=== PATIENT | male | born 1955 | race Caucasian/White ===

== ENCOUNTER 2018-11-18 21:13 | Inpatient (IN) ==
[2018-11-18] MEDS ORDERED: Furosemide 40 MG/4 ML VIAL IVP ONE (21:46)
--- NOTE | 2018-11-18 21:57 | Emergency Department Note ---
Disposition Clinical Impression: Acute exacerbation of congestive heart failure Qualifiers: Heart failure type: unspecified Qualified Code(s): I50.9 - Heart failure, unspecified Chronic kidney disease (CKD) Qualifiers: Chronic kidney disease stage: unspecified stage Qualified Code(s): N18.9 - Chronic kidney disease, unspecified Disposition: Admitted As Inpatient Condition: Fair Referrals: NONE,PCP [Primary Care Provider] - Forms: ED Satisfaction Letter Time of Disposition: 22:30 SOB HPI - General Chief Complaint: ED Shortness of Breath/Dyspnea Stated Complaint: SOB/fluid retention Time Seen by Provider: 11/18/18 21:32 Source: patient, family Mode of arrival: wheelchair Limitations: no limitations Nursing Notes Reviewed: Yes Vital Signs Reviewed: Yes - History of Present Illness Patient has history of advanced kidney disease and congestive heart failure. He complains of water weight gain, peripheral edema, dyspnea. He has a baseline orthopnea and has to lie on his right side at night to sleep. He states his loss control representative stopped his Bumex and change to torsemide because of concerns for allergic type symptoms. He states his swelling has increased since that time. No chest pain Pt Subjective Complaint: shortness of breath Onset (ago): day(s) Consistency/Duration: intermittent Improves with: oxygen, bronchodilators Worsens with: exertion, movement Known history of: congestive heart failure, diabetes Associated symptoms: Reports: other (Dry mouth) Treatment prior to arrival: oxygen - Related Data Home Medications Medication Instructions Recorded Confirmed Apixaban [Eliquis] 5 mg PO BID 07/18/17 09/24/17 Atorvastatin Calcium [Lipitor] 80 mg PO DAILY 07/18/17 09/24/17 Empagliflozin [Jardiance] 10 mg PO DAILY 07/18/17 09/24/17 Ergocalciferol (VITAMIN D2) 50,000 unit PO Q5D 07/18/17 09/24/17 [Vitamin D2] Furosemide [Lasix] 40 mg PO DAILY 07/18/17 09/24/17 Insulin Glargine [Lantus] 26 unit SQ HS 07/18/17 09/24/17 Isosorbide MONOnitrate (24 HR) 30 mg PO DAILY 07/18/17 09/24/17 [Imdur] Pantoprazole Sodium [Protonix] 40 mg PO DAILY 07/18/17 09/24/17 Spironolactone [Aldactone] 25 mg PO DAILY 07/18/17 09/24/17 Terazosin [Hytrin] 5 mg PO HS 07/18/17 09/24/17 glipiZIDE [Glipizide] 10 mg PO DAILY 07/18/17 09/24/17 Allergies Allergy/AdvReac Type Severity Reaction Status Date / Time Cortisone AdvReac Confusion Verified 09/24/17 10:01 lisinopril AdvReac Cough Verified 09/24/17 10:01 All systems ED: reviewed and negative except as stated. Constitutional: Reports: as per HPI Eyes: Reports: as per HPI ENT ED: Reports: other ("[place]") Cardiovascular: Reports: dyspnea on exertion, edema Respiratory: Reports: dyspnea, wheezes Gastrointestinal: Reports: as per HPI Genitourinary: Reports: as per HPI Musculoskeletal: Reports: other (Right knee pain) Integumentary: Reports: as per HPI Neurological: Reports: as per HPI Psychiatric: Reports: as per HPI Endocrine: Reports: as per HPI Hematological/Lymphatic: Reports: as per HPI Allergic/Immunologic: Reports: as per HPI Past Medical History - Past Medical History Source: old records reviewed Medical history: Reports: COPD, coronary artery disease, CVA, diabetes, GI bl eed, hyperlipidemia, hypertension, renal disease, other Psychiatric history: Reports: no psych history - Social History Smoking Status: Former smoker Smokeless Tobacco Status: No Alcohol use: Reports: none Drug use: Reports: none Physical Exam - General Limitations: no limitations General appearance: alert, in no apparent distress - Head Head exam: atraumatic - Eye Eye exam: Present: normal appearance - ENT ENT exam: normal exam - Neck Neck exam: Present: normal inspection, full ROM - Chest Chest inspection: Present: symmetric chest wall rise - Respiratory Respiratory exam: Present: other (Diffuse expiratory rhonchi) - Cardiovascular Cardiovascular exam: Present: regular rate, irregular rhythm - Abdominal Exam Abdominal exam: Present: other (Obese) - Extremities Exam Extremities exam: Present: pedal edema - Neurological Exam Neurological exam: Present: alert, oriented X3, CN II-XII intact, other (Left- sided weakness remote from a stroke) - Psychiatric Psychiatric exam: Present: normal affect, normal mood - Skin Skin exam: Present: warm, dry, intact Course Course Narrative: Patient presents with unintentional water weight gain, peripheral edema, dyspnea. He has a known history of congestive heart failure. - Reevaluation(s) Reevaluation #1: patient requests a ramesh catheter bc his right knee is injured s/p fall 1 week ago and he cant ambulate / doesn't want to use a bedside commode or handheld uri nal Vital Signs Temperature 98.1 F 11/18/18 21:27 Pulse Rate 89 11/18/18 21:27 Respiratory Rate 24 11/18/18 21:27 Blood Pressure 154/66 11/18/18 21:27 O2 Sat by Pulse Oximetry 90 11/18/18 21:27 Temperature 98.1 F 11/18/18 21:27 Pulse Rate 89 11/18/18 21:27 Respiratory Rate 24 11/18/18 21:27 Blood Pressure 154/66 11/18/18 21:27 O2 Sat by Pulse Oximetry 95 11/18/18 22:06 Oxygen Delivery Oxygen Delivery Nasal Cannula Shortness of Breath/Dyspnea - Medical Records Medical records reviewed: Yes I reviewed the patient's medical records. - Lab Data Lab results reviewed: Yes I reviewed the patient's lab results. Result diagrams: 11/18/18 22:04 11/18/18 22:04 Lab Results 11/18/18 11/18/18 11/18/18 Range/Units 22:04 22:04 22:04 WBC 6.1 (4.3-11.1) K/mcL RBC 4.09 L (4.19-5.50) M/mcL Hgb 13.0 (12.9-16.9) g/dL Hct 40.7 (37.5-50.1) % MCV 99.5 D (83.0-100.0) fL MCH 31.8 (28.0-33.3) pg MCHC 31.9 (31.6-35.5) g/dL RDW 14.0 (11.5-14.5) % Plt Count 140 (140-400) K/mcL MPV 11.2 (9.4-12.4) fL Immature Gran % 0.5 (0-4) % Seg Neutrophils % 63.9 % Lymphocytes % 23.8 % Monocytes % 9.9 % Eosinophils % 1.2 % Basophils % 0.7 % Neutrophils # 3.9 (1.6-8.9) K/mcL Lymphocytes # 1.5 (0.6-4.6) K/mcL Monocytes # 0.6 (0.0-1.3) K/mcL Eosinophils # 0.1 (0.0-0.6) K/mcL Basophils # 0.0 (0.0-0.2) K/mcL Sodium 138 (136-145) mEq/L Potassium 5.1 (3.5-5.1) mEq/L Chloride 99 (98-107) mEq/L Carbon Dioxide 32 H (23-29) mEq/L BUN 41 H (8-23) mg/dL Creatinine 2.36 H (0.70-1.30) mg/dL Est GFR ( Amer) 34 L (> 60) Est GFR (Non-Af Amer) 28 L (> 60) BUN/Creatinine Ratio 17 (6-26) Glucose 219 H (70-105) mg/dL Calculated Osmolality 303 H (280-300) Calcium 8.8 (8.6-10.3) mg/dL Total Bilirubin 0.5 (0.3-1.0) mg/dL AST 23 (13-39) Units/L ALT 16 (7-52) Units/L Alkaline Phosphatase 97 (34-104) Units/L Troponin I < 0.03 (< 0.04) ng/mL B-Natriuretic Peptide 85 (Less than 100) pg/mL Serum Total Protein 5.8 L (6.4-8.9) g/dL Albumin 3.3 L (3.5-5.7) g/dL Globulin 2.5 (2.4-3.5) g/dL Albumin/Globulin Ratio 1.3 (1.1-2.2) - Radiology Data Radiology results reviewed: Yes I reviewed the patient's radiology results. - EKG Data EKG attestation: Yes I reviewed and interpreted this EKG. EKG results narrative: Irregularly irregular rhythm rate 88 QRS 97 QT/QTC 337/424. Study compared to previous dated 10/12/18
[2018-11-18 22:13] LABS: Basophils % 0.7 %; Eosinophils # 0.1 K/mcL (0.0-0.6); Eosinophils % 1.2 %; Hematocrit 40.7 % (37.5-50.1); Immature Granulocytes % 0.5 % (0-4); Lymphocytes # 1.5 K/mcL (0.6-4.6); Lymphocytes % 23.8 %; Mean Corpuscular HGB Conc 31.9 g/dL (31.6-35.5); Mean Corpuscular Hemoglobin 31.8 pg (28.0-33.3); Mean Platelet Volume 11.2 fL (9.4-12.4); Monocytes # 0.6 K/mcL (0.0-1.3); Monocytes % 9.9 %; Neutrophils # 3.9 K/mcL (1.6-8.9); Platelet Count 140 K/mcL (140-400); Red Blood Count 4.09 M/mcL (4.19-5.50); Segmented Neutrophils % 63.9 %
[2018-11-18 22:18] LABS: Mean Corpuscular Volume 99.5 fL (83.0-100.0)
[2018-11-18 22:36] LABS: Troponin I < 0.03 ng/mL (< 0.04)
[2018-11-18 22:43] LABS: Alanine Aminotransferase 16 Units/L (7-52); Albumin 3.3 g/dL (3.5-5.7); Albumin/Globulin Ratio 1.3 (1.1-2.2); Alkaline Phosphatase 97 Units/L (34-104); Aspartate Amino Transferase 23 Units/L (13-39); BUN/Creatinine Ratio 17 (6-26); Bilirubin,Total 0.5 mg/dL (0.3-1.0); Blood Urea Nitrogen 41 mg/dL (8-23); Calcium 8.8 mg/dL (8.6-10.3); Carbon Dioxide 32 mEq/L (23-29); Chloride 99 mEq/L (98-107); Globulin 2.5 g/dL (2.4-3.5); Glucose 219 mg/dL (70-105); Osmolality,Calculated 303 (280-300); Potassium 5.1 mEq/L (3.5-5.1); Sodium 138 mEq/L (136-145); Total Protein 5.8 g/dL (6.4-8.9); eGFR For Non-African Americans 28 (> 60)
[2018-11-19] MEDS ORDERED: Naloxone 0.4 MG/ML INJ IVP PRN (05:45)
[2018-11-19 06:52] LABS: Basophils # 0.1 K/mcL (0.0-0.2); Basophils % 0.8 %; Eosinophils # 0.1 K/mcL (0.0-0.6); Eosinophils % 1.6 %; Hematocrit 38.7 % (37.5-50.1); Hemoglobin 12.6 g/dL (12.9-16.9); Immature Granulocytes % 0.3 % (0-4); Lymphocytes # 1.5 K/mcL (0.6-4.6); Lymphocytes % 23.3 %; Mean Corpuscular HGB Conc 32.6 g/dL (31.6-35.5); Mean Corpuscular Hemoglobin 32.2 pg (28.0-33.3); Mean Platelet Volume 11.4 fL (9.4-12.4); Monocytes # 0.6 K/mcL (0.0-1.3); Monocytes % 9.2 %; Neutrophils # 4.2 K/mcL (1.6-8.9); Platelet Count 142 K/mcL (140-400); Red Blood Count 3.91 M/mcL (4.19-5.50); Red Cell Distribution Width 14.2 % (11.5-14.5); Segmented Neutrophils % 64.8 %
[2018-11-19 07:13] LABS: Albumin 3.3 g/dL (3.5-5.7); Albumin/Globulin Ratio 1.3 (1.1-2.2); Bilirubin,Total 0.6 mg/dL (0.3-1.0); Globulin 2.5 g/dL (2.4-3.5); Phosphorous 4.1 mg/dL (2.7-4.5); Potassium 4.7 mEq/L (3.5-5.1); Total Protein 5.8 g/dL (6.4-8.9)
[2018-11-19] MEDS ORDERED: *HR* Dextrose 50 % in Water (Syg) 50 ML SYRINGE IVP PRN (07:46)
[2018-11-19] MEDS ORDERED: D5% in Water 1,000 ML IVC PRN (07:46)
[2018-11-19] MEDS ORDERED: Dextrose Gel 15 GM/37.5 ML TUBE PO PRN ×2 (07:46)
--- NOTE | 2018-11-19 08:48 | Internal Med History&Physical ---
Date of Encounter: 11/19/18 Time of Encounter: 08:39 Internal Medicine - H&P: HPI Chief complaint: shortness of breath, lower extremities edema. Admitted From: Home Plans for Post Hospital Care: Home History of present illness: Mr. Cazares is a 63 year old male PMH CKD< CHF, DM, A.fib, YANG, HTN, and a CVA with left sided residual weakness. Patient presented to the ed due to shortness of breath that has been progressing over the past month. He reports that yesterday he started having increased shortness of breath at rest and had to increase his O2 supplementation from 2 litters to 4 litters, and still his O2 saturation was 81% for which he decided to come to the ED. He also reports that over the past month his diuretics have been changed, he was on bumex but it was changed to torsemide due to some allergic reaction. Reports that after being placed on torsemide his lower extremities have been getting more edematous, associated with increase in his weight. Stated that he went to his PCP on Wednesday and they increased his torsemide to twice a day without any significant improvement on his symptoms. he denies chest pain, nausea, vomiting or lightheadedness. Denies increase in fluid intake. Past Med Surg Social Fam HX - Past Medical History Medical history: COPD, coronary artery disease, CVA, diabetes, GI bleed, hyperlipidemia, hypertension, renal disease, other Additional medical history: CVA 1996 - 49 use of left side. Stage IV Renal Disease. Type II Diabetic Psychiatric history: no psych history - Past Surgical History Additional surgical history: lapband surgery, emergency surgery for bleeding ulcer, 3-4 cardiac stents - Social History Smoking Status: Former smoker Smokeless Tobacco Status: No Alcohol use: none Drug use: none Internal Medicine - H&P: Meds Apixaban [Eliquis] 5 mg PO BID 11/19/18 [History] Atorvastatin [Lipitor] 80 mg PO AD 11/19/18 [History] Calcitriol [Rocaltrol] 0.25 mcg PO DAILY 11/19/18 [History] Cholecalciferol (Vitamin D3) 11/19/18 [History] Hydrocodone/Acetaminophen [Hydrocodon-Acetaminophen 5-325] 1 each PO TID PRN 11/19/18 [History] Insulin NPH Hum/Reg Insulin Hm [Novolin 70-30 100 Unit/ml Vial] 70 unit SQ QAM 11/19/18 [History] Isosorbide MONOnitrate [Isosorbide Mononitrate ER] 30 mg PO DAILY 11/19/18 [History] Mag Oxide/D3/Turmeric Rt Xt [Magnesium-Vit D3-Turmeric Tab] 1 each PO BID 11/19/18 [History] Metoprolol XL (24 HR) Succ [Toprol XL] 25 mg PO BID 11/19/18 [History] Pantoprazole Sodium [Protonix] 40 mg PO DAILY 11/19/18 [History] Terazosin [Hytrin] 5 mg PO DAILY 11/19/18 [History] Torsemide [Demadex] 10 mg PO BID 11/19/18 [History] metOLazone [Zaroxolyn] 2.5 mg PO 11/19/18 [History] Allergy/AdvReac Type Severity Reaction Status Date / Time Cortisone AdvReac Confusion Verified 09/24/17 10:01 lisinopril AdvReac Cough Verified 09/24/17 10:01 All Systems PM: A 10-system review of systems was performed and is negative for pertinent findings except as documented above in the HPI. - Constitutional Constitutional: weight gain, no fever(s), no malaise, no weakness - EENT Eyes: no irritation Nose, mouth and throat: no nasal congestion - Cardiovascular Cardiovascular ROS IM: chest pain, dyspnea, dyspnea on exertion, edema, orthopnea, paroxysmal nocturnal dyspnea, no irregular heart rhythm, no lightheadedness, no palpitations, no syncope - Respiratory Respiratory: no cough, no wheezing - Gastrointestinal Gastrointestinal: no abdominal pain - Genitourinary Genitourinary ROS male: no urinary frequency, no urinary hesitancy, no urinary incontinence, no urinary urgency - Musculoskeletal Musculoskeletal ROS IM: no back pain, no numbness, no stiffness - Integumentary Integumentary IM: no erythema - Neurological Neurological ROS: no headache(s), no lack of coordination - Psychiatric Psychiatric: no hallucinations, no homicidal ideation - Endocrine Endocrine IM: no polydipsia, no polyphagia, no polyuria - Hematologic/Lymphatic Hematologic/Lymphatic: no lymphadenopathy - Allergic/Immunologic Allergic/Immunologic: no wheezing Additional comments: Rest of 10 review of system negative. - Constitutional Vitals: Temp Pulse Resp BP Pulse Ox 97.4 F L 102 18 127/71 91 11/19/18 07:23 11/19/18 07:23 11/19/18 07:23 11/19/18 07:23 11/19/18 07:23 Exam: Vitals: Reviewed. General: Obese, Alert and oriented x4. mild distress due to shortness of breath. Skin: Normal color, no rash, no lesions. HEENT: EOM, pupils equal, round and reactive. Cardiovascular: Irregularly, irregular, normal S1 & S2, no rubs, murmurs or gallops. JVD unable to access due to short neck Lungs: mild scattered b/l wheezes, minimal crackles at the bases b/l. Abdomen: Soft, non-tender, no rigidity. Extremities: 2+ pitting edema. Neurological: Normal cognition and motor skills. Rest of the physical exam is non contributory Internal Med - H&P Results - Labs CBC & Chem 7: 11/19/18 06:36 11/19/18 06:36 Labs: Short CBC 11/18/18 11/19/18 Range/Units 22:04 06:36 WBC 6.1 6.4 (4.3-11.1) K/mcL Hgb 13.0 12.6 L (12.9-16.9) g/dL Hct 40.7 38.7 (37.5-50.1) % Plt Count 140 142 (140-400) K/mcL Neutrophils # 3.9 4.2 (1.6-8.9) K/mcL BMP 11/18/18 11/19/18 22:04 06:36 Sodium 138 140 Potassium 5.1 4.7 Chloride 99 99 Carbon Dioxide 32 H 37 H BUN 41 H 42 H Creatinine 2.36 H 2.55 H Glucose 219 H 194 H Calcium 8.8 9.0 Cardiac Enzymes 11/18/18 Range/Units 22:04 Troponin I < 0.03 (< 0.04) ng/mL Liver Function 11/18/18 11/19/18 Range/Units 22:04 06:36 Total Bilirubin 0.5 0.6 (0.3-1.0) mg/dL AST 23 13 (13-39) Units/L ALT 16 13 (7-52) Units/L Alkaline Phosphatase 97 88 (34-104) Units/L Albumin 3.3 L 3.3 L (3.5-5.7) g/dL - Impressions ITS Impressions Chest X-Ray 11/18/18 21:33 IMPRESSION: Perhaps mild pulmonary vascular congestion and interstitial edema. D/ / Zenon Duque MD / Zenon Duque MD Interpreting Provider: Zenon Duque MD - Diagnostic Studies Chest x-ray Status: image reviewed by me (possible pulmonary congestion. ) - Assessment and plan (1) Acute exacerbation of congestive heart failure Current Visit: Yes Status: Acute Assessment and plan: 2 plus pitting edema in the lower extr b/l. Plan On torsemide 10mg/PO daily Nephrology team has been consulted to assist with the diuresis strict intake and output water restriction to 1.5 litters a day. daily weight 2 gram sodium diet on a beta-danny continue Isosorbide 30mg/PO daily Qualifiers: Heart failure type: unspecified Qualified Code(s): I50.9 - Heart failure, unspecified (2) Diabetes Current Visit: Yes Status: Chronic Assessment and plan: started on a carb controlled diet, will resume Humulin 70/30 40 units BID, plus lispro low dose sliding scale ac. Qualifiers: Diabetes mellitus type: type 2 Diabetes mellitus complication status: with unspecified complications Qualified Code(s): E11.8 - Type 2 diabetes mellitus with unspecified complications (3) YANG (obstructive sleep apnea) Current Visit: Yes Status: Chronic (4) CVA (cerebral vascular accident) Current Visit: Yes Status: Chronic Assessment and plan: patient with a Hx of A.fib on Apixaban for secondary stroke prevention. Qualifiers: CVA mechanism: unspecified Qualified Code(s): I63.9 - Cerebral infarction, unspecified (5) Chronic kidney disease (CKD) Current Visit: Yes Status: Chronic Assessment and plan: slightly worsening kidney function possible due to CHF exacerbation. patient started on torsemide. Nephrology has been consulted, recommendations appreciated. Qualifiers: Chronic kidney disease stage: stage 4 (severe) Qualified Code(s): N18.4 - Chronic kidney disease, stage 4 (severe) (6) DVT prophylaxis Current Visit: No Status: Acute Assessment and plan: patient is anticoagulated with apixaban due to a.fib (7) Morbid obesity with BMI of 40.0-44.9, adult Current Visit: No Status: Chronic (8) COPD (chronic obstructive pulmonary disease) Current Visit: No Status: Chronic Assessment and plan: PFT done on 04/04/18. Spirometry shows severe airway restrictive disease. Started on bronchodilators Q4RT PRN for wheezing. Incentive spirometry. Qualifiers: COPD type: unspecified COPD Qualified Code(s): J44.9 - Chronic obstructive pulmonary disease, unspecified (9) Atrial fibrillation Current Visit: Yes Status: Chronic Assessment and plan: rate controlled on metoprolol 25mg/PO BID. resume apixaban 5mg/PO BID. telemetry monitoring. Qualifiers: Atrial fibrillation type: chronic Qualified Code(s): I48.2 - Chronic atrial fibrillation (10) HLD (hyperlipidemia) Current Visit: Yes Status: Chronic Assessment and plan: on statin Qualifiers: Hyperlipidemia type: unspecified Qualified Code(s): E78.5 - Hyperlipidemia, unspecified - Time Spent With Patient Total time spent is greater than 50% in coordination of care (as documented) at patient's floor/unit and/or counseling patient: Greater than 35 minutes (50)
[2018-11-19] MEDS ORDERED: Ipratropium/Albuterol Neb 3 ML IH PRN (08:51)
[2018-11-19] MEDS: Apixaban 5 MG TABLET PO SCH ×2 (09:43→19:29)
[2018-11-19] MEDS: Insulin LISPRO 300 UNITS/3 ML VIAL SQ SCH ×4 (09:43→17:00)
[2018-11-19] MEDS: Isosorbide MONOnitrate (24 HR) 30 MG TAB.ER.24H PO SCH (09:49)
[2018-11-19] MEDS: Torsemide 20 MG TABLET PO SCH (09:49)
[2018-11-19] MEDS: Metoprolol XL (24 HR) Succ 25 MG TAB.ER.24H PO SCH (09:49)
[2018-11-19] MEDS: Insulin NPH/REG 70/30 100 UNIT/ML (x5UNIT) SQ SCH (10:41)
--- NOTE | 2018-11-19 15:09 | Nephrology Consult Note ---
Date of Encounter: 11/19/18 Time of Encounter: 15:00 Assessment and Plan (1) CKD (chronic kidney disease) stage 4, GFR 15-29 ml/min Current Visit: Yes Status: Acute Known history of progressive renal decline in the setting of svereal comorbidities Will check urine studies, has a hsitry of nephrotic range proteinuria in the past though has improved Will check PTH and vitamin D levels Avoid nephrotoxins if possible (2) Acute exacerbation of congestive heart failure Current Visit: Yes Status: Acute Strict I/Os advised Fluid restriction at 1.5liters a shey Cardiac, renal diet advised Needs echo if not already done Will dose carefully with iv lasix/albumin combo Qualifiers: Heart failure type: unspecified Qualified Code(s): I50.9 - Heart failure, unspecified History of Present Illness - Reason for Consult Consult date: 11/19/18 Acute Kidney Injury, Chronic Kidney Disease Requesting physician: Lionel Llanes - History of Present Illness 63 y o male with PMH of DM, HTN, Afib, CAD with CHF, YANG, morbic obesity s/p weight loss surgery with complications and stage [address] Garcia (last seen 11/02/18)admitted with progressive SOB and LE edema. He is being treated for CHD execerbation. renal consulted to help with diuresis. SCr noted within range of fluctuation in the 2.0s, GFR has been in the 20s in the past several months. Pt seen and examined reportsing worsening oxygen requirement lately. He also admits to dietary indiscretions as well. Past Med Surg Social Fam HX - Past Medical History Medical history: COPD, coronary artery disease, CVA, diabetes, GI bleed, hyperlipidemia, hypertension, renal disease, other Additional medical history: CVA 1996 - 50% use of left side. Stage IV Renal Disease. Type II Diabetic Psychiatric history: no psych history - Past Surgical History Additional surgical history: lapband surgery, emergency surgery for bleeding ulcer, 3-4 cardiac stents - Social History Smoking Status: Former smoker Smokeless Tobacco Status: No Alcohol use: none Drug use: none Medications and Allergies Apixaban [Eliquis] 5 mg PO BID 11/19/18 [History] Atorvastatin [Lipitor] 80 mg PO AD 11/19/18 [History] Calcitriol [Rocaltrol] 0.25 mcg PO DAILY 11/19/18 [History] Cholecalciferol (Vitamin D3) 11/19/18 [History] Hydrocodone/Acetaminophen [Hydrocodon-Acetaminophen 5-325] 1 each PO TID PRN 11/19/18 [History] Insulin NPH Hum/Reg Insulin Hm [Novolin 70-30 100 Unit/ml Vial] 70 unit SQ QAM 11/19/18 [History] Isosorbide MONOnitrate [Isosorbide Mononitrate ER] 30 mg PO DAILY 11/19/18 [History] Mag Oxide/D3/Turmeric Rt Xt [Magnesium-Vit D3-Turmeric Tab] 1 each PO BID 11/19/18 [History] Metoprolol XL (24 HR) Succ [Toprol XL] 25 mg PO BID 11/19/18 [History] Pantoprazole Sodium [Protonix] 40 mg PO DAILY 11/19/18 [History] Terazosin [Hytrin] 5 mg PO DAILY 11/19/18 [History] Torsemide [Demadex] 10 mg PO BID 11/19/18 [History] metOLazone [Zaroxolyn] 2.5 mg PO 11/19/18 [History] Allergy/AdvReac Type Severity Reaction Status Date / Time Cortisone AdvReac Confusion Verified 09/24/17 10:01 lisinopril AdvReac Cough Verified 09/24/17 10:01 Exam - Vital Signs Vital signs: Initial Vital Signs Temp Pulse Resp BP Pulse Ox 98.1 F 89 24 154/66 90 11/18/18 21:27 11/18/18 21:27 11/18/18 21:27 11/18/18 21:27 11/18/18 21:27 Vital Signs - Last 8 Hours Temp Pulse Resp BP Pulse Ox 11/19/18 11:33 99.0 F 88 18 130/69 94 11/19/18 07:23 97.4 F L 102 18 127/71 91 Intake and Output 11/18/18 11/19/18 11/19/18 23:59 07:59 15:59 Intake Total 720 / 720 Output Total 450 / 450 Balance -450 / -450 720 / 720 Intake: Oral 720 / 720 Output: Catheter 450 / 450 Other: Meal Lunch Percent of Meal Consumed 100% Weight 176.901 kg Blood Glucose* 197 260 Results - Lab Results 11/19/18 06:36 11/19/18 06:36 Most recent lab results Calcium 9.0 mg/dL (8.6-10.3) 11/19/18 06:36 Phosphorus 4.1 mg/dL (2.7-4.5) 11/19/18 06:36 Consult Discharge Plan - Plan Referrals: Margaret Delgado CNP [Advanced Practice Nurse] -
[2018-11-19] MEDS ORDERED: Furosemide 40 MG in 0.9 % Sodium Chloride 50 ML IVPB ONE (16:06)
[2018-11-19] MEDS ORDERED: Furosemide 40 MG/4 ML VIAL ONE (16:14)
[2018-11-19] MEDS: Albumin 25% 25gram/100mL 25 GM/100 ML IV.SOLN IVPB SCH (16:52)
[2018-11-19] MEDS: *HR* HYDROcodone/Acet 5/325 mg TABLET PO PRN (19:49)
[2018-11-19 22:59] LABS: Bilirubin,Urine Negative (Negative); Blood,Urine Large (Negative); Clarity,Urine Clear (Clear); Color,Urine Yellow (Yellow); Glucose,Urine (UA) Normal (Normal); Ketones,Urine Negative (Negative); Leukocyte Esterase,Urine Negative (Negative); Nitrite,Urine Negative (Negative); PH,Urine 6.5 pH Units (5.0-8.0); Protein,Urine >=300 mg/dL (Neg-Trace); Specific Gravity,Urine 1.013 (1.010-1.025); Urobilinogen,Urine Normal (Normal)
[2018-11-19 23:02] LABS: Bacteria,Urine None Seen per hpf (None-Few); Hyaline Casts,Urine None Seen per lpf (None-Few); RBC,Urine 50-100 per hpf (0-3); Squamous Epithelial Cell,Urine Moderate per lpf (None-Few); WBC,Urine 0-3 per hpf (0-3)
[2018-11-19 23:27] LABS: Creatinine,Urine 83 mg/dL; Microalbumin,Urine > 1350 mg/L; Sodium, Urine 85.7 mEq/L
[2018-11-20] MEDS: *HR* HYDROcodone/Acet 5/325 mg TABLET PO PRN ×3 (03:30→21:09)
[2018-11-20] MEDS: Albumin 25% 25gram/100mL 25 GM/100 ML IV.SOLN IVPB SCH ×2 (05:16→17:06)
[2018-11-20] MEDS: Apixaban 5 MG TABLET PO SCH ×2 (07:52→21:03)
[2018-11-20] MEDS: Torsemide 20 MG TABLET PO SCH (07:52)
[2018-11-20] MEDS: Insulin NPH/REG 70/30 100 UNIT/ML (x5UNIT) SQ SCH ×2 (07:53→16:44)
[2018-11-20] MEDS: Metoprolol XL (24 HR) Succ 25 MG TAB.ER.24H PO SCH ×2 (07:53→21:03)
[2018-11-20] MEDS: Isosorbide MONOnitrate (24 HR) 30 MG TAB.ER.24H PO SCH (07:53)
[2018-11-20] MEDS: Insulin LISPRO 300 UNITS/3 ML VIAL SQ SCH ×3 (07:53→16:41)
--- NOTE | 2018-11-20 11:32 | Nephrology Progress Note ---
Date of Encounter: 11/20/18 Time of Encounter: 12:00 - Assessment and Plan (1) CKD (chronic kidney disease) stage 4, GFR 15-29 ml/min Current Visit: Yes Status: Acute No new labs available today PTH elevated with vitamin D level pending Urine showed nephrotic range proteinuria at 3.7gram which might be contributing, probably from uncontroleed DM FeUrea noted at 33% consistent with pre-renal state from CHF (2) Acute exacerbation of congestive heart failure Current Visit: Yes Status: Acute Continue strict I/Os Continue fluid restriction at 1.5liters a shey Cardiac, renal diet advised Echo pending s/p iv lasix/albumin combo yesterday with continued albumin today, appears to be working well so far. Will assess daily for further changes Qualifiers: Heart failure type: unspecified Qualified Code(s): I50.9 - Heart failure, unspecified (3) Diabetes Current Visit: Yes Status: Chronic Qualifiers: Diabetes mellitus type: type 2 Diabetes mellitus complication status: with unspecified complications Qualified Code(s): E11.8 - Type 2 diabetes mellitus with unspecified complications Subjective Interval history: Pt seen and examined feeling better and has had approx. 2950cc UOP in the past 24hrs and 2liters already today Objective - Vital Signs Vital signs: Vital Signs Temp Pulse Resp BP Pulse Ox 11/20/18 11:09 98.3 F 92 17 138/73 96 11/20/18 07:06 98.5 F 92 16 110/72 93 11/20/18 04:40 98.5 F 91 12 126/77 92 11/19/18 23:52 98.4 F 96 14 133/79 93 11/19/18 19:45 98.3 F 84 12 164/76 96 11/19/18 16:13 98.4 F 76 18 125/70 94 11/19/18 11:33 99.0 F 88 18 130/69 94 Intake and Output 11/19/18 11/20/18 11/20/18 23:59 07:59 15:59 Intake Total 154 / 154 337 / 337 840 / 840 Output Total 1700 / 1700 1550 / 1550 500 / 500 Balance -1546 / -1546 -1213 / -1213 340 / 340 Intake: IV Fluids 154 / 154 100 / 100 Flexbumin 25 gm In 100 ml @ 60 100 / 100 100 / 100 mls/hr IVPB Q12HR ISABEL Rx#: [id number] Lasix 40 MG In 0.9 % Sodium 54 / 54 Chloride 50 ML @ 100 mls/hr IVPB ONCE ONE Rx#:[id number] Oral 237 / 237 840 / 840 Output: Urine 850 / 850 975 / 975 Catheter 850 / 850 575 / 575 500 / 500 Other: Meal 1 silvia ghram pack and 1 goldfish pack Breakfast Percent of Meal Consumed 100% Weight 186 kg Blood Glucose* 166 214 206 Patient Weight 11/20/18 23:59 Weight 186 kg - Lab 11/19/18 06:36 11/19/18 06:36 Most recent lab results Calcium 9.0 mg/dL (8.6-10.3) 11/19/18 06:36 Phosphorus 4.1 mg/dL (2.7-4.5) 11/19/18 06:36 Urine Creatinine 83 mg/dL 11/19/18 22:00 Urine Sodium 85.7 mEq/L 11/19/18 22:00 Urine Total Protein 307 mg/dL (1-14) H 11/19/18 22:00 Consult Discharge Plan - Plan Referrals: Margaret Delgado [employer] [Advanced Practice Nurse] -
[2018-11-20] MEDS ORDERED: Insulin NPH/REG 70/30 100 UNIT/ML (x5UNIT) SQ SCH (12:00)
[2018-11-20] MEDS ORDERED: Perflutren Lipid Microsphere 1.3 ML in 0.9 % Sodium Chloride 8.7 ML IVP ONE (12:23)
--- NOTE | 2018-11-20 15:45 | Electrocardiograph Report ---
[place] [id number] Test Date: 2018-11-18 Pat Name: Francesco Cazares Department: [id number] Room: 2A26 Gender: M [employer] Worker: : 1955 Requested By: Samuel Sanchez Order Number: [id number] Reading MD: Jcarlos Mendez Measurements Intervals [place] Rate: 88 P: AK: QRS: 55 QRSD: 97 T: 79 QT: 337 QTc: 424 Interpretive Statements Atrial fibrillation Low voltage, precordial leads Electronically Signed On 11-20-2018 15:43:31 EST by Jcarlos Mendez
--- NOTE | 2018-11-20 16:58 | Internal Med Progress Note ---
Hospitalist Progress Note - Encounter Date of Encounter: 11/20/18 Time of Encounter: 15:00 - Subjective Interval History: SUBJECTIVE: The patient feels pretty good. His breathing is not labored anymore. He does have mild cough; without wheezing. He is on 4 L/min nasal cannula oxygen; on 2 L/min at home. Denies chest pain. Denies abdominal pain, nausea and vomiting. He makes fair amounts of urine. Swelling of his lower legs/feet has decreased. OBJECTIVE: Skin: Free of rash and discoloration. ENMT: Oral/pharyngeal mucosa is normal in appearance. Eyes: Sclera is white. There is no discharge from eyes. Respiratory: Normal breath sounds; no crackles or wheezes. CV: Heart is regular; no gallop or murmur. There is mild swelling of his lower legs around the ankles. GI: Abdomen is soft and not tender. There is no palpable mass or visceromegaly. Neuro: There is no focal deficits. ADDITIONAL DATA: His BMP from yesterday morning revealed normal electrolytes except of [id number]. It showed a creatinine of 2.55 with GFR of 26. I am ordering CBC, BMP and chest x-ray for tomorrow morning. ASSESSMENT AND PLAN: Acute on chronic diastolic heart failure in a patient with CKD stage IV secondary to long-standing type 2 diabetes mellitus and hypertension. We appreciate help from nephrology. He is getting twice a day albumin (for 2 days). I will increase his dose of Demadex. He is on Humulin 70/30twice a day. He gets when necessary Humalog. His blood pressure is under control using Toprol-XL, Demadex and Hytrin. Coronary artery disease. Under control. To continue Toprol-XL with Lipitor. To restart his aspirin. Atrial fibrillation. Rate controlled. To continue Eliquis and Toprol-XL. DISPOSITION: I anticipate, that he would be going home in 2-3 days. - Exam Vitals: Temp Pulse Resp BP Pulse Ox 97.8 F 83 16 118/73 94 11/20/18 15:08 11/20/18 15:08 11/20/18 15:08 11/20/18 15:08 11/20/18 15:08 Exam: xx - Assessment and Plan (1) Acute on chronic diastolic heart failure Current Visit: Yes Status: Acute (2) Type 2 diabetes mellitus Current Visit: Yes Status: Acute (3) Hypertensive renal disease with renal failure Current Visit: Yes Status: Chronic (4) CAD (coronary artery disease) Current Visit: Yes Status: Chronic (5) Atrial fibrillation Current Visit: Yes Status: Chronic (6) COPD (chronic obstructive pulmonary disease) Current Visit: Yes Status: Chronic (7) GERD (gastroesophageal reflux disease) Current Visit: Yes Status: Chronic (8) YANG (obstructive sleep apnea) Current Visit: Yes Status: Chronic (9) Morbid obesity with BMI of 40.0-44.9, adult Current Visit: No Status: Chronic - Time Spent with Patient Total time spent is greater than 50% in coordination of care (as documented) at patient's floor/unit and/or counseling patient: Internal Medicine: Result - Labs CBC & Chem 7: 11/19/18 06:36 11/19/18 06:36 Labs: Urine 11/19/18 Range/Units 22:00 Urine Color Yellow (Yellow) Urine Clarity Clear (Clear) Urine pH 6.5 (5.0-8.0) pH Units Ur Specific [place] 1.013 (1.010-1.025) Urine Protein >=300 H (Neg-Trace) mg/dL Urine Glucose (UA) Normal (Normal) mg/dL - Impressions Impressions Echocardiogram 11/20/18 16:06 Impressions: LVEF 55-60%. Indeterminate diastolic function. Normal LV chamber size, wall thickness. No segmental dysfunction. Normal right ventricular structure and function. Unable to estimate RVSP due to lack of TR jet. No significant valvular dysfunction visualized. Left Ventricular Wall Motion: Rest Echo Findings All wall segments showed normal motion. Findings: Study Quality * Technically sub-optimal due to poor echocardiographic windows. ECG Findings * Atrial fibrillation. Left Ventricle * LVEF 55-60%. * Indeterminate diastolic function. * There is no LV thrombus. * Definity echo contrast was used. * Normal LV chamber size, wall thickness. * No segmental dysfunction. Right Ventricle * Normal right ventricular structure and function. Left Atrium * Normal left atrial size. Right Atrium * Normal right atrial size. Interatrial Septum * Interatrial septum not well evaluated. Aortic Valve * Aortic valve not well visualized. * No aortic regurgitation. * No aortic stenosis. Mitral Valve * Normal mitral valve structure. * No mitral regurgitation. * No mitral stenosis. Tricuspid Valve * Tricuspid valve not well visualized. * No tricuspid stenosis. * No tricuspid regurgitation. * Unable to estimate RVSP due to lack of TR jet. Pulmonic Valve * Pulmonic valve is not well visualized. Aorta * Normally sized aortic root. Pericardium * The pericardium appears normal. IVC * The IVC is not well evaluated. Consult Discharge Plan - Plan Referrals: Margaret Delgado, STEPDOWN NURSE [Advanced Practice Nurse] - (2) Type 2 diabetes mellitus Qualifiers: Diabetes mellitus manager long term care insulin use: with manager long term care use Diabetes mellitus complication status: with kidney complications Diabetes mellitus complication detail: with chronic kidney disease Chronic kidney disease stage: stage 4 (severe) Qualified Code(s): E11.22 - Type 2 diabetes mellitus with diabetic chronic kidney disease; N18.4 - Chronic kidney disease, stage 4 (severe); Z79.4 - prison (current) use of insulin (4) CAD (coronary artery disease) Qualifiers: Coronary Disease-Associated Artery/Lesion type: [place] artery [place] vs. transplanted heart: [place] heart Associated angina: without angina Qualified Code(s): I25.10 - Atherosclerotic heart disease of [place] coronary artery without angina pectoris (5) Atrial fibrillation Qualifiers: Atrial fibrillation type: chronic Qualified Code(s): I48.2 - Chronic atrial fibrillation (6) COPD (chronic obstructive pulmonary disease) Qualifiers: COPD type: unspecified COPD Qualified Code(s): J44.9 - Chronic obstructive pulmonary disease, unspecified (7) GERD (gastroesophageal reflux disease) Qualifiers: Esophagitis presence: esophagitis presence not specified Qualified Code(s): K21.9 - Gastro-esophageal reflux disease without esophagitis
[2018-11-21] MEDS: *HR* HYDROcodone/Acet 5/325 mg TABLET PO PRN ×3 (03:32→20:32)
[2018-11-21] MEDS: Albumin 25% 25gram/100mL 25 GM/100 ML IV.SOLN IVPB SCH ×2 (05:08→17:07)
[2018-11-21 07:08] LABS: Calcium 9.3 mg/dL (8.6-10.3); Magnesium 1.4 mg/dL (1.6-2.6); Potassium 4.7 mEq/L (3.5-5.1)
[2018-11-21] MEDS: Apixaban 5 MG TABLET PO SCH ×2 (08:44→20:32)
[2018-11-21] MEDS: Metoprolol XL (24 HR) Succ 25 MG TAB.ER.24H PO SCH (08:45)
[2018-11-21] MEDS: Torsemide 20 MG TABLET PO SCH (08:45)
[2018-11-21] MEDS: Aspirin 81 MG TAB.CHEW PO SCH (08:46)
[2018-11-21] MEDS: Isosorbide MONOnitrate (24 HR) 30 MG TAB.ER.24H PO SCH (08:46)
[2018-11-21] MEDS: Insulin NPH/REG 70/30 100 UNIT/ML (x5UNIT) SQ SCH ×2 (08:47→17:03)
[2018-11-21] MEDS: Insulin LISPRO 300 UNITS/3 ML VIAL SQ SCH ×3 (08:49→17:04)
--- NOTE | 2018-11-21 10:47 | Nephrology Progress Note ---
Date of Encounter: 11/21/18 Time of Encounter: 10:43 - Assessment and Plan (1) CKD (chronic kidney disease) stage 4, GFR 15-29 ml/min Current Visit: Yes Status: Acute Baseline CKD 4. FeUrea noted at 33% consistent with pre-renal state from CHF. GFR improved at 33 and SCR improved at 2.06. Uop 3350 yesterday for 24 hour total and 600 already for today. Pt appears SOB with exam, ordered 40 mg IV lasix x 2 to help diurese. Continue PO dose of torsemide. Avoid other nephrotoxins and renal dose. (2) Acute exacerbation of congestive heart failure Current Visit: Yes Status: Acute Continue strict I/Os Continue fluid restriction at 1.5 liters a day. Cardiac, renal diet advised Echo 55-60. See above. Qualifiers: Heart failure type: unspecified Qualified Code(s): I50.9 - Heart failure, unspecified (3) Diabetes Current Visit: Yes Status: Chronic Per primary. Qualifiers: Diabetes mellitus type: type 2 Diabetes mellitus complication status: with unspecified complications Qualified Code(s): E11.8 - Type 2 diabetes mellitus with unspecified complications; Z79.4 - prison (current) use of insulin (4) Right knee pain Current Visit: Yes Status: Acute s/p fall at home last week. Patient was advised to get MRI of right knee when in hospital per patient. Will defer any additional imaging to primary team. Qualifiers: Qualified Code(s): M25.561 - Pain in right knee Subjective Principal diagnosis: fluid overload Interval history: Seen and examined. Admits to shortness of breath and fatigue. Denies chest pain, nausea, or vomiting. He c/o of right knee pain, brace to right knee noted. Would like to know if he can get an MRI that was suggested by the ER physician when he came in. Objective - Vital Signs Vital signs: Vital Signs Temp Pulse Resp BP Pulse Ox 11/21/18 07:53 98.0 F 93 18 133/80 95 11/21/18 03:53 98 F 86 18 150/72 91 11/21/18 00:28 98.2 F 97 18 154/64 97 11/20/18 21:14 95 11/20/18 20:00 97.9 F 84 18 134/68 95 11/20/18 15:08 97.8 F 83 16 118/73 94 11/20/18 11:09 98.3 F 92 17 138/73 96 Intake and Output 11/20/18 11/21/18 11/21/18 23:59 07:59 15:59 Intake Total 100 / 100 100 / 100 1080 / 1080 Output Total 700 / 700 600 / 600 Balance -600 / -600 -500 / -500 1079 / 1080 Intake: IV Fluids 100 / 100 100 / 100 Flexbumin 25 gm In 100 ml @ 60 100 / 100 100 / 100 mls/hr IVPB Q12HR [facility] Rx#: [id number] Oral 0 / 0 0 / 0 1079 / 1080 Output: Catheter 700 / 700 600 / 600 Other: Meal Breakfast Percent of Meal Consumed 100% Weight 187.1 kg Blood Glucose* 199 222 Patient Weight 11/21/18 23:59 Weight 187.1 kg - General Appearance General appearance: Present: well-developed, well-nourished, obese EENT: Present: ATNC, hearing intact, vision intact Neck: Present: supple Respiratory: Present: clear, rhonchi Cardiology: Present: edema (+2 pitting edmea noted to bilat lower extremities.), normal S1, normal S2 Gastrointestinal: Present: normoactive bowel sounds, no tenderness, no guarding Integumentary: Present: no rash, warm and dry Neurologic: Present: alert and oriented x3 Musculoskeletal: Present: no deformities, no erythema Psychiatric: Present: mood/affect appropriate, cooperative - Lab 11/19/18 06:36 11/21/18 06:12 Most recent lab results Calcium 9.3 mg/dL (8.6-10.3) 11/21/18 06:12 Phosphorus 4.1 mg/dL (2.7-4.5) 11/19/18 06:36 Magnesium 1.4 mg/dL (1.6-2.6) L 11/21/18 06:12 Urine Creatinine 83 mg/dL 11/19/18 22:00 Urine Sodium 85.7 mEq/L 11/19/18 22:00 Urine Total Protein 307 mg/dL (1-14) H 11/19/18 22:00 Consult Discharge Plan - Plan Referrals: Danny,Margaret Pérez CNP [Advanced Practice Nurse] - 12/05/18 9:00 am (Please follow as schedule...)
[2018-11-21] MEDS: Furosemide 40 MG/4 ML VIAL IVP SCH ×2 (11:34→17:07)
--- NOTE | 2018-11-21 21:08 | Internal Med Progress Note ---
Hospitalist Progress Note - Encounter Date of Encounter: 11/21/18 Time of Encounter: 15:00 - Subjective Interval History: SUBJECTIVE: The patient feels pretty good. However, he continues to use supplemental oxygen at 4 L/min. He was using 2 L/min at home. Denies resting dyspnea. Denies coughing and wheezing. Denies abdominal pain. He makes good amounts of urine. OBJECTIVE: Skin: Free of rash and discoloration. ENMT: Oral/pharyngeal mucosa is normal in appearance. Eyes: Sclera is white. There is no discharge from eyes. Respiratory: Normal breath sounds; no crackles or wheezes. CV: Heart is regular; no gallop or murmur. There is mild swelling of his lower legs around the ankles. GI: Abdomen is soft and not tender. There is no palpable mass or visceromegaly. Neuro: There is no focal deficits. ADDITIONAL DATA: His electrolytes are normal except of increased [id number]. Creatinine is 2.06; 2.36 at admission. Magnesium is 1.4. Chest x-ray shows cardiomegaly with mild vascular congestion. It shows a right pleural effusion with airspace disease in the right upper lobe. ASSESSMENT AND PLAN: Acute on chronic diastolic heart failure in a patient with CKD stage IV secondary to long-standing type 2 diabetes mellitus and hypertension. Nephrology is consulted. He is on oral Demadex and IV albumin. He is on Humulin 70/30 twice a day. He gets when necessary Humalog. His blood pressure is under control using Toprol-XL, Hytrin and Demadex. Coronary artery disease. Under control. To continue Toprol-XL with Lipitor/aspirin. Atrial fibrillation. Rate controlled. To continue Eliquis and Toprol-XL. DISPOSITION: He will be likely going home in 1-2 days. - Exam Vitals: Temp Pulse Resp BP Pulse Ox 97.9 F 84 19 137/68 93 11/21/18 20:33 11/21/18 20:33 11/21/18 20:33 11/21/18 20:33 11/21/18 20:33 Exam: xx - Assessment and Plan (1) Acute on chronic diastolic heart failure Current Visit: Yes Status: Acute (2) Type 2 diabetes mellitus Current Visit: Yes Status: Acute (3) Hypertensive renal disease with renal failure Current Visit: Yes Status: Chronic (4) CAD (coronary artery disease) Current Visit: Yes Status: Chronic (5) Atrial fibrillation Current Visit: Yes Status: Chronic (6) COPD (chronic obstructive pulmonary disease) Current Visit: Yes Status: Chronic (7) GERD (gastroesophageal reflux disease) Current Visit: Yes Status: Chronic (8) YANG (obstructive sleep apnea) Current Visit: Yes Status: Chronic (9) Morbid obesity with BMI of 40.0-44.9, adult Current Visit: No Status: Chronic - Time Spent with Patient Total time spent is greater than 50% in coordination of care (as documented) at patient's floor/unit and/or counseling patient: 25 - 35 minutes Plan of Care Discussed with: patient Internal Medicine: Result - Labs CBC & Chem 7: 11/19/18 06:36 11/21/18 06:12 Labs: BMP 11/21/18 06:12 Sodium 138 Potassium 4.7 Chloride 96 L Carbon Dioxide 36 H BUN 42 H Creatinine 2.06 H Glucose 244 H Calcium 9.3 - Impressions Impressions Chest X-Ray 11/21/18 07:00 IMPRESSION: Cardiomegaly with mild vascular congestion, right pleural effusion, and airspace disease in the right upper lobe. D/ / Ahsan Velasquez MD / Ahsan Velasquez MD Interpreting Provider: Ahsan Velasquez MD Consult Discharge Plan - Plan Referrals: Margaret Delgado NONDESTRUCTIVE TESTER [Advanced Practice Nurse] - 12/05/18 9:00 am (Please follow as schedule...) (2) Type 2 diabetes mellitus Qualifiers: Diabetes mellitus predatory animal exterminator insulin use: with predatory animal exterminator use Diabetes mellitus complication status: with kidney complications Diabetes mellitus complication detail: with chronic kidney disease Chronic kidney disease stage: stage 4 (severe) Qualified Code(s): E11.22 - Type 2 diabetes mellitus with diabetic chronic kidney disease; N18.4 - Chronic kidney disease, stage 4 (severe); Z79.4 - termite technician (current) use of insulin (4) CAD (coronary artery disease) Qualifiers: Coronary Disease-Associated Artery/Lesion type: [place] artery [place] vs. transplanted heart: [place] heart Associated angina: without angina Qualified Code(s): I25.10 - Atherosclerotic heart disease of [place] coronary artery without angina pectoris (5) Atrial fibrillation Qualifiers: Atrial fibrillation type: chronic Qualified Code(s): I48.2 - Chronic atrial fibrillation (6) COPD (chronic obstructive pulmonary disease) Qualifiers: COPD type: unspecified COPD Qualified Code(s): J44.9 - Chronic obstructive pulmonary disease, unspecified (7) GERD (gastroesophageal reflux disease) Qualifiers: Esophagitis presence: esophagitis presence not specified Qualified Code(s): K21.9 - Gastro-esophageal reflux disease without esophagitis
[2018-11-22 00:52] LABS: ABG Base Excess 11 mEq/L (-2 to 3); ABG HCO3 42 mEq/L (21-27); ABG Oxygen Saturation 88 % (95-98); ABG PCO2 89 mmHg (35-45); ABG PH 7.28 pH Units (7.32-7.45); ABG PO2 65 mmHg (85-104); ABG TCO2 45 mEq/L (20-26)
[2018-11-22 01:25] LABS: Calcium 9.6 mg/dL (8.6-10.3); Magnesium 1.8 mg/dL (1.6-2.6); Potassium 4.9 mEq/L (3.5-5.1)
--- NOTE | 2018-11-22 02:29 | Event Note ---
Date of Encounter: 11/22/18 Time of Encounter: 00:12 Notified by nurse to come assess patient as he is less alert and unable to answer questions appropriately. Assessed patient at bedside, oxygen saturations in lower 90's requiring increased 02, other vitals stable. Blood sugar 189. No recent new medications, recently had norco but has been taking and tolerating this admission. Patient initially only responding to sternal rub. Dr Llanes and Dr Ward called to bedside. Following some commands but falling back to sleep quickly. Also appears to have some left sided weakness but also has history of prior stroke. One dose of narcan administered with minimal effect. ABG and EKG obtained, EKG with no new changes, CO2 retention noted on ABG and patient appears to be mouth breathing while sleeping. Stroke alert initially called but later cancelled as patient started to appear more awake with improvement in left sided deficits. Stat head CT still obtained to rule out any bleeding due to current anticoagulation. Patient continued to become more awake and alert while at bedside. Will start on BIPAP and repeat ABG later this morning. Nurse spoke to patient by phone who reports patient sometimes is very hard to wake at home and slightly confused upon awakening. Patient would likely benefit from sleep study with home bipap and cpap.
[2018-11-22 03:57] LABS: ABG Base Excess 12 mEq/L (-2 to 3); ABG HCO3 43 mEq/L (21-27); ABG Oxygen Saturation 90 % (95-98); ABG PCO2 92 mmHg (35-45); ABG PH 7.28 pH Units (7.32-7.45); ABG PO2 72 mmHg (85-104); ABG TCO2 46 mEq/L (20-26)
[2018-11-22 06:37] LABS: ABG Base Excess 13 mEq/L (-2 to 3); ABG HCO3 44 mEq/L (21-27); ABG Oxygen Saturation 94 % (95-98); ABG PCO2 95 mmHg (35-45); ABG PH 7.27 pH Units (7.32-7.45); ABG PO2 89 mmHg (85-104); ABG TCO2 46 mEq/L (20-26)
[2018-11-22] MEDS: Insulin LISPRO 300 UNITS/3 ML VIAL SQ SCH ×3 (08:40→16:26)
[2018-11-22] MEDS: Aspirin 81 MG TAB.CHEW PO SCH (08:45)
[2018-11-22] MEDS: Insulin NPH/REG 70/30 100 UNIT/ML (x5UNIT) SQ SCH ×2 (08:46→16:10)
[2018-11-22] MEDS: Torsemide 20 MG TABLET PO SCH (08:46)
[2018-11-22] MEDS: Apixaban 5 MG TABLET PO SCH ×2 (08:46→20:01)
[2018-11-22] MEDS ORDERED: Furosemide 40 MG/4 ML VIAL IVP ONE (10:30)
--- NOTE | 2018-11-22 11:09 | Nephrology Progress Note ---
Date of Encounter: 11/22/18 Time of Encounter: 11:03 - Assessment and Plan (1) CKD (chronic kidney disease) stage 4, GFR 15-29 ml/min Current Visit: Yes Status: Acute Baseline CKD 4. FeUrea noted at 33% consistent with pre-renal state from CHF. GFR 26 and Scr 2.55, stable. Uop 2000 yesterday for 24 hour total and 300 already for today. Additional 40 mg IV Lasix x 1. 2 doses Albumin ordered. Continue PO dose of torsemide. Avoid other nephrotoxins and renal dose. (2) Acute exacerbation of congestive heart failure Current Visit: Yes Status: Acute Continue strict I/Os Continue fluid restriction at 1.5 liters a day. Cardiac, renal diet advised Echo 55-60. See above. Qualifiers: Heart failure type: unspecified Qualified Code(s): I50.9 - Heart failure, unspecified (3) Diabetes Current Visit: Yes Status: Chronic Per primary. Qualifiers: Diabetes mellitus type: type 2 Diabetes mellitus complication status: with unspecified complications Qualified Code(s): E11.8 - Type 2 diabetes mellitus with unspecified complications; Z79.4 - ocean transportation intermediary (current) use of insulin (4) Right knee pain Current Visit: Yes Status: Acute s/p fall at home last week. Patient was advised to get MRI of right knee when in hospital per patient. Will defer any additional imaging to primary team. Qualifiers: Qualified Code(s): M25.561 - Pain in right knee Subjective Principal diagnosis: fluid overload Interval history: Seen and examined. Pt did have an acute event overnight, please see specific event note for details. He was placed on Bipap and had several ABG's drawn. Upon assessing patient he appears lethargic and is on Bipap 55 % Fio2. He does awaken with sternal rub. He appears disoriented. ROS not obtained due to bipap. Objective - Vital Signs Vital signs: Vital Signs Temp Pulse Resp BP Pulse Ox 11/22/18 08:03 98.3 F 77 19 162/77 97 11/22/18 04:46 98.9 F 98 20 102/68 94 11/22/18 03:52 20 88 11/22/18 01:05 20 97 11/22/18 00:02 98.1 F 117 20 92/48 90 11/21/18 20:33 97.9 F 84 19 137/68 93 11/21/18 16:36 98.2 F 94 19 139/61 90 11/21/18 11:54 98.4 F 93 18 143/62 93 Intake and Output 11/21/18 11/22/18 11/22/18 23:59 07:59 15:59 Intake Total 100 / 100 104 / 104 200 / 200 Output Total 500 / 500 300 / 300 Balance -400 / -400 104 / 104 -100 / -100 Intake: IV Fluids 100 / 100 104 / 104 Flexbumin 25 gm In 100 ml @ 60 100 / 100 mls/hr IVPB Q12HR [facility] Rx#: [id number] Magnesium Sulfate 2 GM In 0.9 % 104 / 104 Sodium Chloride 100 ML @ 104 mls/hr IVPB ONCE ONE Rx#: [id number] Oral 200 / 200 Output: Catheter 500 / 500 300 / 300 Other: Stool Size Moderate Stool Consistency soft formed Stool Color Brown # Bowel Movements 1 Blood Glucose* 224 181 - General Appearance General appearance: Present: well-developed, well-nourished EENT: Present: ATNC, hearing intact, vision intact Neck: Present: supple Respiratory: Present: clear Cardiology: Present: edema (Generalized edema noted to all four exremities, non pitting. ), normal S1, normal S2 Gastrointestinal: Present: normoactive bowel sounds, no tenderness, no guarding Integumentary: Present: no rash, warm and dry Neurologic: Present: disoriented Musculoskeletal: Present: no deformities, no erythema Additional Comments: Right knee in immobilizer. Psychiatric: Present: mood/affect appropriate, cooperative - Lab 11/19/18 06:36 11/22/18 00:51 Most recent lab results ABG pH 7.27 pH Units (7.32-7.45) L 11/22/18 06:33 ABG pCO2 95 mmHg (35-45) H* 11/22/18 06:33 ABG pO2 89 mmHg (85-104) 11/22/18 06:33 ABG HCO3 44 mEq/L (21-27) H 11/22/18 06:33 ABG O2 Saturation 94 % (95-98) L 11/22/18 06:33 Calcium 9.6 mg/dL (8.6-10.3) 11/22/18 00:51 Phosphorus 4.1 mg/dL (2.7-4.5) 11/19/18 06:36 Magnesium 1.8 mg/dL (1.6-2.6) 11/22/18 00:51 Urine Creatinine 83 mg/dL 11/19/18 22:00 Urine Sodium 85.7 mEq/L 11/19/18 22:00 Urine Total Protein 307 mg/dL (1-14) H 11/19/18 22:00 Consult Discharge Plan - Plan Referrals: Margaret Delgado CNP [Advanced Practice Nurse] - 12/05/18 9:00 am (Please follow as schedule...)
[2018-11-22 11:13] LABS: ABG Base Excess 13 mEq/L (-2 to 3); ABG HCO3 43 mEq/L (21-27); ABG Oxygen Saturation 95 % (95-98); ABG PCO2 84 mmHg (35-45); ABG PH 7.32 pH Units (7.32-7.45); ABG PO2 85 mmHg (85-104); ABG TCO2 46 mEq/L (20-26)
--- NOTE | 2018-11-22 11:26 | Internal Med Progress Note ---
Hospitalist Progress Note - Encounter Date of Encounter: 11/22/18 Time of Encounter: 08:15 - Subjective Interval History: Pt overnight was lethargic with CO2 narcosis, tolerated BiPAP well. This AM, when I spoke to patient, he awoke easily and was fully oriented and able to answer complex/abstract questions. Per RN and per nephrology later in the AM, marshal lópez became more somnolent again. - Exam Vitals: Temp Pulse Resp BP Pulse Ox 98.3 F 77 19 162/77 97 11/22/18 08:03 11/22/18 08:03 11/22/18 08:03 11/22/18 08:03 11/22/18 08:03 Exam: General: NAD, good eye contact, morbidly obese, on BiPAP Thoracic: Distant breath sounds Cardio: Normal S1 and S2, regular rate and rhythm, no murmurs Abdomen: Soft, nontender, obese Extremities: Warm, well perfused. DP pulses 2+ b/l. Does have pitting edema in b/l LE Skin: Intact. No rashes, bruises, or ulcers Neuro: Awake, fully oriented. Speech fluent - Summary of Assessment and Plan Summary of Assessment and Plan: Francesco Cazares is a 63 M w hx HFpEF, DM2, HTN, CKD3a, hx CVA, HLD, A-Fib on eliquis, YANG, OHS, who presented with subacute SOB and pedal edema concerning for CHF exacerbation. Acute hypercarbic respiratory failure: 2/2 YANG and OHS, had episode last night of lethargy, ABG showing CO2 up rising up to 95 - BiPAP as needed to improve CO2 level - repeat ABG periodically for reassessment, most recent ABG this AM following clinical improvement showed CO2 down to 84 from 95 - discussed code status; pt is full code and OK with intubation if needed Acute metabolic encephalopathy: 2/2 CO2 narcosis, management as above, improving Acute on chronic HFpEF: - Lasix per nephrology, giving Lasix 40 x1 between doses of albumin - strict I&O, daily standing weight, 2L fluid restrict DM2: home 70/30 40u bid, +SSI YANG and OHS (obesity hypoventilation syndrome): PFTs 2018 showing restrictive lung disease, needs NIPPV at night - will order noctural pulse ox test Hx CVA: embolic, AC as below CKD4: baseline Cr ~2, nephrology following Morbid obesity: BMI 59 A-Fib: AC on eliquis, rate on lopressor 25 bid HLD: home statin PPx: eliquis as above FEN: cardiac ADA 1.5L, no MIVF Lines: SONNY, Forbes Consults: Neph Code: Full Dispo: inpatient for now, anticipate 2-3 days, will need BiPAP and possibly HH v SNF so will ask PT/OT to see patient - Time Spent with Patient Total time spent is greater than 50% in coordination of care (as documented) at patient's floor/unit and/or counseling patient: Greater than 35 minutes Internal Medicine: Result - Labs CBC & Chem 7: 11/19/18 06:36 11/22/18 00:51 Labs: BMP 11/22/18 00:51 Sodium 141 Potassium 4.9 Chloride 97 L Carbon Dioxide 37 H BUN 46 H Creatinine 2.55 H Glucose 214 H Calcium 9.6 - ABG Interpretation ABG results: ABG ABG pH 7.32 pH Units (7.32-7.45) 11/22/18 11:05 ABG pCO2 84 mmHg (35-45) H* 11/22/18 11:05 ABG pO2 85 mmHg (85-104) 11/22/18 11:05 ABG O2 Saturation 95 % (95-98) 11/22/18 11:05 - Impressions Impressions Chest X-Ray 11/21/18 07:00 IMPRESSION: Cardiomegaly with mild vascular congestion, right pleural effusion, and airspace disease in the right upper lobe. D/ / Ahsan Velasquez MD / Ahsan Velasquez MD Interpreting Provider: Ahsan Velasquez MD Head CT 11/22/18 00:43 IMPRESSION: Age-indeterminate hypodensity right head of the caudate and anterior limb internal capsule worrisome for lacunar infarct. Otherwise no evidence acute intracranial bleed, midline shift or mass effect. D/ / Som Yip / Som Yip Interpreting Provider: Som Yip Consult Discharge Plan - Plan Referrals: Margaret Delgado CNP [Advanced Practice Nurse] - 12/05/18 9:00 am (Please follow as schedule...)
[2018-11-22] MEDS: Albumin 25% 25gram/100mL 25 GM/100 ML IV.SOLN IVPB SCH ×2 (12:08→18:25)
[2018-11-22] MEDS ORDERED: Albumin 25% 25gram/100mL 25 GM/100 ML IV.SOLN IVPB SCH (16:00)
--- NOTE | 2018-11-22 18:41 | Electrocardiograph Report ---
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
[2018-11-22] MEDS: Budesonide/Formoterol 160/4.5 1 PUFF INH IH SCH (20:15)
[2018-11-23 04:20] LABS: Hematocrit 37.1 % (37.5-50.1); Hemoglobin 12.1 g/dL (12.9-16.9); Mean Corpuscular HGB Conc 32.6 g/dL (31.6-35.5); Mean Corpuscular Hemoglobin 31.7 pg (28.0-33.3); Mean Corpuscular Volume 97.1 fL (83.0-100.0); Mean Platelet Volume 11.5 fL (9.4-12.4); Platelet Count 140 K/mcL (140-400); Red Blood Count 3.82 M/mcL (4.19-5.50); Red Cell Distribution Width 13.2 % (11.5-14.5)
[2018-11-23 04:23] LABS: VBG HCO3 35 mEq/L (21-27); VBG PCO2 51 mmHg (41-51); VBG PH 7.44 pH Units (7.32-7.42); VBG PO2 195 mmHg (25-50)
[2018-11-23 04:39] LABS: Calcium 9.7 mg/dL (8.6-10.3); Magnesium 1.5 mg/dL (1.6-2.6); Potassium 4.4 mEq/L (3.5-5.1)
[2018-11-23] MEDS: Budesonide/Formoterol 160/4.5 1 PUFF INH IH SCH ×2 (07:36→19:57)
[2018-11-23] MEDS: Insulin LISPRO 300 UNITS/3 ML VIAL SQ SCH ×3 (08:22→17:25)
[2018-11-23] MEDS: Insulin NPH/REG 70/30 100 UNIT/ML (x5UNIT) SQ SCH ×2 (08:22→17:24)
[2018-11-23] MEDS: Torsemide 20 MG TABLET PO SCH (08:23)
[2018-11-23] MEDS: Aspirin 81 MG TAB.CHEW PO SCH (08:23)
[2018-11-23] MEDS: Apixaban 5 MG TABLET PO SCH ×2 (08:23→20:01)
--- NOTE | 2018-11-23 13:10 | Nephrology Progress Note ---
Date of Encounter: 11/23/18 Time of Encounter: 13:03 - Assessment and Plan (1) CKD (chronic kidney disease) stage 4, GFR 15-29 ml/min Current Visit: Yes Status: Acute Baseline CKD 4. FeUrea noted at 33% consistent with pre-renal state from CHF. GFR 24 and SCR 2.68, stable. Uop 1200 yesterday for 24 hour total and 1800 already for today. Continue PO dose of torsemide. Avoid other nephrotoxins and renal dose. (2) Acute exacerbation of congestive heart failure Current Visit: Yes Status: Acute Continue strict I/Os Continue fluid restriction at 1.5 liters a day. Cardiac, renal diet advised Echo 55-60. See above. Qualifiers: Heart failure type: unspecified Qualified Code(s): I50.9 - Heart failure, unspecified (3) Diabetes Current Visit: Yes Status: Chronic Per primary. Qualifiers: Diabetes mellitus type: type 2 Diabetes mellitus complication status: with unspecified complications Qualified Code(s): E11.8 - Type 2 diabetes mellitus with unspecified complications; Z79.4 - assisted (current) use of insulin (4) Right knee pain Current Visit: Yes Status: Acute s/p fall at home last week. Patient was advised to get MRI of right knee when in hospital per patient. Will defer any additional imaging to primary team. Qualifiers: Chronicity: acute Qualified Code(s): M25.561 - Pain in right knee Subjective Principal diagnosis: fluid overload Interval history: Seen and examined. Denies nausea, vomiting, diarrhea. Denies chest pain. Patient was alert and on oxygen per n/c. Objective - Vital Signs Vital signs: Vital Signs Temp Pulse Resp BP Pulse Ox 11/23/18 12:14 105 22 172/67 90 11/23/18 09:36 91 11/23/18 07:36 18 90 11/23/18 07:28 98.8 F 105 22 182/80 90 11/23/18 03:36 96 18 154/84 87 11/22/18 23:34 98.1 F 92 18 179/69 89 11/22/18 22:04 93 11/22/18 20:15 20 93 11/22/18 20:01 98.1 F 97 19 150/79 92 11/22/18 16:11 85 18 117/86 96 Intake and Output 0111/23/18 11/23/18 23:59 07:59 15:59 Intake Total 340 / 340 Output Total 900 / 900 1800 / 1800 Balance -560 / -560 -1800 / -1800 Intake: IV Fluids 100 / 100 Flexbumin 25 gm In 100 ml @ 60 100 / 100 mls/hr IVPB Q8H [facility] Rx#: [id number] Oral 240 / 240 Output: Catheter 900 / 900 1800 / 1800 Other: Meal Dinner Percent of Meal Consumed 100% Weight 186.8 kg Blood Glucose* 304 194 296 - General Appearance General appearance: Present: well-developed, well-nourished EENT: Present: ATNC, hearing intact, vision intact Neck: Present: supple Respiratory: Present: clear Cardiology: Present: edema (+2 pitting edema noted to bilat lower extremities. ), normal S1, normal S2 Gastrointestinal: Present: normoactive bowel sounds, no tenderness, no guarding Integumentary: Present: no rash, warm and dry Neurologic: Present: alert and oriented x3 Musculoskeletal: Present: no deformities, no erythema Additional Comments: Right leg continues to be in knee immobilizer. Psychiatric: Present: mood/affect appropriate, cooperative - Lab 11/23/18 03:21 11/23/18 03:21 Most recent lab results ABG pH 7.32 pH Units (7.32-7.45) 11/22/18 11:05 ABG pCO2 84 mmHg (35-45) H* 11/22/18 11:05 ABG pO2 85 mmHg (85-104) 11/22/18 11:05 ABG HCO3 43 mEq/L (21-27) H 11/22/18 11:05 ABG O2 Saturation 95 % (95-98) 11/22/18 11:05 Calcium 9.7 mg/dL (8.6-10.3) 11/23/18 03:21 Phosphorus 4.1 mg/dL (2.7-4.5) 11/19/18 06:36 Magnesium 1.5 mg/dL (1.6-2.6) L 11/23/18 03:21 Urine Creatinine 83 mg/dL 11/19/18 22:00 Urine Sodium 85.7 mEq/L 11/19/18 22:00 Urine Total Protein 307 mg/dL (1-14) H 11/19/18 22:00 Consult Discharge Plan - Plan Referrals: Margaret Delgado CNP [Advanced Practice Nurse] - 12/05/18 9:00 am (Please follow as schedule...)
--- NOTE | 2018-11-23 14:00 | Internal Med Progress Note ---
Hospitalist Progress Note - Encounter Date of Encounter: 11/23/18 Time of Encounter: 09:00 - Subjective Interval History: Patient feels less shortness of breath. Decreased leg swelling. Good urine output. - Exam Vitals: Temp Pulse Resp BP Pulse Ox 98.8 F 105 22 172/67 90 11/23/18 07:28 11/23/18 12:14 11/23/18 12:14 11/23/18 12:14 11/23/18 12:14 Exam: General: NAD, good eye contact, morbidly obese, on BiPAP Thoracic: Distant breath sounds, no wheezing Cardio: Normal S1 and S2, regular rate and rhythm, no murmurs Abdomen: Soft, nontender, obese Extremities: Warm, well perfused. DP pulses 2+ b/l. Does have mild pitting edema in b/l LE Skin: Intact. No rashes, bruises, or ulcers Neuro: Awake, fully oriented. Speech fluent - Assessment and Plan (1) Morbid obesity with BMI of 40.0-44.9, adult Current Visit: No Status: Chronic Assessment and Plan: Need the lifestyle modification as outpatient (2) COPD (chronic obstructive pulmonary disease) Current Visit: Yes Status: Chronic Assessment and Plan: Continue home medications. No signs of exacerbation. (3) CAD (coronary artery disease) Current Visit: Yes Status: Chronic Assessment and Plan: Continue home medications. Patient denies chest pain. (4) YANG (obstructive sleep apnea) Current Visit: Yes Status: Chronic Assessment and Plan: Patient denies use CPAP at home. Patient is qualified home BiPAP now because of hypercapnia. Continue outpatient follow-up for YANG (5) Atrial fibrillation Current Visit: Yes Status: Chronic Assessment and Plan: rate controlled on metoprolol 25mg/PO BID. continue apixaban 5mg/PO BID. telemetry monitoring. (6) Hypertensive renal disease with renal failure Current Visit: Yes Status: Chronic Assessment and Plan: Closely monitor renal function. Nephrology consult appreciated. Avoid nephrotoxic medications (7) Type 2 diabetes mellitus Current Visit: Yes Status: Acute Assessment and Plan: Continue basal and sliding-scale insulin coverage (8) Acute on chronic diastolic heart failure Current Visit: Yes Status: Acute Assessment and Plan: Patient has increased shortness of breath, chest X-ray shows pulmonary vascular congestion and pulmonary edema. History of diastolic CHF. BNP false-negative because of morbid obesity. - Continue fluid restriction - Strict I and O - Patient has good urine OUTPUT, fluid balance -6 L - Nephrology consult appreciated to manage albumin and Lasix use. Continue by mouth Torsemide (9) Hypertension Current Visit: Yes Status: Acute Assessment and Plan: BP is high today. We will increase metoprolol dose to 50mg twice a day for better BP and heart rate control (10) Right knee pain Current Visit: Yes Status: Acute Assessment and Plan: Has right knee injury b/o road slippery about one week ago. Had x-ray done as outpatient, negative for fracture. Will order MRI of right knee - Time Spent with Patient Total time spent is greater than 50% in coordination of care (as documented) at patient's floor/unit and/or counseling patient: 30 minutes 25 - 35 minutes Plan of Care Discussed with: patient Internal Medicine: Result - Labs CBC & Chem 7: 11/23/18 03:21 11/23/18 03:21 Labs: Short CBC 11/23/18 Range/Units 03:21 WBC 7.0 (4.3-11.1) K/mcL Hgb 12.1 L (12.9-16.9) g/dL Hct 37.1 L (37.5-50.1) % Plt Count 140 (140-400) K/mcL BMP 11/23/18 03:21 Sodium 140 Potassium 4.4 Chloride 96 L Carbon Dioxide 35 H BUN 56 H Creatinine 2.68 H Glucose 216 H Calcium 9.7 - ABG Interpretation ABG results: ABG ABG pH 7.32 pH Units (7.32-7.45) 11/22/18 11:05 ABG pCO2 84 mmHg (35-45) H* 11/22/18 11:05 ABG pO2 85 mmHg (85-104) 11/22/18 11:05 ABG O2 Saturation 95 % (95-98) 11/22/18 11:05 Consult Discharge Plan - Plan Referrals: Margaret Delgado CNP [Advanced Practice Nurse] - 12/05/18 9:00 am (Please follow as schedule...) (2) COPD (chronic obstructive pulmonary disease) Qualifiers: COPD type: unspecified COPD Qualified Code(s): J44.9 - Chronic obstructive pulmonary disease, unspecified (3) CAD (coronary artery disease) Qualifiers: Coronary Disease-Associated Artery/Lesion type: [place] artery [place] vs. transplanted heart: [place] heart Associated angina: without angina Qualified Code(s): I25.10 - Atherosclerotic heart disease of [place] coronary artery without angina pectoris (5) Atrial fibrillation Qualifiers: Atrial fibrillation type: chronic Qualified Code(s): I48.2 - Chronic atrial fibrillation (7) Type 2 diabetes mellitus Qualifiers: Diabetes mellitus mcfp insulin use: with mcfp use Diabetes mellitus complication status: with kidney complications Diabetes mellitus complication detail: with chronic kidney disease Chronic kidney disease stage: stage 4 (severe) Qualified Code(s): E11.22 - Type 2 diabetes mellitus with diabetic chronic kidney disease; N18.4 - Chronic kidney disease, stage 4 (severe); Z79.4 - terminal operator (current) use of insulin (9) Hypertension Qualifiers: Hypertension type: essential hypertension Qualified Code(s): I10 - Essential (primary) hypertension (10) Right knee pain Qualifiers: Chronicity: acute Qualified Code(s): M25.561 - Pain in right knee
[2018-11-23] MEDS ORDERED: Acetaminophen 325 MG TABLET PO PRN (18:13)
[2018-11-24 06:09] LABS: Basophils % 0.3 %; Eosinophils # 0.1 K/mcL (0.0-0.6); Eosinophils % 1.2 %; Hematocrit 37.7 % (37.5-50.1); Hemoglobin 12.4 g/dL (12.9-16.9); Immature Granulocytes % 0.3 % (0-4); Lymphocytes # 1.1 K/mcL (0.6-4.6); Lymphocytes % 16.1 %; Mean Corpuscular HGB Conc 32.9 g/dL (31.6-35.5); Mean Corpuscular Hemoglobin 31.8 pg (28.0-33.3); Mean Corpuscular Volume 96.7 fL (83.0-100.0); Mean Platelet Volume 11.4 fL (9.4-12.4); Monocytes # 0.8 K/mcL (0.0-1.3); Monocytes % 12.1 %; Neutrophils # 4.7 K/mcL (1.6-8.9); Platelet Count 148 K/mcL (140-400); Red Cell Distribution Width 13.2 % (11.5-14.5)
[2018-11-24 06:28] LABS: Calcium 9.6 mg/dL (8.6-10.3); Potassium 4.2 mEq/L (3.5-5.1)
[2018-11-24] MEDS: Budesonide/Formoterol 160/4.5 1 PUFF INH IH SCH ×2 (07:40→21:17)
[2018-11-24] MEDS ORDERED: *HR* HYDROcodone/Acet 5/325 mg TABLET PO PRN (08:03)
[2018-11-24] MEDS: Aspirin 81 MG TAB.CHEW PO SCH (08:24)
[2018-11-24] MEDS: Apixaban 5 MG TABLET PO SCH ×2 (08:24→22:01)
[2018-11-24] MEDS: Torsemide 20 MG TABLET PO SCH (08:24)
[2018-11-24] MEDS: Insulin NPH/REG 70/30 100 UNIT/ML (x5UNIT) SQ SCH ×2 (08:25→16:14)
[2018-11-24] MEDS: Insulin LISPRO 300 UNITS/3 ML VIAL SQ SCH ×3 (08:25→16:13)
--- NOTE | 2018-11-24 09:17 | Nephrology Progress Note ---
<Inés Olmos Peter - Last Filed: 11/24/18 09:17> Date of Encounter: 11/24/18 Time of Encounter: 09:13 - Assessment and Plan (1) Acute exacerbation of congestive heart failure Status: Acute Continue strict I/Os Continue fluid restriction at 1.5 liters a day. Cardiac, renal diet advised Qualifiers: Heart failure type: unspecified Qualified Code(s): I50.9 - Heart failure, unspecified (2) Diabetes Status: Chronic Per primary team Qualifiers: Diabetes mellitus type: type 2 Diabetes mellitus complication status: with unspecified complications Qualified Code(s): E11.8 - Type 2 diabetes mellitus with unspecified complications; Z79.4 - FDC (current) use of insulin (3) CKD (chronic kidney disease) stage 4, GFR 15-29 ml/min Status: Acute Scr 2.26, GFR 29 Close to baseline; CKD 4. Excellent UOP 1800ml Continue PO dose of torsemide. Avoid other nephrotoxins and renal dose When discharged needs BMP in 1 week and a follow up with Dr Garcia in 4 weeks Subjective Principal diagnosis: fluid overload Interval history: Patient seen and examined. States he is feeling well. Hopes to go home today Objective - Vital Signs Vital signs: Vital Signs Temp Pulse Resp BP Pulse Ox 11/24/18 07:41 20 91 11/24/18 06:35 98.1 F 98 18 161/90 93 11/24/18 04:34 97.6 F 93 18 142/80 97 11/24/18 00:28 97.6 F 78 19 133/71 95 11/23/18 23:42 15 95 11/23/18 20:56 98.3 F 99 19 153/82 93 11/23/18 19:57 16 94 11/23/18 15:45 98.5 F 91 18 163/78 92 11/23/18 12:14 105 22 172/67 90 11/23/18 09:36 91 Intake and Output 11/23/18 11/24/18 11/24/18 23:59 07:59 15:59 Intake Total 240 / 240 Balance 240 / 240 Intake: Oral 240 / 240 Other: Meal Breakfast Percent of Meal Consumed 100% Blood Glucose* 315 250 - General Appearance General appearance: Present: obese EENT: Present: ATNC, mucous membranes moist, hearing intact, vision intact Neck: Present: supple Respiratory: Present: clear Cardiology: Present: edema, normal S1, normal S2 Gastrointestinal: Present: no tenderness, no guarding Integumentary: Present: warm and dry Neurologic: Present: alert and oriented x3 Psychiatric: Present: mood/affect appropriate, cooperative - Lab 11/24/18 05:51 11/24/18 05:51 Most recent lab results ABG pH 7.32 pH Units (7.32-7.45) 11/22/18 11:05 ABG pCO2 84 mmHg (35-45) H* 11/22/18 11:05 ABG pO2 85 mmHg (85-104) 11/22/18 11:05 ABG HCO3 43 mEq/L (21-27) H 11/22/18 11:05 ABG O2 Saturation 95 % (95-98) 11/22/18 11:05 Calcium 9.6 mg/dL (8.6-10.3) 11/24/18 05:51 Phosphorus 4.1 mg/dL (2.7-4.5) 11/19/18 06:36 Magnesium 1.5 mg/dL (1.6-2.6) L 11/23/18 03:21 Urine Creatinine 83 mg/dL 11/19/18 22:00 Urine Sodium 85.7 mEq/L 11/19/18 22:00 Urine Total Protein 307 mg/dL (1-14) H 11/19/18 22:00 Consult Discharge Plan - Plan Instructions: Heart Failure (DC), Heart Healthy Diet (DC), Seasoning Without Salt (DC), Chronic Obstructive Pulmonary Disease (DC), Meal Planning with the Plate Model (DC), Low Sodium Diet (DC), Fluid Restriction (DC) Referrals: Pedro De León MD [Partnered Physician] - 11/29/18 8:50 am Danny,Margaret Pérez CNP [Advanced Practice Nurse] - 11/30/18 9:00 am (Please follow as schedule...) <Soto Mcgregor - Last Filed: 11/25/18 14:30> Date of Encounter: 11/24/18 - Assessment and Plan (1) Acute exacerbation of congestive heart failure Status: Acute Qualifiers: Heart failure type: unspecified Qualified Code(s): I50.9 - Heart failure, unspecified (2) Diabetes Status: Chronic Qualifiers: Diabetes mellitus type: type 2 Diabetes mellitus complication status: with unspecified complications Qualified Code(s): E11.8 - Type 2 diabetes mellitus with unspecified complications; Z79.4 - maintenance fitter (current) use of insulin (3) CKD (chronic kidney disease) stage 4, GFR 15-29 ml/min Status: Acute Objective - Vital Signs Vital signs: Vital Signs Temp Pulse Resp BP Pulse Ox 11/25/18 11:05 14 91 11/25/18 10:20 98.9 F 91 20 158/81 94 11/25/18 07:03 98.2 F 94 18 129/77 98 11/25/18 04:02 98.3 F 85 20 171/73 94 11/25/18 03:39 18 167/91 95 11/25/18 00:05 17 167/91 95 11/24/18 23:40 98.8 F 103 20 167/91 94 11/24/18 21:17 16 95 11/24/18 19:35 99.2 F 99 18 156/75 94 11/24/18 15:29 98.4 F 100 18 138/81 93 Intake and Output 11/24/18 11/25/18 11/25/18 23:59 07:59 15:59 Intake Total 120 / 120 Output Total 700 / 700 Balance 120 / 120 -700 / -700 Intake: Oral 120 / 120 Output: Urine 700 / 700 Other: Meal Dinner Percent of Meal Consumed 100% Weight 182.5 kg Blood Glucose* 138 181 239 Patient Weight 11/25/18 23:59 Weight 182.5 kg - Lab 11/24/18 05:51 11/25/18 07:20 Most recent lab results ABG pH 7.32 pH Units (7.32-7.45) 11/22/18 11:05 ABG pCO2 84 mmHg (35-45) H* 11/22/18 11:05 ABG pO2 85 mmHg (85-104) 11/22/18 11:05 ABG HCO3 43 mEq/L (21-27) H 11/22/18 11:05 ABG O2 Saturation 95 % (95-98) 11/22/18 11:05 Calcium 9.9 mg/dL (8.6-10.3) 11/25/18 07:20 Phosphorus 4.1 mg/dL (2.7-4.5) 11/19/18 06:36 Magnesium 1.5 mg/dL (1.6-2.6) L 11/23/18 03:21 Urine Creatinine 83 mg/dL 11/19/18 22:00 Urine Sodium 85.7 mEq/L 11/19/18 22:00 Urine Total Protein 307 mg/dL (1-14) H 11/19/18 22:00 - Attending Attestation I examined this patient and my medical decision-making was reviewed with the Resident Physician/GOLD BLOWER. I agree with the documented findings, disposition and treatment plan as described except to the extent set forth below. Pt seen and examined feeling better overall and eager to go home. Needs home CPAP machine which he reports has been arranged. Exam shows improving areation ant bilat and improving LE edema bilat. Labs also improving with SCr at 2.29, GFR 29. Scr improved and about baseline. UOP great with just po torsemide, will continue. Continue fluid restriction. Followup within Dr Garcia within 4 weeks on discharge with BMP within 1 week.
--- NOTE | 2018-11-24 14:07 | Internal Med Progress Note ---
Hospitalist Progress Note - Encounter Date of Encounter: 11/24/18 Time of Encounter: 09:00 - Subjective Interval History: Patient feels less shortness of breath. Decreased but still leg swelling. Good urine output on po diuretics. Ask to go home. - Exam Vitals: Temp Pulse Resp BP Pulse Ox 98.9 F 102 18 145/78 90 11/24/18 11:09 11/24/18 11:09 11/24/18 11:09 11/24/18 11:09 11/24/18 11:09 Exam: General: NAD, good eye contact, morbidly obese, on BiPAP Thoracic: Distant breath sounds, no wheezing Cardio: Normal S1 and S2, regular rate and rhythm, no murmurs Abdomen: Soft, nontender, obese Extremities: Warm, well perfused. DP pulses 2+ b/l. Does have mild pitting edema in b/l LE Skin: Intact. No rashes, bruises, or ulcers Neuro: Awake, fully oriented. Speech fluent - Assessment and Plan (1) Morbid obesity with BMI of 40.0-44.9, adult Current Visit: No Status: Chronic Assessment and Plan: Need the lifestyle modification as outpatient (2) COPD (chronic obstructive pulmonary disease) Current Visit: Yes Status: Chronic Assessment and Plan: Continue home medications. No signs of exacerbation. Has CO2 retention, BiPAP qualification test has been done, qualified for home BiPAP. (3) CAD (coronary artery disease) Current Visit: Yes Status: Chronic Assessment and Plan: Continue home medications. Patient denies chest pain. (4) YANG (obstructive sleep apnea) Current Visit: Yes Status: Chronic Assessment and Plan: Patient denies use CPAP at home. Patient is qualified home BiPAP now because of hypercapnia/COPD. Continue outpatient follow-up for YANG (5) Atrial fibrillation Current Visit: Yes Status: Chronic Assessment and Plan: rate controlled on metoprolol 50mg/PO BID. continue apixaban 5mg/PO BID. telemetry monitoring. (6) Hypertensive renal disease with renal failure Current Visit: Yes Status: Chronic Assessment and Plan: Closely monitor renal function. Nephrology consult appreciated. Avoid nephrotoxic medications. - Creatinine level is stable (7) Type 2 diabetes mellitus Current Visit: Yes Status: Acute Assessment and Plan: Continue basal and sliding-scale insulin coverage (8) Acute on chronic diastolic heart failure Current Visit: Yes Status: Acute Assessment and Plan: Patient has increased shortness of breath, chest X-ray shows pulmonary vascular congestion and pulmonary edema. History of diastolic CHF. BNP false-negative because of morbid obesity. - Continue fluid restriction - Strict I and O - Patient has good urine OUTPUT, fluid balance -6 L - Nephrology consult appreciated to manage albumin and Lasix use. Continue by mouth Torsemide (9) Hypertension Current Visit: Yes Status: Acute Assessment and Plan: Metoprolol dose was increased to 50mg twice a day, closely monitor BP and heart rate (10) Right knee pain Current Visit: Yes Status: Acute Assessment and Plan: Has right knee injury b/o road slippery about one week ago. MRI done, will f [facility] as outpatient. - Time Spent with Patient Total time spent is greater than 50% in coordination of care (as documented) at patient's floor/unit and/or counseling patient: 30 min 25 - 35 minutes Plan of Care Discussed with: patient Internal Medicine: Result - Labs CBC & Chem 7: 11/24/18 05:51 11/24/18 05:51 Labs: Short CBC 11/24/18 Range/Units 05:51 WBC 6.7 (4.3-11.1) K/mcL Hgb 12.4 L (12.9-16.9) g/dL Hct 37.7 (37.5-50.1) % Plt Count 148 (140-400) K/mcL Neutrophils # 4.7 (1.6-8.9) K/mcL BMP 11/24/18 05:51 Sodium 140 Potassium 4.2 Chloride 96 L Carbon Dioxide 34 H BUN 53 H Creatinine 2.26 H Glucose 203 H Calcium 9.6 - ABG Interpretation ABG results: ABG ABG pH 7.32 pH Units (7.32-7.45) 11/22/18 11:05 ABG pCO2 84 mmHg (35-45) H* 11/22/18 11:05 ABG pO2 85 mmHg (85-104) 11/22/18 11:05 ABG O2 Saturation 95 % (95-98) 11/22/18 11:05 - Impressions Impressions Knee MRI 11/23/18 10:46 IMPRESSION: 1. Mildly complex and predominantly horizontal type tear of the body and anterior horn body junction of the medial meniscus. 2. Grade 2 sprain of the medial collateral ligament. 3. Mild tricompartmental chondromalacia with no large full-thickness defect identified. 4. Small knee effusion and mild synovitis. 5. Small popliteal cyst. 6. Tendinosis of the intact patellar tendon. D/ / Berto Garcia MD / Berto Garcia MD Interpreting Provider: Berto Garcia MD Consult Discharge Plan - Plan Referrals: Margaret Delgado CREMATORY ATTENDANT [Advanced Practice Nurse] - 12/05/18 9:00 am (Please follow as schedule...) (2) COPD (chronic obstructive pulmonary disease) Qualifiers: COPD type: unspecified COPD Qualified Code(s): J44.9 - Chronic obstructive pulmonary disease, unspecified (3) CAD (coronary artery disease) Qualifiers: Coronary Disease-Associated Artery/Lesion type: [place] artery [place] vs. transplanted heart: [place] heart Associated angina: without angina Qualified Code(s): I25.10 - Atherosclerotic heart disease of [place] coronary artery w ithout angina pectoris (5) Atrial fibrillation Qualifiers: Atrial fibrillation type: chronic Qualified Code(s): I48.2 - Chronic atrial fibrillation (7) Type 2 diabetes mellitus Qualifiers: Diabetes mellitus care home insulin use: with care home use Diabetes mellitus complication status: with kidney complications Diabetes mellitus complication detail: with chronic kidney disease Chronic kidney disease stage: stage 4 (severe) Qualified Code(s): E11.22 - Type 2 diabetes mellitus with diabetic chronic kidney disease; N18.4 - Chronic kidney disease, stage 4 (severe); Z79.4 - care home (current) use of insulin (9) Hypertension Qualifiers: Hypertension type: essential hypertension Qualified Code(s): I10 - Essential (primary) hypertension (10) Right knee pain Qualifiers: Chronicity: acute Qualified Code(s): M25.561 - Pain in right knee
[2018-11-25 07:51] LABS: Calcium 9.9 mg/dL (8.6-10.3); Potassium 4.6 mEq/L (3.5-5.1)
[2018-11-25] MEDS: Aspirin 81 MG TAB.CHEW PO SCH (08:03)
[2018-11-25] MEDS: Apixaban 5 MG TABLET PO SCH (08:03)
[2018-11-25] MEDS: Torsemide 20 MG TABLET PO SCH (08:03)
[2018-11-25] MEDS: Insulin LISPRO 300 UNITS/3 ML VIAL SQ SCH ×2 (08:09→12:07)
[2018-11-25] MEDS: Insulin NPH/REG 70/30 100 UNIT/ML (x5UNIT) SQ SCH (08:09)
[2018-11-25 10:32] VITALS: BP 158/81
--- NOTE | 2018-11-25 11:03 | Discharge Summary ---
- NOTES TO OUTPATIENT PROVIDER Notes to Outpatient Provider: 1. Follow-up with PCP in one week to further evaluate fluid status Date of Encounter: 11/25/18 Time of Encounter: 10:00 - Discharge Diagnosis (1) Morbid obesity with BMI of 40.0-44.9, adult Priority: Secondary Status: Chronic (2) COPD (chronic obstructive pulmonary disease) Priority: Secondary Status: Chronic Qualifiers: COPD type: unspecified COPD Qualified Code(s): J44.9 - Chronic obstructive pulmonary disease, unspecified (3) CAD (coronary artery disease) Priority: Secondary Status: Chronic Qualifiers: Coronary Disease-Associated Artery/Lesion type: [place] artery [place] vs. transplanted heart: [place] heart Associated angina: without angina Qualified Code(s): I25.10 - Atherosclerotic heart disease of [place] coronary artery without angina pectoris (4) YANG (obstructive sleep apnea) Priority: Secondary Status: Chronic (5) Atrial fibrillation Priority: Secondary Status: Chronic Qualifiers: Atrial fibrillation type: chronic Qualified Code(s): I48.2 - Chronic atrial fibrillation (6) Hypertensive renal disease with renal failure Priority: Secondary Status: Chronic (7) Type 2 diabetes mellitus Priority: Secondary Status: Acute Qualifiers: Diabetes mellitus skilled nursing insulin use: with skilled nursing use Diabetes mellitus complication status: with kidney complications Diabetes mellitus complication detail: with chronic kidney disease Chronic kidney disease stage: stage 4 (severe) Qualified Code(s): E11.22 - Type 2 diabetes mellitus with diabetic chronic kidney disease; N18.4 - Chronic kidney disease, stage 4 (severe); 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 Cazares is a 63 year old male presented to ER for shortness of breath and increased leg swelling. Patient has history of diastolic CHF. He was consider CHF exacerbation. Patient has CO2 retention upon admission. He was placed on BiPAP. He was also given IV Lasix. After treatment, his shortness of breath has significantly improved. Home BiPAP qualification test has been done, he is qualified for home BiPAP. Home BiPAP was setup. Patient totally has -7 L fluid after diuretics treatment. He was resumed by mouth diuretics and has good urine output. I have seen and examined the patient today. Patient feels less shortness of breath, at about his baseline. Vitals are stable. On exam no wheezing/rhonchi/crackles. Patient was advised to decrease body weight by lifestyle modification and compliant with fluid restriction and regular diuretics use. He will be discharged home with home oxygen and home BiPAP and follow-up with PCP as outpatient. Discharge discussed with: patient - Time Spent with Patient Total time spent providing and/or coordinating discharge services: 25min Less than 30 minutes - Discharge Medications Home Medications: Apixaban [Eliquis] 5 mg PO BID 11/19/18 [History] Calcitriol [Rocaltrol] 0.25 mcg PO DAILY 11/19/18 [History] Cholecalciferol (D-3) [Vitamin D] 5,000 unit PO DAILY 11/19/18 [History] Hydrocodone/Acetaminophen [Hydrocodon-Acetaminophen 5-325] 1 each PO TID PRN 11/19/18 [History] Isosorbide MONOnitrate [Isosorbide Mononitrate ER] 30 mg PO DAILY 11/19/18 [History] Pantoprazole Sodium [Protonix] 40 mg PO DAILY 11/19/18 [History] Terazosin [Hytrin] 5 mg PO DAILY 11/19/18 [History] metOLazone [Zaroxolyn] 2.5 mg PO MOFR 11/19/18 [History] Albuterol Sulfate [Ventolin Hfa] 1 puff PO Q6H PRN 11/20/18 [History] Atorvastatin Calcium [Lipitor] 80 mg PO HS 11/20/18 [History] Budesonide/Formoterol 160/4.5 [Symbicort 160/4.5] 2 puff IH BID 11/20/18 [History] Insulin NPH Hum/Reg Insulin Hm [Novolin 70-30 Flexpen] 60 unit SQ HS 11/20/18 [History] Insulin NPH Hum/Reg Insulin Hm [Novolin 70-30 Flexpen] 70 unit SQ QAM 11/20/18 [History] Magnesium Oxide [Magnesium] 800 mg PO BID 11/20/18 [History] Tiotropium [place] [Spiriva Respimat] 1 puff PO DAILY 11/20/18 [History] Torsemide [Demadex] 20 mg PO BID 11/20/18 [History] Metoprolol [Lopressor] 25 mg PO BID 11/21/18 [History] Allergies/Adverse Reactions: Allergy/AdvReac Type Severity Reaction Status Date / Time Cortisone AdvReac Confusion Verified 09/24/17 10:01 lisinopril AdvReac Cough Verified 09/24/17 10:01 Date of admission: 11/22/18 14:34 Primary care physician: PCP NONE Consults: 11/19/18 05:44 Consult to Nephrology [CONS] Routine Consulting Provider: Luis Alberto Felix/RACHNA/MARCIA/LEONCIO Reason for Consult: History of kidney disease, fluid overload Call Completed: No 11/21/18 08:55 Consult to Nurse Navigator [CONS] Routine Comment: chf, copd? 11/22/18 14:06 Consult to Occupational Therapy [CONS] Routine Comment: Evaluate, develop and implement POC Reason for Consult: obesity, chf Does patient have active BEDREST order?: No Is patient medically & hemodynamically stable?: Yes Patient assessed for mobility or mobilized this visit?: Yes Consult to Physical Therapy [CONS] Routine Comment: Evaluate, develop and implement POC Reason for Consult: obesity, chf Does patient have active BEDREST order?: No Is patient medically & hemodynamically stable?: Yes Patient assessed for mobility or mobilized this visit?: Yes Discharging clinician: [place] Anticipated date of discharge: 11/25/18 - Constitutional Vitals: Temp Pulse Resp BP Pulse Ox 98.9 F 91 20 158/81 94 11/25/18 10:20 11/25/18 10:20 11/25/18 10:20 11/25/18 10:20 11/25/18 10:20 Exam: General: NAD, good eye contact, morbidly obese Thoracic: Distant breath sounds, no wheezing Cardio: Normal S1 and S2, regular rate and rhythm, no murmurs Abdomen: Soft, nontender, obese Extremities: Warm, well perfused. DP pulses 2+ b/l. Mild pitting edema in b/l LE Skin: Intact. No rashes, bruises, or ulcers Neuro: Awake, fully oriented. Speech fluent - Patient Status Disposition: Home, Self-Care Condition: Fair Functional capacity at discharge: uses cane/walker Overall status at discharge: patient is back to baseline - Discharge Instructions Follow Up With: Margaret Delgado CNP [Advanced Practice Nurse] - 11/30/18 9:00 am (Please follow as schedule...) - Diet and Activity Activity: increase activity as tolerated Diet: diabetic diet, low fat, low cholesterol, low salt diet
[2018-11-25] MEDS: Budesonide/Formoterol 160/4.5 1 PUFF INH IH SCH (11:05)
--- NOTE | 2018-11-25 11:05 | Nephrology Progress Note ---
Date of Encounter: 11/25/18 Time of Encounter: 09:05 - Assessment and Plan (1) CKD (chronic kidney disease) stage 4, GFR 15-29 ml/min Status: Chronic Known CKD stage IV and followed by me in my [facility]. He has several reasons for his chronic dyspnea (COPD) and now has BiPAP arranged and home O2, which should help. He also has nephrotic range proteinuria, which makes volume status control with oral diuretics much more challenging (e.g., lasix would not be bioavailable enough, and so he was placed on Bumex in the past, but he felt he had problems with). He was more recently converted to Torsemide. Metabolic alkalosis, secondary to his respiratory acidosis and diuretics. Will need to monitor. Continue PO dose of torsemide, and to follow strict low Na diet, daily weights. I sat with him and counseled him for >50% of the approx 25 min encounter to focus on lifestyle mods such as weight loss, and that he is slowly nearing dialysis. He may need referral soon for a [facility]. He voiced understanding. I reviewed the handoff communication as well from my colleague Dr. Denton. Avoid other nephrotoxins and renal dose. When discharged needs BMP in 1 week and a follow up with Dr Garcia in 4 weeks (I asked my team in [facility] to help set up this appt). Thank you (2) Acute exacerbation of congestive heart failure Status: Acute Continue strict I/Os Continue fluid restriction at 1.5 liters a day. 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 (5) Morbid obesity with BMI of 40.0-44.9, adult Status: Chronic See above counseling regarding his need to improve lifestyle mods to help with his CKD, edema and lower his odds of readmission. (6) YANG (obstructive sleep apnea) Status: Chronic Agree with BiPAP for home use. Subjective Principal diagnosis: fluid overload Interval history: Pt was s/e earlier today. He did not affirm N/V/D and said that his breathing has trended better. He still affirmed feeling swollen. He had his torsemide incr'd just prior to admission. Objective - Vital Signs Vital signs: Vital Signs Temp Pulse Resp BP Pulse Ox 11/25/18 10:20 98.9 F 91 20 158/81 94 11/25/18 07:03 98.2 F 94 18 129/77 98 11/25/18 04:02 98.3 F 85 20 171/73 94 11/25/18 03:39 18 167/91 95 11/25/18 00:05 17 167/91 95 11/24/18 23:40 98.8 F 103 20 167/91 94 11/24/18 21:17 16 95 11/24/18 19:35 99.2 F 99 18 156/75 94 11/24/18 15:29 98.4 F 100 18 138/81 93 11/24/18 11:09 98.9 F 102 18 145/78 90 Intake and Output 11/24/18 11/25/18 11/25/18 23:59 07:59 15:59 Intake Total 120 / 120 Output Total 700 / 700 Balance 120 / 120 -700 / -700 Intake: Oral 120 / 120 Output: Urine 700 / 700 Other: Meal Dinner Percent of Meal Consumed 100% Weight 182.5 kg Blood Glucose* 138 181 239 Patient Weight 11/25/18 23:59 Weight 182.5 kg - General Appearance General appearance: Present: well-developed, well-nourished, appears started age EENT: Present: ATNC, PERRL, mucous membranes moist Neck: Present: supple Respiratory: Present: wheezing Cardiology: Present: edema (1-2+ pretibial pitting edema b/l), regular rate, regular rhythm, normal S1, normal S2 Gastrointestinal: Present: normoactive bowel sounds, no tenderness, no guarding, obese Integumentary: Present: warm and dry Neurologic: Present: no focal deficit, alert and oriented x3 Musculoskeletal: Present: no deformities, no erythema, no cyanosis Psychiatric: Present: mood/affect appropriate, cooperative - Lab 11/24/18 05:51 11/25/18 07:20 Most recent lab results ABG pH 7.32 pH Units (7.32-7.45) 11/22/18 11:05 ABG pCO2 84 mmHg (35-45) H* 11/22/18 11:05 ABG pO2 85 mmHg (85-104) 11/22/18 11:05 ABG HCO3 43 mEq/L (21-27) H 11/22/18 11:05 ABG O2 Saturation 95 % (95-98) 11/22/18 11:05 Calcium 9.9 mg/dL (8.6-10.3) 11/25/18 07:20 Phosphorus 4.1 mg/dL (2.7-4.5) 11/19/18 06:36 Magnesium 1.5 mg/dL (1.6-2.6) L 11/23/18 03:21 Urine Creatinine 83 mg/dL 11/19/18 22:00 Urine Sodium 85.7 mEq/L 11/19/18 22:00 Urine Total Protein 307 mg/dL (1-14) H 11/19/18 22:00 - Imaging Additional Comments: No renal imaging noted during this admission. Consult Discharge Plan - Plan Instructions: Heart Failure (DC), Heart Healthy Diet (DC), Seasoning Without Salt (DC), Chronic Obstructive Pulmonary Disease (DC), Meal Planning with the Plate Model (DC), Low Sodium Diet (DC), Fluid Restriction (DC) Referrals: Pedro De León MD [Partnered Physician] - 11/29/18 8:50 am Delgado,Margaret Pérez CNP [Advanced Practice Nurse] - 11/30/18 9:00 am (Please follow as schedule...)
--- NOTE | 2018-11-25 11:44 | Physician Discharge Referral ---
Home Health/Hosp Referral Info Transfer to: Home Health Provider in Charge Post Discharge: PCP - Diagnosis (1) Morbid obesity with BMI of 40.0-44.9, adult Status: Chronic (2) COPD (chronic obstructive pulmonary disease) Status: Chronic (3) CAD (coronary artery disease) Status: Chronic (4) YANG (obstructive sleep apnea) Status: Chronic (5) Atrial fibrillation Status: Chronic (6) Hypertensive renal disease with renal failure Status: Chronic (7) Type 2 diabetes mellitus Status: Acute (8) Acute on chronic diastolic heart failure Status: Acute (9) Hypertension Status: Acute (10) Right knee pain Status: Acute - Respiratory Orders Oxygen / L per min (3, home bipap during night) Smoking Cessation: Smoking cessation has been advised. For more information, call the [employer] Tobacco Quit Line at 1-198-HNGM-NOW. - Diet/Nutrition Diet/Nutrition Orders: Cardiac, No Concentrated Sweets - Activity Activity Orders: Walker - Services Needed Following services are medically necessary services: Nursing, Home Health Aide, Physical Therapy, Occupational Therapy - Transfer Medications Home Medications: Apixaban [Eliquis] 5 mg PO BID 11/19/18 [History] Calcitriol [Rocaltrol] 0.25 mcg PO DAILY 11/19/18 [History] Cholecalciferol (D-3) [Vitamin D] 5,000 unit PO DAILY 11/19/18 [History] Hydrocodone/Acetaminophen [Hydrocodon-Acetaminophen 5-325] 1 each PO TID PRN 11/19/18 [History] Isosorbide MONOnitrate [Isosorbide Mononitrate ER] 30 mg PO DAILY 11/19/18 [History] Pantoprazole Sodium [Protonix] 40 mg PO DAILY 11/19/18 [History] Terazosin [Hytrin] 5 mg PO DAILY 11/19/18 [History] metOLazone [Zaroxolyn] 2.5 mg PO MOFR 11/19/18 [History] Albuterol Sulfate [Ventolin Hfa] 1 puff PO Q6H PRN 11/20/18 [History] Atorvastatin Calcium [Lipitor] 80 mg PO HS 11/20/18 [History] Budesonide/Formoterol 160/4.5 [Symbicort 160/4.5] 2 puff IH BID 11/20/18 [History] Insulin NPH Hum/Reg Insulin Hm [Novolin 70-30 Flexpen] 60 unit SQ HS 11/20/18 [History] Insulin NPH Hum/Reg Insulin Hm [Novolin 70-30 Flexpen] 70 unit SQ QAM 11/20/18 [History] Magnesium Oxide [Magnesium] 800 mg PO BID 11/20/18 [History] Tiotropium [place] [Spiriva Respimat] 1 puff PO DAILY 11/20/18 [History] Torsemide [Demadex] 20 mg PO BID 11/20/18 [History] Metoprolol [Lopressor] 25 mg PO BID 11/21/18 [History] Allergies/Adverse Reactions: Allergy/AdvReac Type Severity Reaction Status Date / Time Cortisone AdvReac Confusion Verified 09/24/17 10:01 lisinopril AdvReac Cough Verified 09/24/17 10:01 Certification: Further, I certify that my clinical findings support that this patient is homebound (i.e. absences from home require considerable and taxing effort and are for medical reasons or mandaen services or infrequently or short duration when for other reasons) because: Homebound Reason: Patient requires assistance of a person or device to safely leave home Attestation: My signature below is to certify that this patient is under my care and that I, or nurse practitioner, or a physician's hr assistant working with me, has a [id number] encounter with this patient.
== END 2018-11-25 12:45 | disposition home or self-care (01) | DRG 291 ==
LOC: 2ANU 21:13 → EMEROOARM 21:13 → SUATTDRO 11-19 00:56 → 2ANU 11-19 01:45 → SUATTDRO 11-22 14:34
PROVIDERS: ADMIT Family Medicine; ATTEND Internal Medicine

== ENCOUNTER 2019-06-08 18:10 | Observation (INO) ==
[2019-06-08] MEDS ORDERED: Ipratropium/Albuterol Neb 3 ML IH ONE (18:55)
[2019-06-08 19:31] LABS: Basophils % 0.4 %; Eosinophils # 0.1 K/mcL (0.0-0.6); Eosinophils % 1.3 %; Hematocrit 34.4 % (37.5-50.1); Hemoglobin 11.3 g/dL (12.9-16.9); Immature Granulocytes % 0.6 % (0-4); Lymphocytes # 1.2 K/mcL (0.6-4.6); Mean Corpuscular HGB Conc 32.8 g/dL (31.6-35.5); Mean Corpuscular Hemoglobin 31.6 pg (28.0-33.3); Mean Corpuscular Volume 96.1 fL (83.0-100.0); Mean Platelet Volume 11.7 fL (9.4-12.4); Monocytes # 0.6 K/mcL (0.0-1.3); Monocytes % 8.2 %; Neutrophils # 4.9 K/mcL (1.6-8.9); Platelet Count 178 K/mcL (140-400); Red Blood Count 3.58 M/mcL (4.19-5.50); Red Cell Distribution Width 12.8 % (11.5-14.5); Segmented Neutrophils % 71.5 %; White Blood Count 6.9 K/mcL (4.3-11.1)
[2019-06-08 21:32] LABS: BUN/Creatinine Ratio 19 (6-26); Blood Urea Nitrogen 43 mg/dL (8-23); Calcium 8.9 mg/dL (8.6-10.3); Carbon Dioxide 27 mEq/L (23-29); Chloride 95 mEq/L (98-107); Glucose 288 mg/dL (70-105); Osmolality,Calculated 301 (280-300); Potassium 4.9 mEq/L (3.5-5.1); Sodium 135 mEq/L (136-145); Troponin I < 0.03 ng/mL (< 0.04); eGFR For African Americans 35 (> 60); eGFR For Non-African Americans 29 (> 60)
[2019-06-08] MEDS ORDERED: Azithromycin 500 MG in D5% in Water 250 ML IVPB ONE (22:08)
[2019-06-08] MEDS ORDERED: cefTRIAXone 2,000 MG in 0.9 % Sodium Chloride Mini Bag 100 ML IVPB ONE (22:08)
[2019-06-09] MEDS ORDERED: Naloxone 0.4 MG/ML INJ IVP PRN (00:39)
[2019-06-09] MEDS ORDERED: *HR* HYDROcodone/Acet 5/325 mg TABLET PO PRN ×2 (00:39→00:43)
[2019-06-09] MEDS ORDERED: Acetaminophen 325 MG TABLET PO PRN (00:39)
[2019-06-09] MEDS ORDERED: Ondansetron 4 MG/2 ML VIAL IVP PRN (00:39)
[2019-06-09] MEDS ORDERED: D5% in Water 1,000 ML IVC PRN (00:46)
[2019-06-09] MEDS ORDERED: Dextrose Gel 15 GM/37.5 ML TUBE PO PRN ×2 (00:46)
[2019-06-09] MEDS ORDERED: *HR* Dextrose 50 % in Water (Syg) 50 ML SYRINGE IVP PRN (00:46)
[2019-06-09] MEDS ORDERED: Insulin LISPRO 300 UNITS/3 ML VIAL SQ SCH ×2 (01:00→07:30)
[2019-06-09] MEDS ORDERED: Azithromycin 500 MG in 0.9 % Sodium Chloride 250 ML IVPB SCH ×2 (01:00→23:00)
[2019-06-09 02:18] LABS: Bilirubin,Urine Negative (Negative); Blood,Urine Trace (Negative); Clarity,Urine Clear (Clear); Color,Urine Yellow (Yellow); Glucose,Urine (UA) >=1000 mg/dL (Normal); Ketones,Urine Negative (Negative); Leukocyte Esterase,Urine Negative (Negative); Nitrite,Urine Negative (Negative); Protein,Urine >=300 mg/dL (Neg-Trace); Specific Gravity,Urine 1.021 (1.010-1.025); Urobilinogen,Urine Normal (Normal)
[2019-06-09 02:20] LABS: Bacteria,Urine None Seen per hpf (None-Few); Hyaline Casts,Urine None Seen per lpf (None-Few); Squamous Epithelial Cell,Urine Many per lpf (None-Few); WBC,Urine 0-3 per hpf (0-3)
[2019-06-09] MEDS: Nystatin POWDER 30 GM BOTTLE TP SCH ×3 (02:37→15:07)
[2019-06-09 02:39] LABS: RBC,Urine 0-3 per hpf (0-3)
[2019-06-09] MEDS ORDERED: Insulin NPH/REG 70/30 300 UNIT/3 ML VIAL SQ SCH ×3 (03:42→21:00)
[2019-06-09] MEDS: Ipratropium/Albuterol Neb 3 ML IH SCH ×4 (04:05→23:38)
[2019-06-09 04:44] LABS: Basophils % 0.6 %; Eosinophils # 0.1 K/mcL (0.0-0.6); Eosinophils % 1.5 %; Hematocrit 35.5 % (37.5-50.1); Hemoglobin 11.5 g/dL (12.9-16.9); Immature Granulocytes % 0.7 % (0-4); Lymphocytes # 1.5 K/mcL (0.6-4.6); Lymphocytes % 22.9 %; Mean Corpuscular HGB Conc 32.4 g/dL (31.6-35.5); Mean Corpuscular Hemoglobin 31.3 pg (28.0-33.3); Mean Corpuscular Volume 96.5 fL (83.0-100.0); Mean Platelet Volume 11.7 fL (9.4-12.4); Monocytes # 0.5 K/mcL (0.0-1.3); Monocytes % 7.8 %; Neutrophils # 4.5 K/mcL (1.6-8.9); Platelet Count 173 K/mcL (140-400); Red Blood Count 3.68 M/mcL (4.19-5.50); Red Cell Distribution Width 12.9 % (11.5-14.5); Segmented Neutrophils % 66.5 %; White Blood Count 6.7 K/mcL (4.3-11.1)
[2019-06-09 04:51] LABS: INR 1.1; Prothrombin Time 12.3 Seconds (9.4-12.1)
[2019-06-09 04:54] LABS: Activated Partial Thrombo Time 31.7 Seconds (26.0-36.0)
[2019-06-09 05:02] LABS: Albumin 3.6 g/dL (3.5-5.7); Albumin/Globulin Ratio 1.3 (1.1-2.2); Bilirubin,Total 0.4 mg/dL (0.3-1.0); Calcium 9.1 mg/dL (8.6-10.3); Chol/HDL Ratio 3.9 (0-4.9); Globulin 2.7 g/dL (2.4-3.5); Magnesium 1.6 mg/dL (1.6-2.6); Phosphorous 3.1 mg/dL (2.7-4.5); Potassium 4.2 mEq/L (3.5-5.1); Total Protein 6.3 g/dL (6.4-8.9)
[2019-06-09] MEDS: Insulin LISPRO 300 UNITS/3 ML VIAL SQ SCH ×6 (07:59→19:53)
[2019-06-09] MEDS: Isosorbide MONOnitrate (24 HR) 30 MG TAB.ER.24H PO SCH (08:00)
[2019-06-09] MEDS: Magnesium Oxide 400 MG TABLET PO SCH ×2 (08:01→19:52)
[2019-06-09] MEDS: Cholecalciferol (D-3) 1,000 UNIT (25MCG) TABLET PO SCH (08:01)
[2019-06-09] MEDS: Apixaban 5 MG TABLET PO SCH ×2 (08:01→19:52)
[2019-06-09] MEDS ORDERED: cefTRIAXone 1,000 MG in Water for inj. (sterile) 10 ML IVP SCH (09:00)
[2019-06-09] MEDS ORDERED: NON-FORMULARY MEDICATION 1 EACH EACH (Tiotropium Bromide [Spiriva Respimat] 1 PUFF) PO SCH (09:00)
[2019-06-09] MEDS ORDERED: metOLazone 2.5 MG TABLET PO SCH (09:00)
[2019-06-09] MEDS ORDERED: Furosemide 40 MG TABLET PO SCH (09:00)
[2019-06-09 09:19] LABS: Estimated Average Glucose 263 mg/dl
[2019-06-09] MEDS ORDERED: Budesonide/Formoterol 160/4.5 1 PUFF INH IH SCH (10:00)
[2019-06-09] MEDS ORDERED: Furosemide 80 MG in 0.9 % Sodium Chloride 50 ML IVPB ONE (13:15)
[2019-06-09] MEDS ORDERED: metOLazone 5 MG TABLET PO SCH (13:15)
[2019-06-09] MEDS ORDERED: Insulin NPH/REG 70/30 100 UNIT/ML (x5UNIT) SQ ONE (13:22)
[2019-06-09] MEDS ORDERED: metOLazone 5 MG TABLET PO ONE (14:15)
[2019-06-09] MEDS: predniSONE 20 MG TABLET PO SCH (14:31)
[2019-06-09] MEDS: Loratadine 10 MG TABLET PO SCH (14:31)
[2019-06-10] MEDS: Azithromycin 500 MG in 0.9 % Sodium Chloride 250 ML IVPB SCH (01:33)
[2019-06-10] MEDS ORDERED: Insulin DETEMIR 100 UNIT/ML X5UNITS SQ ONE ×2 (03:10→19:57)
[2019-06-10] MEDS: Ipratropium/Albuterol Neb 3 ML IH SCH ×4 (03:54→22:27)
[2019-06-10] MEDS: Nystatin POWDER 30 GM BOTTLE TP SCH ×4 (04:24→20:38)
[2019-06-10 07:33] LABS: Hemoglobin 12.1 g/dL (12.9-16.9); Mean Corpuscular HGB Conc 32.7 g/dL (31.6-35.5); Mean Corpuscular Hemoglobin 31.5 pg (28.0-33.3); Mean Corpuscular Volume 96.4 fL (83.0-100.0); Platelet Count 168 K/mcL (140-400); Red Blood Count 3.84 M/mcL (4.19-5.50); Red Cell Distribution Width 12.7 % (11.5-14.5); White Blood Count 8.3 K/mcL (4.3-11.1)
[2019-06-10] MEDS: predniSONE 20 MG TABLET PO SCH (07:47)
[2019-06-10] MEDS: Magnesium Oxide 400 MG TABLET PO SCH ×2 (07:47→20:35)
[2019-06-10] MEDS: Cholecalciferol (D-3) 1,000 UNIT (25MCG) TABLET PO SCH (07:47)
[2019-06-10] MEDS: Apixaban 5 MG TABLET PO SCH ×2 (07:47→20:35)
[2019-06-10] MEDS: Isosorbide MONOnitrate (24 HR) 30 MG TAB.ER.24H PO SCH (07:47)
[2019-06-10] MEDS: Loratadine 10 MG TABLET PO SCH (07:47)
[2019-06-10] MEDS: Insulin LISPRO 300 UNITS/3 ML VIAL SQ SCH ×7 (07:48→20:36)
[2019-06-10 07:59] LABS: Calcium 9.3 mg/dL (8.6-10.3); Potassium 5.1 mEq/L (3.5-5.1)
[2019-06-10] MEDS ORDERED: Furosemide 80 MG in 0.9 % Sodium Chloride 50 ML IVPB ONE ×2 (09:00→15:30)
[2019-06-10] MEDS ORDERED: Insulin NPH/REG 70/30 300 UNIT/3 ML VIAL SQ SCH ×2 (09:00→21:00)
[2019-06-10] MEDS ORDERED: Insulin NPH/REG 70/30 100 UNIT/ML (x5UNIT) SQ ONE (09:55)
[2019-06-10] MEDS: metOLazone 5 MG TABLET PO SCH ×2 (10:01→10:16)
[2019-06-10] MEDS: Insulin NPH/REG 70/30 300 UNIT/3 ML VIAL SQ SCH (10:16)
[2019-06-11] MEDS ORDERED: Insulin DETEMIR 100 UNIT/ML X5UNITS SQ ONE (01:28)
[2019-06-11] MEDS: Azithromycin 500 MG in 0.9 % Sodium Chloride 250 ML IVPB SCH (02:17)
[2019-06-11] MEDS: Ipratropium/Albuterol Neb 3 ML IH SCH ×2 (04:39→11:05)
[2019-06-11 06:49] LABS: Calcium 9.3 mg/dL (8.6-10.3); Magnesium 1.8 mg/dL (1.6-2.6); Potassium 3.9 mEq/L (3.5-5.1)
[2019-06-11] MEDS ORDERED: Insulin NPH/REG 70/30 300 UNIT/3 ML VIAL SQ SCH ×3 (09:00→21:00)
[2019-06-11] MEDS: Insulin LISPRO 300 UNITS/3 ML VIAL SQ SCH ×2 (09:04→11:17)
[2019-06-11] MEDS: Loratadine 10 MG TABLET PO SCH (09:40)
[2019-06-11] MEDS: Isosorbide MONOnitrate (24 HR) 30 MG TAB.ER.24H PO SCH (09:40)
[2019-06-11] MEDS: Cholecalciferol (D-3) 1,000 UNIT (25MCG) TABLET PO SCH (09:40)
[2019-06-11] MEDS: Magnesium Oxide 400 MG TABLET PO SCH (09:40)
[2019-06-11] MEDS: predniSONE 20 MG TABLET PO SCH (09:40)
[2019-06-11] MEDS: Apixaban 5 MG TABLET PO SCH (09:40)
[2019-06-11] MEDS: Nystatin POWDER 30 GM BOTTLE TP SCH (09:41)
[2019-06-11 11:09] VITALS: BP 129/77
[2019-06-11] MEDS ORDERED: metOLazone 5 MG TABLET PO ONE (14:59)
== END 2019-06-11 13:55 | disposition home or self-care (01) ==
LOC: 3NENU 18:10 → EMEROOARM 18:10 → 3NENU 23:56
PROVIDERS: ADMIT Internal Medicine; ATTEND Internal Medicine

== ENCOUNTER 2019-07-01 22:29 | Inpatient (IN) ==
--- NOTE | 2019-07-01 23:02 | Emergency Department Note ---
Disposition Clinical Impression: Acute exacerbation of chronic obstructive airways disease CHF exacerbation Qualifiers: Heart failure type: unspecified Qualified Code(s): I50.9 - Heart failure, unspecified Disposition: Admitted As Inpatient Condition: Fair Referrals: Margaret Delgado CNP [Primary Care Provider] - Forms: ED Satisfaction Letter Time of Disposition: 23:56 General Adult HPI - General Chief complaint: ED Shortness of Breath/Dyspnea Stated complaint: SABRINA Time Seen by Provider: 07/01/19 22:47 Source: family Nursing Notes Reviewed: Yes Vital Signs Reviewed: Yes - History of Present Illness Pain Scale: 0 - Related Data Home Medications Medication Instructions Recorded Confirmed Apixaban [Eliquis] 5 mg PO BID 11/19/18 06/08/19 Calcitriol [Rocaltrol] 0.25 mcg PO DAILY 11/19/18 06/08/19 Cholecalciferol (D-3) [Vitamin D] 5,000 unit PO DAILY 11/19/18 06/08/19 Hydrocodone/Acetaminophen 1 tab PO TID PRN 11/19/18 06/09/19 [Hydrocodon-Acetaminophen 5-325] Isosorbide MONOnitrate [Isosorbide 30 mg PO DAILY 11/19/18 06/08/19 Mononitrate ER] Pantoprazole Sodium [Protonix] 40 mg PO DAILY 11/19/18 06/08/19 Terazosin [Hytrin] 5 mg PO DAILY 11/19/18 06/08/19 metOLazone [Zaroxolyn] 2.5 mg PO MOFR 11/19/18 06/08/19 Albuterol Sulfate [Ventolin Hfa] 1 puff PO Q6H PRN 11/20/18 06/08/19 Atorvastatin Calcium [Lipitor] 80 mg PO HS 11/20/18 06/08/19 Budesonide/Formoterol 160/4.5 2 puff IH BID 11/20/18 06/08/19 [Symbicort 160/4.5] Insulin NPH Hum/Reg Insulin Hm 62 unit SQ BID 11/20/18 06/09/19 [Novolin 70-30 Flexpen] Magnesium Oxide [Magnesium] 800 mg PO BID 11/20/18 06/08/19 Tiotropium [place] [Spiriva 1 puff PO DAILY 11/20/18 06/08/19 Respimat] Metoprolol [Lopressor] 25 mg PO BID 11/21/18 06/08/19 Furosemide [Lasix] 80 mg PO BID 06/08/19 06/09/19 guaiFENesin [Mucus Relief ER] 600 mg PO Q12H PRN 06/09/19 06/09/19 traZODone [TraZODone] 50 mg PO HS PRN 06/09/19 06/09/19 Previous Rx's Medication Instructions Recorded Loratadine [Claritin] 10 mg PO DAILY #30 tablet 06/11/19 predniSONE [PredniSONE] 40 mg PO DAILY #2 tablet 06/11/19 Allergies Allergy/AdvReac Type Severity Reaction Status Date / Time Cortisone AdvReac Confusion Verified 07/01/19 22:31 lisinopril AdvReac Cough Verified 07/01/19 22:31 Past Medical History - Past Medical History Medical history: Reports: atrial fibrillation, COPD, coronary artery disease, CVA, diabetes, GI bleed, hyperlipidemia, hypertension, renal disease, other Psychiatric history: Reports: no psych history - Social History Smoking Status: Former smoker Smokeless Tobacco Status: No Alcohol use: Reports: none Drug use: Reports: none Physical Exam - General General appearance: alert, in no apparent distress Course Vital Signs Temperature 98.1 F 07/01/19 22:31 Pulse Rate 96 07/01/19 22:31 Respiratory Rate 28 07/01/19 22:31 Blood Pressure 144/82 07/01/19 22:31 O2 Sat by Pulse Oximetry 94 07/01/19 22:31 Temperature 98.1 F 07/01/19 22:38 Pulse Rate 96 07/01/19 22:38 Respiratory Rate 28 07/01/19 22:38 Blood Pressure 144/82 07/01/19 22:38 O2 Sat by Pulse Oximetry 94 07/01/19 22:38 Oxygen Delivery Oxygen Delivery Nasal Cannula Medical Decision Making - Lab Data Result diagrams: 07/01/19 23:00 07/01/19 23:00 Lab Results 07/01/19 07/01/19 07/01/19 Range/Units 23:00 23:00 23:00 WBC 6.5 (4.3-11.1) K/mcL RBC 3.20 L (4.19-5.50) M/mcL Hgb 10.1 L (12.9-16.9) g/dL Hct 31.7 L (37.5-50.1) % MCV 99.1 (83.0-100.0) fL MCH 31.6 (28.0-33.3) pg MCHC 31.9 (31.6-35.5) g/dL RDW 12.8 (11.5-14.5) % Plt Count 151 (140-400) K/mcL MPV 10.9 (9.4-12.4) fL Immature Gran % 0.8 (0-4) % Seg Neutrophils % 73.9 % Lymphocytes % 16.6 % Monocytes % 7.1 % Eosinophils % 1.4 % Basophils % 0.2 % Neutrophils # 4.8 (1.6-8.9) K/mcL Lymphocytes # 1.1 (0.6-4.6) K/mcL Monocytes # 0.5 (0.0-1.3) K/mcL Eosinophils # 0.1 (0.0-0.6) K/mcL Basophils # 0.0 (0.0-0.2) K/mcL Sodium 138 (136-145) mEq/L Potassium 4.1 (3.5-5.1) mEq/L Chloride 97 L (98-107) mEq/L Carbon Dioxide 31 H (23-29) mEq/L BUN 43 H (8-23) mg/dL Creatinine 2.49 H (0.70-1.30) mg/dL Est GFR ( Amer) 32 L (> 60) Est GFR (Non-Af Amer) 26 L (> 60) BUN/Creatinine Ratio 17 (6-26) Glucose 198 H (70-105) mg/dL Calculated Osmolality 302 H (280-300) Calcium 8.9 (8.6-10.3) mg/dL Magnesium 1.6 (1.6-2.6) mg/dL Troponin I 0.03 (< 0.04) ng/mL B-Natriuretic Peptide 74 (Less than 100) pg/mL Critical Care Time Critical Care Time: Yes Total Critical Care Time: 40 Attestation: Critical care performed: Time is exclusive of separately billable procedures. Time includes: direct patient care, patient reassessment, coordination of patient care, interpretation of data (laboratory data, radiology data, and respiratory data), review of patient's medical records, medical consultation and documentation of patient care. Procedures included in critical care time: Procedures excluded from critical care time: Attestation Statement - Attestation Attestation: I examined this patient and my medical decision-making was reviewed with the Resident Physician. I agree with the documented findings, disposition and treatment plan as described except to the extent set forth below. Patient presents to the ED with shortness of breath. Increasing over the last 4 days. Dry cough. No fever. Recent admission 2 weeks ago for pneumonia. Finish his antibiotic and steroid. Patient states he cannot walk from his bathroom to his recliner. On examination he is in no distress. Lung sounds significantly diminished. He has 2+ pitting edema in his legs. Plan. Cardiac workup. Nebs and steroids. Likely admission. EKG reviewed with the resident. No acute ischemic changes and unchanged from prior. Patient likely accommodation of CHF and COPD. Treated for both. Patient received Lasix, steroids, nebs. Admitted to the hospitalist. Chest X-Ray 07/01/19 22:47 IMPRESSION: Cardiomegaly and pulmonary vascular congestion. D/ / Jose Baez MD / Jose Baez MD Interpreting Provider: Jose Baez MD
[2019-07-01 23:16] LABS: Basophils % 0.2 %; Eosinophils # 0.1 K/mcL (0.0-0.6); Eosinophils % 1.4 %; Hematocrit 31.7 % (37.5-50.1); Hemoglobin 10.1 g/dL (12.9-16.9); Immature Granulocytes % 0.8 % (0-4); Lymphocytes # 1.1 K/mcL (0.6-4.6); Lymphocytes % 16.6 %; Mean Corpuscular HGB Conc 31.9 g/dL (31.6-35.5); Mean Corpuscular Hemoglobin 31.6 pg (28.0-33.3); Mean Corpuscular Volume 99.1 fL (83.0-100.0); Mean Platelet Volume 10.9 fL (9.4-12.4); Monocytes # 0.5 K/mcL (0.0-1.3); Monocytes % 7.1 %; Neutrophils # 4.8 K/mcL (1.6-8.9); Platelet Count 151 K/mcL (140-400); Red Cell Distribution Width 12.8 % (11.5-14.5); Segmented Neutrophils % 73.9 %; White Blood Count 6.5 K/mcL (4.3-11.1)
--- NOTE | 2019-07-01 23:26 | Emergency Department Note ---
Disposition Clinical Impression: CHF exacerbation Qualifiers: Heart failure type: unspecified Qualified Code(s): I50.9 - Heart failure, unspecified Disposition: Admitted As Inpatient Forms: ED Satisfaction Letter Time of Disposition: 00:49 SOB HPI - General Chief Complaint: ED Shortness of Breath/Dyspnea Stated Complaint: SABRINA Time Seen by Provider: 07/01/19 22:47 Source: patient, family Limitations: no limitations Nursing Notes Reviewed: Yes Vital Signs Reviewed: Yes - History of Present Illness 64M with past medical history of COPD, CAD, diabetes, kidney disease, hype rtension presents emergency department with complaints of difficulty breathing. The patient is normally on 4 L of oxygen at home but his been feeling more short of breath than usual. He was recently admitted 2 weeks ago for pneumonia and states when he was discharged he was feeling much better. For the past 4 days he has been getting increasingly short of breath and has noticed some lower leg swelling. He does take Lasix on a daily basis and thinks he has been paying a normal amount but continues to have increased swelling. He denies fever, chills, productive cough, abdominal pain, nausea and vomiting. - Related Data Home Medications Medication Instructions Recorded Confirmed Apixaban [Eliquis] 5 mg PO BID 11/19/18 06/08/19 Calcitriol [Rocaltrol] 0.25 mcg PO DAILY 11/19/18 06/08/19 Cholecalciferol (D-3) [Vitamin D] 5,000 unit PO DAILY 11/19/18 06/08/19 Hydrocodone/Acetaminophen 1 tab PO TID PRN 11/19/18 06/09/19 [Hydrocodon-Acetaminophen 5-325] Isosorbide MONOnitrate [Isosorbide 30 mg PO DAILY 11/19/18 06/08/19 Mononitrate ER] Pantoprazole Sodium [Protonix] 40 mg PO DAILY 11/19/18 06/08/19 Terazosin [Hytrin] 5 mg PO DAILY 11/19/18 06/08/19 metOLazone [Zaroxolyn] 2.5 mg PO MOFR 11/19/18 06/08/19 Albuterol Sulfate [Ventolin Hfa] 1 puff PO Q6H PRN 11/20/18 06/08/19 Atorvastatin Calcium [Lipitor] 80 mg PO HS 11/20/18 06/08/19 Budesonide/Formoterol 160/4.5 2 puff IH BID 11/20/18 06/08/19 [Symbicort 160/4.5] Insulin NPH Hum/Reg Insulin Hm 62 unit SQ BID 11/20/18 06/09/19 [Novolin 70-30 Flexpen] Magnesium Oxide [Magnesium] 800 mg PO BID 11/20/18 06/08/19 Tiotropium [place] [Spiriva 1 puff PO DAILY 11/20/18 06/08/19 Respimat] Metoprolol [Lopressor] 25 mg PO BID 11/21/18 06/08/19 Furosemide [Lasix] 80 mg PO BID 06/08/19 06/09/19 guaiFENesin [Mucus Relief ER] 600 mg PO Q12H PRN 06/09/19 06/09/19 traZODone [TraZODone] 50 mg PO HS PRN 06/09/19 06/09/19 Previous Rx's Medication Instructions Recorded Loratadine [Claritin] 10 mg PO DAILY #30 tablet 06/11/19 predniSONE [PredniSONE] 40 mg PO DAILY #2 tablet 06/11/19 Allergies Allergy/AdvReac Type Severity Reaction Status Date / Time Cortisone AdvReac Confusion Verified 07/01/19 22:31 lisinopril AdvReac Cough Verified 07/01/19 22:31 All systems ED: reviewed and negative except as stated. Review of Systems: As Per HPI Constitutional: Denies: fever, chills, weakness Cardiovascular: Reports: dyspnea on exertion, orthopnea, edema, paroxysmal nocturnal dyspnea. Denies: chest pain, palpitations, syncope Respiratory: Reports: cough. Denies: dyspnea, wheezes, sputum production Gastrointestinal: Denies: abdominal pain, vomiting Genitourinary: Denies: dysuria, hematuria Musculoskeletal: Denies: back pain, neck pain Neurological: Denies: headache Past Medical History - Past Medical History Attestation: Yes The following information was validated with the patient. Source: patient Medical history: Reports: atrial fibrillation, COPD, coronary artery disease, CVA, diabetes, GI bleed, hyperlipidemia, hypertension, renal disease, other Psychiatric history: Reports: no psych history - Social History Smoking Status: Former smoker Smokeless Tobacco Status: No Alcohol use: Reports: none Drug use: Reports: none Physical Exam - General Limitations: no limitations General appearance: alert, in no apparent distress - Head Head exam: atraumatic, normocephalic - Eye Eye exam: Present: normal appearance, EOMI - Chest Chest inspection: Present: normal inspection. Absent: tenderness, rash - Respiratory Respiratory exam: Present: normal lung sounds bilaterally. Absent: respiratory distress, wheezes - Cardiovascular Cardiovascular exam: Present: regular rate, normal rhythm - Abdominal Exam Abdominal exam: Present: soft, Non-Tender, distention. Absent: guarding, rebound, rigidity - Extremities Exam Extremities exam: Present: pedal edema (2+ pitting edema to BLE). Absent: tenderness, calf tenderness - Neurological Exam Neurological exam: Present: alert, oriented X3 - Psychiatric Psychiatric exam: Present: normal affect, normal mood - Skin Skin exam: Present: warm, dry, intact Course Vital Signs Temperature 98.1 F 07/01/19 22:31 Pulse Rate 96 07/01/19 22:31 Respiratory Rate 28 07/01/19 22:31 Blood Pressure 144/82 07/01/19 22:31 O2 Sat by Pulse Oximetry 94 07/01/19 22:31 Temperature 98.1 F 07/01/19 22:38 Pulse Rate 96 07/01/19 22:38 Respiratory Rate 28 07/01/19 22:38 Blood Pressure 144/82 07/01/19 22:38 O2 Sat by Pulse Oximetry 94 07/01/19 22:38 Oxygen Delivery Oxygen Delivery Nasal Cannula Shortness of Breath/Dyspnea - MDM Narrative Medical decision making narrative: Patient presents with worsening difficulty breathing over the past 4 days along with fluid retention. We will obtain cardiac labs, BNP, EKG and chest x-ray and likely admit for CHF exacerbation. 2337 - CXR shows signs of cardiomegaly and pulmonary vascular congestion. Labs show the patients stable CKD without acute abnormalities. Pt will be admitted for CHF exacerbation and treated with gentle diuresis. Pt is agreeable with this plan of care. 0049 - pt has been accepted by Dr. Llanes - Medical Records Medical records reviewed: Yes I reviewed the patient's medical records. - Lab Data Lab results reviewed: Yes I reviewed the patient's lab results. Result diagrams: 07/01/19 23:00 07/01/19 23:00 Lab Results 07/01/19 07/01/19 07/01/19 Range/Units 23:00 23:00 23:00 WBC 6.5 (4.3-11.1) K/mcL RBC 3.20 L (4.19-5.50) M/mcL Hgb 10.1 L (12.9-16.9) g/dL Hct 31.7 L (37.5-50.1) % MCV 99.1 (83.0-100.0) fL MCH 31.6 (28.0-33.3) pg MCHC 31.9 (31.6-35.5) g/dL RDW 12.8 (11.5-14.5) % Plt Count 151 (140-400) K/mcL MPV 10.9 (9.4-12.4) fL Immature Gran % 0.8 (0-4) % Seg Neutrophils % 73.9 % Lymphocytes % 16.6 % Monocytes % 7.1 % Eosinophils % 1.4 % Basophils % 0.2 % Neutrophils # 4.8 (1.6-8.9) K/mcL Lymphocytes # 1.1 (0.6-4.6) K/mcL Monocytes # 0.5 (0.0-1.3) K/mcL Eosinophils # 0.1 (0.0-0.6) K/mcL Basophils # 0.0 (0.0-0.2) K/mcL Sodium 138 (136-145) mEq/L Potassium 4.1 (3.5-5.1) mEq/L Chloride 97 L (98-107) mEq/L Carbon Dioxide 31 H (23-29) mEq/L BUN 43 H (8-23) mg/dL Creatinine 2.49 H (0.70-1.30) mg/dL Est GFR ( Amer) 32 L (> 60) Est GFR (Non-Af Amer) 26 L (> 60) BUN/Creatinine Ratio 17 (6-26) Glucose 198 H (70-105) mg/dL Calculated Osmolality 302 H (280-300) Calcium 8.9 (8.6-10.3) mg/dL Magnesium 1.6 (1.6-2.6) mg/dL Troponin I 0.03 (< 0.04) ng/mL B-Natriuretic Peptide 74 (Less than 100) pg/mL - Radiology Data Radiology results reviewed: Yes I reviewed the patient's radiology results. - EKG Data EKG attestation: Yes I reviewed and interpreted this EKG. EKG results narrative: EKG obtained at 2249 on 07/01/2019 Heart 97 bpm, QRS duration 86, QT 341, QTC 434 Atrial fibrillation with low voltage in the precordial leads. No signs of ST segment elevation or depression. No acute T-wave abnormalities. No significant changes when compared to previous EKG dated 06/08/2019.
[2019-07-01 23:33] LABS: Calcium 8.9 mg/dL (8.6-10.3); Magnesium 1.6 mg/dL (1.6-2.6); Potassium 4.1 mEq/L (3.5-5.1)
[2019-07-01 23:34] LABS: Troponin I 0.03 ng/mL (< 0.04)
[2019-07-01] MEDS ORDERED: Furosemide 40 MG/4 ML VIAL IVP ONE (23:39)
[2019-07-02] MEDS ORDERED: Naloxone 0.4 MG/ML INJ IVP PRN (04:13)
[2019-07-02] MEDS ORDERED: *HR* HYDROcodone/Acet 5/325 mg TABLET PO PRN (04:15)
[2019-07-02] MEDS ORDERED: traZODone 50 MG TABLET PO PRN (04:15)
[2019-07-02] MEDS ORDERED: Albuterol 2.5 MG/3 ML NEBULIZER IH PRN (04:18)
[2019-07-02] MEDS ORDERED: D5% in Water 1,000 ML IVC PRN (04:21)
[2019-07-02] MEDS ORDERED: Dextrose Gel 15 GM/37.5 ML TUBE PO PRN ×2 (04:21)
[2019-07-02] MEDS ORDERED: *HR* Dextrose 50 % in Water (Syg) 50 ML SYRINGE IVP PRN (04:21)
--- NOTE | 2019-07-02 04:24 | Internal Med History&Physical ---
Date of Encounter: 07/02/19 Time of Encounter: 03:43 Internal Medicine - H&P: HPI Chief complaint: Shortness of breath Admitted From: Emergency Dept Plans for Post Hospital Care: Home History of present illness: Mr. Cazares is a 64 year old male Patient presents the emergency department with shortness of breath. He had recently been hospitalized and treated for hypoxia, COPD and CHF exacerbation. He was gently diuresed and discharged on prednisone. 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 He is on 4 L of oxygen at all times. He says about 1 week ago his [id number] had been doing a load of laundry, and used to much bleach. He says the fumes from the bleach exacerbated his breathi ng and made him more short of breath. He attempted to use his breathing treatments at home but it did not help. Eventually he decided to come to the hospital for further evaluation. Emergency department patient's initial vital signs: Temperature 98.1, pulse 96, Restoril rate 28, blood pressure 144/82, O2 saturation 94% on 4 L. CBC demonstrated a hemoglobin of 10.1 decreased from 12.1 when he was last here in the hospital. BMP demonstrated an improved creatinine of 2.49 down from 2.73 about a week ago. Glucose 198. Initial troponin 0.03 BNP 74. EKG showed atrial fibrillation, rate 97, QTC [address] changes. Chest x-ray showed cardiomegaly and pulmonary vascular congestion. In the emergency department patient received 40 mg IV dose of Lasix, and was admitted to the hospital for further management. Upon my evaluation, patient is resting comfortably in hospital bed in no acute distress. He denies chest pain, abdominal pain, nausea, vomiting, diarrhea and constipation. He is a full code. Past Med Surg Social Fam HX - Past Medical History Medical history: atrial fibrillation, COPD, coronary artery disease, CVA, diabetes, GI bleed, hyperlipidemia, hypertension, renal disease, other Additional medical history: Stage 4 renal failure Psychiatric history: no psych history - Past Surgical History Additional surgical history: lapband surgery, emergency surgery for bleeding ulcer, 3-4 cardiac stents - Social History Smoking Status: Former smoker Smokeless Tobacco Status: No Alcohol use: none Drug use: none - Family History Mother Living Status: Hx Family Cardiac Disorders: Yes (CHF) Hx Family Respiratory Disorders: No Hx Family Cancer: Yes (Prostate) Hx Family GI Disorders: No Hx Family Genitourinary Disorders: No Hx Family Endocrine Disorder: Yes (DM) Hx Family Musculoskeletal Disorders: No Hx Family Neuromuscular Disorders: No Hx Family Neurologic Disorders: No Hx Family HEENT Disorders: No Hx Family Autoimmune Disorders: No Hx Family Reproductive Disorders: No Hx Family Psychosocial Disorders: No Hx Family Medical Disorders: No Internal Medicine - H&P: Meds Apixaban [Eliquis] 5 mg PO BID 11/19/18 [History] Calcitriol [Rocaltrol] 0.25 mcg PO DAILY 11/19/18 [History] Cholecalciferol (D-3) [Vitamin D] 5,000 unit PO DAILY 11/19/18 [History] Hydrocodone/Acetaminophen [Hydrocodon-Acetaminophen 5-325] 1 tab PO TID PRN 11/19/18 [History] Isosorbide MONOnitrate [Isosorbide Mononitrate ER] 30 mg PO DAILY 11/19/18 [History] Pantoprazole Sodium [Protonix] 40 mg PO DAILY 11/19/18 [History] Terazosin [Hytrin] 5 mg PO DAILY 11/19/18 [History] metOLazone [Zaroxolyn] 2.5 mg PO MOFR 11/19/18 [History] Albuterol Sulfate [Ventolin Hfa] 1 puff PO Q6H PRN 11/20/18 [History] Atorvastatin Calcium [Lipitor] 80 mg PO HS 11/20/18 [History] Budesonide/Formoterol 160/4.5 [Symbicort 160/4.5] 2 puff IH BID 11/20/18 [History] Insulin NPH Hum/Reg Insulin Hm [Novolin 70-30 Flexpen] 62 unit SQ BID 11/20/18 [History] Magnesium Oxide [Magnesium] 800 mg PO BID 11/20/18 [History] Tiotropium [place] [Spiriva Respimat] 1 puff PO DAILY 11/20/18 [History] Metoprolol [Lopressor] 25 mg PO BID 11/21/18 [History] Furosemide [Lasix] 80 mg PO BID 06/08/19 [History] guaiFENesin [Mucus Relief ER] 600 mg PO Q12H PRN 06/09/19 [History] traZODone [TraZODone] 50 mg PO HS PRN 06/09/19 [History] Loratadine [Claritin] 10 mg PO DAILY #30 tablet 06/11/19 [Rx] predniSONE [PredniSONE] 40 mg PO DAILY #2 tablet 06/11/19 [Rx] Allergy/AdvReac Type Severity Reaction Status Date / Time Cortisone AdvReac Confusion Verified 07/01/19 22:31 lisinopril AdvReac Cough Verified 07/01/19 22:31 All Systems PM: A 10-system review of systems was performed and is negative for pertinent findings except as documented above in the HPI. - Constitutional Vitals: Temp Pulse Resp BP Pulse Ox 98.0 F 94 19 161/84 95 07/02/19 03:01 07/02/19 03:01 07/02/19 03:01 07/02/19 03:01 07/02/19 03:01 General appearance: Present: cooperative, A&O X 3, pleasant, no acute distress, answers questions appropriately Exam: - - Head Head exam: Present: normal inspection - Eye Eye exam: Present: EOMI, normal appearance - Respiratory Respiratory exam: Present: decreased breath sounds, CTAB. Absent: accessory muscle use, chest wall tenderness, rales, rhonchi, wheezes - Cardiovascular Cardiovascular exam: Present: irregular rhythm. Absent: diastolic murmur, RRR, systolic murmur - GI/Abdominal GI/Abdominal exam: Present: normal bowel sounds, soft, tenderness - Extremities Exam Extremities exam: Present: pedal edema, warm, radial pulses palpable and symmetrical. Absent: tenderness Additional comments: 2+ pitting edema bilaterally lower extremities - Neurological Exam Neurological exam: Present: no focal deficits. Absent: motor sensory deficit, strengths equal and symetr throughout, facial droop, speech deficit Additional comments: Left sided weakness from previous stroke - Skin Skin exam: Present: dry, normal color, warm Internal Med - H&P Results - Labs CBC & Chem 7: 07/01/19 23:00 07/01/19 23:00 Labs: Short CBC 07/01/19 Range/Units 23:00 WBC 6.5 (4.3-11.1) K/mcL Hgb 10.1 L (12.9-16.9) g/dL Hct 31.7 L (37.5-50.1) % Plt Count 151 (140-400) K/mcL Neutrophils # 4.8 (1.6-8.9) K/mcL BMP 07/01/19 23:00 Sodium 138 Potassium 4.1 Chloride 97 L Carbon Dioxide 31 H BUN 43 H Creatinine 2.49 H Glucose 198 H Calcium 8.9 Cardiac Enzymes 07/01/19 Range/Units 23:00 Troponin I 0.03 (< 0.04) ng/mL - Impressions ITS Impressions Chest X-Ray 07/01/19 22:47 IMPRESSION: Cardiomegaly and pulmonary vascular congestion. D/ / Jose Baez MD / Jose Baez MD Interpreting Provider: Jose Baez MD - Assessment and Plan (1) Shortness of breath Current Visit: Yes Status: Acute Assessment and plan: Secondary to COPD and CHF exacerbations. Patient has decreased breath sounds. Lower extremities have 2+ pitting edema. Chest x-ray did show pulmonary vascular congestion. Continue IV Lasix Strict I's and O's Daily weights Monitor kidney function Oxygen supplementation as needed Breathing treatments Prednisone Continuous pulse oximeter (2) Acute exacerbation of congestive heart failure Current Visit: Yes Status: Acute Assessment and plan: Patient has diastolic congestive heart failure. Takes Lasix at home. Continue IV Lasix Strict I's and O's Daily weights Fluid restriction 1.5 L daily Cardiac telemetry Qualifiers: Heart failure type: unspecified Qualified Code(s): I50.9 - Heart failure, unspecified (3) COPD (chronic obstructive pulmonary disease) Current Visit: No Status: Chronic Assessment and plan: Patient has history of COPD. Smokes about 1 pack cigarettes daily. Has breathing treatments at home, but they do not help with his shortness of breath for this episode. Continue breathing treatments Prednisone by mouth Oxygen supplementation as needed Continuous pulse oximeter Qualifiers: Qualified Code(s): J44.9 - Chronic obstructive pulmonary disease, unspecified (4) Anemia Current Visit: Yes Status: Acute Assessment and plan: Patient had a 2. loss of hemoglobin since his previous lab work. Denies obvious bleeding. Stool occult blood test Repeat a.m. labs Iron panel Qualifiers: Anemia type: unspecified type Qualified Code(s): D64.9 - Anemia, unspecified (5) Diabetes Current Visit: No Status: Chronic Assessment and plan: Patient is an insulin dependent diabetic Monitor sugars ACHS Diabetic diet Low dose insulin sliding scale as needed Hold home meds. 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 Continue home meds Qualifiers: Atrial fibrillation type: chronic Qualified Code(s): I48.2 - Chronic atrial fibrillation (7) Tobacco abuse Current Visit: No Status: Chronic Assessment and plan: Patient declines nicotine patch (8) DVT prophylaxis Current Visit: No Status: Acute Assessment and plan: Continue home Eliquis - Time Spent With Patient Total time spent is greater than 50% in coordination of care (as documented) at patient's floor/unit and/or counseling patient: Greater than 35 minutes
[2019-07-02] MEDS: Ipratropium/Albuterol Neb 3 ML IH SCH ×4 (06:17→22:19)
[2019-07-02 07:34] LABS: Hematocrit 31.7 % (37.5-50.1); Hemoglobin 10.1 g/dL (12.9-16.9); Mean Corpuscular HGB Conc 31.9 g/dL (31.6-35.5); Mean Corpuscular Hemoglobin 31.5 pg (28.0-33.3); Mean Corpuscular Volume 98.8 fL (83.0-100.0); Mean Platelet Volume 11.8 fL (9.4-12.4); Platelet Count 154 K/mcL (140-400); Red Blood Count 3.21 M/mcL (4.19-5.50); Red Cell Distribution Width 12.8 % (11.5-14.5); White Blood Count 5.9 K/mcL (4.3-11.1)
[2019-07-02 07:55] LABS: Albumin 3.4 g/dL (3.5-5.7); Albumin/Globulin Ratio 1.3 (1.1-2.2); Bilirubin,Total 0.4 mg/dL (0.3-1.0); Calcium 9.1 mg/dL (8.6-10.3); Globulin 2.6 g/dL (2.4-3.5); Phosphorous 3.4 mg/dL (2.7-4.5)
[2019-07-02 07:56] LABS: % Iron Saturation 13 % (20-55); Iron 37 mcg/dL (65-175); Transferrin 210 mg/dL (203-362)
[2019-07-02] MEDS: Furosemide 40 MG/4 ML VIAL IVP SCH (09:21)
[2019-07-02] MEDS: predniSONE 20 MG TABLET PO SCH (09:21)
[2019-07-02] MEDS: Isosorbide MONOnitrate (24 HR) 30 MG TAB.ER.24H PO SCH (09:21)
[2019-07-02] MEDS: Apixaban 5 MG TABLET PO SCH ×2 (09:21→19:46)
[2019-07-02] MEDS: Insulin LISPRO 300 UNITS/3 ML VIAL SQ SCH ×4 (09:22→19:47)
--- NOTE | 2019-07-02 11:55 | Event Note ---
Date of Encounter: 07/02/19 Time of Encounter: 11:52 I have seen and evaluated the patient. H&P, labs, vitals and image reviewed. patient improving, clinically stable. will continue to follow.
[2019-07-02 14:58] LABS: ABG Base Excess 9 mEq/L (-2 to 3); ABG HCO3 36 mEq/L (21-27); ABG Oxygen Saturation 94 % (95-98); ABG PCO2 59 mmHg (35-45); ABG PH 7.39 pH Units (7.32-7.45); ABG PO2 73 mmHg (85-104); ABG TCO2 37 mEq/L (20-26)
[2019-07-03] MEDS: Ipratropium/Albuterol Neb 3 ML IH SCH ×4 (03:47→22:00)
[2019-07-03] MEDS: predniSONE 20 MG TABLET PO SCH (07:42)
[2019-07-03] MEDS: Apixaban 5 MG TABLET PO SCH ×2 (07:42→20:07)
[2019-07-03] MEDS: Furosemide 40 MG/4 ML VIAL IVP SCH ×2 (07:42→16:56)
[2019-07-03] MEDS: Isosorbide MONOnitrate (24 HR) 30 MG TAB.ER.24H PO SCH (07:42)
[2019-07-03] MEDS: Insulin LISPRO 300 UNITS/3 ML VIAL SQ SCH ×7 (07:47→20:11)
[2019-07-03] MEDS ORDERED: metOLazone 2.5 MG TABLET PO SCH (08:00)
[2019-07-03] MEDS: Insulin DETEMIR 100 UNIT/ML X5UNITS SQ SCH ×2 (09:29→20:08)
--- NOTE | 2019-07-03 12:54 | Internal Med Progress Note ---
Hospitalist Progress Note - Encounter Date of Encounter: 07/03/19 Time of Encounter: 12:52 - Subjective Interval History: I have seen and evaluated the patient at bedside. reported still feeling short of breath, denies chest pain, nausea or vomiting. reported he cannot urinate in a container because of his body habitus. - Exam Vitals: Temp Pulse Resp BP Pulse Ox 97.6 F 82 19 150/73 99 07/03/19 11:10 07/03/19 11:10 07/03/19 11:10 07/03/19 11:10 07/03/19 11:10 Exam: Vitals: Reviewed General: Morbidly obese, Alert and oriented x4. In mild distress due to jose rtness of breath. Skin: Normal color, no rash, no lesions. HEENT: EOM, pupils equal, round and reactive. Cardiovascular: Irregularly irregular, normal S1 & S2, no rubs, murmurs or gallops. Lungs: CTA b/l, no wheezes or crackles. Abdomen: Obese, soft, non-tender, no rigidity. Extremities: 2+ pitting edema in the lower extr b/l. Neurological: Normal cognition and motor skills. Rest of the physical exam is non contributory - Assessment and Plan (1) Tobacco abuse Current Visit: No Status: Chronic (2) COPD (chronic obstructive pulmonary disease) Current Visit: No Status: Chronic (3) DVT prophylaxis Current Visit: No Status: Chronic (4) Acute exacerbation of congestive heart failure Current Visit: Yes Status: Acute (5) Diabetes Current Visit: No Status: Chronic (6) Atrial fibrillation Current Visit: No Status: Chronic (7) Anemia Current Visit: Yes Status: Acute - Summary of Assessment and Plan Summary of Assessment and Plan: Patient presents the emergency department with shortness of breath. He had recently been hospitalized and treated for hypoxia, COPD and CHF exacerbation Assessment: 1. Acute HFpEF exacerbation 2. COPD exacerbation (resolved) 3. DM 4. A.fib 5. HTN 6. HLD 7. CAD 8. CKD 9. VTE prophylaxis Plan fluid balance is not accurate as patient is urinating directly in the toilet. - continue fluids restriction to 1.5 litters a day - furosemide increased to 40mg/IV BID - continue metolazone, give 30 minutes before furosemide is given - daily weight - nephrology consulted for assistance with diuresis in this patient with CKD stage 3 - Avoid nephrotoxic medications - c/w bronchodilators Q4RT PRN. symbicort - on prednisone 40mg/PO daily - incentive spirometry - on isosorbide - HR controlled on a bb. on apixaban for secondary stroke prevention - blood sugar sub-optimally controlled. levemir 15 units BID added, lispro 6 units ac, plus lipro low dose sliding scale ac. carbs controlled diet Disposition: - Patient to remain in the hospital due to CHF, volume overload, on IV diuretics. - Time Spent with Patient Total time spent is greater than 50% in coordination of care (as documented) at patient's floor/unit and/or counseling patient: Greater than 35 minutes (45) Plan of Care Discussed with: patient (and the nurse.) Internal Medicine: Result - Labs CBC & Chem 7: 07/02/19 06:35 07/02/19 06:35 - ABG Interpretation ABG results: ABG ABG pH 7.39 pH Units (7.32-7.45) 07/02/19 14:55 ABG pCO2 59 mmHg (35-45) H 07/02/19 14:55 ABG pO2 73 mmHg (85-104) L 07/02/19 14:55 ABG O2 Saturation 94 % (95-98) L 07/02/19 14:55 Consult Discharge Plan - Plan Referrals: Magraret Delgado CNP [Primary Care Provider] - (2) COPD (chronic obstructive pulmonary disease) Qualifiers: COPD type: unspecified COPD Qualified Code(s): J44.9 - Chronic obstructive pulmonary disease, unspecified (4) Acute exacerbation of congestive heart failure Qualifiers: Heart failure type: diastolic Qualified Code(s): I50.33 - Acute on chronic diastolic (congestive) heart failure (5) Diabetes Qualifiers: Diabetes mellitus type: type 2 Diabetes mellitus intermission coordinator insulin use: with intermission coordinator use Diabetes mellitus complication status: with hyperglycemia Qualified Code(s): E11.65 - Type 2 diabetes mellitus with hyperglycemia; Z79.4 - adjunct faculty for medical terminology (current) use of insulin (6) Atrial fibrillation Qualifiers: Atrial fibrillation type: chronic Qualified Code(s): I48.2 - Chronic atrial fibrillation (7) Anemia Qualifiers: Anemia type: unspecified type Qualified Code(s): D64.9 - Anemia, unspecified
[2019-07-03 14:37] LABS: Calcium 9.2 mg/dL (8.6-10.3); Magnesium 1.6 mg/dL (1.6-2.6); Potassium 5.6 mEq/L (3.5-5.1)
--- NOTE | 2019-07-03 15:34 | Electrocardiograph Report ---
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
[2019-07-03] MEDS ORDERED: Insulin LISPRO 300 UNITS/3 ML VIAL SQ ONE ×2 (16:43→18:51)
[2019-07-03] MEDS: Budesonide/Formoterol 160/4.5 1 PUFF INH IH SCH (22:00)
[2019-07-04] MEDS: Ipratropium/Albuterol Neb 3 ML IH SCH ×4 (04:02→23:10)
[2019-07-04 04:50] LABS: Calcium 9.4 mg/dL (8.6-10.3); Magnesium 1.5 mg/dL (1.6-2.6); Phosphorous 3.4 mg/dL (2.7-4.5); Potassium 4.3 mEq/L (3.5-5.1)
[2019-07-04] MEDS: Isosorbide MONOnitrate (24 HR) 30 MG TAB.ER.24H PO SCH (08:11)
[2019-07-04] MEDS: Apixaban 5 MG TABLET PO SCH ×2 (08:12→20:27)
[2019-07-04] MEDS: Furosemide 40 MG/4 ML VIAL IVP SCH ×2 (08:12→16:54)
[2019-07-04] MEDS: predniSONE 20 MG TABLET PO SCH (08:12)
[2019-07-04] MEDS: Insulin LISPRO 300 UNITS/3 ML VIAL SQ SCH ×7 (08:25→20:28)
[2019-07-04] MEDS: Insulin DETEMIR 100 UNIT/ML X5UNITS SQ SCH ×2 (09:08→20:28)
[2019-07-04] MEDS: Budesonide/Formoterol 160/4.5 1 PUFF INH IH SCH ×2 (10:03→23:10)
--- NOTE | 2019-07-04 11:38 | Nephrology Consult Note ---
Date of Encounter: 07/04/19 Time of Encounter: 11:35 Assessment and Plan (1) CKD (chronic kidney disease) stage 4, GFR 15-29 ml/min Current Visit: No Status: Chronic Baseline GFR appears to be in the 20s. GFR is 27 today slightly improved from 26 yesterday. Strict I&O. Daily weights. 1.5 L fluid restriction. Continue current diuretic regimen and, will trend BMP in the a.m. and adjust accordingly. If GFR declines, may add albumin with diuretic. (2) Acute exacerbation of chronic obstructive airways disease Current Visit: Yes Status: Acute As per primary. (3) Acute exacerbation of congestive heart failure Current Visit: Yes Status: Acute As per primary. Qualifiers: Heart failure type: diastolic Qualified Code(s): I50.33 - Acute on chronic diastolic (congestive) heart failure (4) Shortness of breath Current Visit: Yes Status: Acute Hopeful to improve with diuresis. Appreciate primary recommendations as well. History of Present Illness - Reason for Consult Consult date: 07/04/19 Chronic Kidney Disease Requesting physician: Gamal Brooks - Chief Complaint difficulty in breathing - History of Present Illness Mr. Cazares is a 64 year old who presented to the ED with difficulty in breathing. He reports the symptoms progressively worsened over the last 4 or 5 days. He was just in ED on 06/11/19 for pneumonia, he did finish clinical treatment including steroids and antibiotics by mouth. PMH: atrial fibrillation, COPD, coronary artery disease, CVA, diabetes, GI bleed, hyperlipidemia, hypertension and CKD IV. He is seen by Dr. Denton in the office. Denies fever, chills, nausea, vomiting, diarrhea. Denies hematuria or dysuria. Admits to feeling short of breath. Denies chest pain. Reports he has not taken his home dosage of Metolazone for 2 months because his hands would "spasm". He does say he was taking his lasix as prescribed.He is on 4 L home oxygen, is on 3 L here at the hospital. He lives at home his . He quit smoking approximately 4 months ago. He denies EtOH or illicit drug use. He denies any first-degree relatives with chronic kidney disease or hemodialysis. He has never been on hemodialysis himself. Any kidney specialists were consult it to help with diuresis. Past Med Surg Social Fam HX - Past Medical History Medical history: atrial fibrillation, COPD, coronary artery disease, CVA, diabetes, GI bleed, hyperlipidemia, hypertension, renal disease, other Additional medical history: Stage 4 renal failure Psychiatric history: no psych history - Past Surgical History Additional surgical history: lapband surgery, emergency surgery for bleeding ulcer, 3-4 cardiac stents - Social History Smoking Status: Former smoker Smokeless Tobacco Status: No Alcohol use: none Drug use: none - Family History Mother Living Status: Hx Family Cardiac Disorders: Yes (CHF) Hx Family Respiratory Disorders: No Hx Family Cancer: Yes (Prostate) Hx Family GI Disorders: No Hx Family Genitourinary Disorders: No Hx Family Endocrine Disorder: Yes (DM) Hx Family Musculoskeletal Disorders: No Hx Family Neuromuscular Disorders: No Hx Family Neurologic Disorders: No Hx Family HEENT Disorders: No Hx Family Autoimmune Disorders: No Hx Family Reproductive Disorders: No Hx Family Psychosocial Disorders: No Hx Family Medical Disorders: No Medications and Allergies Apixaban [Eliquis] 5 mg PO BID 11/19/18 [History] Calcitriol [Rocaltrol] 0.25 mcg PO DAILY 11/19/18 [History] Cholecalciferol (D-3) [Vitamin D] 5,000 unit PO DAILY 11/19/18 [History] Hydrocodone/Acetaminophen [Hydrocodon-Acetaminophen 5-325] 1 tab PO TID PRN 11/19/18 [History] Isosorbide MONOnitrate [Isosorbide Mononitrate ER] 30 mg PO DAILY 11/19/18 [History] Pantoprazole Sodium [Protonix] 40 mg PO DAILY 11/19/18 [History] Terazosin [Hytrin] 5 mg PO DAILY 11/19/18 [History] metOLazone [Zaroxolyn] 2.5 mg PO MOFR 11/19/18 [History] Albuterol Sulfate [Ventolin Hfa] 1 puff PO Q6H PRN 11/20/18 [History] Atorvastatin Calcium [Lipitor] 80 mg PO HS 11/20/18 [History] Budesonide/Formoterol 160/4.5 [Symbicort 160/4.5] 2 puff IH BID 11/20/18 [History] Insulin NPH Hum/Reg Insulin Hm [Novolin 70-30 Flexpen] 62 unit SQ BID 11/20/18 [History] Magnesium Oxide [Magnesium] 800 mg PO BID 11/20/18 [History] Tiotropium [place] [Spiriva Respimat] 1 puff PO DAILY 11/20/18 [History] Metoprolol [Lopressor] 25 mg PO BID 11/21/18 [History] Furosemide [Lasix] 80 mg PO BID 06/08/19 [History] guaiFENesin [Mucus Relief ER] 600 mg PO Q12H PRN 06/09/19 [History] traZODone [TraZODone] 50 mg PO HS PRN 06/09/19 [History] Loratadine [Claritin] 10 mg PO DAILY #30 tablet 06/11/19 [Rx] Albuterol Neb [Proventil Neb] 2.5 mg IH Q4-6H PRN 07/02/19 [History] Testosterone Cypionate [Depo-Testosterone] 200 mg IM Q2W 07/02/19 [History] Allergy/AdvReac Type Severity Reaction Status Date / Time Cortisone AdvReac Confusion Verified 07/01/19 22:31 lisinopril AdvReac Cough Verified 07/01/19 22:31 Review of Systems All Systems review (narrative): The remainder the systems are negative Constitutional: fatigue, no chills, no fever(s) Cardiovascular: dyspnea, dyspnea on exertion, edema, no chest pain at rest Respiratory: cough, dyspnea, no hemoptysis, no wheezing Gastrointestinal: no diarrhea, no nausea, no vomiting Genitourinary Male: no hematuria, no urinary frequency, no urinary hesitancy, no urinary urgency Exam - Vital Signs Vital signs: Initial Vital Signs Temp Pulse Resp BP Pulse Ox 98.1 F 96 28 144/82 94 07/01/19 22:31 07/01/19 22:31 07/01/19 22:31 07/01/19 22:31 07/01/19 22:31 Vital Signs - Last 8 Hours Temp Pulse Resp BP Pulse Ox 07/04/19 11:04 98.1 F 85 18 126/62 90 07/04/19 10:04 17 96 07/04/19 07:09 97.9 F 99 19 142/66 94 07/04/19 04:02 18 95 07/04/19 03:51 98 F 97 17 152/68 95 Intake and Output 07/03/19 07/04/19 07/04/19 23:59 07:59 15:59 Intake Total 240 / 840 360 / 360 Output Total 1400 / 1400 700 / 1900 1200 / 1900 Balance -1160 / -560 -700 / -1540 -840 / -1540 Intake: Oral 240 / 840 360 / 360 Output: Urine 1400 / 1400 700 / 1900 1200 / 1900 Other: Meal Dinner Breakfast Percent of Meal Consumed 100% 100% # Voids 2 Weight 195.4 kg Blood Glucose* 360 335 340 - General Appearance General appearance: well-developed, well-nourished, obese EENT: ATNC, hearing intact, vision intact Neck: supple Respiratory: clear Additional Comments: Diminished in the bases. Cardiology: edema (Plus 3 pitting edema noted to bilateral lower extremities all the way up to the abdomen.), normal S1, normal S2 Gastrointestinal: normoactive bowel sounds, no tenderness, no guarding Integumentary: no rash, warm and dry Neurologic: alert and oriented x3 Musculoskeletal: no deformities, no erythema Psychiatric: mood/affect appropriate, cooperative Results - Lab Results 07/02/19 06:35 07/04/19 03:47 Most recent lab results 07/04/19 03:47 Calcium 9.4 Phosphorus 3.4 Magnesium 1.5 L Consult Discharge Plan - Plan Referrals: Margaret Delgado CREEL SELECTOR [Primary Care Provider] -
--- NOTE | 2019-07-04 13:15 | Internal Med Progress Note ---
Hospitalist Progress Note - Encounter Date of Encounter: 07/04/19 Time of Encounter: 13:12 - Subjective Interval History: I have seen and evaluated the patient at bedside. Patient continues to report shortness of breath. denies chest pain, nausea or vomiting. - Exam Vitals: Temp Pulse Resp BP Pulse Ox 98.1 F 85 18 126/62 90 07/04/19 11:04 07/04/19 11:04 07/04/19 11:04 07/04/19 11:04 07/04/19 11:04 Exam: Vitals: Reviewed General: Alert and oriented x4. In mild distress due to shortness of breath Cardiovascular: Irregularly irregular, normal S1 & S2, no rubs, murmurs or gallops. Lungs: CTA b/l, no wheezes or crackles. Abdomen: Obese, soft, non-tender, no rigidity. Extremities: 2-3+ pitting edema. Neurological: Normal cognition and motor skills. Rest of the physical exam is non contributory - Assessment and Plan (1) Tobacco abuse Current Visit: No Status: Chronic (2) COPD (chronic obstructive pulmonary disease) Current Visit: No Status: Chronic (3) DVT prophylaxis Current Visit: No Status: Chronic (4) Acute exacerbation of congestive heart failure Current Visit: Yes Status: Acute (5) Diabetes Current Visit: No Status: Chronic (6) Atrial fibrillation Current Visit: No Status: Chronic (7) Anemia Current Visit: Yes Status: Acute - Summary of Assessment and Plan Summary of Assessment and Plan: Patient presents the emergency department with shortness of breath. He had recently been hospitalized and treated for hypoxia, COPD and CHF exacerbation. He was gently diuresed and discharged on prednisone. Assessment: 1. CHF exacerbation 2. COPD 3. CKD 4. DM 5. Morbidly Obese 6. HTN 7. CAD 8. VTE prophylaxis Plan Patient continue to report shortness of breath, still volume overloaded total negative balance 2.1 litters - c/w fluids restrictive strategies, plus daily weight - continue furosemide 40mg/IV BID. and metolazone 2.5mg/PO - on isosorbide - Nephrology recommendations appreciated - HR is well controlled on a bb. on apixaban for secondary stroke prevention - chest is clear to auscultation: c/w bronchodilators Q4RT PRN. decrease prednisone to 30mg/PO daily. on symbicort - blood sugar is sub-optimally controlled. levemir increased to 25 units BID, plus lispro 10 units ac, and medium dose lispro sliding scale. carbs controlled diet. - intermittent pneumatic compressions for dvt prophylaxis Disposition: - patient to remain in the hospital due to volume overload, on IV diuretics. - Time Spent with Patient Total time spent is greater than 50% in coordination of care (as documented) at patient's floor/unit and/or counseling patient: Greater than 35 minutes (45) Plan of Care Discussed with: patient (and the nurse.) Internal Medicine: Result - Labs CBC & Chem 7: 07/02/19 06:35 07/04/19 03:47 Labs: BMP 07/03/19 07/04/19 13:44 03:47 Sodium 135 L 137 Potassium 5.6 H 4.3 Chloride 94 L 93 L Carbon Dioxide 35 H 35 H BUN 53 H 58 H Creatinine 2.99 H 2.85 H Glucose 423 H 337 H Calcium 9.2 9.4 - ABG Interpretation ABG results: ABG ABG pH 7.39 pH Units (7.32-7.45) 07/02/19 14:55 ABG pCO2 59 mmHg (35-45) H 07/02/19 14:55 ABG pO2 73 mmHg (85-104) L 07/02/19 14:55 ABG O2 Saturation 94 % (95-98) L 07/02/19 14:55 Consult Discharge Plan - Plan Referrals: Margaret Delgado PROCESSING SUPERVISOR [Primary Care Provider] - (2) COPD (chronic obstructive pulmonary disease) Qualifiers: COPD type: unspecified COPD Qualified Code(s): J44.9 - Chronic obstructive pulmonary disease, unspecified (4) Acute exacerbation of congestive heart failure Qualifiers: Heart failure type: diastolic Qualified Code(s): I50.33 - Acute on chronic diastolic (congestive) heart failure (5) Diabetes Qualifiers: Diabetes mellitus type: type 2 Diabetes mellitus exterminator helper insulin use: with longterm use Diabetes mellitus complication status: with hyperglycemia Qualified Code(s): E11.65 - Type 2 diabetes mellitus with hyperglycemia; Z79.4 - snf (current) use of insulin (6) Atrial fibrillation Qualifiers: Atrial fibrillation type: chronic Qualified Code(s): I48.2 - Chronic atrial fibrillation (7) Anemia Qualifiers: Anemia type: unspecified type Qualified Code(s): D64.9 - Anemia, unspecified
[2019-07-05 02:59] LABS: Calcium 9.2 mg/dL (8.6-10.3); Magnesium 1.4 mg/dL (1.6-2.6); Phosphorous 3.7 mg/dL (2.7-4.5); Potassium 4.6 mEq/L (3.5-5.1)
[2019-07-05] MEDS: Ipratropium/Albuterol Neb 3 ML IH SCH ×4 (04:04→23:05)
[2019-07-05] MEDS: predniSONE 20 MG TABLET PO SCH (08:19)
[2019-07-05] MEDS: Apixaban 5 MG TABLET PO SCH ×2 (08:19→21:43)
[2019-07-05] MEDS: Isosorbide MONOnitrate (24 HR) 30 MG TAB.ER.24H PO SCH (08:19)
[2019-07-05] MEDS: Insulin LISPRO 300 UNITS/3 ML VIAL SQ SCH ×7 (08:20→21:43)
[2019-07-05] MEDS: Insulin DETEMIR 100 UNIT/ML X5UNITS SQ SCH (08:20)
[2019-07-05] MEDS: Furosemide 40 MG/4 ML VIAL IVP SCH (08:20)
[2019-07-05] MEDS ORDERED: Insulin DETEMIR 100 UNIT/ML X5UNITS SQ SCH ×2 (09:00→21:00)
[2019-07-05] MEDS ORDERED: Insulin DETEMIR 100 UNIT/ML X5UNITS SQ ONE (09:21)
[2019-07-05] MEDS: Budesonide/Formoterol 160/4.5 1 PUFF INH IH SCH ×2 (10:42→23:05)
--- NOTE | 2019-07-05 11:46 | Nephrology Progress Note ---
Date of Encounter: 07/05/19 Time of Encounter: 11:42 - Assessment and Plan (1) CKD (chronic kidney disease) stage 4, GFR 15-29 ml/min Current Visit: No Status: Chronic Baseline GFR appears to be in the 20s. GFR is 22 today, stable. Uop noted to be 3900 for 24 hour period and 1050 already for today. Noted to be net negative 4 liters for entire stay. Patient is eager to go home, however I advised him he could benefit from another day of IV lasix. Glucose continues to be elevated as well. Strict I&O. Daily weights. 1.5 L fluid restriction. Continue current diuretic regimen and, will trend BMP in the a.m. and adjust accordingly. If d/c ed home today, please continue 80 mg PO Lasix BID. BMP 7 days after discharge, and again before f/u appointment. F/U with Dr. Denton in 4 weeks. Continue 40 mg IV lasix BID while inpatient with daily BMP's. (2) Acute exacerbation of chronic obstructive airways disease Current Visit: Yes Status: Acute As per primary. (3) Acute exacerbation of congestive heart failure Current Visit: Yes Status: Acute As per primary. Qualifiers: Heart failure type: diastolic Qualified Code(s): I50.33 - Acute on chronic diastolic (congestive) heart failure (4) Shortness of breath Current Visit: Yes Status: Acute Hopeful to improve with diuresis. Appreciate primary recommendations as well. Subjective Principal diagnosis: difficulty in breathing Interval history: Pt seen and examined, is overall feeling a little better. Denies chest pain, admits to chronic shortness of breath. Denies nausea, vomiting, diarrhea. Objective - Vital Signs Vital signs: Vital Signs Temp Pulse Resp BP Pulse Ox 07/05/19 10:42 18 93 07/05/19 07:57 97.6 F 96 18 158/89 96 07/05/19 04:05 22 95 07/05/19 03:58 97.5 F L 96 20 152/68 96 07/04/19 23:42 98.2 F 105 18 158/80 95 07/04/19 23:13 14 97 07/04/19 19:37 98.4 F 110 18 183/99 95 07/04/19 15:53 18 95 07/04/19 15:34 99 18 171/93 96 Intake and Output 07/04/19 07/05/19 07/05/19 23:59 07:59 15:59 Intake Total 474 / 1314 340 / 580 240 / 580 Output Total 1999 950 / 1999 Balance -1526 / -2586 -710 / -1420 -710 / -1420 Intake: Oral 474 / 1314 340 / 580 240 / 580 Output: Urine 1999 950 / 1999 Other: Meal Breakfast Percent of Meal Consumed 100% Weight 195 kg Blood Glucose* 428 384 240 - General Appearance General appearance: Present: well-developed, well-nourished, obese EENT: Present: ATNC, hearing intact, vision intact Neck: Present: supple Respiratory: Present: clear Cardiology: Present: edema (+1 pitting edema noted to bilat lower extremities.), normal S1, normal S2 Gastrointestinal: Present: normoactive bowel sounds, no tenderness, no guarding Integumentary: Present: no rash, warm and dry Neurologic: Present: alert and oriented x3 Musculoskeletal: Present: no deformities, no erythema Psychiatric: Present: mood/affect appropriate, cooperative - Lab 07/02/19 06:35 07/05/19 02:21 Most recent lab results 07/05/19 02:21 Calcium 9.2 Phosphorus 3.7 Magnesium 1.4 L Consult Discharge Plan - Plan Referrals: Margaret Delgado CNP [Primary Care Provider] -
[2019-07-05] MEDS: Torsemide 20 MG TABLET PO SCH (17:16)
--- NOTE | 2019-07-05 19:53 | Internal Med Progress Note ---
Hospitalist Progress Note - Encounter Date of Encounter: 07/05/19 Time of Encounter: 11:30 - Subjective Interval History: Mr Cazares reports some slight improvement in his shortness of breath does admit to history of YANG but cannot tolerate CPAP GEN: Denies fever, chills or malaise HEENT: Denies headache blurriness, or dysphagia RESP: Denies SOB or cough CV: Denies chest pain or palpitations GI: Denies Nausea, vomiting, diarrhea or constipation Reviewed current in hospital medications with modifications see orders Reviewed Routine labs - Exam Vitals: Temp Pulse Resp BP Pulse Ox 98.1 F 108 18 141/81 96 07/05/19 19:37 07/05/19 19:37 07/05/19 19:37 07/05/19 19:37 07/05/19 19:37 Exam: GEN: Morbidly obese male NAD, A&O x 3, Pleasant and conversant SKIN: [place] warm acyanotic not jaundice HEART: Irregularly irregular rate and rhythm 2/6 systolic murmur LUNGS: CTA no wheeze or crackles, overall non labored ABDOMEN; Soft, non tender or distended, BS x 4 normactive EXT: 3+ bilateral LE edema, evidence of chronic venous stasis radial pulses 2+ PSYCH: Mood and affect is appropriate - Assessment and Plan (1) Acute exacerbation of congestive heart failure Current Visit: Yes Status: Acute Assessment and Plan: Appears his -4 L so far due to concerns for increased abdominal girth absorption of his Lasix orally could be compromised will switch to torsemide, continue strict I's and O's and fluid restriction 1.5 L (2) Diabetes Current Visit: Yes Status: Chronic Assessment and Plan: POC ranged from 270-428 will increased both basal and short acting insulin check A1c in the morning (3) Tobacco abuse Current Visit: Yes Status: Chronic Assessment and Plan: encouraged cessation, start nicotine patch (4) COPD (chronic obstructive pulmonary disease) Current Visit: Yes Status: Chronic Assessment and Plan: DuoNeb as needed (5) DVT prophylaxis Current Visit: Yes Status: Chronic Assessment and Plan: On apixaban (6) Atrial fibrillation Current Visit: Yes Status: Chronic Assessment and Plan: Continue telemetry appears to be rate controlled on apixaban, metoprolol (7) Anemia Current Visit: Yes Status: Acute Assessment and Plan: last CBC was 98 was 10.1 repeat CBC in the morning woke up so far revealed normal levels of ferritin will check B12 and folate - Time Spent with Patient Total time spent is greater than 50% in coordination of care (as documented) at patient's floor/unit and/or counseling patient: Internal Medicine: Result - Labs CBC & Chem 7: 07/02/19 06:35 07/05/19 02:21 Labs: BMP 07/05/19 02:21 Sodium 135 L Potassium 4.6 Chloride 93 L Carbon Dioxide 33 H BUN 63 H Creatinine 2.84 H Glucose 419 H Calcium 9.2 - ABG Interpretation ABG results: ABG ABG pH 7.39 pH Units (7.32-7.45) 07/02/19 14:55 ABG pCO2 59 mmHg (35-45) H 07/02/19 14:55 ABG pO2 73 mmHg (85-104) L 07/02/19 14:55 ABG O2 Saturation 94 % (95-98) L 07/02/19 14:55 Consult Discharge Plan - Plan Referrals: Margaret Delgado REHEAT FURNACE OPERATOR [Primary Care Provider] - (1) Acute exacerbation of congestive heart failure Qualifiers: Heart failure type: diastolic Qualified Code(s): I50.33 - Acute on chronic diastolic (congestive) heart failure (2) Diabetes Qualifiers: Diabetes mellitus type: type 2 Diabetes mellitus terminal press operator insulin use: with terminal press operator use Diabetes mellitus complication status: with hyperglycemia Qualified Code(s): E11.65 - Type 2 diabetes mellitus with hyperglycemia; Z79.4 - termite control service representative (current) use of insulin (4) COPD (chronic obstructive pulmonary disease) Qualifiers: COPD type: unspecified COPD Qualified Code(s): J44.9 - Chronic obstructive pulmonary disease, unspecified (6) Atrial fibrillation Qualifiers: Atrial fibrillation type: chronic Qualified Code(s): I48.2 - Chronic atrial fibrillation (7) Anemia Qualifiers: Anemia type: unspecified type Qualified Code(s): D64.9 - Anemia, unspecified
[2019-07-06] MEDS: Ipratropium/Albuterol Neb 3 ML IH SCH ×2 (04:44→10:56)
[2019-07-06 05:26] LABS: Basophils % 0.3 %; Eosinophils % 0.4 %; Hematocrit 32.3 % (37.5-50.1); Hemoglobin 10.6 g/dL (12.9-16.9); Immature Granulocytes % 0.7 % (0-4); Lymphocytes % 13.3 %; Mean Corpuscular HGB Conc 32.8 g/dL (31.6-35.5); Mean Corpuscular Hemoglobin 30.6 pg (28.0-33.3); Mean Corpuscular Volume 93.4 fL (83.0-100.0); Mean Platelet Volume 11.6 fL (9.4-12.4); Monocytes # 0.7 K/mcL (0.0-1.3); Neutrophils # 5.6 K/mcL (1.6-8.9); Platelet Count 207 K/mcL (140-400); Red Blood Count 3.46 M/mcL (4.19-5.50); Segmented Neutrophils % 75.3 %; White Blood Count 7.4 K/mcL (4.3-11.1)
[2019-07-06 05:42] LABS: Calcium 9.3 mg/dL (8.6-10.3); Magnesium 1.7 mg/dL (1.6-2.6); Potassium 4.1 mEq/L (3.5-5.1)
[2019-07-06 06:07] LABS: Folate 16.4 ng/mL (3.0-16.0)
[2019-07-06 06:49] VITALS: BP 145/67
[2019-07-06 07:19] LABS: Estimated Average Glucose 260 mg/dl
[2019-07-06] MEDS: Torsemide 20 MG TABLET PO SCH (08:48)
[2019-07-06] MEDS: predniSONE 20 MG TABLET PO SCH (08:49)
[2019-07-06] MEDS: Isosorbide MONOnitrate (24 HR) 30 MG TAB.ER.24H PO SCH (08:50)
[2019-07-06] MEDS: Insulin LISPRO 300 UNITS/3 ML VIAL SQ SCH ×2 (08:50)
[2019-07-06] MEDS: Apixaban 5 MG TABLET PO SCH (08:50)
[2019-07-06] MEDS ORDERED: Nicotine 21 MG PATCH.TD24 TD SCH (09:00)
[2019-07-06] MEDS ORDERED: Insulin DETEMIR 100 UNIT/ML X5UNITS SQ SCH (09:00)
--- NOTE | 2019-07-06 10:17 | Discharge Summary ---
- NOTES TO OUTPATIENT PROVIDER Notes to Outpatient Provider: Post hospital discharge for CHF exacerbation. Patient may benefit from outpatient colonoscopy given his anemia. Given his comorbid condition he may need to be reevaluated for his YANG Orders not resulted at time of discharge: Pending orders 07/02/19 05:11 Occult Blood,Stool [BF] Routine Date of Encounter: 07/06/19 Time of Encounter: 10:15 - Discharge Diagnosis (1) Acute exacerbation of congestive heart failure Priority: Primary Status: Acute Assessment and Plan: Appears his -6.2 L so far due to concerns for increased abdominal girth absorption of his Lasix orally could be compromised will switch to torsemide, continue strict I's and O's and fluid restriction 1.5 L. we will obtain a dry weight for the patient prior to discharge he is to take an extra dose of his diuretic for weight gain about 5 pounds Qualifiers: Heart failure type: diastolic Qualified Code(s): I50.33 - Acute on chronic diastolic (congestive) heart failure (2) Diabetes Priority: Primary Status: Chronic Assessment and Plan: POC ranged from 270-428 will increased both basal and short acting insulin check A1c 10.7 he is a poorly controlled diabetic would increase his Novolin 70/30 from 62 units twice a day to 80 twice a day Qualifiers: Diabetes mellitus type: type 2 Diabetes mellitus [facility] insulin use: with intermediate project manager use Diabetes mellitus complication status: with hyperglycemia Qualified Code(s): E11.65 - Type 2 diabetes mellitus with hyperglycemia; Z79.4 - group home (current) use of insulin (3) Tobacco abuse Priority: Secondary Status: Chronic Assessment and Plan: encouraged cessation, start nicotine patch (4) COPD (chronic obstructive pulmonary disease) Priority: Secondary Status: Chronic Assessment and Plan: Resume home inhalers Spiriva, albuterol Qualifiers: COPD type: unspecified COPD Qualified Code(s): J44.9 - Chronic obstructive pulmonary disease, unspecified (5) DVT prophylaxis Priority: Secondary Status: Chronic Assessment and Plan: On apixaban discharge today (6) Atrial fibrillation Priority: Secondary Status: Chronic Assessment and Plan: Continue telemetry appears to be rate controlled on apixaban, metoprolol Qualifiers: Atrial fibrillation type: chronic Qualified Code(s): I48.2 - Chronic atrial fibrillation (7) Anemia Priority: Primary Status: Acute Assessment and Plan: last CBC was 98 was 10.1 repeat CBC in the morning 10.6 work up so far revealed normal levels of ferritin B12 and folate. He may benefit from outpatient colonoscopy Qualifiers: Anemia type: unspecified type Qualified Code(s): D64.9 - Anemia, unspecified (8) Morbid obesity with BMI of 60.0-69.9, adult Priority: Primary Status: Acute Assessment and Plan: Continue to encourage lifestyle modification diet and exercise. He does admit to YANG based that if he is able to tolerate the CPAP machine and might be an ideal candidate for bariatric surgery Hospital course: Mr. Cazares is a 64 year old male hospitalized for CHF exacerbation which was attributed to medication nonadherence. Given patient's increased abdominal girth, there is concern is regarding malabsorption of his furosemide orally he was switched to torsemide and he maintained good diuresis. Patient also during his hospital stay was noted to be anemic laboratory workup was unrevealing he would benefit from outpatient colonoscopy. Patient was also strongly advised to quit tobacco use. He admitted to YANG but it is reasonable to tolerate CPAP. He will benefit from reevaluation for YANG and sleep study given his comorbid conditions Discharge discussed with: patient, nurse, social work, case management - Time Spent with Patient Total time spent providing and/or coordinating discharge services:35 mins Specific discharge activities: Please take all medications as prescribed and adhere to the treatment plan. Weigh yourself daily if you gain more than 5 pounds taken extra dose of torsemide - Discharge Medications Prescriptions: New Torsemide [Demadex] 80 mg PO AD 30 Days #75 tablet Nicotine Patch [Nicoderm] 21 mg TD DAILY #30 patch.td24 predniSONE [PredniSONE] See Taper PO AD #11 tablet Continued Calcitriol [Rocaltrol] 0.25 mcg PO DAILY Terazosin [Hytrin] 5 mg PO DAILY Pantoprazole Sodium [Protonix] 40 mg PO DAILY Isosorbide MONOnitrate [Isosorbide Mononitrate ER] 30 mg PO DAILY Hydrocodone/Acetaminophen [Hydrocodon-Acetaminophen 5-325] 1 tab PO TID PRN PRN Reason: Pain Cholecalciferol (D-3) [Vitamin D] 5,000 unit PO DAILY Apixaban [Eliquis] 5 mg PO BID Tiotropium [place] [Spiriva Respimat] 1 puff PO DAILY Budesonide/Formoterol 160/4.5 [Symbicort 160/4.5] 2 puff IH BID Albuterol Sulfate [Ventolin Hfa] 1 puff PO Q6H PRN PRN Reason: Shortness Of Breath Atorvastatin Calcium [Lipitor] 80 mg PO HS Magnesium Oxide [Magnesium] 800 mg PO BID Metoprolol [Lopressor] 25 mg PO BID traZODone [TraZODone] 50 mg PO HS PRN PRN Reason: Sleep Loratadine [Claritin] 10 mg PO DAILY #30 tablet Albuterol Neb [Proventil Neb] 2.5 mg IH Q4-6H PRN PRN Reason: Shortness Of Breath Testosterone Cypionate [Depo-Testosterone] 200 mg IM Q2W Changed Insulin NPH Hum/Reg Insulin Hm [Novolin 70-30 Flexpen] 80 unit SQ BID #5 insuln.pen Discontinued metOLazone [Zaroxolyn] 2.5 mg PO MOFR Furosemide [Lasix] 80 mg PO BID guaiFENesin [Mucus Relief ER] 600 mg PO Q12H PRN PRN Reason: Congestion Home Medications: Apixaban [Eliquis] 5 mg PO BID 11/19/18 [History] Calcitriol [Rocaltrol] 0.25 mcg PO DAILY 11/19/18 [History] Cholecalciferol (D-3) [Vitamin D] 5,000 unit PO DAILY 11/19/18 [History] Hydrocodone/Acetaminophen [Hydrocodon-Acetaminophen 5-325] 1 tab PO TID PRN 11/19/18 [History] Isosorbide MONOnitrate [Isosorbide Mononitrate ER] 30 mg PO DAILY 11/19/18 [History] Pantoprazole Sodium [Protonix] 40 mg PO DAILY 11/19/18 [History] Terazosin [Hytrin] 5 mg PO DAILY 11/19/18 [History] Albuterol Sulfate [Ventolin Hfa] 1 puff PO Q6H PRN 11/20/18 [History] Atorvastatin Calcium [Lipitor] 80 mg PO HS 11/20/18 [History] Budesonide/Formoterol 160/4.5 [Symbicort 160/4.5] 2 puff IH BID 11/20/18 [History] Magnesium Oxide [Magnesium] 800 mg PO BID 11/20/18 [History] Tiotropium [place] [Spiriva Respimat] 1 puff PO DAILY 11/20/18 [History] Metoprolol [Lopressor] 25 mg PO BID 11/21/18 [History] traZODone [TraZODone] 50 mg PO HS PRN 06/09/19 [History] Loratadine [Claritin] 10 mg PO DAILY #30 tablet 06/11/19 [Rx] Albuterol Neb [Proventil Neb] 2.5 mg IH Q4-6H PRN 07/02/19 [History] Testosterone Cypionate [Depo-Testosterone] 200 mg IM Q2W 07/02/19 [History] Insulin NPH Hum/Reg Insulin Hm [Novolin 70-30 Flexpen] 80 unit SQ BID #5 insuln.pen 07/06/19 [Rx] Nicotine Patch [Nicoderm] 21 mg TD DAILY #30 patch.td24 07/06/19 [Rx] Torsemide [Demadex] 80 mg PO AD 30 Days #75 tablet 07/06/19 [Rx] predniSONE [PredniSONE] See Taper PO AD #11 tablet 07/06/19 [Rx] Allergies/Adverse Reactions: Allergy/AdvReac Type Severity Reaction Status Date / Time Cortisone AdvReac Confusion Verified 07/01/19 22:31 lisinopril AdvReac Cough Verified 07/01/19 22:31 Date of admission: 07/04/19 15:30 Primary care physician: Margaret Delgado CNP Consults: 07/02/19 04:18 Consult to Nurse Navigator [CONS] Routine Comment: 07/03/19 12:47 Consult to Nephrology [CONS] Routine Consulting Provider: Kidney Elvira/RACHNA/MARCIA/LEONCIO Reason for Consult: ckd. presenting with volume overload. assiss with diuresis. Call Completed: No Discharging clinician: Nina Ashraf Anticipated date of discharge: 07/06/19 - Constitutional Vitals: Temp Pulse Resp BP Pulse Ox 98.1 F 82 16 145/67 99 07/06/19 06:44 07/06/19 06:44 07/06/19 06:44 07/06/19 06:44 07/06/19 06:44 General appearance: Present: cooperative, A&O X 3, pleasant, no acute distress, answers questions appropriately Exam: GEN: Morbidly obese male NAD, A&O x 3, Pleasant and conversant SKIN: [place] warm acyanotic not jaundice HEART: Irregularly irregular rate and rhythm. 2/6 systolic murmur LUNGS: CTA no wheeze or crackles, overall non labored ABDOMEN; obese Soft, non tender or distended, BS x 4 normactive EXT: 1-2+ bilateral LE edema, signs of chronic venous stasis Pedal pulses 1+, radial pulses 2+ PSYCH: Mood and affect is appropriate - Patient Status Disposition: Home Health Service Condition: Fair Functional capacity at discharge: independent ambulation Overall status at discharge: patient is progressing back to baseline - Discharge Instructions Instructions: Heart Failure (DC), Anemia (GEN) Follow Up With: Margaret Delgado BEAN SNAPPER [Primary Care Provider] - - Diet and Activity Activity: as per physical therapy, resume usual activities as tolerated Diet: diabetic diet, low fat, low cholesterol, low salt diet
--- NOTE | 2019-07-06 10:40 | Physician Discharge Referral ---
Home Health/Hosp Referral Info Transfer to: Home Health Provider in Charge Post Discharge: PCP - Diagnosis (1) Acute exacerbation of congestive heart failure Priority: Primary Status: Acute (2) Diabetes Priority: Primary Status: Chronic (3) Tobacco abuse Priority: Secondary Status: Chronic (4) COPD (chronic obstructive pulmonary disease) Priority: Secondary Status: Chronic (5) DVT prophylaxis Priority: Secondary Status: Chronic (6) Atrial fibrillation Priority: Secondary Status: Chronic (7) Anemia Priority: Primary Status: Acute (8) Morbid obesity with BMI of 60.0-69.9, adult Priority: Primary Status: Acute - Respiratory Orders Oxygen / L per min (3L nc) Smoking Cessation: Smoking cessation has been advised. For more information, call the [employer] Quit Line at [phone]. - Diet/Nutrition Diet/Nutrition Orders: Cardiac (Low-salt 1.5 L fluid restriction) - Activity Activity Orders: Up ad king - Services Needed Following services are medically necessary services: Nursing, Home Health Aide, Physical Therapy - Transfer Medications Prescriptions: Torsemide [Demadex] 80 mg PO AD 30 Days #75 tablet Nicotine Patch [Nicoderm] 21 mg TD DAILY #30 patch.td24 Insulin NPH Hum/Reg Insulin Hm [Novolin 70-30 Flexpen] 80 unit SQ BID #5 insuln.pen predniSONE [PredniSONE] See Taper PO AD #11 tablet Home Medications: Apixaban [Eliquis] 5 mg PO BID 11/19/18 [History] Calcitriol [Rocaltrol] 0.25 mcg PO DAILY 11/19/18 [History] Cholecalciferol (D-3) [Vitamin D] 5,000 unit PO DAILY 11/19/18 [History] Hydrocodone/Acetaminophen [Hydrocodon-Acetaminophen 5-325] 1 tab PO TID PRN 11/19/18 [History] Isosorbide MONOnitrate [Isosorbide Mononitrate ER] 30 mg PO DAILY 11/19/18 [History] Pantoprazole Sodium [Protonix] 40 mg PO DAILY 11/19/18 [History] Terazosin [Hytrin] 5 mg PO DAILY 11/19/18 [History] Albuterol Sulfate [Ventolin Hfa] 1 puff PO Q6H PRN 11/20/18 [History] Atorvastatin Calcium [Lipitor] 80 mg PO HS 11/20/18 [History] Budesonide/Formoterol 160/4.5 [Symbicort 160/4.5] 2 puff IH BID 11/20/18 [History] Magnesium Oxide [Magnesium] 800 mg PO BID 11/20/18 [History] Tiotropium [place] [Spiriva Respimat] 1 puff PO DAILY 11/20/18 [History] Metoprolol [Lopressor] 25 mg PO BID 11/21/18 [History] traZODone [TraZODone] 50 mg PO HS PRN 06/09/19 [History] Loratadine [Claritin] 10 mg PO DAILY #30 tablet 06/11/19 [Rx] Albuterol Neb [Proventil Neb] 2.5 mg IH Q4-6H PRN 07/02/19 [History] Testosterone Cypionate [Depo-Testosterone] 200 mg IM Q2W 07/02/19 [History] Insulin NPH Hum/Reg Insulin Hm [Novolin 70-30 Flexpen] 80 unit SQ BID #5 insuln.pen 07/06/19 [Rx] Nicotine Patch [Nicoderm] 21 mg TD DAILY #30 patch.td24 07/06/19 [Rx] Torsemide [Demadex] 80 mg PO AD 30 Days #75 tablet 07/06/19 [Rx] predniSONE [PredniSONE] See Taper PO AD #11 tablet 07/06/19 [Rx] Allergies/Adverse Reactions: Allergy/AdvReac Type Severity Reaction Status Date / Time Cortisone AdvReac Confusion Verified 07/01/19 22:31 lisinopril AdvReac Cough Verified 07/01/19 22:31 Certification: Further, I certify that my clinical findings support that this patient is homebound (i.e. absences from home require considerable and taxing effort and are for medical reasons or anglican services or infrequently or short duration when for other reasons) because: Homebound Reason: Leaving home requires considerable and taxing effort due to condition Attestation: My signature below is to certify that this patient is under my care and that I, or nurse practitioner, or a physician's child and youth program assistant working with me, has a [id number] encounter with this patient.
[2019-07-06] MEDS: Budesonide/Formoterol 160/4.5 1 PUFF INH IH SCH (10:57)
[2019-07-07] MEDS ORDERED: metOLazone 2.5 MG TABLET PO SCH (07:30)
== END 2019-07-06 12:24 | disposition home health service (06) | DRG 291 ==
LOC: 2ANU 22:29 → EMEROOARM 22:29 → SUATTDRO 07-02 00:56 → 2ANU 07-02 02:29 → 2NENU 07-04 15:24 → SUATTDRO 07-04 15:30
PROVIDERS: ADMIT Family Medicine; ATTEND Pharmacist

== ENCOUNTER 2019-07-21 14:26 | Inpatient (IN) ==
[2019-07-21 15:33] LABS: Basophils % 0.3 %; Eosinophils # 0.1 K/mcL (0.0-0.6); Eosinophils % 1.2 %; Hematocrit 33.4 % (37.5-50.1); Hemoglobin 10.4 g/dL (12.9-16.9); Immature Granulocytes % 0.4 % (0-4); Lymphocytes # 1.1 K/mcL (0.6-4.6); Lymphocytes % 15.3 %; Mean Corpuscular HGB Conc 31.1 g/dL (31.6-35.5); Mean Corpuscular Hemoglobin 30.5 pg (28.0-33.3); Mean Corpuscular Volume 97.9 fL (83.0-100.0); Monocytes # 0.6 K/mcL (0.0-1.3); Monocytes % 8.2 %; Neutrophils # 5.4 K/mcL (1.6-8.9); Platelet Count 136 K/mcL (140-400); Red Blood Count 3.41 M/mcL (4.19-5.50); Red Cell Distribution Width 13.3 % (11.5-14.5); Segmented Neutrophils % 74.6 %; White Blood Count 7.2 K/mcL (4.3-11.1)
[2019-07-21 15:50] LABS: Calcium 9.2 mg/dL (8.6-10.3); Potassium 4.4 mEq/L (3.5-5.1); Troponin I 0.04 ng/mL (< 0.04)
[2019-07-21] MEDS ORDERED: Furosemide 20 MG/2 ML VIAL IVP ONE (15:58)
[2019-07-21] MEDS ORDERED: Aspirin 325 MG TABLET PO ONE (16:01)
[2019-07-21] MEDS ORDERED: Furosemide 40 MG/4 ML VIAL IVP ONE (16:01)
[2019-07-21] MEDS ORDERED: Naloxone 0.4 MG/ML INJ IVP PRN (18:16)
[2019-07-21] MEDS ORDERED: *HR* Dextrose 50 % in Water (Syg) 50 ML SYRINGE IVP PRN (19:02)
[2019-07-21] MEDS ORDERED: D5% in Water 1,000 ML IVC PRN (19:02)
[2019-07-21] MEDS ORDERED: Dextrose Gel 15 GM/37.5 ML TUBE PO PRN ×2 (19:02)
[2019-07-21] MEDS ORDERED: NON-FORMULARY MEDICATION 1 EACH EACH (Testosterone Cypionate [Depo-Testosterone] 200 MG) IM SCH (19:15)
[2019-07-21] MEDS: Apixaban 5 MG TABLET PO SCH (20:43)
[2019-07-21] MEDS: Insulin LISPRO 300 UNITS/3 ML VIAL SQ SCH (22:37)
[2019-07-22 04:54] LABS: Basophils % 0.4 %; Eosinophils # 0.1 K/mcL (0.0-0.6); Eosinophils % 1.4 %; Hematocrit 32.6 % (37.5-50.1); Hemoglobin 10.2 g/dL (12.9-16.9); Immature Granulocytes % 0.4 % (0-4); Lymphocytes # 1.2 K/mcL (0.6-4.6); Lymphocytes % 20.3 %; Mean Corpuscular HGB Conc 31.3 g/dL (31.6-35.5); Mean Corpuscular Hemoglobin 31.3 pg (28.0-33.3); Monocytes # 0.5 K/mcL (0.0-1.3); Monocytes % 8.9 %; Neutrophils # 3.9 K/mcL (1.6-8.9); Platelet Count 123 K/mcL (140-400); Red Blood Count 3.26 M/mcL (4.19-5.50); Red Cell Distribution Width 13.2 % (11.5-14.5); Segmented Neutrophils % 68.6 %; White Blood Count 5.7 K/mcL (4.3-11.1)
[2019-07-22 05:06] LABS: % Iron Saturation 20 % (20-55); Iron 59 mcg/dL (65-175); Transferrin 213 mg/dL (203-362)
[2019-07-22 05:07] LABS: Calcium 9.2 mg/dL (8.6-10.3); Potassium 4.6 mEq/L (3.5-5.1)
[2019-07-22] MEDS: Furosemide 40 MG/4 ML VIAL IVP SCH ×2 (08:56→18:49)
[2019-07-22] MEDS: Apixaban 5 MG TABLET PO SCH ×2 (09:01→22:24)
[2019-07-22] MEDS: Insulin LISPRO 300 UNITS/3 ML VIAL SQ SCH ×4 (09:02→22:25)
[2019-07-22 09:08] LABS: Estimated Average Glucose 286 mg/dl
[2019-07-22 09:39] LABS: Magnesium 1.8 mg/dL (1.6-2.6)
[2019-07-22 15:36] LABS: Protein/Creatinine Ratio,Urine 2.12 mg/mg (0.00-0.20)
[2019-07-22] MEDS: Albumin 25% 25gram/100mL 25 GM/100 ML IV.SOLN IVPB SCH (17:16)
[2019-07-22] MEDS: Albuterol 2.5 MG/3 ML NEBULIZER IH PRN (22:59)
[2019-07-23 02:55] LABS: Potassium 4.4 mEq/L (3.5-5.1)
[2019-07-23 03:45] LABS: Hepatitis B Surface Antibody 4.82 mIU/mL
[2019-07-23] MEDS: Albuterol 2.5 MG/3 ML NEBULIZER IH PRN ×2 (03:49→20:04)
[2019-07-23 03:55] LABS: Hepatitis B Surface Antigen Nonreactive (Nonreactive)
[2019-07-23 04:24] LABS: Hepatitis B Core IgM Nonreactive (Nonreactive)
[2019-07-23] MEDS: Albumin 25% 25gram/100mL 25 GM/100 ML IV.SOLN IVPB SCH ×2 (05:06→16:18)
[2019-07-23] MEDS: Insulin LISPRO 300 UNITS/3 ML VIAL SQ SCH ×4 (09:30→21:36)
[2019-07-23] MEDS: Furosemide 40 MG/4 ML VIAL IVP SCH ×2 (09:31→17:50)
[2019-07-23] MEDS: Apixaban 5 MG TABLET PO SCH ×2 (09:31→21:39)
[2019-07-23] MEDS ORDERED: *HR* Labetalol 20 MG/4 ML SYRINGE IVP STA (10:17)
[2019-07-23 10:35] LABS: ABG Base Excess 13 mEq/L (-2 to 3); ABG HCO3 41 mEq/L (21-27); ABG Oxygen Saturation 90 % (95-98); ABG PCO2 67 mmHg (35-45); ABG PH 7.39 pH Units (7.32-7.45); ABG PO2 61 mmHg (85-104); ABG TCO2 43 mEq/L (20-26); Blood Gas Pressure Support 14 cm H2O
[2019-07-23 10:48] LABS: Basophils % 0.2 %; Eosinophils # 0.1 K/mcL (0.0-0.6); Eosinophils % 0.8 %; Hematocrit 32.2 % (37.5-50.1); Hemoglobin 10.2 g/dL (12.9-16.9); Immature Granulocytes % 0.3 % (0-4); Lymphocytes # 0.7 K/mcL (0.6-4.6); Lymphocytes % 10.9 %; Mean Corpuscular HGB Conc 31.7 g/dL (31.6-35.5); Mean Corpuscular Volume 97.9 fL (83.0-100.0); Mean Platelet Volume 11.3 fL (9.4-12.4); Monocytes # 0.4 K/mcL (0.0-1.3); Monocytes % 7.2 %; Neutrophils # 4.8 K/mcL (1.6-8.9); Platelet Count 117 K/mcL (140-400); Red Blood Count 3.29 M/mcL (4.19-5.50); Red Cell Distribution Width 13.2 % (11.5-14.5); Segmented Neutrophils % 80.6 %
[2019-07-23] MEDS: metOLazone 5 MG TABLET PO SCH (10:53)
[2019-07-23] MEDS ORDERED: *HR* Labetalol 20 MG/4 ML SYRINGE IVP PRN (12:49)
[2019-07-23] MEDS ORDERED: Insulin DETEMIR 100 UNIT/ML X5UNITS SQ ONE (12:49)
[2019-07-23] MEDS ORDERED: Insulin Regular, Human 100 UNIT/ML SQ ONE ×2 (12:50→14:00)
[2019-07-23 16:21] LABS: Bilirubin,Urine Negative (Negative); Blood,Urine Trace (Negative); Clarity,Urine Clear (Clear); Color,Urine Yellow (Yellow); Glucose,Urine (UA) 500 mg/dL (Normal); Ketones,Urine Negative (Negative); Leukocyte Esterase,Urine Negative (Negative); Nitrite,Urine Negative (Negative); Protein,Urine >=300 mg/dL (Neg-Trace); Specific Gravity,Urine 1.017 (1.010-1.025); Urobilinogen,Urine Normal (Normal)
[2019-07-23] MEDS: Budesonide/Formoterol 160/4.5 1 PUFF INH IH SCH (20:01)
[2019-07-23] MEDS: Insulin DETEMIR 100 UNIT/ML X5UNITS SQ SCH (21:35)
[2019-07-23] MEDS: Magnesium Oxide 400 MG TABLET PO SCH (21:35)
[2019-07-24] MEDS: Albuterol 2.5 MG/3 ML NEBULIZER IH PRN (04:09)
[2019-07-24] MEDS: Albumin 25% 25gram/100mL 25 GM/100 ML IV.SOLN IVPB SCH ×2 (05:27→17:24)
[2019-07-24 05:43] LABS: Potassium 4.2 mEq/L (3.5-5.1)
[2019-07-24 07:02] LABS: ABG Base Excess 11 mEq/L (-2 to 3); ABG HCO3 39 mEq/L (21-27); ABG Oxygen Saturation 96 % (95-98); ABG PCO2 63 mmHg (35-45); ABG PO2 88 mmHg (85-104); ABG TCO2 41 mEq/L (20-26)
[2019-07-24] MEDS: Budesonide/Formoterol 160/4.5 1 PUFF INH IH SCH ×2 (07:42→19:58)
[2019-07-24] MEDS: *HR* HYDROcodone/Acet 5/325 mg TABLET PO PRN (08:25)
[2019-07-24] MEDS: Magnesium Oxide 400 MG TABLET PO SCH ×2 (08:25→22:13)
[2019-07-24] MEDS: Furosemide 40 MG/4 ML VIAL IVP SCH ×2 (08:25→17:12)
[2019-07-24] MEDS: Isosorbide MONOnitrate (24 HR) 30 MG TAB.ER.24H PO SCH (08:26)
[2019-07-24] MEDS: metOLazone 5 MG TABLET PO SCH (08:26)
[2019-07-24] MEDS: Apixaban 5 MG TABLET PO SCH ×2 (08:26→22:13)
[2019-07-24] MEDS: Loratadine 10 MG TABLET PO SCH (08:26)
[2019-07-24] MEDS: Insulin LISPRO 300 UNITS/3 ML VIAL SQ SCH ×4 (08:27→22:18)
[2019-07-24] MEDS: Nicotine 21 MG PATCH.TD24 TD SCH (08:27)
[2019-07-24] MEDS: Insulin DETEMIR 100 UNIT/ML X5UNITS SQ SCH ×2 (08:30→22:17)
[2019-07-24 09:12] LABS: Basophils % 0.2 %; Eosinophils # 0.1 K/mcL (0.0-0.6); Eosinophils % 0.8 %; Hematocrit 29.8 % (37.5-50.1); Hemoglobin 9.7 g/dL (12.9-16.9); Immature Granulocytes % 0.3 % (0-4); Lymphocytes # 0.5 K/mcL (0.6-4.6); Lymphocytes % 7.9 %; Mean Corpuscular HGB Conc 32.6 g/dL (31.6-35.5); Mean Corpuscular Hemoglobin 31.4 pg (28.0-33.3); Mean Corpuscular Volume 96.4 fL (83.0-100.0); Mean Platelet Volume 11.3 fL (9.4-12.4); Monocytes # 0.6 K/mcL (0.0-1.3); Neutrophils # 5.4 K/mcL (1.6-8.9); Platelet Count 110 K/mcL (140-400); Red Blood Count 3.09 M/mcL (4.19-5.50); Red Cell Distribution Width 13.1 % (11.5-14.5); Segmented Neutrophils % 81.8 %; White Blood Count 6.6 K/mcL (4.3-11.1)
[2019-07-24] MEDS ORDERED: *HR* LORazepam 2 MG/ML VIAL IVP ONE (19:38)
[2019-07-25] MEDS ORDERED: *HR* LORazepam 2 MG/ML VIAL IVP ONE (01:40)
[2019-07-25] MEDS: Albumin 25% 25gram/100mL 25 GM/100 ML IV.SOLN IVPB SCH ×2 (05:19→17:00)
[2019-07-25 06:37] LABS: Basophils % 0.2 %; Eosinophils # 0.1 K/mcL (0.0-0.6); Eosinophils % 1.4 %; Hematocrit 28.6 % (37.5-50.1); Hemoglobin 9.1 g/dL (12.9-16.9); Immature Granulocytes % 0.4 % (0-4); Lymphocytes # 0.8 K/mcL (0.6-4.6); Lymphocytes % 13.4 %; Mean Corpuscular HGB Conc 31.8 g/dL (31.6-35.5); Mean Corpuscular Hemoglobin 31.4 pg (28.0-33.3); Mean Corpuscular Volume 98.6 fL (83.0-100.0); Mean Platelet Volume 12.2 fL (9.4-12.4); Monocytes # 0.5 K/mcL (0.0-1.3); Monocytes % 9.7 %; Neutrophils # 4.2 K/mcL (1.6-8.9); Platelet Count 107 K/mcL (140-400); Red Cell Distribution Width 13.2 % (11.5-14.5); Segmented Neutrophils % 74.9 %; White Blood Count 5.6 K/mcL (4.3-11.1)
[2019-07-25 06:59] LABS: Albumin 3.8 g/dL (3.5-5.7); Albumin/Globulin Ratio 1.6 (1.1-2.2); Bilirubin,Direct 0.3 mg/dL (0.0-0.2); Bilirubin,Indirect 0.9 mg/dL (0.0-1.2); Bilirubin,Total 1.2 mg/dL (0.3-1.0); Globulin 2.4 g/dL (2.4-3.5); Total Protein 6.2 g/dL (6.4-8.9)
[2019-07-25 07:04] LABS: Calcium 9.5 mg/dL (8.6-10.3); Potassium 4.1 mEq/L (3.5-5.1)
[2019-07-25] MEDS: Budesonide/Formoterol 160/4.5 1 PUFF INH IH SCH ×2 (07:47→19:52)
[2019-07-25] MEDS: Magnesium Oxide 400 MG TABLET PO SCH ×2 (08:21→21:06)
[2019-07-25] MEDS: Loratadine 10 MG TABLET PO SCH (08:21)
[2019-07-25] MEDS: metOLazone 5 MG TABLET PO SCH (08:21)
[2019-07-25] MEDS: Isosorbide MONOnitrate (24 HR) 30 MG TAB.ER.24H PO SCH (08:22)
[2019-07-25] MEDS: Apixaban 5 MG TABLET PO SCH ×2 (08:22→21:07)
[2019-07-25] MEDS: Nicotine 21 MG PATCH.TD24 TD SCH (08:22)
[2019-07-25] MEDS: Furosemide 40 MG/4 ML VIAL IVP SCH ×2 (08:22→17:14)
[2019-07-25] MEDS: Insulin LISPRO 300 UNITS/3 ML VIAL SQ SCH ×6 (08:24→21:11)
[2019-07-25] MEDS: Insulin DETEMIR 100 UNIT/ML X5UNITS SQ SCH ×2 (08:24→21:17)
[2019-07-25] MEDS: Cefepime HCl 2,000 MG in Water for inj. (sterile) 20 ML IVP SCH (21:18)
[2019-07-25] MEDS: Albuterol 2.5 MG/3 ML NEBULIZER IH PRN (21:52)
[2019-07-26 01:17] LABS: Bilirubin,Urine Negative (Negative); Blood,Urine Small (Negative); Clarity,Urine Clear (Clear); Color,Urine Yellow (Yellow); Glucose,Urine (UA) 250 mg/dL (Normal); Ketones,Urine Negative (Negative); Leukocyte Esterase,Urine Negative (Negative); Nitrite,Urine Negative (Negative); Protein,Urine >=300 mg/dL (Neg-Trace); Specific Gravity,Urine 1.018 (1.010-1.025); Urobilinogen,Urine Normal (Normal)
[2019-07-26 01:28] LABS: Bacteria,Urine None Seen per hpf (None-Few); Hyaline Casts,Urine None Seen per lpf (None-Few); Squamous Epithelial Cell,Urine Many per lpf (None-Few); WBC,Urine 0-3 per hpf (0-3)
[2019-07-26] MEDS: *HR* HYDROcodone/Acet 5/325 mg TABLET PO PRN (02:00)
[2019-07-26] MEDS: Albuterol 2.5 MG/3 ML NEBULIZER IH PRN (05:01)
[2019-07-26 05:06] LABS: Basophils % 0.2 %; Eosinophils # 0.1 K/mcL (0.0-0.6); Eosinophils % 1.3 %; Hematocrit 27.6 % (37.5-50.1); Hemoglobin 8.8 g/dL (12.9-16.9); Immature Granulocytes % 0.4 % (0-4); Lymphocytes # 0.7 K/mcL (0.6-4.6); Lymphocytes % 12.8 %; Mean Corpuscular HGB Conc 31.9 g/dL (31.6-35.5); Mean Corpuscular Hemoglobin 30.9 pg (28.0-33.3); Mean Corpuscular Volume 96.8 fL (83.0-100.0); Mean Platelet Volume 11.7 fL (9.4-12.4); Monocytes # 0.5 K/mcL (0.0-1.3); Monocytes % 9.2 %; Platelet Count 118 K/mcL (140-400); Red Blood Count 2.85 M/mcL (4.19-5.50); Segmented Neutrophils % 76.1 %; White Blood Count 5.2 K/mcL (4.3-11.1)
[2019-07-26] MEDS ORDERED: Albuterol 2.5 MG/3 ML NEBULIZER IH PRN (05:13)
[2019-07-26 05:25] LABS: Calcium 9.7 mg/dL (8.6-10.3); Potassium 4.4 mEq/L (3.5-5.1)
[2019-07-26] MEDS: Cefepime HCl 2,000 MG in Water for inj. (sterile) 20 ML IVP SCH (06:07)
[2019-07-26] MEDS: Albumin 25% 25gram/100mL 25 GM/100 ML IV.SOLN IVPB SCH (06:27)
[2019-07-26] MEDS: Apixaban 5 MG TABLET PO SCH ×2 (08:16→20:29)
[2019-07-26] MEDS: Loratadine 10 MG TABLET PO SCH (08:16)
[2019-07-26] MEDS: metOLazone 5 MG TABLET PO SCH (08:16)
[2019-07-26] MEDS: Isosorbide MONOnitrate (24 HR) 30 MG TAB.ER.24H PO SCH (08:16)
[2019-07-26] MEDS: Magnesium Oxide 400 MG TABLET PO SCH ×2 (08:17→20:29)
[2019-07-26] MEDS: Insulin LISPRO 300 UNITS/3 ML VIAL SQ SCH ×7 (08:17→20:30)
[2019-07-26] MEDS: Furosemide 40 MG/4 ML VIAL IVP SCH (08:17)
[2019-07-26] MEDS: Nicotine 21 MG PATCH.TD24 TD SCH (08:17)
[2019-07-26] MEDS: Insulin DETEMIR 100 UNIT/ML X5UNITS SQ SCH ×2 (08:17→20:31)
[2019-07-26] MEDS: Budesonide/Formoterol 160/4.5 1 PUFF INH IH SCH ×2 (10:52→22:33)
[2019-07-26] MEDS: Albuterol 2.5 MG/3 ML NEBULIZER IH SCH ×3 (10:52→22:32)
[2019-07-26] MEDS ORDERED: Torsemide 20 MG TABLET PO ONE (16:00)
[2019-07-26] MEDS: Piperacillin/Tazobactam 3.375 GM in 0.9 % Sodium Chloride Mini Bag 100 ML IVPB SCH ×2 (16:07→23:36)
[2019-07-27 02:15] LABS: Calcium 9.4 mg/dL (8.6-10.3)
[2019-07-27] MEDS: Albuterol 2.5 MG/3 ML NEBULIZER IH SCH ×2 (04:17→10:19)
[2019-07-27] MEDS: Apixaban 5 MG TABLET PO SCH ×2 (08:59→20:57)
[2019-07-27] MEDS: Torsemide 20 MG TABLET PO SCH (09:00)
[2019-07-27] MEDS: Magnesium Oxide 400 MG TABLET PO SCH ×2 (09:01→20:56)
[2019-07-27] MEDS: Loratadine 10 MG TABLET PO SCH (09:02)
[2019-07-27] MEDS: Isosorbide MONOnitrate (24 HR) 30 MG TAB.ER.24H PO SCH (09:02)
[2019-07-27] MEDS: Nicotine 21 MG PATCH.TD24 TD SCH (09:02)
[2019-07-27] MEDS: Piperacillin/Tazobactam 3.375 GM in 0.9 % Sodium Chloride Mini Bag 100 ML IVPB SCH ×3 (09:03→23:39)
[2019-07-27] MEDS: Insulin DETEMIR 100 UNIT/ML X5UNITS SQ SCH ×2 (09:04→20:57)
[2019-07-27] MEDS: Insulin LISPRO 300 UNITS/3 ML VIAL SQ SCH ×7 (09:05→20:58)
[2019-07-27 09:29] LABS: Basophils % 0.4 %; Eosinophils # 0.1 K/mcL (0.0-0.6); Eosinophils % 1.8 %; Hematocrit 28.8 % (37.5-50.1); Hemoglobin 9.2 g/dL (12.9-16.9); Immature Granulocytes % 0.4 % (0-4); Lymphocytes # 0.7 K/mcL (0.6-4.6); Lymphocytes % 13.4 %; Mean Corpuscular HGB Conc 31.9 g/dL (31.6-35.5); Mean Corpuscular Hemoglobin 31.4 pg (28.0-33.3); Mean Corpuscular Volume 98.3 fL (83.0-100.0); Mean Platelet Volume 11.4 fL (9.4-12.4); Monocytes # 0.4 K/mcL (0.0-1.3); Monocytes % 8.7 %; Neutrophils # 3.8 K/mcL (1.6-8.9); Platelet Count 139 K/mcL (140-400); Red Blood Count 2.93 M/mcL (4.19-5.50); Segmented Neutrophils % 75.3 %; White Blood Count 5.1 K/mcL (4.3-11.1)
[2019-07-27] MEDS: Budesonide/Formoterol 160/4.5 1 PUFF INH IH SCH ×2 (10:19→22:50)
[2019-07-27] MEDS ORDERED: *HR* Metoprolol 5 MG/5 ML VIAL IVP ONE (12:02)
[2019-07-27] MEDS ORDERED: Ipratropium Neb 0.5 MG NEBULIZER IH PRN (12:17)
[2019-07-27] MEDS: *HR* HYDROcodone/Acet 5/325 mg TABLET PO PRN ×2 (15:06→20:56)
[2019-07-27] MEDS: Levalbuterol Neb 0.63 MG/3 ML IH SCH ×2 (15:48→22:51)
[2019-07-27] MEDS ORDERED: *HR* Metoprolol 5 MG/5 ML VIAL IVP PRN ×2 (16:00)
[2019-07-28 02:34] LABS: Basophils % 0.5 %; Eosinophils # 0.1 K/mcL (0.0-0.6); Eosinophils % 2.4 %; Hemoglobin 8.3 g/dL (12.9-16.9); Immature Granulocytes % 0.5 % (0-4); Lymphocytes # 0.7 K/mcL (0.6-4.6); Lymphocytes % 17.3 %; Mean Corpuscular HGB Conc 30.7 g/dL (31.6-35.5); Mean Corpuscular Hemoglobin 30.6 pg (28.0-33.3); Mean Corpuscular Volume 99.6 fL (83.0-100.0); Mean Platelet Volume 11.9 fL (9.4-12.4); Monocytes # 0.4 K/mcL (0.0-1.3); Platelet Count 136 K/mcL (140-400); Red Blood Count 2.71 M/mcL (4.19-5.50); Segmented Neutrophils % 70.3 %; White Blood Count 4.2 K/mcL (4.3-11.1)
[2019-07-28 02:53] LABS: Calcium 9.2 mg/dL (8.6-10.3); Potassium 4.3 mEq/L (3.5-5.1)
[2019-07-28] MEDS: Levalbuterol Neb 0.63 MG/3 ML IH SCH ×4 (04:04→22:16)
[2019-07-28] MEDS: Isosorbide MONOnitrate (24 HR) 30 MG TAB.ER.24H PO SCH (07:34)
[2019-07-28] MEDS: Torsemide 20 MG TABLET PO SCH (07:34)
[2019-07-28] MEDS: Loratadine 10 MG TABLET PO SCH (07:35)
[2019-07-28] MEDS: Apixaban 5 MG TABLET PO SCH ×2 (07:35→21:30)
[2019-07-28] MEDS: Magnesium Oxide 400 MG TABLET PO SCH ×2 (07:35→21:31)
[2019-07-28] MEDS: Insulin DETEMIR 100 UNIT/ML X5UNITS SQ SCH ×3 (07:36→21:29)
[2019-07-28] MEDS: Nicotine 21 MG PATCH.TD24 TD SCH (07:36)
[2019-07-28] MEDS: Piperacillin/Tazobactam 3.375 GM in 0.9 % Sodium Chloride Mini Bag 100 ML IVPB SCH ×2 (07:36→17:36)
[2019-07-28] MEDS: Insulin LISPRO 300 UNITS/3 ML VIAL SQ SCH ×7 (07:38→21:29)
[2019-07-28] MEDS: Budesonide/Formoterol 160/4.5 1 PUFF INH IH SCH ×2 (10:42→22:17)
[2019-07-28 11:15] LABS: ABG Base Excess 18 mEq/L (-2 to 3); ABG HCO3 45 mEq/L (21-27); ABG Oxygen Saturation 90 % (95-98); ABG PCO2 72 mmHg (35-45); ABG PH 7.41 pH Units (7.32-7.45); ABG PO2 62 mmHg (85-104); ABG TCO2 48 mEq/L (20-26)
[2019-07-28 12:29] LABS: Hematocrit 28.3 % (37.5-50.1); Hemoglobin 8.7 g/dL (12.9-16.9)
[2019-07-28 19:03] LABS: VBG HCO3 42 mEq/L (21-27); VBG PCO2 73 mmHg (41-51); VBG PH 7.37 pH Units (7.32-7.42); VBG PO2 98 mmHg (25-50)
[2019-07-28] MEDS: *HR* HYDROcodone/Acet 5/325 mg TABLET PO PRN (21:30)
[2019-07-28] MEDS: Melatonin 3 MG TABLET PO PRN (22:54)
[2019-07-29] MEDS: Levalbuterol Neb 0.63 MG/3 ML IH SCH ×4 (04:17→21:59)
[2019-07-29] MEDS: Piperacillin/Tazobactam 3.375 GM in 0.9 % Sodium Chloride Mini Bag 100 ML IVPB SCH ×2 (05:38→17:56)
[2019-07-29 06:07] LABS: Basophils % 0.3 %; Eosinophils # 0.1 K/mcL (0.0-0.6); Eosinophils % 2.9 %; Hematocrit 27.1 % (37.5-50.1); Hemoglobin 8.3 g/dL (12.9-16.9); Immature Granulocytes % 0.3 % (0-4); Lymphocytes # 0.8 K/mcL (0.6-4.6); Lymphocytes % 22.5 %; Mean Corpuscular HGB Conc 30.6 g/dL (31.6-35.5); Mean Corpuscular Volume 101.1 fL (83.0-100.0); Mean Platelet Volume 11.2 fL (9.4-12.4); Monocytes # 0.4 K/mcL (0.0-1.3); Monocytes % 10.4 %; Neutrophils # 2.4 K/mcL (1.6-8.9); Platelet Count 157 K/mcL (140-400); Red Blood Count 2.68 M/mcL (4.19-5.50); Red Cell Distribution Width 12.9 % (11.5-14.5); Segmented Neutrophils % 63.6 %; White Blood Count 3.7 K/mcL (4.3-11.1)
[2019-07-29 06:24] LABS: Calcium 9.3 mg/dL (8.6-10.3); Potassium 4.2 mEq/L (3.5-5.1)
[2019-07-29] MEDS: Insulin LISPRO 300 UNITS/3 ML VIAL SQ SCH ×7 (08:50→21:10)
[2019-07-29] MEDS: Loratadine 10 MG TABLET PO SCH (08:51)
[2019-07-29] MEDS: Apixaban 5 MG TABLET PO SCH ×2 (08:51→21:07)
[2019-07-29] MEDS: Isosorbide MONOnitrate (24 HR) 30 MG TAB.ER.24H PO SCH (08:51)
[2019-07-29] MEDS: Magnesium Oxide 400 MG TABLET PO SCH ×2 (08:51→21:06)
[2019-07-29] MEDS: Insulin DETEMIR 100 UNIT/ML X5UNITS SQ SCH ×2 (08:51→21:09)
[2019-07-29] MEDS: Nicotine 21 MG PATCH.TD24 TD SCH (08:51)
[2019-07-29] MEDS: *HR* HYDROcodone/Acet 5/325 mg TABLET PO PRN ×3 (09:20→23:03)
[2019-07-29] MEDS: Budesonide/Formoterol 160/4.5 1 PUFF INH IH SCH ×2 (10:23→21:59)
[2019-07-29] MEDS: Melatonin 3 MG TABLET PO PRN (23:03)
[2019-07-30] MEDS: Levalbuterol Neb 0.63 MG/3 ML IH SCH ×4 (04:15→22:35)
[2019-07-30 04:42] LABS: Basophils % 0.3 %; Eosinophils # 0.1 K/mcL (0.0-0.6); Eosinophils % 2.5 %; Hematocrit 26.2 % (37.5-50.1); Hemoglobin 8.2 g/dL (12.9-16.9); Immature Granulocytes % 0.5 % (0-4); Lymphocytes # 0.9 K/mcL (0.6-4.6); Lymphocytes % 22.3 %; Mean Corpuscular HGB Conc 31.3 g/dL (31.6-35.5); Mean Corpuscular Hemoglobin 31.1 pg (28.0-33.3); Mean Corpuscular Volume 99.2 fL (83.0-100.0); Mean Platelet Volume 10.8 fL (9.4-12.4); Monocytes # 0.4 K/mcL (0.0-1.3); Monocytes % 10.8 %; Neutrophils # 2.5 K/mcL (1.6-8.9); Platelet Count 168 K/mcL (140-400); Red Blood Count 2.64 M/mcL (4.19-5.50); Red Cell Distribution Width 12.8 % (11.5-14.5); Segmented Neutrophils % 63.6 %
[2019-07-30 04:46] LABS: VBG HCO3 44 mEq/L (21-27); VBG PCO2 73 mmHg (41-51); VBG PH 7.38 pH Units (7.32-7.42); VBG PO2 228 mmHg (25-50)
[2019-07-30 04:57] LABS: Calcium 8.8 mg/dL (8.6-10.3); Potassium 4.2 mEq/L (3.5-5.1)
[2019-07-30] MEDS: Piperacillin/Tazobactam 3.375 GM in 0.9 % Sodium Chloride Mini Bag 100 ML IVPB SCH ×3 (05:57→20:41)
[2019-07-30] MEDS: Loratadine 10 MG TABLET PO SCH (08:20)
[2019-07-30] MEDS: Isosorbide MONOnitrate (24 HR) 30 MG TAB.ER.24H PO SCH (08:20)
[2019-07-30] MEDS: *HR* HYDROcodone/Acet 5/325 mg TABLET PO PRN ×3 (08:20→20:46)
[2019-07-30] MEDS: Apixaban 5 MG TABLET PO SCH ×2 (08:22→20:40)
[2019-07-30] MEDS: Magnesium Oxide 400 MG TABLET PO SCH ×2 (08:22→20:40)
[2019-07-30] MEDS: Nicotine 21 MG PATCH.TD24 TD SCH (08:23)
[2019-07-30] MEDS: Insulin LISPRO 300 UNITS/3 ML VIAL SQ SCH ×7 (08:29→20:40)
[2019-07-30] MEDS: Insulin DETEMIR 100 UNIT/ML X5UNITS SQ SCH ×2 (09:50→20:40)
[2019-07-30] MEDS: Budesonide/Formoterol 160/4.5 1 PUFF INH IH SCH ×2 (10:35→22:35)
[2019-07-30] MEDS: Melatonin 3 MG TABLET PO PRN (20:47)
[2019-07-31] MEDS: Levalbuterol Neb 0.63 MG/3 ML IH SCH ×4 (03:29→22:32)
[2019-07-31 05:19] LABS: Basophils % 0.4 %; Eosinophils # 0.1 K/mcL (0.0-0.6); Eosinophils % 2.6 %; Hematocrit 28.4 % (37.5-50.1); Immature Granulocytes % 0.4 % (0-4); Lymphocytes # 1.2 K/mcL (0.6-4.6); Lymphocytes % 26.1 %; Mean Corpuscular HGB Conc 31.7 g/dL (31.6-35.5); Mean Corpuscular Hemoglobin 30.7 pg (28.0-33.3); Mean Corpuscular Volume 96.9 fL (83.0-100.0); Mean Platelet Volume 11.5 fL (9.4-12.4); Monocytes # 0.4 K/mcL (0.0-1.3); Monocytes % 8.8 %; Neutrophils # 2.8 K/mcL (1.6-8.9); Platelet Count 199 K/mcL (140-400); Red Blood Count 2.93 M/mcL (4.19-5.50); Red Cell Distribution Width 12.8 % (11.5-14.5); Segmented Neutrophils % 61.7 %; White Blood Count 4.6 K/mcL (4.3-11.1)
[2019-07-31 05:22] LABS: VBG HCO3 41 mEq/L (21-27); VBG PCO2 57 mmHg (41-51); VBG PH 7.47 pH Units (7.32-7.42); VBG PO2 203 mmHg (25-50)
[2019-07-31] MEDS: Piperacillin/Tazobactam 3.375 GM in 0.9 % Sodium Chloride Mini Bag 100 ML IVPB SCH ×2 (05:33→13:44)
[2019-07-31 05:37] LABS: Calcium 9.1 mg/dL (8.6-10.3)
[2019-07-31] MEDS: Insulin LISPRO 300 UNITS/3 ML VIAL SQ SCH ×7 (08:11→20:17)
[2019-07-31] MEDS: Nicotine 21 MG PATCH.TD24 TD SCH (08:22)
[2019-07-31] MEDS: Isosorbide MONOnitrate (24 HR) 30 MG TAB.ER.24H PO SCH (08:22)
[2019-07-31] MEDS: Loratadine 10 MG TABLET PO SCH (08:25)
[2019-07-31] MEDS: Magnesium Oxide 400 MG TABLET PO SCH ×2 (08:25→20:13)
[2019-07-31] MEDS: *HR* HYDROcodone/Acet 5/325 mg TABLET PO PRN ×2 (08:32→19:32)
[2019-07-31] MEDS: Insulin DETEMIR 100 UNIT/ML X5UNITS SQ SCH ×2 (08:33→20:13)
[2019-07-31] MEDS ORDERED: Levalbuterol Neb 0.63 MG/3 ML ONE (09:32)
[2019-07-31] MEDS: Budesonide/Formoterol 160/4.5 1 PUFF INH IH SCH ×2 (09:33→22:32)
[2019-07-31] MEDS ORDERED: *HR* Heparin 5,000 UNIT/ML VIAL ONE (10:16)
[2019-07-31] MEDS ORDERED: *HR* Heparin 10,000 UNIT/10 ML VIAL IV PRN (10:42)
[2019-07-31] MEDS ORDERED: 0.9 % Sodium Chloride 250 ML IVC PRN (10:42)
[2019-07-31] MEDS ORDERED: 0.9 % Sodium Chloride 1,000 ML PRIME SCH (10:45)
[2019-07-31] MEDS: Apixaban 5 MG TABLET PO SCH (13:37)
[2019-07-31] MEDS ORDERED: Piperacillin/Tazobactam 3.375 GM in 0.9 % Sodium Chloride Mini Bag 100 ML IVPB SCH (23:00)
[2019-07-31] MEDS: Melatonin 3 MG TABLET PO PRN (23:43)
[2019-08-01] MEDS: *HR* HYDROcodone/Acet 5/325 mg TABLET PO PRN ×3 (01:05→21:29)
[2019-08-01] MEDS: Levalbuterol Neb 0.63 MG/3 ML IH SCH ×4 (04:23→21:11)
[2019-08-01 04:38] LABS: VBG HCO3 37 mEq/L (21-27); VBG PCO2 68 mmHg (41-51); VBG PH 7.35 pH Units (7.32-7.42); VBG PO2 93 mmHg (25-50)
[2019-08-01 05:07] LABS: Potassium 4.3 mEq/L (3.5-5.1)
[2019-08-01] MEDS ORDERED: 0.9 % Sodium Chloride 250 ML IVC PRN (08:25)
[2019-08-01] MEDS ORDERED: *HR* Heparin 10,000 UNIT/10 ML VIAL IV PRN (08:25)
[2019-08-01] MEDS: Magnesium Oxide 400 MG TABLET PO SCH ×2 (08:39→21:18)
[2019-08-01] MEDS: Insulin DETEMIR 100 UNIT/ML X5UNITS SQ SCH ×2 (08:39→21:18)
[2019-08-01] MEDS: Isosorbide MONOnitrate (24 HR) 30 MG TAB.ER.24H PO SCH (08:40)
[2019-08-01] MEDS: Loratadine 10 MG TABLET PO SCH (08:40)
[2019-08-01] MEDS: Insulin LISPRO 300 UNITS/3 ML VIAL SQ SCH ×7 (08:42→21:19)
[2019-08-01] MEDS: Nicotine 21 MG PATCH.TD24 TD SCH (08:55)
[2019-08-01] MEDS: Budesonide/Formoterol 160/4.5 1 PUFF INH IH SCH ×2 (09:28→21:11)
[2019-08-01] MEDS: Piperacillin/Tazobactam 3.375 GM in 0.9 % Sodium Chloride Mini Bag 100 ML IVPB SCH (13:39)
[2019-08-01] MEDS: Melatonin 3 MG TABLET PO PRN (21:30)
[2019-08-02] MEDS: Piperacillin/Tazobactam 3.375 GM in 0.9 % Sodium Chloride Mini Bag 100 ML IVPB SCH ×2 (02:00→14:30)
[2019-08-02] MEDS: *HR* HYDROcodone/Acet 5/325 mg TABLET PO PRN ×2 (02:44→21:41)
[2019-08-02] MEDS: Levalbuterol Neb 0.63 MG/3 ML IH SCH ×4 (03:09→21:39)
[2019-08-02 05:53] LABS: Basophils % 0.2 %; Eosinophils # 0.1 K/mcL (0.0-0.6); Eosinophils % 1.9 %; Hematocrit 27.1 % (37.5-50.1); Hemoglobin 8.4 g/dL (12.9-16.9); Immature Granulocytes % 0.9 % (0-4); Lymphocytes # 1.1 K/mcL (0.6-4.6); Lymphocytes % 22.4 %; Mean Corpuscular Hemoglobin 30.4 pg (28.0-33.3); Mean Corpuscular Volume 98.2 fL (83.0-100.0); Mean Platelet Volume 10.6 fL (9.4-12.4); Monocytes # 0.5 K/mcL (0.0-1.3); Monocytes % 10.4 %; Platelet Count 206 K/mcL (140-400); Red Blood Count 2.76 M/mcL (4.19-5.50); Segmented Neutrophils % 64.2 %; White Blood Count 4.7 K/mcL (4.3-11.1)
[2019-08-02 06:18] LABS: Calcium 8.8 mg/dL (8.6-10.3); Potassium 4.6 mEq/L (3.5-5.1)
[2019-08-02] MEDS ORDERED: *HR* Heparin 10,000 UNIT/10 ML VIAL IV PRN ×2 (07:32)
[2019-08-02] MEDS ORDERED: 0.9 % Sodium Chloride 250 ML IVC PRN (07:32)
[2019-08-02] MEDS ORDERED: 0.9 % Sodium Chloride 1,000 ML PRIME SCH (07:45)
[2019-08-02] MEDS: Insulin LISPRO 300 UNITS/3 ML VIAL SQ SCH ×7 (08:26→21:47)
[2019-08-02] MEDS ORDERED: Insulin DETEMIR 100 UNIT/ML X5UNITS SQ ONE (08:35)
[2019-08-02] MEDS: Magnesium Oxide 400 MG TABLET PO SCH ×2 (08:36→21:42)
[2019-08-02] MEDS: Loratadine 10 MG TABLET PO SCH (08:36)
[2019-08-02] MEDS: Nicotine 21 MG PATCH.TD24 TD SCH (08:37)
[2019-08-02 10:15] LABS: INR 1.1
[2019-08-02] MEDS: Budesonide/Formoterol 160/4.5 1 PUFF INH IH SCH ×2 (10:53→21:39)
[2019-08-02] MEDS ORDERED: 0.9 % Sodium Chloride 500 ML ONE (13:05)
[2019-08-02] MEDS ORDERED: *HR* Midazolam HCl 2 MG/2 ML VIAL IVP ONE ×2 (13:09→13:15)
[2019-08-02] MEDS ORDERED: CeFAZolin Premix DUPLEX 2,000 MG/50 ML BAG IVPB ONE (13:09)
[2019-08-02] MEDS ORDERED: Heparin 1,000 UNITS/500 mL 500 ML ONE (13:11)
[2019-08-02] MEDS ORDERED: Ondansetron 4 MG/2 ML VIAL ONE (13:15)
[2019-08-02] MEDS ORDERED: *HR* FentaNYL (PF) 100 MCG/2 ML VIAL ONE (13:20)
[2019-08-02] MEDS ORDERED: Ondansetron 4 MG/2 ML VIAL IVP PRN (13:21)
[2019-08-02] MEDS ORDERED: *HR* FentaNYL (PF) 100 MCG/2 ML VIAL IVP ONE (13:21)
[2019-08-02] MEDS ORDERED: *HR* Heparin 5,000 UNIT/ML VIAL ONE (13:33)
[2019-08-02] MEDS: Isosorbide MONOnitrate (24 HR) 30 MG TAB.ER.24H PO SCH (14:28)
[2019-08-02] MEDS: Melatonin 3 MG TABLET PO PRN (21:44)
[2019-08-03 00:43] LABS: Calcium 8.4 mg/dL (8.6-10.3); Potassium 4.4 mEq/L (3.5-5.1)
[2019-08-03] MEDS: Piperacillin/Tazobactam 3.375 GM in 0.9 % Sodium Chloride Mini Bag 100 ML IVPB SCH ×2 (01:18→12:49)
[2019-08-03] MEDS: Levalbuterol Neb 0.63 MG/3 ML IH SCH ×4 (03:47→22:54)
[2019-08-03 04:09] LABS: Hematocrit 27.7 % (37.5-50.1); Hemoglobin 8.6 g/dL (12.9-16.9); Mean Corpuscular Hemoglobin 30.8 pg (28.0-33.3); Mean Corpuscular Volume 99.3 fL (83.0-100.0); Mean Platelet Volume 11.2 fL (9.4-12.4); Platelet Count 214 K/mcL (140-400); Red Blood Count 2.79 M/mcL (4.19-5.50); Red Cell Distribution Width 12.8 % (11.5-14.5); Segmented Neutrophils % 66.8 %; White Blood Count 5.2 K/mcL (4.3-11.1)
[2019-08-03 04:10] LABS: Basophils % 0.6 %; Eosinophils # 0.1 K/mcL (0.0-0.6); Eosinophils % 2.1 %; Immature Granulocytes % 1.5 % (0-4); Lymphocytes % 19.8 %; Monocytes # 0.5 K/mcL (0.0-1.3); Monocytes % 9.2 %; Neutrophils # 3.5 K/mcL (1.6-8.9)
[2019-08-03 04:14] LABS: Calcium 8.5 mg/dL (8.6-10.3); Potassium 4.6 mEq/L (3.5-5.1)
[2019-08-03] MEDS: Nicotine 21 MG PATCH.TD24 TD SCH (08:26)
[2019-08-03] MEDS: Isosorbide MONOnitrate (24 HR) 30 MG TAB.ER.24H PO SCH (08:26)
[2019-08-03] MEDS: Loratadine 10 MG TABLET PO SCH (08:29)
[2019-08-03] MEDS: Magnesium Oxide 400 MG TABLET PO SCH ×2 (08:29→21:33)
[2019-08-03] MEDS: Insulin LISPRO 300 UNITS/3 ML VIAL SQ SCH ×7 (08:30→21:39)
[2019-08-03 09:31] LABS: Magnesium 1.9 mg/dL (1.6-2.6)
[2019-08-03] MEDS: Budesonide/Formoterol 160/4.5 1 PUFF INH IH SCH ×2 (10:46→22:54)
[2019-08-03] MEDS: *HR* HYDROcodone/Acet 5/325 mg TABLET PO PRN ×2 (10:54→21:33)
[2019-08-03] MEDS: Melatonin 3 MG TABLET PO PRN (21:35)
[2019-08-04] MEDS: Piperacillin/Tazobactam 3.375 GM in 0.9 % Sodium Chloride Mini Bag 100 ML IVPB SCH ×2 (00:05→13:04)
[2019-08-04] MEDS: Levalbuterol Neb 0.63 MG/3 ML IH SCH ×4 (03:50→21:22)
[2019-08-04 04:54] LABS: Calcium 8.8 mg/dL (8.6-10.3)
[2019-08-04] MEDS ORDERED: 0.9 % Sodium Chloride 250 ML IVC PRN (07:36)
[2019-08-04] MEDS ORDERED: *HR* Heparin 10,000 UNIT/10 ML VIAL IV PRN ×2 (07:36)
[2019-08-04] MEDS ORDERED: 0.9 % Sodium Chloride 1,000 ML PRIME SCH (07:45)
[2019-08-04] MEDS: Isosorbide MONOnitrate (24 HR) 30 MG TAB.ER.24H PO SCH (09:16)
[2019-08-04] MEDS: Magnesium Oxide 400 MG TABLET PO SCH ×2 (09:21→21:55)
[2019-08-04] MEDS: Apixaban 5 MG TABLET PO SCH ×2 (09:21→21:53)
[2019-08-04] MEDS: *HR* HYDROcodone/Acet 5/325 mg TABLET PO PRN ×2 (09:22→17:52)
[2019-08-04] MEDS: Loratadine 10 MG TABLET PO SCH (09:22)
[2019-08-04] MEDS: Insulin LISPRO 300 UNITS/3 ML VIAL SQ SCH ×7 (09:22→21:55)
[2019-08-04] MEDS ORDERED: Nitroglycerin 0.4 MG TAB.SUBL SL ONE (09:46)
[2019-08-04] MEDS ORDERED: Nitroglycerin 0.4 MG TAB.SUBL SL PRN ×2 (09:46)
[2019-08-04] MEDS: Nicotine 21 MG PATCH.TD24 TD SCH (09:54)
[2019-08-04] MEDS: Budesonide/Formoterol 160/4.5 1 PUFF INH IH SCH ×2 (10:02→21:21)
[2019-08-04] MEDS: Melatonin 3 MG TABLET PO PRN (21:52)
[2019-08-04] MEDS: Insulin DETEMIR 100 UNIT/ML X5UNITS SQ SCH (21:54)
[2019-08-05] MEDS: *HR* HYDROcodone/Acet 5/325 mg TABLET PO PRN ×3 (00:02→22:26)
[2019-08-05] MEDS: Piperacillin/Tazobactam 3.375 GM in 0.9 % Sodium Chloride Mini Bag 100 ML IVPB SCH (00:03)
[2019-08-05] MEDS: Levalbuterol Neb 0.63 MG/3 ML IH SCH ×4 (03:44→22:11)
[2019-08-05 04:17] LABS: Basophils % 0.7 %; Eosinophils # 0.1 K/mcL (0.0-0.6); Eosinophils % 2.1 %; Hematocrit 27.8 % (37.5-50.1); Hemoglobin 8.7 g/dL (12.9-16.9); Immature Granulocytes % 1.5 % (0-4); Lymphocytes % 17.6 %; Mean Corpuscular HGB Conc 31.3 g/dL (31.6-35.5); Mean Corpuscular Hemoglobin 30.6 pg (28.0-33.3); Mean Corpuscular Volume 97.9 fL (83.0-100.0); Mean Platelet Volume 10.8 fL (9.4-12.4); Monocytes # 0.6 K/mcL (0.0-1.3); Monocytes % 10.6 %; Platelet Count 235 K/mcL (140-400); Red Blood Count 2.84 M/mcL (4.19-5.50); Red Cell Distribution Width 13.2 % (11.5-14.5); Segmented Neutrophils % 67.5 %; White Blood Count 5.9 K/mcL (4.3-11.1)
[2019-08-05 04:35] LABS: Calcium 8.6 mg/dL (8.6-10.3)
[2019-08-05] MEDS: Insulin LISPRO 300 UNITS/3 ML VIAL SQ SCH ×7 (08:51→22:17)
[2019-08-05] MEDS: Apixaban 5 MG TABLET PO SCH ×2 (08:53→22:15)
[2019-08-05] MEDS: Isosorbide MONOnitrate (24 HR) 30 MG TAB.ER.24H PO SCH (08:53)
[2019-08-05] MEDS: Loratadine 10 MG TABLET PO SCH (08:53)
[2019-08-05] MEDS: Magnesium Oxide 400 MG TABLET PO SCH ×2 (08:54→22:16)
[2019-08-05] MEDS: Nicotine 21 MG PATCH.TD24 TD SCH (08:55)
[2019-08-05] MEDS: Insulin DETEMIR 100 UNIT/ML X5UNITS SQ SCH ×2 (09:00→22:16)
[2019-08-05] MEDS: Budesonide/Formoterol 160/4.5 1 PUFF INH IH SCH ×2 (10:55→22:11)
[2019-08-05] MEDS: hydrOXYzine pamoate 25 MG CAPSULE PO PRN ×2 (13:31→22:16)
[2019-08-05] MEDS: Nystatin POWDER 30 GM BOTTLE TP SCH (23:23)
[2019-08-06] MEDS: Levalbuterol Neb 0.63 MG/3 ML IH SCH ×4 (04:10→21:55)
[2019-08-06] MEDS: hydrOXYzine pamoate 25 MG CAPSULE PO PRN ×3 (04:21→21:33)
[2019-08-06] MEDS: *HR* HYDROcodone/Acet 5/325 mg TABLET PO PRN ×3 (04:21→17:26)
[2019-08-06 04:43] LABS: Basophils % 0.5 %; Eosinophils # 0.1 K/mcL (0.0-0.6); Eosinophils % 1.5 %; Hematocrit 27.2 % (37.5-50.1); Hemoglobin 8.3 g/dL (12.9-16.9); Immature Granulocytes % 1.2 % (0-4); Lymphocytes # 0.9 K/mcL (0.6-4.6); Mean Corpuscular HGB Conc 30.5 g/dL (31.6-35.5); Mean Corpuscular Hemoglobin 30.3 pg (28.0-33.3); Mean Corpuscular Volume 99.3 fL (83.0-100.0); Mean Platelet Volume 11.6 fL (9.4-12.4); Monocytes # 0.7 K/mcL (0.0-1.3); Monocytes % 10.3 %; Neutrophils # 4.7 K/mcL (1.6-8.9); Platelet Count 230 K/mcL (140-400); Red Blood Count 2.74 M/mcL (4.19-5.50); Red Cell Distribution Width 13.2 % (11.5-14.5); Segmented Neutrophils % 72.5 %; White Blood Count 6.5 K/mcL (4.3-11.1)
[2019-08-06 04:55] LABS: Calcium 8.7 mg/dL (8.6-10.3); Potassium 4.9 mEq/L (3.5-5.1)
[2019-08-06] MEDS: Apixaban 5 MG TABLET PO SCH ×2 (09:38→21:33)
[2019-08-06] MEDS: Loratadine 10 MG TABLET PO SCH (09:38)
[2019-08-06] MEDS: Isosorbide MONOnitrate (24 HR) 30 MG TAB.ER.24H PO SCH (09:38)
[2019-08-06] MEDS: Magnesium Oxide 400 MG TABLET PO SCH ×2 (09:38→21:32)
[2019-08-06] MEDS: Insulin LISPRO 300 UNITS/3 ML VIAL SQ SCH ×7 (09:39→21:34)
[2019-08-06] MEDS: Insulin DETEMIR 100 UNIT/ML X5UNITS SQ SCH ×2 (09:40→21:35)
[2019-08-06] MEDS: Nicotine 21 MG PATCH.TD24 TD SCH (09:40)
[2019-08-06] MEDS: Nystatin POWDER 30 GM BOTTLE TP SCH ×3 (09:40→21:34)
[2019-08-06] MEDS: Budesonide/Formoterol 160/4.5 1 PUFF INH IH SCH ×2 (10:22→21:55)
[2019-08-06] MEDS ORDERED: *HR* HYDROcodone/Acet 5/325 mg TABLET PO PRN (13:06)
[2019-08-06] MEDS ORDERED: *HR* OxyCODONE Immed Rel 5 MG TABLET PO PRN (17:10)
[2019-08-06] MEDS ORDERED: Acetaminophen 325 MG TABLET PO PRN (17:10)
[2019-08-06] MEDS: Melatonin 3 MG TABLET PO PRN (21:34)
[2019-08-07 01:41] LABS: Hemoglobin 8.5 g/dL (12.9-16.9); Mean Corpuscular HGB Conc 31.5 g/dL (31.6-35.5); Mean Corpuscular Hemoglobin 31.4 pg (28.0-33.3); Mean Corpuscular Volume 99.6 fL (83.0-100.0); Mean Platelet Volume 11.6 fL (9.4-12.4); Platelet Count 235 K/mcL (140-400); Red Blood Count 2.71 M/mcL (4.19-5.50); Red Cell Distribution Width 13.2 % (11.5-14.5); White Blood Count 6.2 K/mcL (4.3-11.1)
[2019-08-07 01:59] LABS: Calcium 8.8 mg/dL (8.6-10.3); Potassium 5.7 mEq/L (3.5-5.1)
[2019-08-07] MEDS: Levalbuterol Neb 0.63 MG/3 ML IH SCH ×3 (03:55→15:30)
[2019-08-07] MEDS ORDERED: *HR* Heparin 10,000 UNIT/10 ML VIAL IV PRN (07:56)
[2019-08-07] MEDS ORDERED: 0.9 % Sodium Chloride 250 ML IVC PRN (07:56)
[2019-08-07] MEDS ORDERED: 0.9 % Sodium Chloride 1,000 ML PRIME SCH (08:00)
[2019-08-07] MEDS: Loratadine 10 MG TABLET PO SCH (08:34)
[2019-08-07] MEDS: Apixaban 5 MG TABLET PO SCH (08:34)
[2019-08-07] MEDS: Insulin DETEMIR 100 UNIT/ML X5UNITS SQ SCH (08:34)
[2019-08-07] MEDS: Magnesium Oxide 400 MG TABLET PO SCH (08:34)
[2019-08-07] MEDS: Insulin LISPRO 300 UNITS/3 ML VIAL SQ SCH ×6 (08:35→16:59)
[2019-08-07] MEDS: Nystatin POWDER 30 GM BOTTLE TP SCH (08:36)
[2019-08-07] MEDS: *HR* HYDROcodone/Acet 5/325 mg TABLET PO PRN (08:43)
[2019-08-07] MEDS: Isosorbide MONOnitrate (24 HR) 30 MG TAB.ER.24H PO SCH (09:09)
[2019-08-07] MEDS: Nicotine 21 MG PATCH.TD24 TD SCH (09:10)
[2019-08-07] MEDS: hydrOXYzine pamoate 25 MG CAPSULE PO PRN (09:46)
[2019-08-07] MEDS: Budesonide/Formoterol 160/4.5 1 PUFF INH IH SCH (10:40)
[2019-08-07 13:54] VITALS: BP 102/75
[2019-08-07] MEDS ORDERED: Insulin DETEMIR 100 UNIT/ML X5UNITS SQ SCH (21:00)
== END 2019-08-07 18:00 | DRG 291 ==
LOC: EMEROOARM 14:26 → 2NENU 14:26 → SUATTDRO 16:38 → 2NENU 17:18 → SUATTDRO 07-23 15:01
PROVIDERS: ADMIT Student in an Organized Health Care Education/Training Program; ATTEND Student in an Organized Health Care Education/Training Program
PROC: IRPERMA (2019-08-02 12:00)

== ENCOUNTER 2019-11-20 11:16 | Observation (INO) ==
[2019-11-20] MEDS ORDERED: Aspirin 81 MG TAB.CHEW PO ONE (11:38)
[2019-11-20] MEDS: Nitroglycerin 0.4 MG TAB.SUBL SL PRN ×2 (11:58→13:09)
[2019-11-20 12:22] LABS: Basophils % 0.6 %; Eosinophils # 0.1 K/mcL (0.0-0.6); Eosinophils % 1.9 %; Hematocrit 33.7 % (37.5-50.1); Hemoglobin 10.4 g/dL (12.9-16.9); Immature Granulocytes % 0.3 % (0-4); Lymphocytes # 0.7 K/mcL (0.6-4.6); Lymphocytes % 11.5 %; Mean Corpuscular HGB Conc 30.9 g/dL (31.6-35.5); Mean Corpuscular Hemoglobin 30.8 pg (28.0-33.3); Mean Corpuscular Volume 99.7 fL (83.0-100.0); Mean Platelet Volume 11.1 fL (9.4-12.4); Monocytes # 0.6 K/mcL (0.0-1.3); Monocytes % 8.5 %; Platelet Count 175 K/mcL (140-400); Red Blood Count 3.38 M/mcL (4.19-5.50); Red Cell Distribution Width 14.5 % (11.5-14.5); Segmented Neutrophils % 77.2 %; White Blood Count 6.5 K/mcL (4.3-11.1)
[2019-11-20 12:23] LABS: INR 1.4; Prothrombin Time 16.2 Seconds (9.4-12.1)
[2019-11-20 12:25] LABS: Activated Partial Thrombo Time 32.6 Seconds (26.0-36.0)
[2019-11-20 12:52] LABS: Potassium 5.3 mEq/L (3.5-5.1)
[2019-11-20 12:56] LABS: Troponin I 0.04 ng/mL (< 0.04)
[2019-11-20] MEDS ORDERED: Mag Hydrox/Al Hydrox/Simeth 30 ML UDC PO PRN (13:41)
[2019-11-20] MEDS ORDERED: MOM Conc 10 ML UD.LIQ PO PRN (13:41)
[2019-11-20] MEDS ORDERED: Acetaminophen 325 MG TABLET PO PRN (13:41)
[2019-11-20] MEDS ORDERED: *HR* Promethazine 25 MG/ML VIAL IVP PRN (13:41)
[2019-11-20] MEDS ORDERED: Ondansetron 4 MG/2 ML VIAL IVP PRN (13:41)
[2019-11-20] MEDS ORDERED: Naloxone 0.4 MG/ML INJ IVP PRN (13:41)
[2019-11-20] MEDS ORDERED: Dextrose Gel 15 GM/37.5 ML TUBE PO PRN ×2 (13:44)
[2019-11-20] MEDS ORDERED: D5% in Water 1,000 ML IVC PRN (13:44)
[2019-11-20] MEDS ORDERED: *HR* Dextrose 50 % in Water (Syg) 50 ML SYRINGE IVP PRN (13:44)
[2019-11-20] MEDS ORDERED: 0.9 % Sodium Chloride 250 ML IVC PRN ×2 (14:34→14:38)
[2019-11-20] MEDS ORDERED: *HR* Heparin 10,000 UNIT/10 ML VIAL IV PRN (14:38)
[2019-11-20] MEDS ORDERED: 0.9 % Sodium Chloride 1,000 ML PRIME SCH (14:45)
[2019-11-20 16:13] LABS: Hepatitis B Surface Antibody < 3.10 mIU/mL
[2019-11-20] MEDS: Insulin LISPRO 300 UNITS/3 ML VIAL SQ SCH (16:20)
[2019-11-20 16:24] LABS: Hepatitis B Surface Antigen Nonreactive (Nonreactive)
[2019-11-20] MEDS: Apixaban 5 MG TABLET PO SCH (20:19)
[2019-11-20] MEDS: Insulin DETEMIR 100 UNIT/ML X5UNITS SQ SCH (20:20)
[2019-11-20] MEDS ORDERED: Insulin LISPRO 300 UNITS/3 ML VIAL SQ SCH (21:00)
[2019-11-20] MEDS: Albuterol 2.5 MG/3 ML NEBULIZER IH PRN (23:54)
[2019-11-21 03:12] LABS: Basophils # 0.1 K/mcL (0.0-0.2); Basophils % 0.8 %; Eosinophils # 0.2 K/mcL (0.0-0.6); Eosinophils % 2.7 %; Hematocrit 34.2 % (37.5-50.1); Hemoglobin 10.6 g/dL (12.9-16.9); Immature Granulocytes % 0.5 % (0-4); Lymphocytes # 1.3 K/mcL (0.6-4.6); Lymphocytes % 20.6 %; Mean Corpuscular Hemoglobin 30.7 pg (28.0-33.3); Mean Corpuscular Volume 99.1 fL (83.0-100.0); Mean Platelet Volume 10.8 fL (9.4-12.4); Monocytes # 0.5 K/mcL (0.0-1.3); Monocytes % 8.5 %; Neutrophils # 4.2 K/mcL (1.6-8.9); Platelet Count 169 K/mcL (140-400); Red Blood Count 3.45 M/mcL (4.19-5.50); Red Cell Distribution Width 14.6 % (11.5-14.5); Segmented Neutrophils % 66.9 %; White Blood Count 6.2 K/mcL (4.3-11.1)
[2019-11-21 03:26] LABS: Calcium 8.8 mg/dL (8.6-10.3); Chol/HDL Ratio 3.1 (0-4.9); Potassium 5.1 mEq/L (3.5-5.1)
[2019-11-21] MEDS ORDERED: Saline Nasal Spray 44 ML BOTTLE NS PRN (06:23)
[2019-11-21] MEDS ORDERED: 0.9 % Sodium Chloride 250 ML IVC PRN (07:28)
[2019-11-21] MEDS: Albuterol 2.5 MG/3 ML NEBULIZER IH PRN (08:04)
[2019-11-21] MEDS: Apixaban 5 MG TABLET PO SCH (08:33)
[2019-11-21] MEDS: Insulin DETEMIR 100 UNIT/ML X5UNITS SQ SCH (08:34)
[2019-11-21] MEDS: Insulin LISPRO 300 UNITS/3 ML VIAL SQ SCH ×2 (08:35→12:32)
[2019-11-21] MEDS ORDERED: Tiotropium 18 MCG inhalation IH SCH ×2 (09:00→10:00)
[2019-11-21] MEDS ORDERED: Aspirin Enteric Coated 81 MG Tablet PO SCH (09:00)
[2019-11-21] MEDS ORDERED: Budesonide/Formoterol 160/4.5 1 PUFF INH IH SCH (10:00)
[2019-11-21 12:39] VITALS: BP 151/73
== END 2019-11-21 13:41 | disposition home or self-care (01) ==
LOC: 2ANU 11:16 → EMEROOARM 11:16 → SUATTDRO 13:55 → 2ANU 15:11
PROVIDERS: ADMIT Internal Medicine; ATTEND Internal Medicine

== ENCOUNTER 2020-01-09 09:23 | Observation (INO) ==
[2020-01-09] MEDS ORDERED: Naloxone 0.4 MG/ML INJ IVP PRN (11:37)
[2020-01-09] MEDS ORDERED: *HR* Heparin 5,000 UNIT/ML VIAL IVP PRN ×2 (12:45)
[2020-01-09] MEDS ORDERED: *HR* Heparin 5,000 UNIT/ML VIAL IVP ONE (12:45)
[2020-01-09] MEDS ORDERED: Sennosides 8.6 MG TABLET PO PRN (13:19)
[2020-01-09] MEDS ORDERED: Albuterol 2.5 MG/3 ML NEBULIZER IH PRN (13:19)
[2020-01-09] MEDS ORDERED: traZODone 50 MG TABLET PO PRN (13:19)
[2020-01-09 13:41] LABS: Hematocrit 37.1 % (37.5-50.1); Hemoglobin 11.3 g/dL (12.9-16.9); Mean Corpuscular HGB Conc 30.5 g/dL (31.6-35.5); Mean Corpuscular Hemoglobin 30.6 pg (28.0-33.3); Mean Corpuscular Volume 100.5 fL (83.0-100.0); Mean Platelet Volume 10.8 fL (9.4-12.4); Platelet Count 154 K/mcL (140-400); Red Blood Count 3.69 M/mcL (4.19-5.50); Red Cell Distribution Width 14.2 % (11.5-14.5); White Blood Count 6.1 K/mcL (4.3-11.1)
[2020-01-09] MEDS: Heparin 25,000 UNIT/250 ML D5W 25,000 UNIT/250 ML IV.SOLN IVC SCH (13:44)
[2020-01-09 13:48] LABS: Heparin anti-factor XA UFH 0.61 IU/mL (0.30-0.70)
[2020-01-09 13:49] LABS: Prothrombin Time 11.5 Seconds (9.4-12.1)
[2020-01-09] MEDS ORDERED: Furosemide 80 MG in 0.9 % Sodium Chloride 50 ML IVPB ONE (14:11)
[2020-01-09] MEDS: Insulin NPH/REG 70/30 100 UNIT/ML (x5UNIT) SQ SCH (16:39)
[2020-01-09] MEDS: Budesonide/Formoterol 160/4.5 1 PUFF INH IH SCH (21:01)
[2020-01-09] MEDS: Magnesium Oxide 400 MG TABLET PO SCH (21:11)
[2020-01-10 00:33] LABS: Bilirubin,Urine Small (Negative); Blood,Urine Negative (Negative); Clarity,Urine Cloudy (Clear); Color,Urine Yellow (Yellow); Glucose,Urine (UA) Normal (Normal); Ketones,Urine Negative (Negative); Leukocyte Esterase,Urine Negative (Negative); Nitrite,Urine Negative (Negative); Protein,Urine 100 mg/dL (Neg-Trace); Specific Gravity,Urine 1.022 (1.010-1.025); Urobilinogen,Urine Normal (Normal)
[2020-01-10 00:34] LABS: Bacteria,Urine None Seen per hpf (None-Few); Hyaline Casts,Urine Few per lpf (None-Few); RBC,Urine 0-3 per hpf (0-3); Squamous Epithelial Cell,Urine Moderate per lpf (None-Few); WBC,Urine 0-3 per hpf (0-3)
[2020-01-10] MEDS: Heparin 25,000 UNIT/250 ML D5W 25,000 UNIT/250 ML IV.SOLN IVC SCH (01:10)
[2020-01-10] MEDS: *HR* HYDROcodone/Acet 5/325 mg TABLET PO PRN ×2 (01:15→19:56)
[2020-01-10 04:09] LABS: Basophils # 0.1 K/mcL (0.0-0.2); Basophils % 0.8 %; Eosinophils # 0.2 K/mcL (0.0-0.6); Eosinophils % 2.5 %; Hematocrit 35.6 % (37.5-50.1); Hemoglobin 10.7 g/dL (12.9-16.9); Immature Granulocytes % 0.6 % (0-4); Lymphocytes # 1.3 K/mcL (0.6-4.6); Mean Corpuscular HGB Conc 30.1 g/dL (31.6-35.5); Mean Corpuscular Volume 99.7 fL (83.0-100.0); Monocytes # 0.6 K/mcL (0.0-1.3); Monocytes % 9.2 %; Neutrophils # 4.2 K/mcL (1.6-8.9); Platelet Count 158 K/mcL (140-400); Red Blood Count 3.57 M/mcL (4.19-5.50); Red Cell Distribution Width 13.9 % (11.5-14.5); Segmented Neutrophils % 65.9 %; White Blood Count 6.3 K/mcL (4.3-11.1)
[2020-01-10 04:19] LABS: Prothrombin Time 11.7 Seconds (9.4-12.1)
[2020-01-10 04:26] LABS: Calcium 8.9 mg/dL (8.6-10.3); Heparin anti-factor XA UFH 1.3 IU/mL (0.30-0.70); Potassium 5.7 mEq/L (3.5-5.1)
[2020-01-10 05:47] LABS: Activated Partial Thrombo Time 120.5 Seconds (26.0-36.0)
[2020-01-10] MEDS: Insulin NPH/REG 70/30 100 UNIT/ML (x5UNIT) SQ SCH ×2 (08:48→16:52)
[2020-01-10] MEDS ORDERED: 0.9 % Sodium Chloride 250 ML IVC PRN (08:52)
[2020-01-10] MEDS ORDERED: *HR* Heparin 10,000 UNIT/10 ML VIAL IV PRN (08:52)
[2020-01-10] MEDS: Aspirin Enteric Coated 81 MG Tablet PO SCH (08:59)
[2020-01-10] MEDS: Loratadine 10 MG TABLET PO SCH (08:59)
[2020-01-10] MEDS: calcitrioL 0.25 MCG CAPSULE PO SCH (09:00)
[2020-01-10] MEDS ORDERED: 0.9 % Sodium Chloride 1,000 ML PRIME SCH (09:00)
[2020-01-10] MEDS: Magnesium Oxide 400 MG TABLET PO SCH ×2 (09:00→19:56)
[2020-01-10] MEDS ORDERED: 0.9 % Sodium Chloride 1,000 ML ONE (09:56)
[2020-01-10] MEDS ORDERED: ISOVUE-370 200 ML INFUS..BTL ONE ×3 (09:57→12:58)
[2020-01-10] MEDS ORDERED: Heparin 1,000 UNITS/500 mL 500 ML ONE ×2 (09:57→11:49)
[2020-01-10] MEDS ORDERED: *HR* Heparin 10,000 UNIT/10 ML VIAL ONE ×2 (09:57→11:49)
[2020-01-10] MEDS ORDERED: Nitroglycerin 1,000 MCG/10 ML VIAL IV ONE ×2 (09:57→11:49)
[2020-01-10] MEDS: Budesonide/Formoterol 160/4.5 1 PUFF INH IH SCH ×2 (10:19→21:50)
[2020-01-10] MEDS: Tiotropium 18 MCG inhalation IH SCH (10:21)
[2020-01-10] MEDS ORDERED: *HR* FentaNYL (PF) 100 MCG/2 ML VIAL ONE (12:21)
[2020-01-10] MEDS: Isosorbide MONOnitrate (24 HR) 30 MG TAB.ER.24H PO SCH (19:33)
[2020-01-10] MEDS: Apixaban 5 MG TABLET PO SCH (19:55)
[2020-01-11 07:22] VITALS: BP 121/74
[2020-01-11] MEDS: Budesonide/Formoterol 160/4.5 1 PUFF INH IH SCH (08:15)
[2020-01-11] MEDS: Tiotropium 18 MCG inhalation IH SCH (08:16)
[2020-01-11] MEDS: Aspirin Enteric Coated 81 MG Tablet PO SCH (08:55)
[2020-01-11] MEDS: Isosorbide MONOnitrate (24 HR) 30 MG TAB.ER.24H PO SCH (08:55)
[2020-01-11] MEDS: Magnesium Oxide 400 MG TABLET PO SCH (08:55)
[2020-01-11] MEDS: calcitrioL 0.25 MCG CAPSULE PO SCH (08:55)
[2020-01-11] MEDS: Apixaban 5 MG TABLET PO SCH (08:55)
[2020-01-11] MEDS: Loratadine 10 MG TABLET PO SCH (08:56)
[2020-01-11] MEDS: Insulin NPH/REG 70/30 100 UNIT/ML (x5UNIT) SQ SCH (08:56)
[2020-01-11] MEDS ORDERED: Torsemide 20 MG TABLET PO SCH (09:00)
== END 2020-01-11 11:29 | disposition home or self-care (01) ==
LOC: 2NENU 09:23 → INVDIALAB 09:23
PROVIDERS: ADMIT Internal Medicine Cardiovascular Disease; ATTEND Internal Medicine Cardiovascular Disease

== ENCOUNTER 2020-03-25 10:51 | Inpatient (IN) ==
[2020-03-25] MEDS ORDERED: Aspirin 81 MG TAB.CHEW PO ONE (11:11)
[2020-03-25 11:31] LABS: Eosinophils % 1.6 %; Hematocrit 31.3 % (37.5-50.1); Hemoglobin 9.1 g/dL (12.9-16.9); Immature Granulocytes % 0.7 % (0-4); Lymphocytes % 9.5 %; Mean Corpuscular HGB Conc 29.1 g/dL (31.6-35.5); Mean Corpuscular Hemoglobin 30.3 pg (28.0-33.3); Mean Corpuscular Volume 104.3 fL (83.0-100.0); Mean Platelet Volume 10.9 fL (9.4-12.4); Monocytes % 7.8 %; Platelet Count 212 K/mcL (140-400); Red Cell Distribution Width 15.1 % (11.5-14.5); White Blood Count 7.5 K/mcL (4.3-11.1)
[2020-03-25 11:32] LABS: Basophils % 0.4 %; Eosinophils # 0.1 K/mcL (0.0-0.6); Lymphocytes # 0.7 K/mcL (0.6-4.6); Monocytes # 0.6 K/mcL (0.0-1.3)
[2020-03-25 11:50] LABS: Troponin I 0.14 ng/mL (< 0.04)
[2020-03-25] MEDS ORDERED: Isovue-370 500 ML BOTTLE IVP ONE (12:07)
[2020-03-25] MEDS ORDERED: Morphine Sulfate 2 MG/ML SYRINGE IVP STA (12:10)
[2020-03-25 12:33] LABS: Potassium 5.3 mEq/L (3.5-5.1)
[2020-03-25] MEDS ORDERED: Naloxone 0.4 MG/ML INJ IVP PRN (13:58)
[2020-03-25] MEDS ORDERED: Ondansetron 4 MG/2 ML VIAL IVP PRN (13:58)
[2020-03-25] MEDS ORDERED: *HR* Heparin 5,000 UNIT/ML VIAL IVP PRN ×2 (14:05)
[2020-03-25] MEDS ORDERED: Heparin 25,000 UNIT/250 ML D5W 25,000 UNIT/250 ML IV.SOLN IVC SCH (14:15)
[2020-03-25] MEDS ORDERED: 0.9 % Sodium Chloride 250 ML IVC PRN (14:33)
[2020-03-25] MEDS ORDERED: *HR* Heparin 10,000 UNIT/10 ML VIAL IV PRN ×2 (14:33)
[2020-03-25] MEDS ORDERED: 0.9 % Sodium Chloride 1,000 ML PRIME SCH (14:45)
[2020-03-25] MEDS ORDERED: *HR* HYDROmorphone (PF) 1 MG/ML SYRINGE IVP ONE (14:53)
[2020-03-25] MEDS ORDERED: D5% in Water 1,000 ML IVC PRN (15:00)
[2020-03-25] MEDS ORDERED: Dextrose Gel 15 GM/37.5 ML TUBE PO PRN ×2 (15:00)
[2020-03-25] MEDS ORDERED: *HR* Dextrose 50 % in Water (Syg) 50 ML SYRINGE IVP PRN (15:00)
[2020-03-25] MEDS: Insulin LISPRO 300 UNITS/3 ML VIAL SQ SCH (15:52)
[2020-03-25] MEDS: Heparin 25,000 UNIT/250 ML D5W 25,000 UNIT/250 ML IV.SOLN IVC SCH (16:08)
[2020-03-25 16:32] LABS: Hematocrit 28.5 % (37.5-50.1); Hemoglobin 8.4 g/dL (12.9-16.9); Mean Corpuscular HGB Conc 29.5 g/dL (31.6-35.5); Mean Corpuscular Hemoglobin 30.4 pg (28.0-33.3); Mean Corpuscular Volume 103.3 fL (83.0-100.0); Mean Platelet Volume 10.5 fL (9.4-12.4); Platelet Count 205 K/mcL (140-400); Red Blood Count 2.76 M/mcL (4.19-5.50); Red Cell Distribution Width 15.1 % (11.5-14.5); White Blood Count 6.5 K/mcL (4.3-11.1)
[2020-03-25 16:33] LABS: INR 1.3; Prothrombin Time 14.4 Seconds (9.4-12.1)
[2020-03-25 16:52] LABS: Heparin anti-factor XA UFH 1.17 IU/mL (0.30-0.70)
[2020-03-25] MEDS ORDERED: Albuterol 2.5 MG/3 ML NEBULIZER IH PRN (16:58)
[2020-03-25] MEDS ORDERED: Sennosides 8.6 MG TABLET PO PRN (16:58)
[2020-03-25 17:16] LABS: Hepatitis B Surface Antibody < 3.10 mIU/mL
[2020-03-25 17:27] LABS: Hepatitis B Surface Antigen Nonreactive (Nonreactive)
[2020-03-25] MEDS: *HR* HYDROmorphone PF 0.5 MG/0.5 ML SYRINGE IVP PRN ×2 (18:44→22:06)
[2020-03-25] MEDS: traZODone 50 MG TABLET PO SCH (21:02)
[2020-03-25] MEDS: Fluticasone Propionate Nasal 50 MCG/SPRAY BOTTLE NS SCH (21:03)
[2020-03-25] MEDS: Budesonide/Formoterol 160/4.5 1 PUFF INH IH SCH (21:37)
[2020-03-25] MEDS: Insulin DETEMIR 100 UNIT/ML X5UNITS SQ SCH (22:06)
[2020-03-26] MEDS: *HR* HYDROmorphone PF 0.5 MG/0.5 ML SYRINGE IVP PRN ×3 (01:52→09:29)
[2020-03-26 02:29] LABS: Bilirubin,Urine Moderate (Negative); Blood,Urine Negative (Negative); Clarity,Urine Cloudy (Clear); Color,Urine Dark Yellow (Yellow); Glucose,Urine (UA) Normal (Normal); Ketones,Urine Trace mg/dL (Negative); Leukocyte Esterase,Urine Trace (Negative); Nitrite,Urine Negative (Negative); Protein,Urine 100 mg/dL (Neg-Trace); Specific Gravity,Urine 1.029 (1.010-1.025); Urobilinogen,Urine Normal (Normal)
[2020-03-26 02:31] LABS: Squamous Epithelial Cell,Urine Many per lpf (None-Few)
[2020-03-26 03:00] LABS: Hyaline Casts,Urine None Seen per lpf (None-Few)
[2020-03-26 03:01] LABS: Bacteria,Urine Few per hpf (None-Few)
[2020-03-26 04:42] LABS: Basophils % 0.6 %; Eosinophils # 0.1 K/mcL (0.0-0.6); Hematocrit 29.4 % (37.5-50.1); Hemoglobin 8.6 g/dL (12.9-16.9); Immature Granulocytes % 0.7 % (0-4); Lymphocytes # 1.1 K/mcL (0.6-4.6); Mean Corpuscular HGB Conc 29.3 g/dL (31.6-35.5); Mean Corpuscular Hemoglobin 30.1 pg (28.0-33.3); Mean Corpuscular Volume 102.8 fL (83.0-100.0); Mean Platelet Volume 10.7 fL (9.4-12.4); Monocytes # 0.8 K/mcL (0.0-1.3); Monocytes % 11.1 %; Platelet Count 215 K/mcL (140-400); Red Blood Count 2.86 M/mcL (4.19-5.50); Segmented Neutrophils % 70.6 %; White Blood Count 7.1 K/mcL (4.3-11.1)
[2020-03-26 05:00] LABS: Calcium 8.7 mg/dL (8.6-10.3); Potassium 4.6 mEq/L (3.5-5.1)
[2020-03-26] MEDS: Tiotropium 18 MCG inhalation IH SCH (07:32)
[2020-03-26] MEDS: Budesonide/Formoterol 160/4.5 1 PUFF INH IH SCH ×2 (07:32→20:16)
[2020-03-26] MEDS ORDERED: *HR* Heparin 10,000 UNIT/10 ML VIAL IV PRN (07:49)
[2020-03-26] MEDS ORDERED: 0.9 % Sodium Chloride 250 ML IVC PRN (07:49)
[2020-03-26] MEDS ORDERED: Isosorbide MONOnitrate (24 HR) 30 MG TAB.ER.24H PO SCH (09:00)
[2020-03-26] MEDS: Nitroglycerin 0.4 MG TAB.SUBL SL PRN ×4 (09:02→20:59)
[2020-03-26] MEDS: Isosorbide MONOnitrate (24 HR) 30 MG TAB.ER.24H PO SCH (09:04)
[2020-03-26] MEDS: calcitrioL 0.25 MCG CAPSULE PO SCH (09:04)
[2020-03-26] MEDS: Loratadine 10 MG TABLET PO SCH (09:05)
[2020-03-26] MEDS: Torsemide 20 MG TABLET PO SCH ×2 (09:09→17:06)
[2020-03-26] MEDS: Fluticasone Propionate Nasal 50 MCG/SPRAY BOTTLE NS SCH ×2 (09:10→20:51)
[2020-03-26] MEDS: Insulin LISPRO 300 UNITS/3 ML VIAL SQ SCH ×3 (09:16→17:07)
[2020-03-26] MEDS: Heparin 25,000 UNIT/250 ML D5W 25,000 UNIT/250 ML IV.SOLN IVC SCH (09:36)
[2020-03-26] MEDS: traZODone 50 MG TABLET PO SCH (20:47)
[2020-03-26] MEDS: Insulin DETEMIR 100 UNIT/ML X5UNITS SQ SCH (20:57)
[2020-03-27] MEDS: Heparin 25,000 UNIT/250 ML D5W 25,000 UNIT/250 ML IV.SOLN IVC SCH ×2 (00:16→16:57)
[2020-03-27 04:45] LABS: Basophils % 0.6 %; Eosinophils # 0.1 K/mcL (0.0-0.6); Eosinophils % 2.1 %; Hematocrit 29.7 % (37.5-50.1); Hemoglobin 8.9 g/dL (12.9-16.9); Immature Granulocytes % 0.7 % (0-4); Lymphocytes # 1.3 K/mcL (0.6-4.6); Lymphocytes % 19.6 %; Mean Corpuscular Hemoglobin 30.3 pg (28.0-33.3); Mean Platelet Volume 10.7 fL (9.4-12.4); Monocytes # 0.8 K/mcL (0.0-1.3); Monocytes % 11.3 %; Neutrophils # 4.4 K/mcL (1.6-8.9); Platelet Count 214 K/mcL (140-400); Red Blood Count 2.94 M/mcL (4.19-5.50); Segmented Neutrophils % 65.7 %; White Blood Count 6.7 K/mcL (4.3-11.1)
[2020-03-27 05:07] LABS: Potassium 4.3 mEq/L (3.5-5.1)
[2020-03-27] MEDS ORDERED: *HR* Heparin 10,000 UNIT/10 ML VIAL IV PRN ×2 (07:27)
[2020-03-27] MEDS ORDERED: 0.9 % Sodium Chloride 250 ML IVC PRN (07:27)
[2020-03-27] MEDS: Tiotropium 18 MCG inhalation IH SCH (07:43)
[2020-03-27] MEDS: Budesonide/Formoterol 160/4.5 1 PUFF INH IH SCH ×2 (07:43→20:17)
[2020-03-27] MEDS: Insulin LISPRO 300 UNITS/3 ML VIAL SQ SCH ×4 (07:48→16:57)
[2020-03-27] MEDS: Isosorbide MONOnitrate (24 HR) 30 MG TAB.ER.24H PO SCH (11:52)
[2020-03-27] MEDS ORDERED: GuaiFENesin/Dextromethorphan TABLET PO PRN (12:07)
[2020-03-27] MEDS: Loratadine 10 MG TABLET PO SCH (12:49)
[2020-03-27] MEDS: calcitrioL 0.25 MCG CAPSULE PO SCH (12:49)
[2020-03-27] MEDS: Aspirin Enteric Coated 81 MG Tablet PO SCH (12:49)
[2020-03-27] MEDS: Fluticasone Propionate Nasal 50 MCG/SPRAY BOTTLE NS SCH ×2 (12:50→21:17)
[2020-03-27] MEDS: traZODone 50 MG TABLET PO SCH (21:19)
[2020-03-27] MEDS: Insulin DETEMIR 100 UNIT/ML X5UNITS SQ SCH (21:21)
[2020-03-28 02:36] LABS: Hematocrit 29.6 % (37.5-50.1); Hemoglobin 8.9 g/dL (12.9-16.9); Mean Corpuscular HGB Conc 30.1 g/dL (31.6-35.5); Mean Corpuscular Hemoglobin 30.5 pg (28.0-33.3); Mean Corpuscular Volume 101.4 fL (83.0-100.0); Mean Platelet Volume 10.6 fL (9.4-12.4); Platelet Count 208 K/mcL (140-400); Red Blood Count 2.92 M/mcL (4.19-5.50); Red Cell Distribution Width 15.1 % (11.5-14.5); White Blood Count 6.6 K/mcL (4.3-11.1)
[2020-03-28 02:57] LABS: Calcium 8.9 mg/dL (8.6-10.3); Potassium 4.6 mEq/L (3.5-5.1)
[2020-03-28] MEDS: Heparin 25,000 UNIT/250 ML D5W 25,000 UNIT/250 ML IV.SOLN IVC SCH (05:59)
[2020-03-28] MEDS ORDERED: 0.9 % Sodium Chloride 250 ML IVC PRN (07:19)
[2020-03-28] MEDS ORDERED: *HR* Heparin 10,000 UNIT/10 ML VIAL IV PRN (07:19)
[2020-03-28] MEDS ORDERED: 0.9 % Sodium Chloride 1,000 ML PRIME SCH (07:30)
[2020-03-28] MEDS: Tiotropium 18 MCG inhalation IH SCH (07:49)
[2020-03-28] MEDS: Budesonide/Formoterol 160/4.5 1 PUFF INH IH SCH (07:49)
[2020-03-28] MEDS: Loratadine 10 MG TABLET PO SCH (08:07)
[2020-03-28] MEDS: Aspirin Enteric Coated 81 MG Tablet PO SCH (08:07)
[2020-03-28] MEDS: Insulin LISPRO 300 UNITS/3 ML VIAL SQ SCH ×2 (08:07→12:38)
[2020-03-28] MEDS: calcitrioL 0.25 MCG CAPSULE PO SCH (08:07)
[2020-03-28] MEDS: Isosorbide MONOnitrate (24 HR) 30 MG TAB.ER.24H PO SCH (08:08)
[2020-03-28] MEDS: Torsemide 20 MG TABLET PO SCH (08:08)
[2020-03-28] MEDS: Fluticasone Propionate Nasal 50 MCG/SPRAY BOTTLE NS SCH (08:09)
[2020-03-28 11:05] VITALS: BP 109/57
[2020-03-28] MEDS ORDERED: Apixaban 5 MG TABLET PO SCH (11:30)
== END 2020-03-28 15:33 | disposition home health service (06) | DRG 280 ==
LOC: 2ANU 10:51 → EMEROOARM 10:51 → 2ANU 14:27 → SUATTDRO 03-26 10:57
PROVIDERS: ADMIT Internal Medicine; ATTEND Internal Medicine

== ENCOUNTER 2020-04-15 09:26 | Inpatient (IN) ==
[2020-04-15] MEDS ORDERED: *HR* Dextrose 50 % in Water (Vial) 50 ML VIAL IVP ONE (09:49)
[2020-04-15] MEDS ORDERED: Naloxone 0.4 MG/ML INJ IVP PRN (10:07)
[2020-04-15 10:39] LABS: Red Cell Distribution Width 15.9 % (11.5-14.5)
[2020-04-15 10:40] LABS: Hematocrit 28.5 % (37.5-50.1); Hemoglobin 8.2 g/dL (12.9-16.9); Mean Corpuscular HGB Conc 28.8 g/dL (31.6-35.5); Mean Corpuscular Hemoglobin 30.6 pg (28.0-33.3); Mean Corpuscular Volume 106.3 fL (83.0-100.0); Mean Platelet Volume 10.2 fL (9.4-12.4); Platelet Count 187 K/mcL (140-400); Red Blood Count 2.68 M/mcL (4.19-5.50)
[2020-04-15 10:44] LABS: INR 1.3
[2020-04-15 10:58] LABS: Albumin 3.8 g/dL (3.5-5.7); Albumin/Globulin Ratio 1.4 (1.1-2.2); Bilirubin,Direct 0.1 mg/dL (0.0-0.2); Bilirubin,Indirect 0.3 mg/dL (0.0-1.0); Bilirubin,Total 0.4 mg/dL (0.3-1.0); Globulin 2.7 g/dL (2.4-3.5); Magnesium 2.5 mg/dL (1.6-2.6); Phosphorous 5.8 mg/dL (2.7-4.5); Potassium 5.3 mEq/L (3.5-5.1); Total Protein 6.5 g/dL (6.4-8.9)
[2020-04-15 11:10] LABS: Thyroid Stimulating Hormone 2.88 mcIU/mL (0.340-5.600)
[2020-04-15 11:29] LABS: Lymphocytes # 0.5 K/mcL (0.6-4.6); Neutrophils # 6.6 K/mcL (1.6-8.9)
[2020-04-15 11:30] LABS: Anisocytosis 1+ (Not Present); Hypochromasia Present (Not Present); Platelet Estimate Normal (Normal)
[2020-04-15] MEDS ORDERED: *HR* Heparin 10,000 UNIT/10 ML VIAL IV PRN ×2 (12:17)
[2020-04-15] MEDS ORDERED: 0.9 % Sodium Chloride 250 ML IVC PRN (12:17)
[2020-04-15] MEDS ORDERED: 0.9 % Sodium Chloride 1,000 ML PRIME SCH (12:30)
[2020-04-15] MEDS ORDERED: Albumin 25% 25gram/100mL 25 GM/100 ML IV.SOLN ONE (13:14)
[2020-04-15] MEDS ORDERED: Albumin 25% 25gram/100mL 25 GM/100 ML IV.SOLN IVPB PRN (13:14)
[2020-04-15] MEDS ORDERED: D5% in Water 1,000 ML IVC PRN (14:54)
[2020-04-15] MEDS ORDERED: *HR* Dextrose 50 % in Water (Vial) 50 ML VIAL IVP PRN (14:54)
[2020-04-15] MEDS ORDERED: Dextrose Gel 15 GM/37.5 ML TUBE PO PRN ×2 (14:54)
[2020-04-15] MEDS ORDERED: *HR* HYDROcodone/Acet 5/325 mg TABLET PO PRN (15:09)
[2020-04-15] MEDS: *HR* HYDROcodone/Acet 5/325 mg TABLET PO PRN (15:47)
[2020-04-15] MEDS: Insulin LISPRO 300 UNITS/3 ML VIAL SQ SCH ×2 (16:59→21:08)
[2020-04-15] MEDS: Fluticasone Propionate Nasal 50 MCG/SPRAY BOTTLE NS SCH (18:11)
[2020-04-15] MEDS: Apixaban 5 MG TABLET PO SCH ×2 (20:50→21:00)
[2020-04-15] MEDS: Gabapentin 100 MG CAPSULE PO SCH ×2 (20:51→21:00)
[2020-04-15 23:23] LABS: ABG Base Excess 5 mEq/L (-2 to 3); ABG HCO3 30 mEq/L (21-27); ABG Oxygen Saturation 91 % (95-98); ABG PCO2 48 mmHg (35-45); ABG PO2 61 mmHg (85-104); ABG TCO2 31 mEq/L (20-26)
[2020-04-16 01:15] LABS: Hematocrit 27.5 % (37.5-50.1); Hemoglobin 8.2 g/dL (12.9-16.9); Mean Corpuscular HGB Conc 29.8 g/dL (31.6-35.5); Mean Corpuscular Hemoglobin 31.3 pg (28.0-33.3); Mean Platelet Volume 10.3 fL (9.4-12.4); Platelet Count 180 K/mcL (140-400); Red Blood Count 2.62 M/mcL (4.19-5.50); Red Cell Distribution Width 15.9 % (11.5-14.5); White Blood Count 7.1 K/mcL (4.3-11.1)
[2020-04-16 01:26] LABS: Calcium 8.4 mg/dL (8.6-10.3); Potassium 4.5 mEq/L (3.5-5.1)
[2020-04-16] MEDS: *HR* HYDROcodone/Acet 5/325 mg TABLET PO PRN ×2 (05:22→18:14)
[2020-04-16] MEDS ORDERED: Nitroglycerin 0.4 MG TAB.SUBL SL PRN (07:05)
[2020-04-16] MEDS ORDERED: *HR* Heparin 10,000 UNIT/10 ML VIAL IV PRN (07:16)
[2020-04-16] MEDS ORDERED: 0.9 % Sodium Chloride 250 ML IVC PRN (07:16)
[2020-04-16] MEDS: Budesonide/Formoterol 160/4.5 1 PUFF INH IH SCH ×2 (08:02→19:50)
[2020-04-16] MEDS: Magnesium Oxide 400 MG TABLET PO SCH ×2 (08:23→21:12)
[2020-04-16] MEDS: Gabapentin 100 MG CAPSULE PO SCH ×3 (08:23→21:12)
[2020-04-16] MEDS: Isosorbide MONOnitrate (24 HR) 30 MG TAB.ER.24H PO SCH (08:23)
[2020-04-16] MEDS: Insulin LISPRO 300 UNITS/3 ML VIAL SQ SCH ×4 (08:23→21:15)
[2020-04-16] MEDS: Fluticasone Propionate Nasal 50 MCG/SPRAY BOTTLE NS SCH (08:30)
[2020-04-16] MEDS: Acetaminophen 325 MG TABLET PO PRN ×2 (15:09→21:12)
[2020-04-16] MEDS: Insulin DETEMIR 100 UNIT/ML X5UNITS SQ SCH (16:57)
[2020-04-17] MEDS: *HR* HYDROcodone/Acet 5/325 mg TABLET PO PRN ×3 (01:14→23:56)
[2020-04-17 01:20] LABS: Basophils % 0.5 %; Eosinophils # 0.2 K/mcL (0.0-0.6); Eosinophils % 3.4 %; Hematocrit 29.1 % (37.5-50.1); Hemoglobin 8.5 g/dL (12.9-16.9); Immature Granulocytes % 0.5 % (0-4); Lymphocytes # 1.2 K/mcL (0.6-4.6); Mean Corpuscular HGB Conc 29.2 g/dL (31.6-35.5); Mean Corpuscular Hemoglobin 30.6 pg (28.0-33.3); Mean Corpuscular Volume 104.7 fL (83.0-100.0); Mean Platelet Volume 10.9 fL (9.4-12.4); Monocytes # 0.6 K/mcL (0.0-1.3); Monocytes % 10.2 %; Neutrophils # 3.8 K/mcL (1.6-8.9); Platelet Count 196 K/mcL (140-400); Red Blood Count 2.78 M/mcL (4.19-5.50); Red Cell Distribution Width 15.9 % (11.5-14.5); Segmented Neutrophils % 65.4 %; White Blood Count 5.8 K/mcL (4.3-11.1)
[2020-04-17 01:36] LABS: Potassium 5.1 mEq/L (3.5-5.1)
[2020-04-17] MEDS: Budesonide/Formoterol 160/4.5 1 PUFF INH IH SCH ×2 (07:44→21:31)
[2020-04-17] MEDS ORDERED: 0.9 % Sodium Chloride 250 ML IVC PRN (07:56)
[2020-04-17] MEDS ORDERED: *HR* Heparin 10,000 UNIT/10 ML VIAL IV PRN ×2 (07:56)
[2020-04-17] MEDS: Magnesium Oxide 400 MG TABLET PO SCH ×2 (07:56→21:30)
[2020-04-17] MEDS: Isosorbide MONOnitrate (24 HR) 30 MG TAB.ER.24H PO SCH (07:57)
[2020-04-17] MEDS: Gabapentin 100 MG CAPSULE PO SCH ×2 (08:00→21:30)
[2020-04-17] MEDS ORDERED: 0.9 % Sodium Chloride 1,000 ML PRIME SCH (08:00)
[2020-04-17] MEDS: Insulin LISPRO 300 UNITS/3 ML VIAL SQ SCH ×4 (08:01→21:31)
[2020-04-17] MEDS: Insulin DETEMIR 100 UNIT/ML X5UNITS SQ SCH ×2 (08:01→21:30)
[2020-04-17] MEDS: Fluticasone Propionate Nasal 50 MCG/SPRAY BOTTLE NS SCH (10:18)
[2020-04-17] MEDS: traZODone 50 MG TABLET PO SCH (21:29)
[2020-04-18] MEDS: Acetaminophen 325 MG TABLET PO PRN (02:19)
[2020-04-18] MEDS ORDERED: Morphine Sulfate 2 MG/ML SYRINGE IVP ONE (04:51)
[2020-04-18 05:33] LABS: Potassium 5.1 mEq/L (3.5-5.1)
[2020-04-18] MEDS: Ondansetron 4 MG/2 ML VIAL IVP PRN (06:16)
[2020-04-18] MEDS: Budesonide/Formoterol 160/4.5 1 PUFF INH IH SCH ×2 (07:24→21:50)
[2020-04-18] MEDS: Gabapentin 100 MG CAPSULE PO SCH ×2 (07:32→21:38)
[2020-04-18] MEDS: Fluticasone Propionate Nasal 50 MCG/SPRAY BOTTLE NS SCH (07:32)
[2020-04-18] MEDS: Magnesium Oxide 400 MG TABLET PO SCH ×2 (07:32→21:04)
[2020-04-18] MEDS: Isosorbide MONOnitrate (24 HR) 30 MG TAB.ER.24H PO SCH (07:32)
[2020-04-18] MEDS: Insulin DETEMIR 100 UNIT/ML X5UNITS SQ SCH ×2 (07:33→21:03)
[2020-04-18] MEDS: Insulin LISPRO 300 UNITS/3 ML VIAL SQ SCH ×6 (07:33→21:37)
[2020-04-18] MEDS: *HR* OxyCODONE Immed Rel 5 MG TABLET PO PRN (17:04)
[2020-04-18] MEDS: Apixaban 5 MG TABLET PO SCH (21:04)
[2020-04-18] MEDS: traZODone 50 MG TABLET PO SCH (23:00)
[2020-04-19] MEDS: *HR* OxyCODONE Immed Rel 5 MG TABLET PO PRN ×2 (02:58→15:48)
[2020-04-19 04:37] LABS: Potassium 5.4 mEq/L (3.5-5.1)
[2020-04-19] MEDS ORDERED: 0.9 % Sodium Chloride 250 ML IVC PRN (07:14)
[2020-04-19] MEDS ORDERED: *HR* Heparin 10,000 UNIT/10 ML VIAL IV PRN ×2 (07:14)
[2020-04-19] MEDS ORDERED: 0.9 % Sodium Chloride 1,000 ML PRIME SCH (07:15)
[2020-04-19] MEDS: Budesonide/Formoterol 160/4.5 1 PUFF INH IH SCH ×2 (07:17→19:54)
[2020-04-19] MEDS ORDERED: 0.9 % Sodium Chloride 1,000 ML ONE (07:23)
[2020-04-19] MEDS: Apixaban 5 MG TABLET PO SCH ×2 (08:41→22:18)
[2020-04-19] MEDS: Gabapentin 100 MG CAPSULE PO SCH ×2 (08:41→22:18)
[2020-04-19] MEDS: Insulin DETEMIR 100 UNIT/ML X5UNITS SQ SCH ×2 (08:41→22:16)
[2020-04-19] MEDS: Isosorbide MONOnitrate (24 HR) 30 MG TAB.ER.24H PO SCH (08:41)
[2020-04-19] MEDS: Fluticasone Propionate Nasal 50 MCG/SPRAY BOTTLE NS SCH (08:41)
[2020-04-19] MEDS: Magnesium Oxide 400 MG TABLET PO SCH ×2 (08:41→22:18)
[2020-04-19] MEDS: Insulin LISPRO 300 UNITS/3 ML VIAL SQ SCH ×8 (08:47→22:17)
[2020-04-19 11:10] LABS: ABG Base Excess 8 mEq/L (-2 to 3); ABG HCO3 39 mEq/L (21-27); ABG Oxygen Saturation 92 % (95-98); ABG PCO2 103 mmHg (35-45); ABG PH 7.19 pH Units (7.32-7.45); ABG PO2 83 mmHg (85-104); ABG TCO2 42 mEq/L (20-26)
[2020-04-19] MEDS: Ondansetron 4 MG/2 ML VIAL IVP PRN (18:49)
[2020-04-19 18:56] LABS: ABG Base Excess 9 mEq/L (-2 to 3); ABG HCO3 36 mEq/L (21-27); ABG Oxygen Saturation 91 % (95-98); ABG PCO2 64 mmHg (35-45); ABG PH 7.37 pH Units (7.32-7.45); ABG PO2 65 mmHg (85-104); ABG TCO2 38 mEq/L (20-26)
[2020-04-20] MEDS: *HR* OxyCODONE Immed Rel 5 MG TABLET PO PRN (00:43)
[2020-04-20] MEDS: traZODone 50 MG TABLET PO SCH (00:43)
[2020-04-20 02:50] LABS: Calcium 8.6 mg/dL (8.6-10.3); Potassium 4.5 mEq/L (3.5-5.1)
[2020-04-20] MEDS: Budesonide/Formoterol 160/4.5 1 PUFF INH IH SCH ×2 (07:25→22:17)
[2020-04-20] MEDS: Apixaban 5 MG TABLET PO SCH ×2 (08:36→21:32)
[2020-04-20] MEDS: Isosorbide MONOnitrate (24 HR) 30 MG TAB.ER.24H PO SCH (08:37)
[2020-04-20] MEDS: Magnesium Oxide 400 MG TABLET PO SCH ×2 (08:37→21:33)
[2020-04-20] MEDS: Insulin DETEMIR 100 UNIT/ML X5UNITS SQ SCH ×2 (08:37→21:33)
[2020-04-20] MEDS: Gabapentin 100 MG CAPSULE PO SCH ×2 (08:37→21:32)
[2020-04-20] MEDS: Insulin LISPRO 300 UNITS/3 ML VIAL SQ SCH ×7 (08:38→21:34)
[2020-04-20] MEDS: Fluticasone Propionate Nasal 50 MCG/SPRAY BOTTLE NS SCH (08:38)
[2020-04-20] MEDS ORDERED: *HR* Heparin 10,000 UNIT/10 ML VIAL IV PRN (08:40)
[2020-04-20] MEDS ORDERED: 0.9 % Sodium Chloride 250 ML IVC PRN (08:40)
[2020-04-20 11:17] LABS: Hepatitis B Surface Antibody < 3.10 mIU/mL
[2020-04-20 11:28] LABS: Hepatitis B Surface Antigen Nonreactive (Nonreactive)
[2020-04-20] MEDS ORDERED: Melatonin 3 MG TABLET PO SCH (21:00)
[2020-04-21] MEDS: Ondansetron 4 MG/2 ML VIAL IVP PRN (01:36)
[2020-04-21 02:06] LABS: Hemoglobin 9.1 g/dL (12.9-16.9); Mean Corpuscular HGB Conc 29.4 g/dL (31.6-35.5); Mean Corpuscular Hemoglobin 30.5 pg (28.0-33.3); Mean Platelet Volume 10.8 fL (9.4-12.4); Platelet Count 187 K/mcL (140-400); Red Blood Count 2.98 M/mcL (4.19-5.50); Red Cell Distribution Width 16.1 % (11.5-14.5); White Blood Count 6.4 K/mcL (4.3-11.1)
[2020-04-21 03:16] LABS: VBG HCO3 30 mEq/L (21-27); VBG PCO2 54 mmHg (41-51); VBG PH 7.36 pH Units (7.32-7.42); VBG PO2 104 mmHg (25-50)
[2020-04-21 07:37] VITALS: BP 103/52
[2020-04-21] MEDS: Budesonide/Formoterol 160/4.5 1 PUFF INH IH SCH (07:57)
[2020-04-21] MEDS: Magnesium Oxide 400 MG TABLET PO SCH (09:05)
[2020-04-21] MEDS: Isosorbide MONOnitrate (24 HR) 30 MG TAB.ER.24H PO SCH (09:06)
[2020-04-21] MEDS: Apixaban 5 MG TABLET PO SCH (09:06)
[2020-04-21] MEDS: Gabapentin 100 MG CAPSULE PO SCH (09:06)
[2020-04-21] MEDS: Insulin LISPRO 300 UNITS/3 ML VIAL SQ SCH ×2 (09:08→09:09)
== END 2020-04-21 10:52 | DRG 64 ==
LOC: EMEROOARM 09:26 → 2ANU 09:26 → SUATTDRO 11:13 → 2ANU 12:02
PROVIDERS: ADMIT Pharmacist; ATTEND Internal Medicine

== ENCOUNTER 2020-04-22 02:22 | Observation (INO) ==
[2020-04-22] MEDS ORDERED: Naloxone 0.4 MG/ML INJ IVP PRN (02:52)
[2020-04-22] MEDS ORDERED: Nitroglycerin 0.4 MG TAB.SUBL SL PRN (06:44)
[2020-04-22] MEDS ORDERED: Albuterol 2.5 MG/3 ML NEBULIZER IH PRN (06:44)
[2020-04-22 06:46] LABS: Potassium 5.1 mEq/L (3.5-5.1)
[2020-04-22 06:54] LABS: Basophils % 0.7 %; Eosinophils # 0.2 K/mcL (0.0-0.6); Eosinophils % 3.7 %; Hematocrit 29.5 % (37.5-50.1); Hemoglobin 8.6 g/dL (12.9-16.9); Immature Granulocytes % 0.3 % (0-4); Lymphocytes # 1.4 K/mcL (0.6-4.6); Mean Corpuscular HGB Conc 29.2 g/dL (31.6-35.5); Mean Corpuscular Volume 102.8 fL (83.0-100.0); Mean Platelet Volume 10.8 fL (9.4-12.4); Monocytes # 0.7 K/mcL (0.0-1.3); Neutrophils # 3.6 K/mcL (1.6-8.9); Platelet Count 186 K/mcL (140-400); Red Blood Count 2.87 M/mcL (4.19-5.50); Segmented Neutrophils % 61.3 %; White Blood Count 5.9 K/mcL (4.3-11.1)
[2020-04-22] MEDS ORDERED: *HR* Dextrose 50 % in Water (Vial) 50 ML VIAL IVP PRN (07:05)
[2020-04-22] MEDS ORDERED: Dextrose Gel 15 GM/37.5 ML TUBE PO PRN ×2 (07:05)
[2020-04-22] MEDS ORDERED: D5% in Water 1,000 ML IVC PRN (07:05)
[2020-04-22] MEDS: *HR* HYDROcodone/Acet 5/325 mg TABLET PO PRN (08:15)
[2020-04-22] MEDS: Gabapentin 100 MG CAPSULE PO SCH ×2 (08:17→19:58)
[2020-04-22] MEDS: Metoprolol XL (24 HR) Succ 25 MG TAB.ER.24H PO SCH (08:18)
[2020-04-22] MEDS: Isosorbide MONOnitrate (24 HR) 30 MG TAB.ER.24H PO SCH (08:18)
[2020-04-22] MEDS: Magnesium Oxide 400 MG TABLET PO SCH ×2 (08:18→19:58)
[2020-04-22] MEDS: Apixaban 5 MG TABLET PO SCH ×2 (08:18→19:59)
[2020-04-22] MEDS: Insulin LISPRO 300 UNITS/3 ML VIAL SQ SCH ×3 (08:19→18:43)
[2020-04-22] MEDS: Insulin NPH/REG 70/30 100 UNIT/ML (x5UNIT) SQ SCH ×2 (08:26→19:59)
[2020-04-22] MEDS ORDERED: *HR* Heparin 10,000 UNIT/10 ML VIAL IV PRN (10:39)
[2020-04-22] MEDS ORDERED: 0.9 % Sodium Chloride 250 ML IVC PRN (10:39)
[2020-04-22] MEDS ORDERED: 0.9 % Sodium Chloride 1,000 ML PRIME SCH (10:45)
[2020-04-22] MEDS: Budesonide/Formoterol 160/4.5 1 PUFF INH IH SCH ×2 (11:22→22:11)
[2020-04-22] MEDS ORDERED: Albumin 25% 25gram/100mL 25 GM/100 ML IV.SOLN ONE (14:26)
[2020-04-22] MEDS ORDERED: Albumin 25% 25gram/100mL 25 GM/100 ML IV.SOLN IVPB ONE (14:30)
[2020-04-22] MEDS ORDERED: Melatonin 3 MG TABLET PO SCH (21:00)
[2020-04-23] MEDS: *HR* HYDROcodone/Acet 5/325 mg TABLET PO PRN (02:56)
[2020-04-23 04:31] LABS: Hematocrit 31.4 % (37.5-50.1); Hemoglobin 9.2 g/dL (12.9-16.9); Mean Corpuscular HGB Conc 29.3 g/dL (31.6-35.5); Mean Corpuscular Hemoglobin 30.3 pg (28.0-33.3); Mean Corpuscular Volume 103.3 fL (83.0-100.0); Mean Platelet Volume 10.6 fL (9.4-12.4); Platelet Count 195 K/mcL (140-400); Red Blood Count 3.04 M/mcL (4.19-5.50); Red Cell Distribution Width 16.1 % (11.5-14.5); White Blood Count 5.8 K/mcL (4.3-11.1)
[2020-04-23 04:53] LABS: Calcium 8.9 mg/dL (8.6-10.3); Potassium 4.8 mEq/L (3.5-5.1)
[2020-04-23] MEDS: Budesonide/Formoterol 160/4.5 1 PUFF INH IH SCH (07:37)
[2020-04-23] MEDS ORDERED: Albumin 25% 25gram/100mL 25 GM/100 ML IV.SOLN IVPB PRN (07:53)
[2020-04-23] MEDS ORDERED: *HR* Heparin 10,000 UNIT/10 ML VIAL IV PRN (07:53)
[2020-04-23] MEDS ORDERED: 0.9 % Sodium Chloride 250 ML IVC PRN (07:53)
[2020-04-23] MEDS ORDERED: 0.9 % Sodium Chloride 1,000 ML PRIME SCH (08:00)
[2020-04-23] MEDS: Metoprolol XL (24 HR) Succ 25 MG TAB.ER.24H PO SCH (08:11)
[2020-04-23] MEDS: Apixaban 5 MG TABLET PO SCH (08:12)
[2020-04-23] MEDS: Isosorbide MONOnitrate (24 HR) 30 MG TAB.ER.24H PO SCH (08:12)
[2020-04-23] MEDS: Magnesium Oxide 400 MG TABLET PO SCH (08:12)
[2020-04-23] MEDS: Gabapentin 100 MG CAPSULE PO SCH (08:12)
[2020-04-23] MEDS: Insulin LISPRO 300 UNITS/3 ML VIAL SQ SCH ×3 (08:13→16:53)
[2020-04-23] MEDS: Insulin NPH/REG 70/30 100 UNIT/ML (x5UNIT) SQ SCH ×2 (08:13→16:49)
[2020-04-23] MEDS ORDERED: Fluticasone Propionate Nasal 50 MCG/SPRAY BOTTLE NS SCH (09:00)
[2020-04-23] MEDS ORDERED: Torsemide 20 MG TABLET PO SCH (09:00)
[2020-04-23 11:41] VITALS: BP 94/51
== END 2020-04-23 17:21 | disposition home health service (06) ==
LOC: 2NENU → SUATTDRO 02:22 → 2NNU 05:48 → 2ANU 18:29
PROVIDERS: ADMIT Internal Medicine; ATTEND Internal Medicine

== ENCOUNTER 2020-09-24 14:08 | Inpatient (IN) ==
[2020-09-24] MEDS ORDERED: Isovue-370 500 ML BOTTLE IVP ONE (15:15)
[2020-09-24] MEDS ORDERED: 0.9 % Sodium Chloride 500 ML IVC ONE (15:17)
[2020-09-24] MEDS ORDERED: *HR* FentaNYL (PF) 100 MCG/2 ML VIAL IVP ONE (15:44)
[2020-09-24 15:58] LABS: Basophils % 0.5 %; Eosinophils % 0.6 %; Hematocrit 24.5 % (37.5-50.1); Hemoglobin 7.3 g/dL (12.9-16.9); Immature Granulocytes % 0.8 % (0-4); Lymphocytes # 0.4 K/mcL (0.6-4.6); Lymphocytes % 6.5 %; Mean Corpuscular HGB Conc 29.8 g/dL (31.6-35.5); Mean Corpuscular Hemoglobin 29.7 pg (28.0-33.3); Mean Corpuscular Volume 99.6 fL (83.0-100.0); Mean Platelet Volume 9.9 fL (9.4-12.4); Monocytes # 0.4 K/mcL (0.0-1.3); Neutrophils # 5.3 K/mcL (1.6-8.9); Platelet Count 239 K/mcL (140-400); Red Blood Count 2.46 M/mcL (4.19-5.50); Segmented Neutrophils % 84.6 %; White Blood Count 6.3 K/mcL (4.3-11.1)
[2020-09-24 16:19] LABS: Calcium 8.2 mg/dL (8.6-10.3); Potassium 6.2 mEq/L (3.5-5.1); Troponin I 0.03 ng/mL (< 0.04)
[2020-09-24] MEDS ORDERED: *HR* Heparin 5,000 UNIT/ML VIAL IVP PRN ×3 (16:30→16:41)
[2020-09-24] MEDS ORDERED: Heparin 25,000UNIT/250ML 1/2NS 25,000 UNIT/250 ML IV.SOLN IVC SCH ×2 (16:30→16:39)
[2020-09-24] MEDS ORDERED: *HR* Heparin 5,000 UNIT/ML VIAL IVP ONE (16:41)
[2020-09-24 16:52] LABS: Hematocrit 25.9 % (37.5-50.1); Hemoglobin 7.6 g/dL (12.9-16.9); Mean Corpuscular HGB Conc 29.3 g/dL (31.6-35.5); Mean Corpuscular Hemoglobin 29.3 pg (28.0-33.3); Mean Platelet Volume 9.3 fL (9.4-12.4); Platelet Count 226 K/mcL (140-400); Red Blood Count 2.59 M/mcL (4.19-5.50); White Blood Count 6.9 K/mcL (4.3-11.1)
[2020-09-24] MEDS: Heparin 25,000UNIT/250ML 1/2NS 25,000 UNIT/250 ML IV.SOLN IVC SCH (16:53)
[2020-09-24 17:06] LABS: INR 1.8; Prothrombin Time 20.8 Seconds (9.4-12.1)
[2020-09-24 17:09] LABS: Activated Partial Thrombo Time 30.8 Seconds (26.0-36.0)
[2020-09-24 17:11] LABS: Heparin anti-factor XA UFH > 2.00 IU/mL (0.30-0.70)
[2020-09-24] MEDS ORDERED: Naloxone 0.4 MG/ML INJ IVP PRN (17:44)
[2020-09-24] MEDS ORDERED: Ondansetron 4 MG/2 ML VIAL IVP PRN (17:44)
[2020-09-24] MEDS ORDERED: Sennosides 8.6 MG TABLET PO PRN (17:48)
[2020-09-24] MEDS ORDERED: Nitroglycerin 0.4 MG TAB.SUBL SL PRN (17:48)
[2020-09-24] MEDS ORDERED: Ipratropium/Albuterol Neb 3 ML IH PRN (17:51)
[2020-09-24] MEDS ORDERED: *HR* Dextrose 50 % in Water (Vial) 50 ML VIAL IVP PRN (18:13)
[2020-09-24] MEDS ORDERED: Dextrose Gel 15 GM/37.5 ML TUBE PO PRN ×2 (18:13)
[2020-09-24] MEDS ORDERED: D5% in Water 1,000 ML IVC PRN (18:13)
[2020-09-24 18:53] LABS: ABG Base Excess -4 mEq/L (-2 to 3); ABG HCO3 24 mEq/L (21-27); ABG Oxygen Saturation 93 % (95-98); ABG PCO2 60 mmHg (35-45); ABG PO2 84 mmHg (85-104); ABG TCO2 26 mEq/L (20-26)
[2020-09-24] MEDS: traZODone 50 MG TABLET PO SCH (20:56)
[2020-09-24] MEDS: Magnesium Oxide 400 MG TABLET PO SCH (20:57)
[2020-09-24] MEDS: Budesonide/Formoterol 160/4.5 1 PUFF INH IH SCH (21:50)
[2020-09-24 22:24] LABS: Hepatitis B Surface Antibody < 3.10 mIU/mL
[2020-09-24 22:36] LABS: Hepatitis B Surface Antigen Nonreactive (Nonreactive)
[2020-09-24] MEDS: Insulin DETEMIR 100 UNIT/ML X5UNITS SQ SCH (22:53)
[2020-09-24] MEDS ORDERED: Insulin Human Regular 10 UNIT in 0.9 % Sodium Chloride 10 ML IV ONE (23:07)
[2020-09-24] MEDS ORDERED: *HR* Dextrose 50 % in Water (Vial) 50 ML VIAL IVP ONE (23:07)
[2020-09-25 03:32] LABS: Basophils % 0.3 %; Eosinophils # 0.1 K/mcL (0.0-0.6); Eosinophils % 0.8 %; Hematocrit 22.3 % (37.5-50.1); Hemoglobin 6.6 g/dL (12.9-16.9); Immature Granulocytes % 0.8 % (0-4); Lymphocytes # 0.8 K/mcL (0.6-4.6); Lymphocytes % 13.6 %; Mean Corpuscular HGB Conc 29.6 g/dL (31.6-35.5); Mean Corpuscular Volume 101.4 fL (83.0-100.0); Mean Platelet Volume 10.2 fL (9.4-12.4); Monocytes # 0.7 K/mcL (0.0-1.3); Monocytes % 11.6 %; Neutrophils # 4.4 K/mcL (1.6-8.9); Platelet Count 221 K/mcL (140-400); Red Cell Distribution Width 15.4 % (11.5-14.5); Segmented Neutrophils % 72.9 %; White Blood Count 6.1 K/mcL (4.3-11.1)
[2020-09-25 03:49] LABS: Calcium 8.1 mg/dL (8.6-10.3); Magnesium 2.6 mg/dL (1.6-2.6); Phosphorous 6.3 mg/dL (2.7-4.5); Potassium 5.8 mEq/L (3.5-5.1)
[2020-09-25] MEDS: Heparin 25,000UNIT/250ML 1/2NS 25,000 UNIT/250 ML IV.SOLN IVC SCH ×2 (05:40→12:11)
[2020-09-25] MEDS: *HR* HYDROcodone/Acet 5/325 mg TABLET PO PRN (06:21)
[2020-09-25 06:57] LABS: Acinetobacter baumannii by PCR Not Detected (Not Detect); Candida albicans by PCR Not Detected (Not Detect); Candida glabrata by PCR Not Detected (Not Detect); Candida krusei by PCR Not Detected (Not Detect); Candida parapsilosis by PCR Not Detected (Not Detect); Candida tropicalis by PCR Not Detected (Not Detect); Enterobacter cloacae Cmplx PCR Not Detected (Not Detect); Enterobacteriaceae by PCR Not Detected (Not Detect); Enterococcus by PCR DETECTED (Not Detect); Escherichia coli by PCR Not Detected (Not Detect); Klebsiella oxytoca by PCR Not Detected (Not Detect); Klebsiella pneumoniae by PCR Not Detected (Not Detect); Proteus by PCR Not Detected (Not Detect); Pseudomonas aeruginosa by PCR Not Detected (Not Detect); Serratia marcescens by PCR Not Detected (Not Detect); Staphylococcus aureus by PCR Not Detected (Not Detect); Staphylococcus by PCR Not Detected (Not Detect); Streptococcus agalactiae(B)PCR Not Detected (Not Detect); Streptococcus by PCR Not Detected (Not Detect); Streptococcus pneumoniae PCR Not Detected (Not Detect); Streptococcus pyogenes (A) PCR Not Detected (Not Detect); vanA/B Vancomycin-Resist Genes Not Detected (Not Detect)
[2020-09-25] MEDS ORDERED: 0.9 % Sodium Chloride 1,000 ML ONE (07:39)
[2020-09-25] MEDS: Insulin LISPRO 300 UNITS/3 ML VIAL SQ SCH ×3 (07:43→17:19)
[2020-09-25] MEDS ORDERED: 0.9 % Sodium Chloride 250 ML IVC SCH (07:45)
[2020-09-25] MEDS ORDERED: Vancomycin 2,000 MG/520 ML IV.SOLN IVPB ONE ×2 (08:00→14:00)
[2020-09-25] MEDS ORDERED: 0.9 % Sodium Chloride 250 ML IVC PRN (08:01)
[2020-09-25] MEDS ORDERED: *HR* Heparin 10,000 UNIT/10 ML VIAL IV PRN (08:01)
[2020-09-25] MEDS ORDERED: 0.9 % Sodium Chloride 1,000 ML PRIME SCH (08:15)
[2020-09-25 08:20] LABS: Hematocrit 23.4 % (37.5-50.1); Hemoglobin 6.8 g/dL (12.9-16.9)
[2020-09-25] MEDS: Budesonide/Formoterol 160/4.5 1 PUFF INH IH SCH ×2 (08:21→23:55)
[2020-09-25] MEDS: Magnesium Oxide 400 MG TABLET PO SCH ×2 (08:31→22:27)
[2020-09-25] MEDS: Acetaminophen 325 MG TABLET PO PRN (08:31)
[2020-09-25] MEDS: Piperacillin/Tazobactam 3.375 GM in 0.9 % Sodium Chloride Mini Bag 100 ML IVPB SCH ×2 (08:32→22:28)
[2020-09-25 17:26] LABS: Hematocrit 25.9 % (37.5-50.1); Hemoglobin 7.9 g/dL (12.9-16.9)
[2020-09-25] MEDS: Pantoprazole 40 MG VIAL IVP SCH (17:45)
[2020-09-25] MEDS: SODIUM ZIRCONIUM CYCLOSILICATE 5 GM POWD.PACK PO SCH (17:45)
[2020-09-25] MEDS: traZODone 50 MG TABLET PO SCH (22:27)
[2020-09-25 22:49] LABS: Hematocrit 23.5 % (37.5-50.1); Hemoglobin 7.3 g/dL (12.9-16.9)
[2020-09-26] MEDS: *HR* HYDROcodone/Acet 5/325 mg TABLET PO PRN ×2 (02:12→11:40)
[2020-09-26] MEDS: Insulin DETEMIR 100 UNIT/ML X5UNITS SQ SCH ×2 (04:18→20:05)
[2020-09-26] MEDS ORDERED: Morphine Sulfate 2 MG/ML SYRINGE IVP ONE (04:50)
[2020-09-26 05:09] LABS: Basophils % 0.5 %; Eosinophils # 0.1 K/mcL (0.0-0.6); Eosinophils % 0.9 %; Hematocrit 24.8 % (37.5-50.1); Hemoglobin 7.6 g/dL (12.9-16.9); Immature Granulocytes % 0.9 % (0-4); Lymphocytes # 0.6 K/mcL (0.6-4.6); Lymphocytes % 11.5 %; Mean Corpuscular HGB Conc 30.6 g/dL (31.6-35.5); Mean Corpuscular Hemoglobin 30.2 pg (28.0-33.3); Mean Corpuscular Volume 98.4 fL (83.0-100.0); Mean Platelet Volume 9.9 fL (9.4-12.4); Monocytes # 0.4 K/mcL (0.0-1.3); Monocytes % 7.7 %; Neutrophils # 4.3 K/mcL (1.6-8.9); Platelet Count 241 K/mcL (140-400); Red Blood Count 2.52 M/mcL (4.19-5.50); Red Cell Distribution Width 15.9 % (11.5-14.5); Segmented Neutrophils % 78.5 %; White Blood Count 5.5 K/mcL (4.3-11.1)
[2020-09-26] MEDS: Pantoprazole 40 MG VIAL IVP SCH ×2 (05:14→17:26)
[2020-09-26 05:17] LABS: Estimated Average Glucose 143 mg/dl; Hemoglobin A1C 6.6 %
[2020-09-26 05:21] LABS: Magnesium 2.1 mg/dL (1.6-2.6); Potassium 4.4 mEq/L (3.5-5.1)
[2020-09-26] MEDS: Budesonide/Formoterol 160/4.5 1 PUFF INH IH SCH ×2 (08:11→20:18)
[2020-09-26] MEDS: Piperacillin/Tazobactam 3.375 GM in 0.9 % Sodium Chloride Mini Bag 100 ML IVPB SCH ×2 (08:34→20:06)
[2020-09-26] MEDS ORDERED: 0.9 % Sodium Chloride 250 ML IVC PRN (09:10)
[2020-09-26] MEDS ORDERED: *HR* Heparin 10,000 UNIT/10 ML VIAL IV PRN (09:10)
[2020-09-26] MEDS: Insulin LISPRO 300 UNITS/3 ML VIAL SQ SCH ×3 (14:05→17:16)
[2020-09-26] MEDS: Magnesium Oxide 400 MG TABLET PO SCH ×2 (14:06→20:05)
[2020-09-26] MEDS: Morphine Sulfate 2 MG/ML SYRINGE IVP PRN ×3 (14:08→21:34)
[2020-09-26] MEDS ORDERED: Vancomycin 1,250 MG/262.5 ML IV.SOLN IVPB ONE (15:00)
[2020-09-26] MEDS: SODIUM ZIRCONIUM CYCLOSILICATE 5 GM POWD.PACK PO SCH (17:26)
[2020-09-26] MEDS: Acetaminophen 325 MG TABLET PO PRN (17:36)
[2020-09-26] MEDS: traZODone 50 MG TABLET PO SCH (20:05)
[2020-09-27] MEDS: Morphine Sulfate 2 MG/ML SYRINGE IVP PRN ×2 (01:33→06:28)
[2020-09-27] MEDS: Pantoprazole 40 MG VIAL IVP SCH ×2 (06:28→19:07)
[2020-09-27 06:41] LABS: Basophils % 0.6 %; Eosinophils # 0.1 K/mcL (0.0-0.6); Hematocrit 23.2 % (37.5-50.1); Hemoglobin 7.2 g/dL (12.9-16.9); Lymphocytes # 0.7 K/mcL (0.6-4.6); Lymphocytes % 9.8 %; Mean Corpuscular Hemoglobin 29.9 pg (28.0-33.3); Mean Corpuscular Volume 96.3 fL (83.0-100.0); Mean Platelet Volume 9.7 fL (9.4-12.4); Monocytes # 0.6 K/mcL (0.0-1.3); Neutrophils # 5.4 K/mcL (1.6-8.9); Platelet Count 216 K/mcL (140-400); Red Blood Count 2.41 M/mcL (4.19-5.50); Red Cell Distribution Width 15.7 % (11.5-14.5); Segmented Neutrophils % 78.6 %; White Blood Count 6.9 K/mcL (4.3-11.1)
[2020-09-27 07:03] LABS: Calcium 8.1 mg/dL (8.6-10.3); Magnesium 2.2 mg/dL (1.6-2.6); Potassium 4.6 mEq/L (3.5-5.1)
[2020-09-27] MEDS ORDERED: *HR* Heparin 10,000 UNIT/10 ML VIAL IV PRN (07:37)
[2020-09-27] MEDS ORDERED: 0.9 % Sodium Chloride 250 ML IVC PRN (07:37)
[2020-09-27] MEDS ORDERED: Morphine Sulfate 2 MG/ML SYRINGE IVP PRN (08:24)
[2020-09-27] MEDS: Magnesium Oxide 400 MG TABLET PO SCH ×2 (08:24→19:50)
[2020-09-27] MEDS: Piperacillin/Tazobactam 3.375 GM in 0.9 % Sodium Chloride Mini Bag 100 ML IVPB SCH ×2 (08:25→19:52)
[2020-09-27] MEDS: Sennosides 8.6 MG TABLET PO SCH ×2 (08:25→19:51)
[2020-09-27] MEDS: Insulin LISPRO 300 UNITS/3 ML VIAL SQ SCH ×3 (08:34→17:02)
[2020-09-27] MEDS: Budesonide/Formoterol 160/4.5 1 PUFF INH IH SCH ×2 (11:34→20:28)
[2020-09-27] MEDS ORDERED: Iron Sucrose Complex 400 MG in 0.9 % Sodium Chloride 250 ML IVPB ONE (16:04)
[2020-09-27] MEDS: SODIUM ZIRCONIUM CYCLOSILICATE 5 GM POWD.PACK PO SCH (19:07)
[2020-09-27] MEDS: traZODone 50 MG TABLET PO SCH (19:50)
[2020-09-27] MEDS: Insulin DETEMIR 100 UNIT/ML X5UNITS SQ SCH (19:52)
[2020-09-27] MEDS ORDERED: traZODone 50 MG TABLET PO SCH (21:00)
[2020-09-27] MEDS ORDERED: Orphenadrine 100 MG TABLET.ER PO SCH (21:00)
[2020-09-27] MEDS ORDERED: Gabapentin 400 MG CAPSULE PO SCH (21:00)
[2020-09-28] MEDS: Pantoprazole 40 MG VIAL IVP SCH ×2 (05:42→19:28)
[2020-09-28 07:22] LABS: Basophils % 0.3 %; Eosinophils % 0.6 %; Hematocrit 24.6 % (37.5-50.1); Hemoglobin 7.5 g/dL (12.9-16.9); Immature Granulocytes % 0.8 % (0-4); Lymphocytes # 0.7 K/mcL (0.6-4.6); Lymphocytes % 9.7 %; Mean Corpuscular HGB Conc 30.5 g/dL (31.6-35.5); Mean Corpuscular Hemoglobin 29.6 pg (28.0-33.3); Mean Corpuscular Volume 97.2 fL (83.0-100.0); Monocytes # 0.7 K/mcL (0.0-1.3); Monocytes % 9.1 %; Neutrophils # 5.7 K/mcL (1.6-8.9); Platelet Count 236 K/mcL (140-400); Red Blood Count 2.53 M/mcL (4.19-5.50); Red Cell Distribution Width 15.6 % (11.5-14.5); Segmented Neutrophils % 79.5 %; White Blood Count 7.2 K/mcL (4.3-11.1)
[2020-09-28 07:44] LABS: Calcium 8.4 mg/dL (8.6-10.3); Magnesium 2.2 mg/dL (1.6-2.6); Potassium 3.8 mEq/L (3.5-5.1)
[2020-09-28] MEDS: Budesonide/Formoterol 160/4.5 1 PUFF INH IH SCH ×2 (07:47→19:48)
[2020-09-28] MEDS ORDERED: Lidocaine -MPF 2% 2 ML VIAL ONE (07:56)
[2020-09-28] MEDS ORDERED: *HR* Succinylcholine 200 MG/10 ML VIAL IVP ONE (07:58)
[2020-09-28] MEDS ORDERED: Dexamethasone 4 MG/ML VIAL ONE (07:58)
[2020-09-28] MEDS ORDERED: Lidocaine HCL 4 ML Topical Solution (Laryng-O-Jet Kit Sterile Pak) TP ONE (07:58)
[2020-09-28] MEDS ORDERED: Ondansetron 4 MG/2 ML VIAL ONE (07:58)
[2020-09-28] MEDS ORDERED: *HR* Propofol 200 MG/20 ML VIAL IVP ONE ×2 (07:59→09:42)
[2020-09-28] MEDS ORDERED: *HR* FentaNYL (PF) 100 MCG/2 ML VIAL ONE (07:59)
[2020-09-28] MEDS ORDERED: Ringers Solution, Lactated 1,000 ML IVC SCH (08:15)
[2020-09-28] MEDS ORDERED: *HR* PHENYLEPHRINE 1,000 MCG/10 ML SYRINGE IVP ONE ×3 (08:26→08:44)
[2020-09-28] MEDS ORDERED: Loratadine 10 MG TABLET PO SCH (09:00)
[2020-09-28] MEDS ORDERED: Isosorbide MONOnitrate (24 HR) 30 MG TAB.ER.24H PO SCH (09:00)
[2020-09-28] MEDS ORDERED: *HR* Midazolam HCl 2 MG/2 ML VIAL ONE (09:33)
[2020-09-28] MEDS ORDERED: Ondansetron 4 MG/2 ML VIAL IVP PRN (10:03)
[2020-09-28] MEDS ORDERED: Naloxone 0.4 MG/ML INJ IVP PRN (10:03)
[2020-09-28] MEDS ORDERED: 0.9 % Sodium Chloride 250 ML IVC SCH (10:03)
[2020-09-28] MEDS ORDERED: Nitroglycerin 0.4 MG TAB.SUBL SL PRN (10:03)
[2020-09-28] MEDS ORDERED: Dextrose Gel 15 GM/37.5 ML TUBE PO PRN ×2 (10:03)
[2020-09-28] MEDS ORDERED: 0.9 % Sodium Chloride 250 ML IVC PRN (10:03)
[2020-09-28] MEDS ORDERED: *HR* Dextrose 50 % in Water (Vial) 50 ML VIAL IVP PRN (10:03)
[2020-09-28] MEDS ORDERED: D5% in Water 1,000 ML IVC PRN (10:03)
[2020-09-28] MEDS ORDERED: 0.9 % Sodium Chloride 1,000 ML PRIME SCH (10:03)
[2020-09-28] MEDS ORDERED: Acetaminophen 325 MG TABLET PO PRN (10:03)
[2020-09-28] MEDS ORDERED: Ipratropium/Albuterol Neb 3 ML IH PRN (10:03)
[2020-09-28] MEDS ORDERED: Artificial Tears SOLN 15 ML BOTTLE BOTH EYES PRN (10:07)
[2020-09-28] MEDS ORDERED: Dexmedetomidine HCl 400 MCG/100 ML MLS IVC ONE (10:13)
[2020-09-28] MEDS: Dexmedetomidine HCl 400 MCG/100 ML MLS IVC SCH ×2 (10:49→19:36)
[2020-09-28] MEDS ORDERED: Insulin LISPRO 300 UNITS/3 ML VIAL SQ SCH (11:30)
[2020-09-28 12:09] LABS: ABG Base Excess 3 mEq/L (-2 to 3); ABG HCO3 29 mEq/L (21-27); ABG Oxygen Saturation 100 % (95-98); ABG PCO2 51 mmHg (35-45); ABG PH 7.36 pH Units (7.32-7.45); ABG PO2 203 mmHg (85-104); ABG TCO2 30 mEq/L (20-26); Blood Gas Modality AF; Blood Gas VT 550 cc
[2020-09-28] MEDS ORDERED: Perflutren Lipid Microsphere 1.3 ML in 0.9 % Sodium Chloride 8.7 ML IVP PRN (13:04)
[2020-09-28] MEDS: Ringers Solution, Lactated 1,000 ML IVC SCH (13:42)
[2020-09-28] MEDS: Gabapentin 400 MG CAPSULE PO SCH ×2 (15:43→21:22)
[2020-09-28] MEDS: Isosorbide MONOnitrate (24 HR) 30 MG TAB.ER.24H PO SCH (15:43)
[2020-09-28] MEDS: FentaNYL (PF) 1,000 MCG/100 ML IV.SOLN IVC SCH (15:44)
[2020-09-28] MEDS: Artificial Tears SOLN 15 ML BOTTLE BOTH EYES SCH ×4 (15:46→23:44)
[2020-09-28] MEDS: SODIUM ZIRCONIUM CYCLOSILICATE 5 GM POWD.PACK PO SCH (19:27)
[2020-09-28] MEDS: Chlorhexidine Rinse 15 ML MOUTHWASH MM SCH (19:28)
[2020-09-28] MEDS: Insulin LISPRO 300 UNITS/3 ML VIAL SQ SCH ×2 (19:30→23:44)
[2020-09-28] MEDS: Piperacillin/Tazobactam 3.375 GM in 0.9 % Sodium Chloride Mini Bag 100 ML IVPB SCH (19:45)
[2020-09-28] MEDS ORDERED: Insulin DETEMIR 100 UNIT/ML X5UNITS SQ SCH (21:00)
[2020-09-28] MEDS: Magnesium Oxide 400 MG TABLET PO SCH (21:21)
[2020-09-28] MEDS: traZODone 50 MG TABLET PO SCH (21:22)
[2020-09-28] MEDS: Sennosides 8.6 MG TABLET PO SCH (21:22)
[2020-09-28] MEDS: Orphenadrine 100 MG TABLET.ER PO SCH (21:24)
[2020-09-29] MEDS: Artificial Tears SOLN 15 ML BOTTLE BOTH EYES SCH ×6 (03:40→23:16)
[2020-09-29] MEDS: Ringers Solution, Lactated 1,000 ML IVC SCH (05:14)
[2020-09-29 05:17] LABS: Basophils % 0.2 %; Hematocrit 24.4 % (37.5-50.1); Hemoglobin 7.5 g/dL (12.9-16.9); Immature Granulocytes % 1.3 % (0-4); Lymphocytes # 0.4 K/mcL (0.6-4.6); Mean Corpuscular HGB Conc 30.7 g/dL (31.6-35.5); Mean Corpuscular Hemoglobin 29.8 pg (28.0-33.3); Mean Corpuscular Volume 96.8 fL (83.0-100.0); Mean Platelet Volume 10.1 fL (9.4-12.4); Monocytes # 0.3 K/mcL (0.0-1.3); Neutrophils # 4.7 K/mcL (1.6-8.9); Platelet Count 218 K/mcL (140-400); Red Blood Count 2.52 M/mcL (4.19-5.50); Red Cell Distribution Width 15.4 % (11.5-14.5); Segmented Neutrophils % 84.5 %; White Blood Count 5.5 K/mcL (4.3-11.1)
[2020-09-29] MEDS: Pantoprazole 40 MG VIAL IVP SCH ×2 (05:21→17:00)
[2020-09-29 05:31] LABS: Calcium 8.6 mg/dL (8.6-10.3); Magnesium 2.8 mg/dL (1.6-2.6); Potassium 4.4 mEq/L (3.5-5.1)
[2020-09-29] MEDS: Insulin LISPRO 300 UNITS/3 ML VIAL SQ SCH ×3 (05:32→19:37)
[2020-09-29 05:46] LABS: ABG Base Excess 2 mEq/L (-2 to 3); ABG HCO3 28 mEq/L (21-27); ABG Oxygen Saturation 95 % (95-98); ABG PCO2 46 mmHg (35-45); ABG PH 7.39 pH Units (7.32-7.45); ABG PO2 77 mmHg (85-104); ABG TCO2 29 mEq/L (20-26); Blood Gas Modality ASSIST CONTROL; Blood Gas VT 550 cc
[2020-09-29] MEDS ORDERED: *HR* Atropine Sulfate 1 MG/10 ML SYRINGE ONE (05:47)
[2020-09-29] MEDS ORDERED: *HR* Atropine Sulfate 1 MG/10 ML SYRINGE IVP ONE (06:11)
[2020-09-29] MEDS: Budesonide/Formoterol 160/4.5 1 PUFF INH IH SCH ×2 (07:40→19:55)
[2020-09-29] MEDS ORDERED: *HR* Heparin 5,000 UNIT/ML VIAL IVP PRN ×2 (07:53)
[2020-09-29 08:58] LABS: Hematocrit 28.1 % (37.5-50.1); Hemoglobin 8.6 g/dL (12.9-16.9); Mean Corpuscular HGB Conc 30.6 g/dL (31.6-35.5); Mean Corpuscular Hemoglobin 29.6 pg (28.0-33.3); Mean Corpuscular Volume 96.6 fL (83.0-100.0); Mean Platelet Volume 10.1 fL (9.4-12.4); Platelet Count 250 K/mcL (140-400); Red Blood Count 2.91 M/mcL (4.19-5.50); Red Cell Distribution Width 15.2 % (11.5-14.5); White Blood Count 6.3 K/mcL (4.3-11.1)
[2020-09-29 09:01] LABS: Heparin anti-factor XA UFH 0.07 IU/mL (0.30-0.70)
[2020-09-29 09:02] LABS: INR 1.1; Prothrombin Time 12.2 Seconds (9.4-12.1)
[2020-09-29] MEDS: Heparin 25,000UNIT/250ML 1/2NS 25,000 UNIT/250 ML IV.SOLN IVC SCH ×3 (09:22→20:42)
[2020-09-29] MEDS: Dexmedetomidine HCl 400 MCG/100 ML MLS IVC SCH ×2 (09:23→17:33)
[2020-09-29] MEDS: Piperacillin/Tazobactam 3.375 GM in 0.9 % Sodium Chloride Mini Bag 100 ML IVPB SCH ×2 (09:23→20:29)
[2020-09-29] MEDS ORDERED: 0.9 % Sodium Chloride 250 ML IVC PRN ×2 (10:17→10:45)
[2020-09-29] MEDS ORDERED: *HR* Heparin 10,000 UNIT/10 ML VIAL IV PRN (10:17)
[2020-09-29] MEDS: FentaNYL (PF) 1,000 MCG/100 ML IV.SOLN IVC SCH (10:48)
[2020-09-29] MEDS: Orphenadrine 100 MG TABLET.ER PO SCH ×2 (11:45→20:30)
[2020-09-29] MEDS: Chlorhexidine Rinse 15 ML MOUTHWASH MM SCH ×2 (11:45→20:30)
[2020-09-29] MEDS: Loratadine 10 MG TABLET PO SCH (11:45)
[2020-09-29] MEDS: Magnesium Oxide 400 MG TABLET PO SCH ×2 (11:45→20:30)
[2020-09-29] MEDS: Isosorbide MONOnitrate (24 HR) 30 MG TAB.ER.24H PO SCH (11:45)
[2020-09-29] MEDS: Sennosides 8.6 MG TABLET PO SCH ×2 (11:46→20:30)
[2020-09-29 13:58] LABS: Hematocrit 28.2 % (37.5-50.1); Hemoglobin 8.8 g/dL (12.9-16.9)
[2020-09-29] MEDS: Morphine Sulfate 2 MG/ML SYRINGE IVP PRN ×3 (17:05→22:32)
[2020-09-29] MEDS: SODIUM ZIRCONIUM CYCLOSILICATE 5 GM POWD.PACK PO SCH (17:33)
[2020-09-29] MEDS: traZODone 50 MG TABLET PO SCH (18:48)
[2020-09-29 20:25] LABS: Hematocrit 26.9 % (37.5-50.1); Hemoglobin 8.4 g/dL (12.9-16.9)
[2020-09-29] MEDS: *HR* HYDROcodone/Acet 5/325 mg TABLET PO PRN (20:44)
[2020-09-30] MEDS: Insulin LISPRO 300 UNITS/3 ML VIAL SQ SCH ×5 (00:22→23:23)
[2020-09-30] MEDS: *HR* HYDROcodone/Acet 5/325 mg TABLET PO PRN ×4 (00:30→21:55)
[2020-09-30 01:29] LABS: Hematocrit 26.9 % (37.5-50.1); Hemoglobin 8.1 g/dL (12.9-16.9)
[2020-09-30] MEDS: Morphine Sulfate 2 MG/ML SYRINGE IVP PRN ×2 (02:37→06:31)
[2020-09-30] MEDS: Artificial Tears SOLN 15 ML BOTTLE BOTH EYES SCH ×6 (04:14→23:23)
[2020-09-30] MEDS: Pantoprazole 40 MG VIAL IVP SCH ×2 (05:19→18:44)
[2020-09-30] MEDS: Dexmedetomidine HCl 400 MCG/100 ML MLS IVC SCH ×2 (05:19→18:19)
[2020-09-30 06:48] LABS: Hematocrit 26.4 % (37.5-50.1); Hemoglobin 8.1 g/dL (12.9-16.9)
[2020-09-30 07:07] LABS: Calcium 8.3 mg/dL (8.6-10.3); Potassium 3.7 mEq/L (3.5-5.1)
[2020-09-30 07:24] LABS: Basophils % 0.5 %; Eosinophils # 0.1 K/mcL (0.0-0.6); Eosinophils % 1.2 %; Hematocrit 27.4 % (37.5-50.1); Hemoglobin 8.1 g/dL (12.9-16.9); Immature Granulocytes % 1.2 % (0-4); Lymphocytes # 0.8 K/mcL (0.6-4.6); Lymphocytes % 14.5 %; Mean Corpuscular HGB Conc 29.6 g/dL (31.6-35.5); Mean Corpuscular Volume 98.2 fL (83.0-100.0); Monocytes # 0.4 K/mcL (0.0-1.3); Neutrophils # 4.3 K/mcL (1.6-8.9); Platelet Count 256 K/mcL (140-400); Red Blood Count 2.79 M/mcL (4.19-5.50); Segmented Neutrophils % 75.6 %; White Blood Count 5.7 K/mcL (4.3-11.1)
[2020-09-30] MEDS: Sennosides 8.6 MG TABLET PO SCH ×2 (08:02→19:20)
[2020-09-30] MEDS: Chlorhexidine Rinse 15 ML MOUTHWASH MM SCH ×2 (08:02→19:22)
[2020-09-30] MEDS: Magnesium Oxide 400 MG TABLET PO SCH ×2 (08:02→19:21)
[2020-09-30] MEDS: Orphenadrine 100 MG TABLET.ER PO SCH ×2 (08:02→19:21)
[2020-09-30] MEDS: Isosorbide MONOnitrate (24 HR) 30 MG TAB.ER.24H PO SCH (08:03)
[2020-09-30] MEDS: Loratadine 10 MG TABLET PO SCH (08:03)
[2020-09-30] MEDS: Piperacillin/Tazobactam 3.375 GM in 0.9 % Sodium Chloride Mini Bag 100 ML IVPB SCH ×2 (08:04→19:25)
[2020-09-30] MEDS ORDERED: Isovue-370 500 ML BOTTLE IVP ONE (09:09)
[2020-09-30] MEDS: Heparin 25,000UNIT/250ML 1/2NS 25,000 UNIT/250 ML IV.SOLN IVC SCH (10:45)
[2020-09-30] MEDS ORDERED: 0.9 % Sodium Chloride 10 ML PF VIAL IVP ONE (10:55)
[2020-09-30] MEDS ORDERED: *HR* Propofol 500 MG/50 ML BOTTLE IVP ONE (10:55)
[2020-09-30] MEDS ORDERED: *HR* Propofol 200 MG/20 ML VIAL IVP ONE (10:55)
[2020-09-30] MEDS ORDERED: Lidocaine -MPF 2% 5 ML VIAL SQ ONE (10:55)
[2020-09-30] MEDS ORDERED: *HR* Vasopressin 20 UNIT/ML VIAL ONE (10:56)
[2020-09-30] MEDS ORDERED: Lidocaine Viscous Oral Soln 15 ML SOLUTION ONE (11:13)
[2020-09-30] MEDS: Budesonide/Formoterol 160/4.5 1 PUFF INH IH SCH ×2 (11:49→20:07)
[2020-09-30] MEDS ORDERED: *HR* PHENYLEPHRINE 1,000 MCG/10 ML SYRINGE IVP ONE (12:18)
[2020-09-30] MEDS: *HR* OxyCODONE Immed Rel 5 MG TABLET PO PRN ×2 (12:28→18:50)
[2020-09-30] MEDS ORDERED: Phenylephrine 10 MG in 0.9 % Sodium Chloride 250 ML IVC SCH (13:00)
[2020-09-30] MEDS ORDERED: 0.9 % Sodium Chloride 500 ML ONE (13:05)
[2020-09-30] MEDS ORDERED: *HR* Heparin 10,000 UNIT/10 ML VIAL IV PRN (13:34)
[2020-09-30] MEDS ORDERED: Albumin 25% 25gram/100mL 25 GM/100 ML IV.SOLN IVPB ONE (14:00)
[2020-09-30 14:32] LABS: Hemoglobin 8.1 g/dL (12.9-16.9)
[2020-09-30 14:42] LABS: Bilirubin,Direct 0.2 mg/dL (0.0-0.2); Bilirubin,Indirect 0.2 mg/dL (0.0-1.0); Bilirubin,Total 0.4 mg/dL (0.3-1.0)
[2020-09-30] MEDS: Phenylephrine 20 MG in 0.9 % Sodium Chloride 250 ML IVC SCH (16:00)
[2020-09-30] MEDS: SODIUM ZIRCONIUM CYCLOSILICATE 5 GM POWD.PACK PO SCH (18:44)
[2020-09-30] MEDS: traZODone 50 MG TABLET PO SCH (19:19)
[2020-09-30 20:13] LABS: Hematocrit 26.3 % (37.5-50.1)
[2020-10-01] MEDS: *HR* OxyCODONE Immed Rel 5 MG TABLET PO PRN ×3 (00:05→16:06)
[2020-10-01 02:26] LABS: Hematocrit 23.8 % (37.5-50.1); Hemoglobin 7.1 g/dL (12.9-16.9)
[2020-10-01] MEDS: Artificial Tears SOLN 15 ML BOTTLE BOTH EYES SCH ×3 (04:19→11:15)
[2020-10-01] MEDS: Pantoprazole 40 MG VIAL IVP SCH (04:19)
[2020-10-01] MEDS: *HR* HYDROcodone/Acet 5/325 mg TABLET PO PRN ×3 (04:19→23:21)
[2020-10-01 04:45] LABS: VBG Ionized Calcium 1.04 mmol/L (1.15-1.35)
[2020-10-01 04:52] LABS: Calcium 8.7 mg/dL (8.6-10.3); Magnesium 2.8 mg/dL (1.6-2.6); Phosphorous 5.2 mg/dL (2.7-4.5)
[2020-10-01 04:53] LABS: Basophils % 0.6 %; Eosinophils # 0.1 K/mcL (0.0-0.6); Eosinophils % 1.8 %; Hematocrit 24.6 % (37.5-50.1); Hemoglobin 7.5 g/dL (12.9-16.9); Immature Granulocytes % 0.6 % (0-4); Lymphocytes # 0.7 K/mcL (0.6-4.6); Lymphocytes % 13.9 %; Mean Corpuscular HGB Conc 30.5 g/dL (31.6-35.5); Mean Corpuscular Volume 98.4 fL (83.0-100.0); Mean Platelet Volume 10.1 fL (9.4-12.4); Monocytes # 0.5 K/mcL (0.0-1.3); Monocytes % 8.9 %; Neutrophils # 3.8 K/mcL (1.6-8.9); Platelet Count 209 K/mcL (140-400); Red Cell Distribution Width 15.7 % (11.5-14.5); Segmented Neutrophils % 74.2 %; White Blood Count 5.1 K/mcL (4.3-11.1)
[2020-10-01] MEDS: Insulin LISPRO 300 UNITS/3 ML VIAL SQ SCH ×3 (05:44→17:48)
[2020-10-01] MEDS: Dexmedetomidine HCl 400 MCG/100 ML MLS IVC SCH ×2 (05:44→16:52)
[2020-10-01 07:07] LABS: Hematocrit 24.6 % (37.5-50.1); Hemoglobin 7.5 g/dL (12.9-16.9)
[2020-10-01] MEDS ORDERED: 0.9 % Sodium Chloride 250 ML IVC PRN ×2 (07:29→17:03)
[2020-10-01] MEDS ORDERED: *HR* Heparin 10,000 UNIT/10 ML VIAL IV PRN ×2 (07:29→17:03)
[2020-10-01] MEDS ORDERED: *HR* Heparin 10,000 UNIT/10 ML VIAL ONE (07:45)
[2020-10-01] MEDS: Loratadine 10 MG TABLET PO SCH (08:26)
[2020-10-01] MEDS: Orphenadrine 100 MG TABLET.ER PO SCH ×2 (08:26→21:00)
[2020-10-01] MEDS: Chlorhexidine Rinse 15 ML MOUTHWASH MM SCH (08:27)
[2020-10-01] MEDS: Magnesium Oxide 400 MG TABLET PO SCH ×2 (08:27→20:59)
[2020-10-01] MEDS: Piperacillin/Tazobactam 3.375 GM in 0.9 % Sodium Chloride Mini Bag 100 ML IVPB SCH ×2 (08:27→21:00)
[2020-10-01] MEDS: Isosorbide MONOnitrate (24 HR) 30 MG TAB.ER.24H PO SCH (08:27)
[2020-10-01] MEDS: Sennosides 8.6 MG TABLET PO SCH ×2 (08:27→20:59)
[2020-10-01] MEDS: Budesonide/Formoterol 160/4.5 1 PUFF INH IH SCH ×2 (10:18→21:25)
[2020-10-01 10:46] LABS: Amylase 32 Units/L (29-103); Lipase 61 Units/L (11-82)
[2020-10-01] MEDS ORDERED: *HR* Heparin 5,000 UNIT/ML VIAL SQ SCH (14:00)
[2020-10-01] MEDS ORDERED: Heparin 1,000 UNITS/500 mL 500 ML ONE (14:03)
[2020-10-01] MEDS ORDERED: 0.9 % Sodium Chloride 1,000 ML ONE (14:03)
[2020-10-01] MEDS ORDERED: *HR* Midazolam HCl 2 MG/2 ML VIAL ONE (15:09)
[2020-10-01] MEDS ORDERED: *HR* FentaNYL (PF) 100 MCG/2 ML VIAL ONE (15:10)
[2020-10-01] MEDS: Phenylephrine 20 MG in 0.9 % Sodium Chloride 250 ML IVC SCH (16:52)
[2020-10-01] MEDS ORDERED: Dextrose Gel 15 GM/37.5 ML TUBE PO PRN ×2 (17:03)
[2020-10-01] MEDS ORDERED: Ipratropium/Albuterol Neb 3 ML IH PRN (17:03)
[2020-10-01] MEDS ORDERED: *HR* OxyCODONE Immed Rel 5 MG TABLET PO PRN (17:03)
[2020-10-01] MEDS ORDERED: D5% in Water 1,000 ML IVC PRN (17:03)
[2020-10-01] MEDS ORDERED: Naloxone 0.4 MG/ML INJ IVP PRN (17:03)
[2020-10-01] MEDS ORDERED: 0.9 % Sodium Chloride 1,000 ML PRIME SCH (17:03)
[2020-10-01] MEDS ORDERED: Nitroglycerin 0.4 MG TAB.SUBL SL PRN (17:03)
[2020-10-01] MEDS ORDERED: Acetaminophen 325 MG TABLET PO PRN (17:03)
[2020-10-01] MEDS ORDERED: *HR* Dextrose 50 % in Water (Vial) 50 ML VIAL IVP PRN (17:03)
[2020-10-01] MEDS: SODIUM ZIRCONIUM CYCLOSILICATE 5 GM POWD.PACK PO SCH (17:49)
[2020-10-01] MEDS ORDERED: Pantoprazole 40 MG VIAL IVP SCH (18:00)
[2020-10-01] MEDS: traZODone 50 MG TABLET PO SCH (21:00)
[2020-10-01] MEDS: *HR* Heparin 5,000 UNIT/ML VIAL SQ SCH (21:00)
[2020-10-02] MEDS: Insulin LISPRO 300 UNITS/3 ML VIAL SQ SCH ×5 (00:26→23:49)
[2020-10-02 00:49] LABS: Basophils % 0.5 %; Eosinophils # 0.1 K/mcL (0.0-0.6); Eosinophils % 1.1 %; Hematocrit 26.4 % (37.5-50.1); Hemoglobin 7.9 g/dL (12.9-16.9); Immature Granulocytes % 0.4 % (0-4); Lymphocytes # 0.6 K/mcL (0.6-4.6); Lymphocytes % 11.7 %; Mean Corpuscular HGB Conc 29.9 g/dL (31.6-35.5); Mean Corpuscular Hemoglobin 29.4 pg (28.0-33.3); Mean Corpuscular Volume 98.1 fL (83.0-100.0); Monocytes # 0.4 K/mcL (0.0-1.3); Monocytes % 7.5 %; Neutrophils # 4.3 K/mcL (1.6-8.9); Platelet Count 234 K/mcL (140-400); Red Blood Count 2.69 M/mcL (4.19-5.50); Red Cell Distribution Width 15.4 % (11.5-14.5); Segmented Neutrophils % 78.8 %; White Blood Count 5.5 K/mcL (4.3-11.1)
[2020-10-02 01:06] LABS: Calcium 8.3 mg/dL (8.6-10.3); Magnesium 2.5 mg/dL (1.6-2.6); Phosphorous 4.8 mg/dL (2.7-4.5)
[2020-10-02] MEDS: *HR* Heparin 5,000 UNIT/ML VIAL SQ SCH ×3 (05:30→20:55)
[2020-10-02] MEDS: Pantoprazole 40 MG VIAL IVP SCH ×2 (05:30→16:22)
[2020-10-02] MEDS: *HR* HYDROcodone/Acet 5/325 mg TABLET PO PRN (05:44)
[2020-10-02] MEDS: Budesonide/Formoterol 160/4.5 1 PUFF INH IH SCH ×2 (08:01→21:14)
[2020-10-02] MEDS: Sennosides 8.6 MG TABLET PO SCH ×2 (08:22→20:57)
[2020-10-02] MEDS: Orphenadrine 100 MG TABLET.ER PO SCH ×2 (08:23→20:57)
[2020-10-02] MEDS: Magnesium Oxide 400 MG TABLET PO SCH ×2 (08:23→20:56)
[2020-10-02] MEDS: Loratadine 10 MG TABLET PO SCH (08:23)
[2020-10-02] MEDS: Isosorbide MONOnitrate (24 HR) 30 MG TAB.ER.24H PO SCH (08:23)
[2020-10-02] MEDS: Piperacillin/Tazobactam 3.375 GM in 0.9 % Sodium Chloride Mini Bag 100 ML IVPB SCH ×2 (08:24→20:57)
[2020-10-02] MEDS: *HR* OxyCODONE Immed Rel 5 MG TABLET PO PRN ×2 (12:50→20:59)
[2020-10-02] MEDS: SODIUM ZIRCONIUM CYCLOSILICATE 5 GM POWD.PACK PO SCH (16:22)
[2020-10-02] MEDS: *HR* HYDROmorphone (PF) 1 MG/ML SYRINGE IVP PRN ×2 (16:23→18:52)
[2020-10-02] MEDS: traZODone 50 MG TABLET PO SCH (20:55)
[2020-10-02] MEDS: Ondansetron 4 MG/2 ML VIAL IVP PRN (23:58)
[2020-10-03 05:24] LABS: Basophils % 0.5 %; Eosinophils # 0.1 K/mcL (0.0-0.6); Eosinophils % 0.8 %; Hematocrit 27.1 % (37.5-50.1); Hematocrit 27.2 % (37.5-50.1); Hemoglobin 8.1 g/dL (12.9-16.9); Immature Granulocytes % 0.8 % (0-4); Lymphocytes # 0.7 K/mcL (0.6-4.6); Lymphocytes % 10.8 %; Mean Corpuscular HGB Conc 29.5 g/dL (31.6-35.5); Mean Corpuscular HGB Conc 29.8 g/dL (31.6-35.5); Mean Corpuscular Hemoglobin 28.8 pg (28.0-33.3); Mean Corpuscular Hemoglobin 29.2 pg (28.0-33.3); Mean Corpuscular Volume 97.5 fL (83.0-100.0); Mean Corpuscular Volume 98.2 fL (83.0-100.0); Mean Platelet Volume 9.6 fL (9.4-12.4); Monocytes # 0.5 K/mcL (0.0-1.3); Monocytes % 7.2 %; Neutrophils # 5.1 K/mcL (1.6-8.9); Platelet Count 236 K/mcL (140-400); Platelet Count 243 K/mcL (140-400); Red Blood Count 2.77 M/mcL (4.19-5.50); Red Blood Count 2.78 M/mcL (4.19-5.50); Red Cell Distribution Width 15.3 % (11.5-14.5); Segmented Neutrophils % 79.9 %; White Blood Count 6.2 K/mcL (4.3-11.1); White Blood Count 6.4 K/mcL (4.3-11.1)
[2020-10-03 05:38] LABS: Calcium 9.1 mg/dL (8.6-10.3); Magnesium 3.2 mg/dL (1.6-2.6); Phosphorous 6.7 mg/dL (2.7-4.5); Potassium 4.2 mEq/L (3.5-5.1)
[2020-10-03] MEDS: *HR* Heparin 5,000 UNIT/ML VIAL SQ SCH ×3 (06:00→21:49)
[2020-10-03] MEDS: Pantoprazole 40 MG VIAL IVP SCH ×2 (06:00→18:13)
[2020-10-03] MEDS: Insulin LISPRO 300 UNITS/3 ML VIAL SQ SCH ×4 (06:01→23:46)
[2020-10-03] MEDS ORDERED: 0.9 % Sodium Chloride 250 ML IVC PRN ×2 (07:56→17:41)
[2020-10-03] MEDS ORDERED: *HR* Heparin 10,000 UNIT/10 ML VIAL IV PRN (07:56)
[2020-10-03] MEDS ORDERED: 0.9 % Sodium Chloride 1,000 ML PRIME SCH (08:00)
[2020-10-03] MEDS: Budesonide/Formoterol 160/4.5 1 PUFF INH IH SCH ×2 (08:16→19:58)
[2020-10-03] MEDS ORDERED: Lidocaine/EPI 1:100k 1% 50 ML VIAL ONE (08:39)
[2020-10-03] MEDS ORDERED: Heparin 1,000 UNITS/500 mL 500 ML ONE (08:39)
[2020-10-03] MEDS ORDERED: *HR* Heparin 5,000 UNIT/ML VIAL ONE (09:26)
[2020-10-03] MEDS: Piperacillin/Tazobactam 3.375 GM in 0.9 % Sodium Chloride Mini Bag 100 ML IVPB SCH ×2 (10:16→21:51)
[2020-10-03] MEDS: Orphenadrine 100 MG TABLET.ER PO SCH ×2 (10:17→21:50)
[2020-10-03] MEDS: Magnesium Oxide 400 MG TABLET PO SCH ×2 (10:17→21:50)
[2020-10-03] MEDS: Sennosides 8.6 MG TABLET PO SCH ×2 (10:17→22:02)
[2020-10-03] MEDS: *HR* OxyCODONE Immed Rel 5 MG TABLET PO PRN ×3 (10:18→21:51)
[2020-10-03] MEDS: Loratadine 10 MG TABLET PO SCH (10:18)
[2020-10-03] MEDS: Isosorbide MONOnitrate (24 HR) 30 MG TAB.ER.24H PO SCH (10:18)
[2020-10-03] MEDS: SODIUM ZIRCONIUM CYCLOSILICATE 5 GM POWD.PACK PO SCH (18:13)
[2020-10-03] MEDS: traZODone 50 MG TABLET PO SCH (21:51)
[2020-10-04] MEDS ORDERED: *HR* Heparin 10,000 UNIT/10 ML VIAL IV PRN (00:01)
[2020-10-04 04:15] LABS: Hematocrit 24.5 % (37.5-50.1); Hemoglobin 7.2 g/dL (12.9-16.9); Mean Corpuscular HGB Conc 29.4 g/dL (31.6-35.5); Mean Corpuscular Hemoglobin 29.6 pg (28.0-33.3); Mean Corpuscular Volume 100.8 fL (83.0-100.0); Mean Platelet Volume 10.2 fL (9.4-12.4); Platelet Count 218 K/mcL (140-400); Red Blood Count 2.43 M/mcL (4.19-5.50); Red Cell Distribution Width 15.5 % (11.5-14.5); White Blood Count 4.9 K/mcL (4.3-11.1)
[2020-10-04 04:32] LABS: Calcium 8.3 mg/dL (8.6-10.3); Potassium 4.3 mEq/L (3.5-5.1)
[2020-10-04] MEDS: Insulin LISPRO 300 UNITS/3 ML VIAL SQ SCH ×4 (05:39→21:46)
[2020-10-04] MEDS: Pantoprazole 40 MG VIAL IVP SCH (05:48)
[2020-10-04] MEDS: *HR* Heparin 5,000 UNIT/ML VIAL SQ SCH ×3 (05:48→20:31)
[2020-10-04] MEDS: Budesonide/Formoterol 160/4.5 1 PUFF INH IH SCH ×2 (07:39→19:49)
[2020-10-04] MEDS: *HR* HYDROcodone/Acet 5/325 mg TABLET PO PRN ×2 (09:04→20:30)
[2020-10-04] MEDS: *HR* OxyCODONE Immed Rel 5 MG TABLET PO PRN ×3 (10:32→23:18)
[2020-10-04] MEDS: Piperacillin/Tazobactam 3.375 GM in 0.9 % Sodium Chloride Mini Bag 100 ML IVPB SCH ×2 (13:52→20:31)
[2020-10-04] MEDS: Isosorbide MONOnitrate (24 HR) 30 MG TAB.ER.24H PO SCH (13:59)
[2020-10-04] MEDS: Magnesium Oxide 400 MG TABLET PO SCH ×2 (13:59→20:32)
[2020-10-04] MEDS: Sennosides 8.6 MG TABLET PO SCH (13:59)
[2020-10-04] MEDS: Loratadine 10 MG TABLET PO SCH (14:00)
[2020-10-04] MEDS: Orphenadrine 100 MG TABLET.ER PO SCH ×2 (14:01→20:30)
[2020-10-04] MEDS: SODIUM ZIRCONIUM CYCLOSILICATE 5 GM POWD.PACK PO SCH (18:36)
[2020-10-04] MEDS: traZODone 50 MG TABLET PO SCH (20:30)
[2020-10-05 01:24] LABS: Hematocrit 26.7 % (37.5-50.1); Hemoglobin 8.2 g/dL (12.9-16.9); Mean Corpuscular HGB Conc 30.7 g/dL (31.6-35.5); Mean Corpuscular Hemoglobin 30.3 pg (28.0-33.3); Mean Corpuscular Volume 98.5 fL (83.0-100.0); Mean Platelet Volume 10.5 fL (9.4-12.4); Platelet Count 253 K/mcL (140-400); Red Blood Count 2.71 M/mcL (4.19-5.50); Red Cell Distribution Width 15.3 % (11.5-14.5); White Blood Count 5.4 K/mcL (4.3-11.1)
[2020-10-05 01:43] LABS: Calcium 8.8 mg/dL (8.6-10.3); Magnesium 2.7 mg/dL (1.6-2.6); Potassium 3.8 mEq/L (3.5-5.1)
[2020-10-05] MEDS: *HR* HYDROcodone/Acet 5/325 mg TABLET PO PRN (02:50)
[2020-10-05] MEDS: *HR* Heparin 5,000 UNIT/ML VIAL SQ SCH ×3 (04:32→19:42)
[2020-10-05] MEDS: *HR* OxyCODONE Immed Rel 5 MG TABLET PO PRN ×2 (09:33→19:41)
[2020-10-05] MEDS: Insulin LISPRO 300 UNITS/3 ML VIAL SQ SCH ×4 (09:34→19:43)
[2020-10-05] MEDS: Piperacillin/Tazobactam 3.375 GM in 0.9 % Sodium Chloride Mini Bag 100 ML IVPB SCH ×2 (09:34→19:41)
[2020-10-05] MEDS: Isosorbide MONOnitrate (24 HR) 30 MG TAB.ER.24H PO SCH (09:35)
[2020-10-05] MEDS: Orphenadrine 100 MG TABLET.ER PO SCH ×2 (09:35→19:41)
[2020-10-05] MEDS: Magnesium Oxide 400 MG TABLET PO SCH ×2 (09:35→19:51)
[2020-10-05] MEDS: Sennosides 8.6 MG TABLET PO SCH ×2 (09:35→19:51)
[2020-10-05] MEDS: Loratadine 10 MG TABLET PO SCH (09:41)
[2020-10-05] MEDS: Budesonide/Formoterol 160/4.5 1 PUFF INH IH SCH ×2 (10:15→19:58)
[2020-10-05] MEDS: Morphine Sulfate 2 MG/ML SYRINGE IVP PRN ×2 (13:19→22:02)
[2020-10-05] MEDS: SODIUM ZIRCONIUM CYCLOSILICATE 5 GM POWD.PACK PO SCH (17:23)
[2020-10-05] MEDS: Ondansetron 4 MG/2 ML VIAL IVP PRN (17:26)
[2020-10-05] MEDS: traZODone 50 MG TABLET PO SCH (19:41)
[2020-10-06 03:58] LABS: Hematocrit 25.5 % (37.5-50.1); Hemoglobin 7.6 g/dL (12.9-16.9); Mean Corpuscular HGB Conc 29.8 g/dL (31.6-35.5); Mean Corpuscular Volume 97.3 fL (83.0-100.0); Mean Platelet Volume 10.7 fL (9.4-12.4); Platelet Count 236 K/mcL (140-400); Red Blood Count 2.62 M/mcL (4.19-5.50); Red Cell Distribution Width 15.5 % (11.5-14.5); White Blood Count 5.5 K/mcL (4.3-11.1)
[2020-10-06 04:08] LABS: Magnesium 3.2 mg/dL (1.6-2.6)
[2020-10-06] MEDS: *HR* Heparin 5,000 UNIT/ML VIAL SQ SCH ×3 (06:04→20:34)
[2020-10-06] MEDS: Insulin LISPRO 300 UNITS/3 ML VIAL SQ SCH ×4 (07:59→20:33)
[2020-10-06] MEDS: Orphenadrine 100 MG TABLET.ER PO SCH ×2 (08:27→20:34)
[2020-10-06] MEDS: Sennosides 8.6 MG TABLET PO SCH ×2 (08:27→20:35)
[2020-10-06] MEDS: Loratadine 10 MG TABLET PO SCH (08:28)
[2020-10-06] MEDS: Isosorbide MONOnitrate (24 HR) 30 MG TAB.ER.24H PO SCH (08:28)
[2020-10-06] MEDS: Piperacillin/Tazobactam 3.375 GM in 0.9 % Sodium Chloride Mini Bag 100 ML IVPB SCH ×2 (08:29→20:33)
[2020-10-06] MEDS: Magnesium Oxide 400 MG TABLET PO SCH ×2 (08:31→20:35)
[2020-10-06] MEDS: *HR* HYDROcodone/Acet 5/325 mg TABLET PO PRN ×2 (10:57→17:54)
[2020-10-06] MEDS: Budesonide/Formoterol 160/4.5 1 PUFF INH IH SCH ×2 (11:52→20:19)
[2020-10-06] MEDS: SODIUM ZIRCONIUM CYCLOSILICATE 5 GM POWD.PACK PO SCH (17:54)
[2020-10-06] MEDS: traZODone 50 MG TABLET PO SCH (20:35)
[2020-10-07] MEDS: *HR* HYDROcodone/Acet 5/325 mg TABLET PO PRN ×2 (02:35→10:49)
[2020-10-07] MEDS: *HR* OxyCODONE Immed Rel 5 MG TABLET PO PRN ×2 (04:49→17:58)
[2020-10-07] MEDS: *HR* Heparin 5,000 UNIT/ML VIAL SQ SCH ×4 (04:50→20:39)
[2020-10-07 05:28] LABS: Hematocrit 24.7 % (37.5-50.1); Hemoglobin 7.4 g/dL (12.9-16.9); Mean Corpuscular Hemoglobin 29.1 pg (28.0-33.3); Mean Corpuscular Volume 97.2 fL (83.0-100.0); Mean Platelet Volume 10.4 fL (9.4-12.4); Platelet Count 229 K/mcL (140-400); Red Blood Count 2.54 M/mcL (4.19-5.50); Red Cell Distribution Width 15.8 % (11.5-14.5); White Blood Count 5.7 K/mcL (4.3-11.1)
[2020-10-07 05:40] LABS: Magnesium 3.4 mg/dL (1.6-2.6); Phosphorous 4.3 mg/dL (2.7-4.5); Potassium 4.3 mEq/L (3.5-5.1)
[2020-10-07] MEDS ORDERED: 0.9 % Sodium Chloride 250 ML IVC PRN (07:00)
[2020-10-07] MEDS: Insulin LISPRO 300 UNITS/3 ML VIAL SQ SCH ×4 (07:33→20:37)
[2020-10-07] MEDS: Budesonide/Formoterol 160/4.5 1 PUFF INH IH SCH ×2 (07:59→20:45)
[2020-10-07 09:00] LABS: Adenovirus Not Detected (Not Detect); Bordetella Pertussis Not Detected (Not Detect); Chlamydophila pneumoniae Not Detected (Not Detect); Coronavirus 229E Not Detected (Not Detect); Coronavirus HKU1 Not Detected (Not Detect); Coronavirus NL63 Not Detected (Not Detect); Coronavirus OC43 Not Detected (Not Detect); Human Metapneumovirus Not Detected (Not Detect); Human Rhinovirus/Enterovirus Not Detected (Not Detect); Influenza A Subtype 2009 H1 Not Detected (Not Detect); Influenza B Not Detected (Not Detect); Parainfluenza Virus 1 Not Detected (Not Detect); Parainfluenza Virus 2 Not Detected (Not Detect); Parainfluenza Virus 3 Not Detected (Not Detect); Parainfluenza Virus 4 Not Detected (Not Detect); Respiratory Syncytial Virus Not Detected (Not Detect); SARS-CoV-2 Not Detected (Not Detect)
[2020-10-07 09:01] LABS: Mycoplasma pneumoniae Not Detected (Not Detect)
[2020-10-07] MEDS: Isosorbide MONOnitrate (24 HR) 30 MG TAB.ER.24H PO SCH (09:22)
[2020-10-07] MEDS: Loratadine 10 MG TABLET PO SCH (09:22)
[2020-10-07] MEDS: Magnesium Oxide 400 MG TABLET PO SCH ×2 (09:23→20:38)
[2020-10-07] MEDS: Sennosides 8.6 MG TABLET PO SCH ×2 (09:23→20:39)
[2020-10-07] MEDS: Orphenadrine 100 MG TABLET.ER PO SCH ×2 (09:23→20:39)
[2020-10-07] MEDS: Piperacillin/Tazobactam 3.375 GM in 0.9 % Sodium Chloride Mini Bag 100 ML IVPB SCH (10:23)
[2020-10-07] MEDS: Ondansetron 4 MG/2 ML VIAL IVP PRN (15:40)
[2020-10-07] MEDS: Ampicillin 2 GM in 0.9 % Sodium Chloride Mini Bag 100 ML IVPB SCH (18:00)
[2020-10-07] MEDS: SODIUM ZIRCONIUM CYCLOSILICATE 5 GM POWD.PACK PO SCH (18:00)
[2020-10-07] MEDS: Insulin DETEMIR 100 UNIT/ML X5UNITS SQ SCH (20:37)
[2020-10-07] MEDS: traZODone 50 MG TABLET PO SCH (20:39)
[2020-10-08] MEDS: *HR* OxyCODONE Immed Rel 5 MG TABLET PO PRN (00:25)
[2020-10-08 04:58] LABS: Basophils # 0.1 K/mcL (0.0-0.2); Basophils % 0.9 %; Eosinophils # 0.1 K/mcL (0.0-0.6); Eosinophils % 1.5 %; Hematocrit 25.4 % (37.5-50.1); Hemoglobin 7.4 g/dL (12.9-16.9); Immature Granulocytes % 0.7 % (0-4); Lymphocytes # 0.7 K/mcL (0.6-4.6); Lymphocytes % 13.1 %; Mean Corpuscular HGB Conc 29.1 g/dL (31.6-35.5); Mean Corpuscular Hemoglobin 29.7 pg (28.0-33.3); Mean Platelet Volume 10.8 fL (9.4-12.4); Monocytes # 0.6 K/mcL (0.0-1.3); Monocytes % 10.7 %; Neutrophils # 3.9 K/mcL (1.6-8.9); Platelet Count 242 K/mcL (140-400); Red Blood Count 2.49 M/mcL (4.19-5.50); Red Cell Distribution Width 15.9 % (11.5-14.5); Segmented Neutrophils % 73.1 %; White Blood Count 5.3 K/mcL (4.3-11.1)
[2020-10-08 05:05] LABS: Calcium 8.7 mg/dL (8.6-10.3)
[2020-10-08] MEDS: Ampicillin 2 GM in 0.9 % Sodium Chloride Mini Bag 100 ML IVPB SCH ×2 (06:19→16:39)
[2020-10-08] MEDS: *HR* Heparin 5,000 UNIT/ML VIAL SQ SCH ×3 (06:21→21:26)
[2020-10-08] MEDS ORDERED: 0.9 % Sodium Chloride 250 ML IVC PRN (06:56)
[2020-10-08] MEDS: Insulin LISPRO 300 UNITS/3 ML VIAL SQ SCH ×4 (07:33→21:23)
[2020-10-08] MEDS: Loratadine 10 MG TABLET PO SCH (07:34)
[2020-10-08] MEDS: Orphenadrine 100 MG TABLET.ER PO SCH ×2 (07:34→21:24)
[2020-10-08] MEDS: Sennosides 8.6 MG TABLET PO SCH ×2 (07:34→21:25)
[2020-10-08] MEDS: Isosorbide MONOnitrate (24 HR) 30 MG TAB.ER.24H PO SCH (07:34)
[2020-10-08] MEDS: Magnesium Oxide 400 MG TABLET PO SCH ×2 (07:34→21:26)
[2020-10-08] MEDS: Budesonide/Formoterol 160/4.5 1 PUFF INH IH SCH ×2 (07:53→20:11)
[2020-10-08] MEDS ORDERED: *HR* FentaNYL (PF) 100 MCG/2 ML VIAL ONE (09:00)
[2020-10-08] MEDS ORDERED: *HR* FentaNYL (PF) 100 MCG/2 ML VIAL IVP ONE (09:11)
[2020-10-08] MEDS ORDERED: *HR* Midazolam HCl 2 MG/2 ML VIAL IVP ONE (09:11)
[2020-10-08] MEDS ORDERED: CeFAZolin 2,000 MG/50 ML BAG IVPB ONE (09:12)
[2020-10-08] MEDS ORDERED: Lidocaine/EPI 1:100k 1% 50 ML VIAL ONE (09:14)
[2020-10-08] MEDS ORDERED: Heparin 1,000 UNITS/500 mL 500 ML ONE (09:14)
[2020-10-08] MEDS ORDERED: *HR* Heparin 5,000 UNIT/ML VIAL ONE (09:18)
[2020-10-08] MEDS ORDERED: 0.9 % Sodium Chloride 500 ML ONE (09:18)
[2020-10-08] MEDS ORDERED: *HR* Midazolam HCl 2 MG/2 ML VIAL ONE (09:24)
[2020-10-08] MEDS: Ondansetron 4 MG/2 ML VIAL IVP PRN (09:32)
[2020-10-08] MEDS: *HR* HYDROcodone/Acet 5/325 mg TABLET PO PRN (10:28)
[2020-10-08] MEDS ORDERED: *HR* Heparin 10,000 UNIT/10 ML VIAL ONE (12:33)
[2020-10-08] MEDS: SODIUM ZIRCONIUM CYCLOSILICATE 5 GM POWD.PACK PO SCH (16:40)
[2020-10-08] MEDS: traZODone 50 MG TABLET PO SCH (21:21)
[2020-10-08] MEDS: Insulin DETEMIR 100 UNIT/ML X5UNITS SQ SCH (21:25)
[2020-10-09] MEDS: *HR* OxyCODONE Immed Rel 5 MG TABLET PO PRN ×2 (00:35→23:14)
[2020-10-09 02:41] LABS: Basophils % 0.7 %; Eosinophils # 0.1 K/mcL (0.0-0.6); Eosinophils % 1.7 %; Hematocrit 26.4 % (37.5-50.1); Hemoglobin 7.7 g/dL (12.9-16.9); Lymphocytes # 0.7 K/mcL (0.6-4.6); Lymphocytes % 12.5 %; Mean Corpuscular HGB Conc 29.2 g/dL (31.6-35.5); Mean Corpuscular Hemoglobin 28.6 pg (28.0-33.3); Mean Corpuscular Volume 98.1 fL (83.0-100.0); Mean Platelet Volume 10.8 fL (9.4-12.4); Monocytes # 0.7 K/mcL (0.0-1.3); Monocytes % 11.1 %; Neutrophils # 4.3 K/mcL (1.6-8.9); Platelet Count 252 K/mcL (140-400); Red Blood Count 2.69 M/mcL (4.19-5.50); Red Cell Distribution Width 16.2 % (11.5-14.5); White Blood Count 5.8 K/mcL (4.3-11.1)
[2020-10-09 02:51] LABS: Calcium 8.8 mg/dL (8.6-10.3)
[2020-10-09] MEDS: Ampicillin 2 GM in 0.9 % Sodium Chloride Mini Bag 100 ML IVPB SCH ×2 (05:50→16:32)
[2020-10-09] MEDS: *HR* Heparin 5,000 UNIT/ML VIAL SQ SCH ×3 (05:50→19:53)
[2020-10-09] MEDS: *HR* HYDROcodone/Acet 5/325 mg TABLET PO PRN ×3 (05:55→19:53)
[2020-10-09] MEDS: Budesonide/Formoterol 160/4.5 1 PUFF INH IH SCH ×2 (08:02→20:20)
[2020-10-09] MEDS ORDERED: 0.9 % Sodium Chloride 250 ML IVC PRN (08:03)
[2020-10-09] MEDS: Isosorbide MONOnitrate (24 HR) 30 MG TAB.ER.24H PO SCH (08:12)
[2020-10-09] MEDS: Loratadine 10 MG TABLET PO SCH (08:12)
[2020-10-09] MEDS: Orphenadrine 100 MG TABLET.ER PO SCH ×2 (08:12→19:47)
[2020-10-09] MEDS: Insulin LISPRO 300 UNITS/3 ML VIAL SQ SCH ×8 (08:13→19:46)
[2020-10-09] MEDS: Sennosides 8.6 MG TABLET PO SCH ×2 (08:13→19:47)
[2020-10-09] MEDS: Magnesium Oxide 400 MG TABLET PO SCH ×2 (08:13→19:47)
[2020-10-09] MEDS: Ondansetron 4 MG/2 ML VIAL IVP PRN (10:19)
[2020-10-09] MEDS ORDERED: *HR* Heparin 10,000 UNIT/10 ML VIAL ONE (12:51)
[2020-10-09] MEDS ORDERED: Ondansetron ODT 4 MG TAB.RAPDIS SL PRN (14:56)
[2020-10-09] MEDS: SODIUM ZIRCONIUM CYCLOSILICATE 5 GM POWD.PACK PO SCH (17:31)
[2020-10-09] MEDS: traZODone 50 MG TABLET PO SCH (19:47)
[2020-10-09] MEDS: Insulin DETEMIR 100 UNIT/ML X5UNITS SQ SCH (19:48)
[2020-10-10] MEDS: *HR* Heparin 5,000 UNIT/ML VIAL SQ SCH ×3 (05:10→21:23)
[2020-10-10] MEDS: Ampicillin 2 GM in 0.9 % Sodium Chloride Mini Bag 100 ML IVPB SCH ×2 (05:10→18:04)
[2020-10-10] MEDS: *HR* HYDROcodone/Acet 5/325 mg TABLET PO PRN ×2 (05:11→10:50)
[2020-10-10] MEDS ORDERED: 0.9 % Sodium Chloride 250 ML IVC PRN (07:23)
[2020-10-10] MEDS: Insulin LISPRO 300 UNITS/3 ML VIAL SQ SCH (07:42)
[2020-10-10] MEDS: Orphenadrine 100 MG TABLET.ER PO SCH ×2 (07:48→23:25)
[2020-10-10] MEDS: Loratadine 10 MG TABLET PO SCH (07:49)
[2020-10-10] MEDS: Magnesium Oxide 400 MG TABLET PO SCH ×2 (07:49→21:24)
[2020-10-10] MEDS: Sennosides 8.6 MG TABLET PO SCH ×2 (07:50→21:23)
[2020-10-10] MEDS: Isosorbide MONOnitrate (24 HR) 30 MG TAB.ER.24H PO SCH (07:50)
[2020-10-10] MEDS: Budesonide/Formoterol 160/4.5 1 PUFF INH IH SCH ×2 (08:36→20:10)
[2020-10-10] MEDS ORDERED: Naloxone 0.4 MG/ML INJ IVP PRN (11:12)
[2020-10-10] MEDS ORDERED: D5% in Water 1,000 ML IVC PRN (11:12)
[2020-10-10] MEDS ORDERED: Ondansetron ODT 4 MG TAB.RAPDIS SL PRN (11:12)
[2020-10-10] MEDS ORDERED: Dextrose Gel 15 GM/37.5 ML TUBE PO PRN ×2 (11:12)
[2020-10-10] MEDS ORDERED: *HR* Dextrose 50 % in Water (Vial) 50 ML VIAL IVP PRN (11:12)
[2020-10-10] MEDS ORDERED: Ipratropium/Albuterol Neb 3 ML IH PRN (11:12)
[2020-10-10] MEDS ORDERED: Nitroglycerin 0.4 MG TAB.SUBL SL PRN (11:12)
[2020-10-10] MEDS ORDERED: 0.9 % Sodium Chloride 1,000 ML PRIME SCH (11:12)
[2020-10-10] MEDS ORDERED: *HR* Heparin 10,000 UNIT/10 ML VIAL IV PRN (11:12)
[2020-10-10 11:20] LABS: Calcium 9.5 mg/dL (8.6-10.3); Potassium 4.3 mEq/L (3.5-5.1)
[2020-10-10] MEDS: Insulin LISPRO 300 UNITS/3 ML VIAL SUBQ SCH ×3 (12:16→21:33)
[2020-10-10] MEDS: *HR* OxyCODONE Immed Rel 5 MG TABLET PO PRN (14:27)
[2020-10-10] MEDS: SODIUM ZIRCONIUM CYCLOSILICATE 5 GM POWD.PACK PO SCH (17:40)
[2020-10-10] MEDS: Insulin DETEMIR 100 UNIT/ML X5UNITS SUBQ SCH (21:23)
[2020-10-10] MEDS: traZODone 50 MG TABLET PO SCH (21:24)
[2020-10-11] MEDS: *HR* OxyCODONE Immed Rel 5 MG TABLET PO PRN ×2 (02:53→08:53)
[2020-10-11] MEDS: *HR* Heparin 5,000 UNIT/ML VIAL SQ SCH ×3 (05:12→21:39)
[2020-10-11] MEDS: Ampicillin 2 GM in 0.9 % Sodium Chloride Mini Bag 100 ML IVPB SCH ×2 (05:13→19:02)
[2020-10-11] MEDS ORDERED: 0.9 % Sodium Chloride 250 ML IVC PRN (07:07)
[2020-10-11 07:54] LABS: Hemoglobin 7.9 g/dL (12.9-16.9); Mean Corpuscular HGB Conc 30.4 g/dL (31.6-35.5); Mean Corpuscular Hemoglobin 30.3 pg (28.0-33.3); Mean Corpuscular Volume 99.6 fL (83.0-100.0); Mean Platelet Volume 10.7 fL (9.4-12.4); Platelet Count 245 K/mcL (140-400); Red Blood Count 2.61 M/mcL (4.19-5.50); Red Cell Distribution Width 16.4 % (11.5-14.5); White Blood Count 6.1 K/mcL (4.3-11.1)
[2020-10-11 08:14] LABS: Calcium 9.7 mg/dL (8.6-10.3); Magnesium 2.9 mg/dL (1.6-2.6); Potassium 4.2 mEq/L (3.5-5.1)
[2020-10-11] MEDS: Isosorbide MONOnitrate (24 HR) 30 MG TAB.ER.24H PO SCH (08:54)
[2020-10-11] MEDS: Sennosides 8.6 MG TABLET PO SCH ×2 (08:54→21:39)
[2020-10-11] MEDS: Loratadine 10 MG TABLET PO SCH (08:54)
[2020-10-11] MEDS: Magnesium Oxide 400 MG TABLET PO SCH ×2 (08:54→21:40)
[2020-10-11] MEDS: Insulin LISPRO 300 UNITS/3 ML VIAL SUBQ SCH ×4 (08:57→21:38)
[2020-10-11] MEDS: Budesonide/Formoterol 160/4.5 1 PUFF INH IH SCH ×2 (08:58→19:58)
[2020-10-11] MEDS: Morphine Sulfate 2 MG/ML SYRINGE IVP PRN ×2 (10:19→18:56)
[2020-10-11] MEDS: Orphenadrine 100 MG TABLET.ER PO SCH ×2 (10:19→21:40)
[2020-10-11] MEDS: SODIUM ZIRCONIUM CYCLOSILICATE 5 GM POWD.PACK PO SCH (18:44)
[2020-10-11] MEDS: Insulin DETEMIR 100 UNIT/ML X5UNITS SUBQ SCH (21:38)
[2020-10-11] MEDS: traZODone 50 MG TABLET PO SCH (21:39)
[2020-10-12] MEDS: Ampicillin 2 GM in 0.9 % Sodium Chloride Mini Bag 100 ML IVPB SCH ×2 (05:32→17:50)
[2020-10-12] MEDS: *HR* Heparin 5,000 UNIT/ML VIAL SQ SCH ×3 (05:33→21:28)
[2020-10-12] MEDS: Budesonide/Formoterol 160/4.5 1 PUFF INH IH SCH ×3 (08:02→22:04)
[2020-10-12] MEDS: Magnesium Oxide 400 MG TABLET PO SCH ×2 (08:29→20:25)
[2020-10-12] MEDS: Orphenadrine 100 MG TABLET.ER PO SCH ×2 (08:30→20:25)
[2020-10-12] MEDS: Sennosides 8.6 MG TABLET PO SCH ×2 (08:30→20:25)
[2020-10-12] MEDS: Loratadine 10 MG TABLET PO SCH (08:30)
[2020-10-12] MEDS: Insulin LISPRO 300 UNITS/3 ML VIAL SUBQ SCH ×4 (08:31→20:23)
[2020-10-12] MEDS: Isosorbide MONOnitrate (24 HR) 30 MG TAB.ER.24H PO SCH (08:31)
[2020-10-12] MEDS: *HR* OxyCODONE Immed Rel 5 MG TABLET PO PRN ×3 (08:35→17:30)
[2020-10-12] MEDS: *HR* HYDROcodone/Acet 5/325 mg TABLET PO PRN (14:29)
[2020-10-12 14:34] LABS: Hematocrit 25.4 % (37.5-50.1); Hemoglobin 7.6 g/dL (12.9-16.9); Mean Corpuscular HGB Conc 29.9 g/dL (31.6-35.5); Mean Corpuscular Hemoglobin 29.5 pg (28.0-33.3); Mean Corpuscular Volume 98.4 fL (83.0-100.0); Mean Platelet Volume 10.4 fL (9.4-12.4); Platelet Count 252 K/mcL (140-400); Red Blood Count 2.58 M/mcL (4.19-5.50); Red Cell Distribution Width 16.3 % (11.5-14.5); White Blood Count 4.9 K/mcL (4.3-11.1)
[2020-10-12 14:50] LABS: Calcium 9.4 mg/dL (8.6-10.3); Potassium 4.6 mEq/L (3.5-5.1)
[2020-10-12] MEDS: Morphine Sulfate 2 MG/ML SYRINGE IVP PRN ×2 (15:56→21:21)
[2020-10-12] MEDS: SODIUM ZIRCONIUM CYCLOSILICATE 5 GM POWD.PACK PO SCH (17:31)
[2020-10-12] MEDS ORDERED: Morphine Sulfate 2 MG/ML SYRINGE IVP ONE (18:02)
[2020-10-12] MEDS: Insulin DETEMIR 100 UNIT/ML X5UNITS SUBQ SCH (20:24)
[2020-10-12] MEDS: traZODone 50 MG TABLET PO SCH (20:25)
[2020-10-13 01:55] LABS: Hematocrit 26.6 % (37.5-50.1)
[2020-10-13 01:56] LABS: Hemoglobin 7.8 g/dL (12.9-16.9); Mean Corpuscular HGB Conc 29.3 g/dL (31.6-35.5); Mean Corpuscular Hemoglobin 29.3 pg (28.0-33.3); Mean Platelet Volume 10.6 fL (9.4-12.4); Platelet Count 257 K/mcL (140-400); Red Blood Count 2.66 M/mcL (4.19-5.50); Red Cell Distribution Width 16.4 % (11.5-14.5); White Blood Count 5.3 K/mcL (4.3-11.1)
[2020-10-13 02:12] LABS: Calcium 9.4 mg/dL (8.6-10.3); Potassium 4.8 mEq/L (3.5-5.1)
[2020-10-13] MEDS: Morphine Sulfate 2 MG/ML SYRINGE IVP PRN ×3 (04:07→14:48)
[2020-10-13] MEDS: *HR* Heparin 5,000 UNIT/ML VIAL SQ SCH ×3 (05:33→20:56)
[2020-10-13] MEDS: Ampicillin 2 GM in 0.9 % Sodium Chloride Mini Bag 100 ML IVPB SCH ×2 (05:34→17:31)
[2020-10-13] MEDS: Sennosides 8.6 MG TABLET PO SCH ×2 (08:18→20:55)
[2020-10-13] MEDS: Orphenadrine 100 MG TABLET.ER PO SCH ×2 (08:19→20:56)
[2020-10-13] MEDS: Loratadine 10 MG TABLET PO SCH (08:20)
[2020-10-13] MEDS: Magnesium Oxide 400 MG TABLET PO SCH ×2 (08:20→20:55)
[2020-10-13] MEDS: Isosorbide MONOnitrate (24 HR) 30 MG TAB.ER.24H PO SCH (08:21)
[2020-10-13] MEDS: Insulin LISPRO 300 UNITS/3 ML VIAL SUBQ SCH ×4 (08:21→20:57)
[2020-10-13] MEDS: *HR* OxyCODONE Immed Rel 5 MG TABLET PO PRN ×3 (09:45→20:55)
[2020-10-13] MEDS: *HR* HYDROcodone/Acet 5/325 mg TABLET PO PRN (10:42)
[2020-10-13] MEDS: Budesonide/Formoterol 160/4.5 1 PUFF INH IH SCH ×2 (10:55→20:47)
[2020-10-13] MEDS ORDERED: diazePAM 10 MG/2 ML SYRINGE IVP ONE (11:07)
[2020-10-13] MEDS ORDERED: Isosorbide MONOnitrate (24 HR) 30 MG TAB.ER.24H PO ONE (11:12)
[2020-10-13] MEDS: SODIUM ZIRCONIUM CYCLOSILICATE 5 GM POWD.PACK PO SCH (17:22)
[2020-10-13] MEDS: Insulin DETEMIR 100 UNIT/ML X5UNITS SUBQ SCH (20:56)
[2020-10-13] MEDS: traZODone 50 MG TABLET PO SCH (21:45)
[2020-10-14] MEDS: *HR* OxyCODONE Immed Rel 5 MG TABLET PO PRN ×3 (01:06→17:20)
[2020-10-14 01:51] LABS: Hematocrit 25.3 % (37.5-50.1); Hemoglobin 7.4 g/dL (12.9-16.9); Mean Corpuscular HGB Conc 29.2 g/dL (31.6-35.5); Mean Corpuscular Hemoglobin 28.8 pg (28.0-33.3); Mean Corpuscular Volume 98.4 fL (83.0-100.0); Mean Platelet Volume 10.7 fL (9.4-12.4); Platelet Count 221 K/mcL (140-400); Red Blood Count 2.57 M/mcL (4.19-5.50); Red Cell Distribution Width 16.2 % (11.5-14.5); White Blood Count 4.7 K/mcL (4.3-11.1)
[2020-10-14 02:13] LABS: Calcium 9.4 mg/dL (8.6-10.3); Potassium 5.3 mEq/L (3.5-5.1)
[2020-10-14] MEDS: Ampicillin 2 GM in 0.9 % Sodium Chloride Mini Bag 100 ML IVPB SCH ×2 (06:00→18:54)
[2020-10-14] MEDS: *HR* Heparin 5,000 UNIT/ML VIAL SQ SCH ×3 (06:37→22:39)
[2020-10-14] MEDS: Isosorbide MONOnitrate (24 HR) 30 MG TAB.ER.24H PO SCH (09:07)
[2020-10-14] MEDS: Loratadine 10 MG TABLET PO SCH (09:07)
[2020-10-14] MEDS: Orphenadrine 100 MG TABLET.ER PO SCH ×2 (09:07→22:40)
[2020-10-14] MEDS: Magnesium Oxide 400 MG TABLET PO SCH ×2 (09:07→22:40)
[2020-10-14] MEDS: Sennosides 8.6 MG TABLET PO SCH ×2 (09:07→22:40)
[2020-10-14] MEDS: Insulin LISPRO 300 UNITS/3 ML VIAL SUBQ SCH ×4 (09:10→22:17)
[2020-10-14] MEDS ORDERED: 0.9 % Sodium Chloride 250 ML IVC PRN (09:11)
[2020-10-14] MEDS ORDERED: *HR* Heparin 10,000 UNIT/10 ML VIAL IV PRN ×2 (09:11)
[2020-10-14] MEDS: Budesonide/Formoterol 160/4.5 1 PUFF INH IH SCH ×2 (10:55→20:03)
[2020-10-14] MEDS ORDERED: *HR* Alteplase (Cathflo) 2 MG VIAL IVP STA (11:53)
[2020-10-14] MEDS: SODIUM ZIRCONIUM CYCLOSILICATE 5 GM POWD.PACK PO SCH (17:21)
[2020-10-14] MEDS: Morphine Sulfate 2 MG/ML SYRINGE IVP PRN (18:55)
[2020-10-14] MEDS: Acetaminophen 325 MG TABLET PO PRN (22:40)
[2020-10-14] MEDS: traZODone 50 MG TABLET PO SCH (22:40)
[2020-10-14] MEDS: Insulin DETEMIR 100 UNIT/ML X5UNITS SUBQ SCH (22:41)
[2020-10-15] MEDS: *HR* OxyCODONE Immed Rel 5 MG TABLET PO PRN ×4 (03:35→21:58)
[2020-10-15] MEDS: *HR* Heparin 5,000 UNIT/ML VIAL SQ SCH ×3 (05:30→20:40)
[2020-10-15] MEDS: Ampicillin 2 GM in 0.9 % Sodium Chloride Mini Bag 100 ML IVPB SCH ×2 (05:31→18:40)
[2020-10-15 06:37] LABS: Hematocrit 25.9 % (37.5-50.1); Hemoglobin 7.4 g/dL (12.9-16.9); Mean Corpuscular HGB Conc 28.6 g/dL (31.6-35.5); Mean Corpuscular Hemoglobin 28.4 pg (28.0-33.3); Mean Corpuscular Volume 99.2 fL (83.0-100.0); Mean Platelet Volume 10.6 fL (9.4-12.4); Platelet Count 248 K/mcL (140-400); Red Blood Count 2.61 M/mcL (4.19-5.50); Red Cell Distribution Width 16.7 % (11.5-14.5); White Blood Count 4.9 K/mcL (4.3-11.1)
[2020-10-15 06:57] LABS: Calcium 9.1 mg/dL (8.6-10.3); Potassium 4.5 mEq/L (3.5-5.1)
[2020-10-15] MEDS: Orphenadrine 100 MG TABLET.ER PO SCH ×2 (09:25→20:40)
[2020-10-15] MEDS: Sennosides 8.6 MG TABLET PO SCH ×2 (09:25→20:39)
[2020-10-15] MEDS: Magnesium Oxide 400 MG TABLET PO SCH ×2 (09:25→20:40)
[2020-10-15] MEDS: Loratadine 10 MG TABLET PO SCH (09:26)
[2020-10-15] MEDS: Isosorbide MONOnitrate (24 HR) 30 MG TAB.ER.24H PO SCH (09:28)
[2020-10-15] MEDS: Insulin LISPRO 300 UNITS/3 ML VIAL SUBQ SCH ×4 (09:50→20:24)
[2020-10-15] MEDS: Budesonide/Formoterol 160/4.5 1 PUFF INH IH SCH ×2 (10:32→19:55)
[2020-10-15] MEDS: polyethylene glycoL 3350 17 GM POWD.PACK PO SCH (12:15)
[2020-10-15] MEDS: SODIUM ZIRCONIUM CYCLOSILICATE 5 GM POWD.PACK PO SCH (17:32)
[2020-10-15] MEDS: traZODone 50 MG TABLET PO SCH (20:39)
[2020-10-15] MEDS: Insulin DETEMIR 100 UNIT/ML X5UNITS SUBQ SCH (20:40)
[2020-10-16] MEDS: *HR* OxyCODONE Immed Rel 5 MG TABLET PO PRN ×2 (02:39→10:07)
[2020-10-16 04:31] LABS: Hematocrit 24.9 % (37.5-50.1); Hemoglobin 7.4 g/dL (12.9-16.9); Mean Corpuscular HGB Conc 29.7 g/dL (31.6-35.5); Mean Corpuscular Hemoglobin 29.5 pg (28.0-33.3); Mean Corpuscular Volume 99.2 fL (83.0-100.0); Mean Platelet Volume 10.2 fL (9.4-12.4); Platelet Count 250 K/mcL (140-400); Red Blood Count 2.51 M/mcL (4.19-5.50); Red Cell Distribution Width 16.5 % (11.5-14.5); White Blood Count 5.1 K/mcL (4.3-11.1)
[2020-10-16] MEDS: Morphine Sulfate 2 MG/ML SYRINGE IVP PRN (06:22)
[2020-10-16] MEDS: Ampicillin 2 GM in 0.9 % Sodium Chloride Mini Bag 100 ML IVPB SCH ×2 (06:22→18:46)
[2020-10-16] MEDS: *HR* Heparin 5,000 UNIT/ML VIAL SQ SCH ×3 (06:23→21:12)
[2020-10-16] MEDS ORDERED: *HR* Heparin 10,000 UNIT/10 ML VIAL IV PRN ×2 (07:13→07:32)
[2020-10-16] MEDS ORDERED: 0.9 % Sodium Chloride 250 ML IVC PRN (07:13)
[2020-10-16] MEDS ORDERED: 0.9 % Sodium Chloride 1,000 ML PRIME SCH (07:15)
[2020-10-16] MEDS: Budesonide/Formoterol 160/4.5 1 PUFF INH IH SCH ×2 (10:16→20:13)
[2020-10-16] MEDS: Insulin LISPRO 300 UNITS/3 ML VIAL SUBQ SCH ×4 (10:46→21:04)
[2020-10-16] MEDS: Isosorbide MONOnitrate (24 HR) 30 MG TAB.ER.24H PO SCH (18:09)
[2020-10-16] MEDS: Loratadine 10 MG TABLET PO SCH (18:09)
[2020-10-16] MEDS: Sennosides 8.6 MG TABLET PO SCH ×2 (18:10→21:49)
[2020-10-16] MEDS: Orphenadrine 100 MG TABLET.ER PO SCH ×2 (18:10→21:49)
[2020-10-16] MEDS: polyethylene glycoL 3350 17 GM POWD.PACK PO SCH (18:10)
[2020-10-16] MEDS: Magnesium Oxide 400 MG TABLET PO SCH ×2 (18:10→21:48)
[2020-10-16] MEDS: SODIUM ZIRCONIUM CYCLOSILICATE 5 GM POWD.PACK PO SCH (18:45)
[2020-10-16] MEDS: Insulin DETEMIR 100 UNIT/ML X5UNITS SUBQ SCH (21:03)
[2020-10-16] MEDS: traZODone 50 MG TABLET PO SCH (21:49)
[2020-10-17 00:55] LABS: Hematocrit 26.6 % (37.5-50.1); Hemoglobin 7.8 g/dL (12.9-16.9); Mean Corpuscular HGB Conc 29.3 g/dL (31.6-35.5); Mean Corpuscular Hemoglobin 29.1 pg (28.0-33.3); Mean Corpuscular Volume 99.3 fL (83.0-100.0); Mean Platelet Volume 10.3 fL (9.4-12.4); Platelet Count 258 K/mcL (140-400); Red Blood Count 2.68 M/mcL (4.19-5.50); Red Cell Distribution Width 16.6 % (11.5-14.5); White Blood Count 5.4 K/mcL (4.3-11.1)
[2020-10-17 01:15] LABS: Calcium 8.9 mg/dL (8.6-10.3); Potassium 4.3 mEq/L (3.5-5.1)
[2020-10-17] MEDS: Ampicillin 2 GM in 0.9 % Sodium Chloride Mini Bag 100 ML IVPB SCH (06:00)
[2020-10-17] MEDS: *HR* Heparin 5,000 UNIT/ML VIAL SQ SCH ×3 (06:00→23:04)
[2020-10-17] MEDS ORDERED: 0.9 % Sodium Chloride 250 ML IVC PRN (07:13)
[2020-10-17] MEDS ORDERED: *HR* Heparin 10,000 UNIT/10 ML VIAL IV PRN ×2 (07:13)
[2020-10-17] MEDS ORDERED: 0.9 % Sodium Chloride 1,000 ML PRIME SCH (07:15)
[2020-10-17] MEDS: Insulin LISPRO 300 UNITS/3 ML VIAL SUBQ SCH ×4 (08:03→22:14)
[2020-10-17] MEDS: Loratadine 10 MG TABLET PO SCH (08:04)
[2020-10-17] MEDS: Isosorbide MONOnitrate (24 HR) 30 MG TAB.ER.24H PO SCH (08:04)
[2020-10-17] MEDS: polyethylene glycoL 3350 17 GM POWD.PACK PO SCH (08:05)
[2020-10-17] MEDS: Orphenadrine 100 MG TABLET.ER PO SCH ×3 (08:05→23:06)
[2020-10-17] MEDS: Magnesium Oxide 400 MG TABLET PO SCH ×2 (08:05→23:05)
[2020-10-17] MEDS: Sennosides 8.6 MG TABLET PO SCH ×2 (08:05→23:05)
[2020-10-17] MEDS: *HR* OxyCODONE Immed Rel 5 MG TABLET PO PRN ×3 (10:40→23:26)
[2020-10-17] MEDS: Acetaminophen 325 MG TABLET PO PRN ×2 (10:40→16:23)
[2020-10-17] MEDS: Budesonide/Formoterol 160/4.5 1 PUFF INH IH SCH ×2 (11:10→20:17)
[2020-10-17] MEDS ORDERED: Morphine Sulfate 2 MG/ML SYRINGE IVP ONE (14:02)
[2020-10-17] MEDS: SODIUM ZIRCONIUM CYCLOSILICATE 5 GM POWD.PACK PO SCH (16:24)
[2020-10-17] MEDS: traZODone 50 MG TABLET PO SCH (23:05)
[2020-10-17] MEDS: Insulin DETEMIR 100 UNIT/ML X5UNITS SUBQ SCH (23:05)
[2020-10-18] MEDS: *HR* Heparin 5,000 UNIT/ML VIAL SQ SCH ×3 (05:37→21:31)
[2020-10-18] MEDS: *HR* OxyCODONE Immed Rel 5 MG TABLET PO PRN ×2 (05:41→16:40)
[2020-10-18 07:40] LABS: Hematocrit 25.5 % (37.5-50.1); Hemoglobin 7.5 g/dL (12.9-16.9); Mean Corpuscular HGB Conc 29.4 g/dL (31.6-35.5); Mean Corpuscular Hemoglobin 29.2 pg (28.0-33.3); Mean Corpuscular Volume 99.2 fL (83.0-100.0); Mean Platelet Volume 10.5 fL (9.4-12.4); Platelet Count 249 K/mcL (140-400); Red Blood Count 2.57 M/mcL (4.19-5.50); Red Cell Distribution Width 16.3 % (11.5-14.5); White Blood Count 4.8 K/mcL (4.3-11.1)
[2020-10-18 07:55] LABS: Calcium 8.8 mg/dL (8.6-10.3); Potassium 4.1 mEq/L (3.5-5.1)
[2020-10-18] MEDS: Budesonide/Formoterol 160/4.5 1 PUFF INH IH SCH ×2 (08:10→22:29)
[2020-10-18] MEDS: polyethylene glycoL 3350 17 GM POWD.PACK PO SCH (08:22)
[2020-10-18] MEDS: Magnesium Oxide 400 MG TABLET PO SCH ×2 (08:24→23:34)
[2020-10-18] MEDS: Isosorbide MONOnitrate (24 HR) 30 MG TAB.ER.24H PO SCH (08:24)
[2020-10-18] MEDS: Orphenadrine 100 MG TABLET.ER PO SCH ×2 (08:24→21:30)
[2020-10-18] MEDS: Sennosides 8.6 MG TABLET PO SCH ×2 (08:25→21:31)
[2020-10-18] MEDS: Loratadine 10 MG TABLET PO SCH (08:25)
[2020-10-18] MEDS: Insulin LISPRO 300 UNITS/3 ML VIAL SUBQ SCH ×4 (08:26→21:32)
[2020-10-18] MEDS: Ipratropium/Albuterol Neb 3 ML IH SCH ×3 (11:58→22:29)
[2020-10-18] MEDS: Acetaminophen 325 MG TABLET PO PRN (12:29)
[2020-10-18] MEDS ORDERED: Ipratropium/Albuterol Neb 3 ML IH SCH (16:00)
[2020-10-18] MEDS: SODIUM ZIRCONIUM CYCLOSILICATE 5 GM POWD.PACK PO SCH (16:41)
[2020-10-18] MEDS: traZODone 50 MG TABLET PO SCH (21:31)
[2020-10-18] MEDS: Insulin DETEMIR 100 UNIT/ML X5UNITS SUBQ SCH (21:33)
[2020-10-19] MEDS: Ipratropium/Albuterol Neb 3 ML IH SCH ×4 (04:18→21:08)
[2020-10-19] MEDS: *HR* Heparin 5,000 UNIT/ML VIAL SQ SCH ×3 (06:10→23:40)
[2020-10-19 06:53] LABS: Hematocrit 25.9 % (37.5-50.1); Hemoglobin 7.7 g/dL (12.9-16.9); Mean Corpuscular HGB Conc 29.7 g/dL (31.6-35.5); Mean Corpuscular Hemoglobin 29.3 pg (28.0-33.3); Mean Corpuscular Volume 98.5 fL (83.0-100.0); Mean Platelet Volume 10.8 fL (9.4-12.4); Platelet Count 243 K/mcL (140-400); Red Blood Count 2.63 M/mcL (4.19-5.50); Red Cell Distribution Width 16.2 % (11.5-14.5); White Blood Count 5.4 K/mcL (4.3-11.1)
[2020-10-19 07:17] LABS: Calcium 8.9 mg/dL (8.6-10.3); Potassium 4.4 mEq/L (3.5-5.1)
[2020-10-19] MEDS ORDERED: *HR* Heparin 10,000 UNIT/10 ML VIAL IV PRN (08:37)
[2020-10-19] MEDS ORDERED: 0.9 % Sodium Chloride 250 ML IVC PRN (08:37)
[2020-10-19] MEDS: Orphenadrine 100 MG TABLET.ER PO SCH ×2 (09:36→23:35)
[2020-10-19] MEDS: Isosorbide MONOnitrate (24 HR) 30 MG TAB.ER.24H PO SCH ×2 (09:36→18:19)
[2020-10-19] MEDS: Loratadine 10 MG TABLET PO SCH ×2 (09:36→23:35)
[2020-10-19] MEDS: Sennosides 8.6 MG TABLET PO SCH ×2 (09:36→23:35)
[2020-10-19] MEDS: polyethylene glycoL 3350 17 GM POWD.PACK PO SCH ×2 (09:37→18:20)
[2020-10-19] MEDS: Insulin LISPRO 300 UNITS/3 ML VIAL SUBQ SCH ×4 (09:37→23:36)
[2020-10-19] MEDS: *HR* OxyCODONE Immed Rel 5 MG TABLET PO PRN (12:23)
[2020-10-19] MEDS: Budesonide/Formoterol 160/4.5 1 PUFF INH IH SCH ×2 (17:37→21:09)
[2020-10-19] MEDS: SODIUM ZIRCONIUM CYCLOSILICATE 5 GM POWD.PACK PO SCH (18:18)
[2020-10-19] MEDS ORDERED: Ipratropium/Albuterol Neb 3 ML IH ONE (19:40)
[2020-10-19] MEDS ORDERED: 0.9 % Sodium Chloride 250 ML IVC ONE (19:45)
[2020-10-19 19:49] LABS: ABG Base Excess 8 mEq/L (-2 to 3); ABG HCO3 34 mEq/L (21-27); ABG Oxygen Saturation 96 % (95-98); ABG PCO2 58 mmHg (35-45); ABG PH 7.38 pH Units (7.32-7.45); ABG PO2 85 mmHg (85-104); ABG TCO2 36 mEq/L (20-26); Blood Gas Modality ST; Blood Gas Pressure Support 10 cm H2O
[2020-10-19] MEDS: traZODone 50 MG TABLET PO SCH (23:36)
[2020-10-19] MEDS: Insulin DETEMIR 100 UNIT/ML X5UNITS SUBQ SCH (23:40)
[2020-10-20] MEDS: Ipratropium/Albuterol Neb 3 ML IH SCH ×4 (03:46→22:40)
[2020-10-20] MEDS: *HR* Heparin 5,000 UNIT/ML VIAL SQ SCH ×2 (05:14→14:11)
[2020-10-20 06:19] LABS: Hematocrit 25.7 % (37.5-50.1); Hemoglobin 7.6 g/dL (12.9-16.9); Mean Corpuscular HGB Conc 29.6 g/dL (31.6-35.5); Mean Corpuscular Hemoglobin 29.6 pg (28.0-33.3); Mean Platelet Volume 10.8 fL (9.4-12.4); Platelet Count 219 K/mcL (140-400); Red Blood Count 2.57 M/mcL (4.19-5.50); Red Cell Distribution Width 16.4 % (11.5-14.5); White Blood Count 5.8 K/mcL (4.3-11.1)
[2020-10-20 06:36] LABS: Calcium 8.4 mg/dL (8.6-10.3); Potassium 4.3 mEq/L (3.5-5.1)
[2020-10-20] MEDS ORDERED: Acetaminophen 650 MG RECTAL SUPP RC PRN (08:13)
[2020-10-20] MEDS ORDERED: 0.9 % Sodium Chloride 250 ML IVC ONE (08:15)
[2020-10-20 08:38] LABS: VBG HCO3 31 mEq/L (21-27); VBG PCO2 56 mmHg (41-51); VBG PH 7.35 pH Units (7.32-7.42); VBG PO2 123 mmHg (25-50)
[2020-10-20] MEDS ORDERED: *HR* LORazepam 2 MG/ML VIAL IVP ONE ×2 (08:43→09:05)
[2020-10-20] MEDS: Insulin LISPRO 300 UNITS/3 ML VIAL SUBQ SCH ×4 (10:28→23:01)
[2020-10-20] MEDS: Budesonide/Formoterol 160/4.5 1 PUFF INH IH SCH ×2 (10:43→22:55)
[2020-10-20] MEDS ORDERED: Cyanocobalamin (B-12) 1,000 MCG/ML VIAL IM ONE (11:21)
[2020-10-20] MEDS ORDERED: Darbepoetin 100 MCG/0.5 ML SYRINGE SQ SCH (11:23)
[2020-10-20] MEDS ORDERED: Morphine Sulfate 2 MG/ML SYRINGE IVP ONE ×2 (11:26→16:27)
[2020-10-20] MEDS: polyethylene glycoL 3350 17 GM POWD.PACK PO SCH (13:29)
[2020-10-20] MEDS: Isosorbide MONOnitrate (24 HR) 30 MG TAB.ER.24H PO SCH (13:29)
[2020-10-20 14:23] LABS: Basophils % 0.4 %; Eosinophils % 0.1 %; Hematocrit 25.5 % (37.5-50.1); Hemoglobin 7.4 g/dL (12.9-16.9); Immature Granulocytes % 1.9 % (0-4); Lymphocytes # 0.7 K/mcL (0.6-4.6); Lymphocytes % 10.3 %; Mean Corpuscular Hemoglobin 28.6 pg (28.0-33.3); Mean Corpuscular Volume 98.5 fL (83.0-100.0); Mean Platelet Volume 10.6 fL (9.4-12.4); Monocytes # 0.6 K/mcL (0.0-1.3); Monocytes % 8.5 %; Neutrophils # 5.4 K/mcL (1.6-8.9); Platelet Count 221 K/mcL (140-400); Red Blood Count 2.59 M/mcL (4.19-5.50); Segmented Neutrophils % 78.8 %; White Blood Count 6.8 K/mcL (4.3-11.1)
[2020-10-20 14:41] LABS: Calcium 8.6 mg/dL (8.6-10.3); Potassium 4.4 mEq/L (3.5-5.1)
[2020-10-20] MEDS ORDERED: 0.9 % Sodium Chloride 500 ML IV ONE (16:27)
[2020-10-20] MEDS: Albumin Human 5% 12.5 GM/250 ML IV.SOLN IVC SCH ×2 (17:24→22:27)
[2020-10-20] MEDS ORDERED: Vancomycin 2,000 MG/520 ML IV.SOLN IVPB ONE (17:33)
[2020-10-20] MEDS: Loratadine 10 MG TABLET PO SCH ×2 (17:48→22:23)
[2020-10-20] MEDS: Sennosides 8.6 MG TABLET PO SCH ×2 (17:53→22:23)
[2020-10-20] MEDS ORDERED: Vancomycin 1 EACH in 0.9 % Sodium Chloride 250 ML IVPB PRN (18:00)
[2020-10-20] MEDS: Piperacillin/Tazobactam 3.375 GM in 0.9 % Sodium Chloride Mini Bag 100 ML IVPB SCH (18:08)
[2020-10-20 19:00] LABS: Adenovirus Not Detected (Not Detect); Bordetella Pertussis Not Detected (Not Detect); Chlamydophila pneumoniae Not Detected (Not Detect); Coronavirus 229E Not Detected (Not Detect); Coronavirus HKU1 Not Detected (Not Detect); Coronavirus NL63 Not Detected (Not Detect); Coronavirus OC43 Not Detected (Not Detect); Human Metapneumovirus Not Detected (Not Detect); Human Rhinovirus/Enterovirus Not Detected (Not Detect); Influenza A Subtype 2009 H1 Not Detected (Not Detect); Influenza B Not Detected (Not Detect); Mycoplasma pneumoniae Not Detected (Not Detect); Parainfluenza Virus 1 Not Detected (Not Detect); Parainfluenza Virus 2 Not Detected (Not Detect); Parainfluenza Virus 3 Not Detected (Not Detect); Parainfluenza Virus 4 Not Detected (Not Detect); Respiratory Syncytial Virus Not Detected (Not Detect)
[2020-10-20 19:02] LABS: VBG Ionized Calcium 0.93 mmol/L (1.15-1.35)
[2020-10-20 19:02] LABS: SARS-CoV-2 DETECTED (Not Detect)
[2020-10-20] MEDS ORDERED: Norepinephrine 4 MG/254 ML IV.SOLN IVC SCH (20:45)
[2020-10-20] MEDS: Norepinephrine 4 MG/254 ML IV.SOLN IVC SCH (20:57)
[2020-10-20] MEDS ORDERED: 0.9 % Sodium Chloride 500 ML ONE (22:04)
[2020-10-20] MEDS: traZODone 50 MG TABLET PO SCH (22:24)
[2020-10-20] MEDS ORDERED: 0.9 % Sodium Chloride 1,000 ML PRIME ONE ×2 (22:51)
[2020-10-20] MEDS ORDERED: *HR* Heparin 5,000 UNIT/ML VIAL CRRT PRN (22:51)
[2020-10-20] MEDS ORDERED: 0.9 % Sodium Chloride 1,000 ML PRIME SCH (23:00)
[2020-10-20] MEDS: Insulin DETEMIR 100 UNIT/ML X5UNITS SUBQ SCH (23:01)
[2020-10-21] MEDS: Dexmedetomidine HCl 400 MCG/100 ML MLS IVC SCH ×4 (01:38→21:01)
[2020-10-21] MEDS: PrismaSATE BGK 4/2.5 5,000 ML CRRT SCH ×12 (02:00→23:00)
[2020-10-21] MEDS ORDERED: 0.9 % Sodium Chloride 1,000 ML PRIME SCH (03:00)
[2020-10-21] MEDS ORDERED: 0.9 % Sodium Chloride 2,000 ML PRIME SCH (03:15)
[2020-10-21] MEDS ORDERED: 0.9 % Sodium Chloride 2,000 ML PRIME PRN (03:15)
[2020-10-21 04:30] LABS: ABG Base Excess 2 mEq/L (-2 to 3); ABG HCO3 28 mEq/L (21-27); ABG Oxygen Saturation 94 % (95-98); ABG PCO2 56 mmHg (35-45); ABG PH 7.31 pH Units (7.32-7.45); ABG PO2 78 mmHg (85-104); ABG TCO2 30 mEq/L (20-26); Blood Gas Modality ST; Blood Gas Pressure Support 8 cm H2O
[2020-10-21 04:55] LABS: Basophils % 0.3 %; Eosinophils % 0.1 %; Hemoglobin 7.6 g/dL (12.9-16.9); Immature Granulocytes % 1.4 % (0-4); Lymphocytes # 0.8 K/mcL (0.6-4.6); Lymphocytes % 10.5 %; Mean Corpuscular HGB Conc 29.2 g/dL (31.6-35.5); Mean Corpuscular Hemoglobin 29.6 pg (28.0-33.3); Mean Corpuscular Volume 101.2 fL (83.0-100.0); Mean Platelet Volume 10.8 fL (9.4-12.4); Monocytes # 0.5 K/mcL (0.0-1.3); Monocytes % 6.3 %; Neutrophils # 6.4 K/mcL (1.6-8.9); Platelet Count 221 K/mcL (140-400); Red Blood Count 2.57 M/mcL (4.19-5.50); Red Cell Distribution Width 16.4 % (11.5-14.5); Segmented Neutrophils % 81.4 %; White Blood Count 7.8 K/mcL (4.3-11.1)
[2020-10-21] MEDS: *HR* Heparin 5,000 UNIT/ML VIAL SQ SCH (05:00)
[2020-10-21] MEDS: Piperacillin/Tazobactam 3.375 GM in 0.9 % Sodium Chloride Mini Bag 100 ML IVPB SCH ×2 (05:00→17:01)
[2020-10-21 05:16] LABS: % Iron Saturation 14 % (20-55); Alanine Aminotransferase 22 Units/L (7-52); Albumin 3.1 g/dL (3.5-5.7); Albumin/Globulin Ratio 0.8 (1.1-2.2); Alkaline Phosphatase 165 Units/L (34-104); Aspartate Amino Transferase 75 Units/L (13-39); BUN/Creatinine Ratio 9 (6-26); Bilirubin,Direct 0.2 mg/dL (0.0-0.2); Bilirubin,Indirect 0.2 mg/dL (0.0-1.0); Bilirubin,Total 0.4 mg/dL (0.3-1.0); Blood Urea Nitrogen 48 mg/dL (8-23); Calcium 8.5 mg/dL (8.6-10.3); Carbon Dioxide 25 mEq/L (23-29); Chloride 97 mEq/L (98-107); Globulin 3.8 g/dL (2.4-3.5); Glucose 179 mg/dL (70-105); Iron 29 mcg/dL (65-175); Magnesium 3.1 mg/dL (1.6-2.6); Osmolality,Calculated 297 (280-300); Phosphorous 3.6 mg/dL (2.7-4.5); Potassium 4.5 mEq/L (3.5-5.1); Sodium 135 mEq/L (136-145); Total Protein 6.9 g/dL (6.4-8.9); Transferrin 147 mg/dL (203-362); eGFR For African Americans 13 (> 60); eGFR For Non-African Americans 11 (> 60)
[2020-10-21] MEDS ORDERED: *HR* Heparin 5,000 UNIT/ML VIAL IVP ONE (05:24)
[2020-10-21] MEDS ORDERED: *HR* Heparin 5,000 UNIT/ML VIAL IVP PRN ×2 (05:24)
[2020-10-21 05:28] LABS: Thyroid Stimulating Hormone 1.899 mcIU/mL (0.340-5.600)
[2020-10-21 05:36] LABS: Ferritin > 1500 ng/mL (20-250)
[2020-10-21] MEDS ORDERED: Heparin 25,000UNIT/250ML 1/2NS 25,000 UNIT/250 ML IV.SOLN IVC SCH (05:43)
[2020-10-21] MEDS: Norepinephrine 4 MG/254 ML IV.SOLN IVC SCH ×2 (05:45→19:04)
[2020-10-21] MEDS: Heparin 25,000UNIT/250ML 1/2NS 25,000 UNIT/250 ML IV.SOLN IVC SCH (06:04)
[2020-10-21] MEDS: Insulin LISPRO 300 UNITS/3 ML VIAL SUBQ SCH ×4 (08:02→20:39)
[2020-10-21] MEDS: Sennosides 8.6 MG TABLET PO SCH ×2 (08:03→21:01)
[2020-10-21] MEDS: polyethylene glycoL 3350 17 GM POWD.PACK PO SCH (08:03)
[2020-10-21] MEDS: Loratadine 10 MG TABLET PO SCH (08:03)
[2020-10-21] MEDS: Budesonide/Formoterol 160/4.5 1 PUFF INH IH SCH ×2 (09:50→21:16)
[2020-10-21] MEDS: Dexamethasone Sodium Phos/PF 10 MG/ML VIAL IVP SCH (15:14)
[2020-10-21] MEDS: Insulin DETEMIR 100 UNIT/ML X5UNITS SUBQ SCH (20:59)
[2020-10-21] MEDS: traZODone 50 MG TABLET PO SCH (21:01)
[2020-10-22] MEDS: PrismaSATE BGK 4/2.5 5,000 ML CRRT SCH ×8 (02:00→22:03)
[2020-10-22] MEDS ORDERED: Acetaminophen IV 1,000 MG/100 ML BAG IVPB ONE (02:31)
[2020-10-22 04:04] LABS: Hematocrit 27.6 % (37.5-50.1); Mean Corpuscular Hemoglobin 28.7 pg (28.0-33.3); Mean Corpuscular Volume 98.9 fL (83.0-100.0); Mean Platelet Volume 10.4 fL (9.4-12.4); Platelet Count 250 K/mcL (140-400); Red Blood Count 2.79 M/mcL (4.19-5.50); Red Cell Distribution Width 16.4 % (11.5-14.5); White Blood Count 8.1 K/mcL (4.3-11.1)
[2020-10-22 04:08] LABS: ABG Base Excess -3 mEq/L (-2 to 3); ABG HCO3 23 mEq/L (21-27); ABG Oxygen Saturation 88 % (95-98); ABG PCO2 42 mmHg (35-45); ABG PH 7.35 pH Units (7.32-7.45); ABG PO2 58 mmHg (85-104); ABG TCO2 24 mEq/L (20-26); Blood Gas Modality AVAPS; Blood Gas VT 500 cc
[2020-10-22 04:25] LABS: Potassium 4.9 mEq/L (3.5-5.1)
[2020-10-22] MEDS: Heparin 25,000UNIT/250ML 1/2NS 25,000 UNIT/250 ML IV.SOLN IVC SCH (04:41)
[2020-10-22] MEDS ORDERED: Vancomycin 1,500 MG/265 ML IV.SOLN IVPB ONE (05:33)
[2020-10-22] MEDS: Piperacillin/Tazobactam 3.375 GM in 0.9 % Sodium Chloride Mini Bag 100 ML IVPB SCH ×2 (05:40→17:03)
[2020-10-22] MEDS: Orphenadrine 100 MG TABLET.ER PO SCH ×2 (06:36→06:37)
[2020-10-22] MEDS: SODIUM ZIRCONIUM CYCLOSILICATE 5 GM POWD.PACK PO SCH (06:37)
[2020-10-22] MEDS ORDERED: *HR* Metoprolol 5 MG/5 ML VIAL IVP ONE (06:48)
[2020-10-22] MEDS: Dexamethasone Sodium Phos/PF 10 MG/ML VIAL IVP SCH (07:26)
[2020-10-22] MEDS: polyethylene glycoL 3350 17 GM POWD.PACK PO SCH (07:27)
[2020-10-22] MEDS: Sennosides 8.6 MG TABLET PO SCH ×2 (07:27→19:57)
[2020-10-22] MEDS: Loratadine 10 MG TABLET PO SCH (07:29)
[2020-10-22] MEDS: Insulin LISPRO 300 UNITS/3 ML VIAL SUBQ SCH ×4 (07:47→19:55)
[2020-10-22] MEDS: Dexmedetomidine HCl 400 MCG/100 ML MLS IVC SCH ×3 (09:25→20:27)
[2020-10-22 10:20] LABS: D-Dimer 2365 ng/mLFEU (0-500)
[2020-10-22 10:23] LABS: Fibrinogen 922 mg/dL (169-393)
[2020-10-22] MEDS: Budesonide/Formoterol 160/4.5 1 PUFF INH IH SCH ×2 (10:50→22:51)
[2020-10-22] MEDS: Insulin DETEMIR 100 UNIT/ML X5UNITS SUBQ SCH (19:56)
[2020-10-22] MEDS: traZODone 50 MG TABLET PO SCH (19:57)
[2020-10-23] MEDS: Dexmedetomidine HCl 400 MCG/100 ML MLS IVC SCH ×7 (00:23→23:52)
[2020-10-23] MEDS: Norepinephrine 4 MG/254 ML IV.SOLN IVC SCH ×2 (02:49→11:00)
[2020-10-23] MEDS: PrismaSATE BGK 4/2.5 5,000 ML CRRT SCH ×14 (03:05→23:51)
[2020-10-23 04:41] LABS: Calcium 9.6 mg/dL (8.6-10.3); Potassium 4.7 mEq/L (3.5-5.1)
[2020-10-23] MEDS: Piperacillin/Tazobactam 3.375 GM in 0.9 % Sodium Chloride Mini Bag 100 ML IVPB SCH ×3 (05:12→23:44)
[2020-10-23 05:52] LABS: Hematocrit 32.6 % (37.5-50.1); Hemoglobin 9.5 g/dL (12.9-16.9); Mean Corpuscular HGB Conc 29.1 g/dL (31.6-35.5); Mean Corpuscular Hemoglobin 28.1 pg (28.0-33.3); Mean Corpuscular Volume 96.4 fL (83.0-100.0); Mean Platelet Volume 10.7 fL (9.4-12.4); Platelet Count 346 K/mcL (140-400); Red Blood Count 3.38 M/mcL (4.19-5.50); Red Cell Distribution Width 16.5 % (11.5-14.5); White Blood Count 10.4 K/mcL (4.3-11.1)
[2020-10-23] MEDS ORDERED: Vancomycin 1,500 MG/265 ML IV.SOLN IVPB ONE (06:00)
[2020-10-23 06:22] LABS: ABG Base Excess -5 mEq/L (-2 to 3); ABG HCO3 19 mEq/L (21-27); ABG Oxygen Saturation 91 % (95-98); ABG PCO2 30 mmHg (35-45); ABG PH 7.41 pH Units (7.32-7.45); ABG PO2 59 mmHg (85-104); ABG TCO2 20 mEq/L (20-26); Blood Gas VT 500 cc
[2020-10-23] MEDS: Heparin 25,000UNIT/250ML 1/2NS 25,000 UNIT/250 ML IV.SOLN IVC SCH ×2 (06:42→08:00)
[2020-10-23] MEDS: Loratadine 10 MG TABLET PO SCH (07:35)
[2020-10-23] MEDS: Sennosides 8.6 MG TABLET PO SCH ×2 (07:37→19:25)
[2020-10-23] MEDS: polyethylene glycoL 3350 17 GM POWD.PACK PO SCH (07:37)
[2020-10-23] MEDS: Dexamethasone Sodium Phos/PF 10 MG/ML VIAL IVP SCH (07:45)
[2020-10-23] MEDS: Insulin LISPRO 300 UNITS/3 ML VIAL SUBQ SCH ×5 (08:07→20:02)
[2020-10-23] MEDS ORDERED: Famotidine 20 MG/2 ML VIAL IVP ONE (09:24)
[2020-10-23] MEDS ORDERED: Acetaminophen IV 1,000 MG/100 ML BAG IVPB ONE (09:24)
[2020-10-23] MEDS ORDERED: *HR* HYDROmorphone (PF) 1 MG/ML SYRINGE IVP PRN (09:24)
[2020-10-23] MEDS ORDERED: *HR* Labetalol 20 MG/4 ML SYRINGE IVP PRN (09:24)
[2020-10-23] MEDS ORDERED: *HR* OxyCODONE Immed Rel 5 MG TABLET PO PRN (09:24)
[2020-10-23] MEDS ORDERED: Pregabalin 75 MG CAPSULE PO ONE (09:24)
[2020-10-23] MEDS ORDERED: *HR* HYDROmorphone 2 MG TABLET PO PRN (09:24)
[2020-10-23] MEDS ORDERED: *HR* FentaNYL (PF) 100 MCG/2 ML VIAL ONE (09:39)
[2020-10-23] MEDS: Budesonide/Formoterol 160/4.5 1 PUFF INH IH SCH ×2 (09:43→22:12)
[2020-10-23] MEDS: FentaNYL (PF) 1,000 MCG/100 ML IV.SOLN IVC SCH ×3 (10:00→20:05)
[2020-10-23] MEDS: Midazolam HCl 50 MG/100 ML IV.SOLN IVC SCH ×3 (10:00→21:12)
[2020-10-23] MEDS: Cisatracurium 200 MG in 0.9 % Sodium Chloride 180 ML IVC SCH (10:40)
[2020-10-23 11:56] LABS: ABG Base Excess -7 mEq/L (-2 to 3); ABG HCO3 20 mEq/L (21-27); ABG Oxygen Saturation 100 % (95-98); ABG PCO2 46 mmHg (35-45); ABG PH 7.26 pH Units (7.32-7.45); ABG PO2 264 mmHg (85-104); ABG TCO2 22 mEq/L (20-26); Blood Gas VT 480 cc
[2020-10-23] MEDS: Vasopressin 40 UNIT in D5% in Water 100 ML IVC SCH (12:00)
[2020-10-23 13:17] LABS: Albumin 3.7 g/dL (3.5-5.7); Calcium 9.8 mg/dL (8.6-10.3); Phosphorous 4.5 mg/dL (2.7-4.5); Potassium 5.1 mEq/L (3.5-5.1)
[2020-10-23] MEDS: Norepinephrine 8 MG in 0.9 % Sodium Chloride 250 ML IVC SCH ×2 (14:30→22:15)
[2020-10-23] MEDS: Albumin 25% 25gram/100mL 25 GM/100 ML IV.SOLN IVC SCH ×2 (15:24→15:59)
[2020-10-23] MEDS: traZODone 50 MG TABLET PO SCH (19:25)
[2020-10-23] MEDS: Insulin DETEMIR 100 UNIT/ML X5UNITS SUBQ SCH (20:02)
[2020-10-23] MEDS ORDERED: Artificial Tears SOLN 15 ML BOTTLE BOTH EYES PRN (21:11)
[2020-10-23] MEDS: Artificial Tears SOLN 15 ML BOTTLE BOTH EYES SCH (23:44)
[2020-10-24] MEDS: Insulin LISPRO 300 UNITS/3 ML VIAL SUBQ SCH ×7 (00:03→23:33)
[2020-10-24] MEDS: FentaNYL (PF) 1,000 MCG/100 ML IV.SOLN IVC SCH ×4 (01:58→21:00)
[2020-10-24] MEDS: PrismaSATE BGK 4/2.5 5,000 ML CRRT SCH ×10 (03:09→23:33)
[2020-10-24] MEDS: Artificial Tears SOLN 15 ML BOTTLE BOTH EYES SCH ×6 (04:08→23:33)
[2020-10-24] MEDS: Midazolam HCl 50 MG/100 ML IV.SOLN IVC SCH (04:08)
[2020-10-24 04:19] LABS: ABG Base Excess -5 mEq/L (-2 to 3); ABG HCO3 22 mEq/L (21-27); ABG Oxygen Saturation 99 % (95-98); ABG PCO2 48 mmHg (35-45); ABG PH 7.27 pH Units (7.32-7.45); ABG PO2 136 mmHg (85-104); ABG TCO2 23 mEq/L (20-26); Blood Gas VT 500 cc
[2020-10-24 04:21] LABS: Mean Platelet Volume 10.6 fL (9.4-12.4)
[2020-10-24 04:22] LABS: Hematocrit 33.7 % (37.5-50.1); Hemoglobin 9.5 g/dL (12.9-16.9); Mean Corpuscular HGB Conc 28.2 g/dL (31.6-35.5); Mean Corpuscular Hemoglobin 28.3 pg (28.0-33.3); Mean Corpuscular Volume 100.3 fL (83.0-100.0); Platelet Count 357 K/mcL (140-400); Red Blood Count 3.36 M/mcL (4.19-5.50); Red Cell Distribution Width 16.9 % (11.5-14.5); White Blood Count 14.9 K/mcL (4.3-11.1)
[2020-10-24] MEDS: Vasopressin 40 UNIT in D5% in Water 100 ML IVC SCH ×2 (04:41→06:07)
[2020-10-24] MEDS: Dexmedetomidine HCl 400 MCG/100 ML MLS IVC SCH ×4 (06:07→21:25)
[2020-10-24] MEDS ORDERED: Vancomycin 1,500 MG/265 ML IV.SOLN IVPB ONE (07:00)
[2020-10-24] MEDS: Norepinephrine 8 MG in 0.9 % Sodium Chloride 250 ML IVC SCH ×2 (07:12→14:50)
[2020-10-24] MEDS: Piperacillin/Tazobactam 3.375 GM in 0.9 % Sodium Chloride Mini Bag 100 ML IVPB SCH ×3 (07:20→23:36)
[2020-10-24] MEDS: Loratadine 10 MG TABLET PO SCH (07:23)
[2020-10-24] MEDS: polyethylene glycoL 3350 17 GM POWD.PACK PO SCH (07:23)
[2020-10-24] MEDS: Sennosides 8.6 MG TABLET PO SCH (07:23)
[2020-10-24] MEDS: Cisatracurium 200 MG in 0.9 % Sodium Chloride 180 ML IVC SCH (07:24)
[2020-10-24] MEDS: Chlorhexidine Rinse 15 ML MOUTHWASH MM SCH ×2 (07:39→20:42)
[2020-10-24] MEDS: Dexamethasone Sodium Phos/PF 10 MG/ML VIAL IVP SCH (07:39)
[2020-10-24] MEDS: Heparin 25,000UNIT/250ML 1/2NS 25,000 UNIT/250 ML IV.SOLN IVC SCH (08:09)
[2020-10-24] MEDS: Budesonide/Formoterol 160/4.5 1 PUFF INH IH SCH ×2 (09:50→22:40)
[2020-10-24] MEDS: Pantoprazole 40 MG VIAL IVP SCH (10:27)
[2020-10-24] MEDS: Insulin DETEMIR 100 UNIT/ML X5UNITS SUBQ SCH ×2 (10:34→20:42)
[2020-10-24] MEDS: Norepinephrine 16 MG in 0.9 % Sodium Chloride 500 ML IVC SCH ×2 (17:00→22:00)
[2020-10-25] MEDS: Phenylephrine 50 MG in 0.9 % Sodium Chloride 250 ML IVC SCH ×2 (00:36→16:22)
[2020-10-25] MEDS: Dexmedetomidine HCl 400 MCG/100 ML MLS IVC SCH ×5 (00:55→15:12)
[2020-10-25] MEDS: Albumin 25% 25gram/100mL 25 GM/100 ML IV.SOLN IVPB ONE ×2 (01:36→02:15)
[2020-10-25] MEDS ORDERED: Albumin 25% 25gram/100mL 25 GM/100 ML IV.SOLN IVPB ONE (01:57)
[2020-10-25] MEDS: FentaNYL (PF) 1,000 MCG/100 ML IV.SOLN IVC SCH ×3 (03:08→14:24)
[2020-10-25 03:55] LABS: ABG Base Excess -9 mEq/L (-2 to 3); ABG HCO3 18 mEq/L (21-27); ABG Oxygen Saturation 94 % (95-98); ABG PCO2 43 mmHg (35-45); ABG PH 7.24 pH Units (7.32-7.45); ABG PO2 85 mmHg (85-104); ABG TCO2 20 mEq/L (20-26); Blood Gas Modality AF; Blood Gas VT 500 cc
[2020-10-25] MEDS: Artificial Tears SOLN 15 ML BOTTLE BOTH EYES SCH ×4 (04:12→15:13)
[2020-10-25] MEDS: Insulin LISPRO 300 UNITS/3 ML VIAL SUBQ SCH ×4 (04:12→16:18)
[2020-10-25 04:13] LABS: ABG Ionized Calcium 1.11 mmol/L (1.15-1.35)
[2020-10-25 04:15] LABS: Mean Platelet Volume 11.1 fL (9.4-12.4)
[2020-10-25 04:16] LABS: Hematocrit 33.7 % (37.5-50.1); Hemoglobin 9.6 g/dL (12.9-16.9); Mean Corpuscular HGB Conc 28.5 g/dL (31.6-35.5); Mean Corpuscular Hemoglobin 29.1 pg (28.0-33.3); Mean Corpuscular Volume 102.1 fL (83.0-100.0); Nucleated Red Blood Cells 2.6 /100 WBC (0); Platelet Count 284 K/mcL (140-400); White Blood Count 16.1 K/mcL (4.3-11.1)
[2020-10-25] MEDS: PrismaSATE BGK 4/2.5 5,000 ML CRRT SCH ×6 (04:18→16:47)
[2020-10-25 04:33] LABS: Calcium 10.3 mg/dL (8.6-10.3); Phosphorous 4.7 mg/dL (2.7-4.5); Potassium 4.8 mEq/L (3.5-5.1)
[2020-10-25 04:48] LABS: Eosinophils # 0.3 K/mcL (0.0-0.6); Lymphocytes # 1.9 K/mcL (0.6-4.6); Monocytes # 0.3 K/mcL (0.0-1.3); Neutrophils # 12.9 K/mcL (1.6-8.9)
[2020-10-25] MEDS: Midazolam HCl 50 MG/100 ML IV.SOLN IVC SCH (04:50)
[2020-10-25] MEDS ORDERED: *HR* Metoprolol 5 MG/5 ML VIAL IVP ONE (05:39)
[2020-10-25] MEDS: Norepinephrine 16 MG in 0.9 % Sodium Chloride 500 ML IVC SCH ×3 (07:39→17:09)
[2020-10-25] MEDS: Piperacillin/Tazobactam 3.375 GM in 0.9 % Sodium Chloride Mini Bag 100 ML IVPB SCH ×2 (07:40→15:14)
[2020-10-25] MEDS: Pantoprazole 40 MG VIAL IVP SCH (07:41)
[2020-10-25] MEDS: Chlorhexidine Rinse 15 ML MOUTHWASH MM SCH (07:42)
[2020-10-25] MEDS: Insulin DETEMIR 100 UNIT/ML X5UNITS SUBQ SCH (08:19)
[2020-10-25] MEDS ORDERED: Dexamethasone Sodium Phos/PF 10 MG/ML VIAL IVP SCH (09:00)
[2020-10-25] MEDS: Budesonide/Formoterol 160/4.5 1 PUFF INH IH SCH (09:06)
[2020-10-25] MEDS: Cisatracurium 200 MG in 0.9 % Sodium Chloride 180 ML IVC SCH (09:30)
[2020-10-25 12:52] LABS: Calcium 10.7 mg/dL (8.6-10.3); Phosphorous 4.8 mg/dL (2.7-4.5)
[2020-10-25] MEDS: Vasopressin 40 UNIT in D5% in Water 100 ML IVC SCH (14:24)
[2020-10-25 18:30] VITALS: BP 47/35
== END 2020-10-25 18:40 | disposition expired | DRG 208 ==
LOC: 2ANU 14:08 → EMEROOARM 14:08 → SUATTDRO 17:41 → 2ANU 17:44 → 3NENU 09-25 12:46 → ICNU 09-25 21:19 → SUATTDRO 09-26 15:31 → 3NENU 09-27 22:57 → ICNU 09-28 10:07 → 2ANU 10-01 22:50 → 2NNU 10-02 20:44 → 3NENU 10-10 11:06 → 2NNU 10-20 13:45 → 2NENU 10-20 20:55
PROVIDERS: ADMIT Internal Medicine; ATTEND Internal Medicine
PROC: IRPERMA (2020-10-08 12:00)